=== PATIENT | female | born 1950 | race African-American/Black ===

== ENCOUNTER 2019-06-18 21:11 | Emergency (ER) | payer MEDICARE ==
--- NOTE | 2019-06-18 21:24 | ER Document Report ---
ED Medical Screen (RME) - General Chief Complaint: Rectal Bleeding Stated Complaint: RECTAL BLEEDING Time Seen by Provider: 06/18/19 21:18 Mode of Arrival: Ambulatory Information source: Patient Notes: 68-year-old female presents to ED for rectal bleeding. She states this morning she had a stool that was dark with a lot of blood in the stool. She states later in the day she had another stool that had research biostatistician amount of blood in it and then tonight she had another dark stool with a lot of blood and that scared her so she came to the emergency room. She states she had a colonoscopy she t hinks it was last year and it was fine has never had blood in her stool before. He has a history of high blood pressure diabetes has had a hysterectomy and a surgery on her eyes as a child. She denies any nausea vomiting or abdominal pain. I have greeted and performed a rapid initial assessment of this patient. A comprehensive ED assessment and evaluation of the patient, analysis of test res ults and completion of medical decision making process will be conducted by an additional ED providers. Physical Exam - Vital signs Vitals: Temp Pulse Resp BP Pulse Ox 98.1 F 114 H 12 159/112 H 100 06/18/19 21:15 06/18/19 21:15 06/18/19 21:15 06/18/19 21:15 06/18/19 21:15 Course - Vital Signs Vital signs: Temp Pulse Resp BP Pulse Ox 98.1 F 114 H 12 159/112 H 100 06/18/19 21:15 06/18/19 21:15 06/18/19 21:15 06/18/19 21:15 06/18/19 21:15
[2019-06-18 22:21] LABS: ABSOLUTE BASOPHILS # (AUTO) 0.1 10^3/uL (0.0-0.2); ABSOLUTE EOSINOPHILS # (AUTO) 0.2 10^3/uL (0.0-0.6); ABSOLUTE MONOCYTES (AUTO) 0.5 10^3/uL (0.1-1.4); ABSOLUTE NEUT (AUTO) 4.7 10^3/uL (1.7-8.2); BASOPHILS % (AUTO) 0.7 % (0-2); EOSINOPHILS % (AUTO) 3.2 % (0-6); HEMATOCRIT 40.9 % (36.0-47.0); HEMOGLOBIN 13.9 g/dL (12.0-15.5); LYMPHOCYTES % (AUTO) 26.7 % (13-45); MEAN CORPUSCULAR HEMOGLOBIN 29.7 pg (27.0-33.4); MEAN CORPUSCULAR HGB CONC 34.1 g/dL (32.0-36.0); MEAN CORPUSCULAR VOLUME 87 fl (80-97); MONOCYTES % (AUTO) 6.6 % (3-13); PLATELET COUNT 244 10^3/uL (150-450); RED CELL DISTRIBUTION WIDTH 14.6 % (11.5-14.0); SEGMENTED NEUTROPHILS % (AUTO) 62.8 % (42-78); TOTAL CELLS COUNTED % (AUTO) 100 %; WHITE BLOOD COUNT 7.5 10^3/uL (4.0-10.5)
[2019-06-18 22:27] LABS: APPEARANCE,URINE SLIGHTLY-CLOUDY; BILIRUBIN,URINE NEGATIVE (NEGATIVE); COLOR,URINE YELLOW; GLUCOSE, URINE NEGATIVE (NEGATIVE); KETONES,URINE NEGATIVE (NEGATIVE); PROTEIN,URINE NEGATIVE (NEGATIVE); URINE SPECIFIC GRAVITY 1.023; UROBILINOGEN,URINE NEGATIVE mg/dL (<2.0)
[2019-06-18 22:32] LABS: INTERNATIONAL RATION (INR) 1.04; PROTHROMBIN TIME 13.6 SEC (11.4-15.4)
[2019-06-18 22:33] LABS: PARTIAL THROMBOPLASTIN TIME 30.2 SEC (23.5-35.8)
[2019-06-18] MEDS ORDERED: NORMAL SALINE 1000 ML 1,000 ML IV ONE (22:38)
--- NOTE | 2019-06-18 22:44 | ER Document Report ---
ED General - General Chief Complaint: Rectal Bleeding Stated Complaint: RECTAL BLEEDING Time Seen by Provider: 06/18/19 21:18 Mode of Arrival: Ambulatory - HPI Notes: Patient is a 68-year-old female who presents the emergency department for evaluation of rectal bleeding. Patient states she woke this morning, thought she was going to have some diarrhea. She had a large bowel movement that was dark in color, loose, with bright red blood. She denied any associated pain with it. She states she had a second bowel movement later in the afternoon with less blood, and the stool was formed, not as dark. She had a third bowel movement later in the evening but she states again had a large amount of dark red blood and loose stool. She states she did have some minimal left-sided abdominal pain associated with this. She really cannot describe it for me. No chantel fevers or chills. No nausea or vomiting. She had a colonoscopy 1 to 2 years ago. She states she was told there were no significant abnormalities. - Related Data Allergies/Adverse Reactions: Penicillins Adverse Reaction (Verified 06/18/19 21:24) Home Medications: Losartan, unknown dose daily, aspirin 325 mg as needed Past Medical History - General Information source: Patient - Social History Smoking Status: Never Smoker Chew tobacco use (# tins/day): No Frequency of alcohol use: None Drug Abuse: None Family History: Reviewed & Not Pertinent Patient has suicidal ideation: No Patient has homicidal ideation: No - Past Medical History Cardiac Medical History: Reports: Hx Hypertension Review of Systems - Review of Systems Constitutional: No symptoms reported EENT: No symptoms reported Cardiovascular: No symptoms reported Respiratory: No symptoms reported Gastrointestinal: See HPI Genitourinary: No symptoms reported Musculoskeletal: No symptoms reported Skin: No symptoms reported Neurological/Psychological: No symptoms reported Physical Exam - Vital signs Vitals: Temp Pulse Resp BP Pulse Ox 98.1 F 114 H 12 159/112 H 100 06/18/19 21:15 06/18/19 21:15 06/18/19 21:15 06/18/19 21:15 06/18/19 21:15 - Notes Notes: Vital signs reviewed, please refer to chart. Head is normocephalic, atraumatic. Pupils equal round, reactive to light. Neck is supple without meningismus. Heart is regular rate and rhythm. Lungs are clear to auscultation bilaterally. Abdomen is soft, moderate tenderness in the left mid to lower quadrants without rebound or guarding, normoactive bowel sounds throughout. Extremities without cyanosis, clubbing. Posterior calves are nontender. Peripheral pulses are equal. Skin is warm and dry. Patient is awake, alert, neurological exam is nonfocal. Course - Re-evaluation Re-evalutation: 06/18/19 22:43 Patient presents emergency department for evaluation of rectal bleeding. She is mildly tachycardic on arrival. She had blood work ordered, including coags. CT scan of the abdomen and pelvis ordered secondary to tenderness and bleeding. She is given IV fluids. We will continue to monitor. 06/19/19 02:43 Patient remained stable throughout the course of her stay. Serial abdominal exams are benign. She did provide a stool sample which was in fact found to be heme negative. CT scan revealed only diverticulosis. Her hemoglobin is stable. Patient had a colonoscopy 2 years ago. At this point I feel comfortable with the patient being discharged to home. She denies any melena, has had no further hematochezia here. Patient feels comfortable with the idea of discharge. To the patient if she had any further bloody bowel movements she needs to return, and she voiced understanding. She is to return to the ED with worsening. - Vital Signs Vital signs: Temp Pulse Resp BP Pulse Ox 98.1 F 107 H 17 155/110 H 99 06/18/19 21:15 06/18/19 21:23 06/18/19 22:18 06/18/19 21:23 06/18/19 22:18 - Laboratory Result Diagrams: 06/18/19 21:50 06/18/19 21:50 Laboratory results interpreted by me: 06/18/19 06/18/19 06/18/19 21:50 21:50 21:50 RDW 14.6 H Glucose 156 H Urine Blood SMALL H - Diagnostic Test Radiology reviewed: Reports reviewed Radiology results interpreted by me: 06/19/19 02:44 06/18/19 21:50 06/18/19 21:50 MCV 87 fl (80-97) 06/18/19 21:50 MCH 29.7 pg (27.0-33.4) 06/18/19 21:50 MCHC 34.1 g/dL (32.0-36.0) 06/18/19 21:50 RDW 14.6 % (11.5-14.0) H 06/18/19 21:50 Seg Neutrophils % 62.8 % (42-78) 06/18/19 21:50 Chloride 103 mmol/L (98-107) 06/18/19 21:50 Carbon Dioxide 28 mmol/L (22-30) 06/18/19 21:50 Anion Gap 9 (5-19) 06/18/19 21:50 Est GFR ( Amer) > 60 (>60) 06/18/19 21:50 Glucose 156 mg/dL (75-110) H 06/18/19 21:50 Calcium 9.5 mg/dL (8.4-10.2) 06/18/19 21:50 Total Bilirubin 0.5 mg/dL (0.2-1.3) 06/18/19 21:50 AST 29 U/L (14-36) 06/18/19 21:50 Alkaline Phosphatase 94 U/L (38-126) 06/18/19 21:50 Total Protein 7.7 g/dL (6.3-8.2) 06/18/19 21:50 Albumin 4.5 g/dL (3.5-5.0) 06/18/19 21:50 Lipase 138.0 U/L (23-300) 06/18/19 21:50 Urine Color YELLOW 06/18/19 21:50 Urine Appearance SLIGHTLY-CLOUDY 06/18/19 21:50 Urine pH 5.0 (5.0-9.0) 06/18/19 21:50 Ur Specific [place] 1.023 06/18/19 21:50 Urine Protein NEGATIVE mg/dL (NEGATIVE) 06/18/19 21:50 Urine Glucose (UA) NEGATIVE mg/dL (NEGATIVE) 06/18/19 21:50 Urine Ketones NEGATIVE mg/dL (NEGATIVE) 06/18/19 21:50 Urine Blood SMALL (NEGATIVE) H 06/18/19 21:50 Urine RBC (Auto) 0 /HPF 06/18/19 21:50 Blood Type A POSITIVE 06/18/19 21:50 Antibody Screen NEGATIVE 06/18/19 21:50 Abdomen/Pelvis CT 06/18/19 22:37 IMPRESSION: Extensive distal colonic diverticulosis without definite diverticulitis. Discharge - Discharge Clinical Impression: Rectal bleeding, Diverticulosis of colon Condition: Stable Disposition: HOME, SELF-CARE Instructions: Rectal Bleeding, Unclear Cause ([facility]) Additional Instructions: Follow-up with your primary care provider on Friday. If you have another episode of bleeding, or you develop new or concerning symptoms of any sort, please return immediately to the emergency department for evaluation.
[2019-06-18 22:48] LABS: ALBUMIN 4.5 g/dL (3.5-5.0); ALKALINE PHOSPHATASE 94 U/L (38-126); ANION GAP 9 (5-19); ASPARTATE AMINO TRANSFERASE 29 U/L (14-36); BILIRUBIN,DIRECT 0.2 mg/dL (0.0-0.4); BILIRUBIN,TOTAL 0.5 mg/dL (0.2-1.3); BLOOD UREA NITROGEN 16 mg/dL (7-20); CALCIUM 9.5 mg/dL (8.4-10.2); CARBON DIOXIDE 28 mmol/L (22-30); CHLORIDE 103 mmol/L (98-107); GLUCOSE 156 mg/dL (75-110); TOTAL PROTEIN 7.7 g/dL (6.3-8.2)
--- NOTE | 2019-06-18 23:54 | RADIOLOGY REPORT (SQ) ---
CLINICAL HISTORY: rectal bleeding, abdominal tenderness COMPARISON: None. TECHNIQUE: CT ABDOMEN PELVIS WITH IV CONTRAST on 06/18/2019 10:37 PM CDT This exam was performed according to our departmental dose-optimization program, which includes automated exposure control, adjustment of the mA and/or kV according to patient size and/or use of iterative reconstruction technique. FINDINGS: Lower lungs are clear. Abdomen: There are several small cysts within the right lobe of the liver. There is no biliary dilatation. Gallbladder is normal in appearance. The pancreas and spleen are normal in appearance. The adrenal glands and kidneys are unremarkable. Abdominal aorta is normal in course and caliber without aneurysm. There is no free air. There is no retroperitoneal adenopathy. Pelvis: There is severe diverticulosis of the distal colon. There is moderate amount stool throughout the colon. Urinary bladder is unremarkable. There is no free fluid. Hysterectomy was performed. Appendix is normal. Skeleton: There are no acute osseous findings. No suspicious bony lesions. IMPRESSION: Extensive distal colonic diverticulosis without definite diverticulitis.
[2019-06-19 02:56] VITALS: BP 144/105
== END 2019-06-19 02:55 | disposition home or self-care (01) ==
LOC: ER 21:11
DX: K62.5 Hemorrhage of anus and rectum (principal); K57.30 Diverticulosis of large intestine without perforation or abscess without bleeding; R19.4 Change in bowel habit; R10.9 Unspecified abdominal pain; R10.814 Left lower quadrant abdominal tenderness; R00.0 Tachycardia, unspecified; I10 Essential (primary) hypertension; Z79.899 Other long term (current) drug therapy
CPT/HCPCS: 86900; 86901; 36415; 86850; 83690; 85025; 85610; 85730; 80053; 81001; 74177; J7030; 96360; 96361; 99284

== ENCOUNTER → 2019-10-15 | Outpatient (CLI) | payer MEDICARE | LOC: WI 15:30 | PROVIDERS: ATTEND Family Medicine | DX: Z12.31 Encounter for screening mammogram for malignant neoplasm of breast (principal) | CPT/HCPCS: 77063; 77067 ==

== ENCOUNTER 2019-11-21 13:57 | Inpatient (IN) | payer MEDICARE ==
[2019-11-21 14:41] LABS: ABSOLUTE LYMPHOCYTES (AUTO) 0.7 10^3/uL (0.5-4.7); ABSOLUTE MONOCYTES (AUTO) 0.4 10^3/uL (0.1-1.4); ABSOLUTE NEUT (AUTO) 5.5 10^3/uL (1.7-8.2); BASOPHILS % (AUTO) 0.1 % (0-2); EOSINOPHILS % (AUTO) 0.1 % (0-6); HEMATOCRIT 41.1 % (36.0-47.0); HEMOGLOBIN 14.3 g/dL (12.0-15.5); LYMPHOCYTES % (AUTO) 9.8 % (13-45); MEAN CORPUSCULAR HEMOGLOBIN 28.8 pg (27.0-33.4); MEAN CORPUSCULAR HGB CONC 34.7 g/dL (32.0-36.0); MEAN CORPUSCULAR VOLUME 83 fl (80-97); MONOCYTES % (AUTO) 6.6 % (3-13); PLATELET COUNT 198 10^3/uL (150-450); RED BLOOD COUNT 4.95 10^6/uL (3.72-5.28); RED CELL DISTRIBUTION WIDTH 14.1 % (11.5-14.0); SEGMENTED NEUTROPHILS % (AUTO) 83.4 % (42-78); TOTAL CELLS COUNTED % (AUTO) 100 %; WHITE BLOOD COUNT 6.6 10^3/uL (4.0-10.5)
[2019-11-21 14:56] LABS: ALBUMIN 3.8 g/dL (3.5-5.0); ALKALINE PHOSPHATASE 78 U/L (38-126); ANION GAP 8 (5-19); ASPARTATE AMINO TRANSFERASE 81 U/L (14-36); BILIRUBIN,DIRECT 0.1 mg/dL (0.0-0.4); BILIRUBIN,TOTAL 0.9 mg/dL (0.2-1.3); BLOOD UREA NITROGEN 16 mg/dL (7-20); CALCIUM 8.5 mg/dL (8.4-10.2); CARBON DIOXIDE 28 mmol/L (22-30); CHLORIDE 98 mmol/L (98-107); GLUCOSE 196 mg/dL (75-110); POTASSIUM 4.2 mmol/L (3.6-5.0); TOTAL PROTEIN 7.1 g/dL (6.3-8.2)
[2019-11-21 15:02] LABS: A TYPE INFLUENZA AG NEGATIVE (NEGATIVE); B INFLUENZA AG NEGATIVE (NEGATIVE)
[2019-11-21] MEDS ORDERED: ACETAMINOPHEN 325 MG TABLET PO ONE (15:03)
[2019-11-21] MEDS ORDERED: TERBUTALINE SULFATE INJ/PF 1 MG/1 ML SDV SUBCUT ONE (15:03)
[2019-11-21] MEDS ORDERED: NORMAL SALINE 1000 ML 1,000 ML IV ONE (15:05)
--- NOTE | 2019-11-21 15:07 | ER Document Report ---
ED Dizziness/Weakness - General Chief Complaint: Weakness Stated Complaint: SHORTNESS OF BREATH Time Seen by Provider: 11/21/19 14:50 Primary Care Provider: NY LANDON MD [Primary Care Provider] - Follow up as needed Notes: Patient is a 69-year-old female who presents the emergency department with weakness and shortness of breath. Patient has a history of asthma and hypertension. She is currently on losartan and albuterol as needed. She states that she went to [place] for and flew back 2 days ago. This is during the COVID 19 pandemic. Patient states that she has been using her albuterol inh aler, but has had little relief. Last time she used her albuterol inhaler was yesterday. Patient reports feeling "rundown." TRAVEL OUTSIDE OF THE [place] IN LAST 30 DAYS: No - Related Data Allergies/Adverse Reactions: Penicillins Adverse Reaction (Verified 06/18/19 21:24) Home Medications: pt states that she is on metformin and "others for my cholesterol and high blood pressure but I dont remember the names". Past Medical History - General Information source: Patient - Social History Smoking Status: Unknown if Ever Smoked Family History: Reviewed & Not Pertinent Patient has suicidal ideation: No Patient has homicidal ideation: No - Past Medical History Cardiac Medical History: Reports: Hx Hypertension Review of Systems - Review of Systems Notes: REVIEW OF SYSTEMS: CONSTITUTIONAL : Denies recent illness. Denies recent unintentional weight loss. Denies fever, chills, or sweats. EENT: Denies eye, ear, throat, or mouth pain, discharge, or symptoms. Denies nasal or sinus congestion. CARDIOVASCULAR: Denies chest pain. RESPIRATORY: See HPI. GASTROINTESTINAL: Denies nausea, vomiting, and diarrhea. Denies abdominal pain. Denies constipation. GENITOURINARY: Denies difficulty urinating, burning, blood in urine, urgency or frequency. MUSCULOSKELETAL: Denies neck and back pain. Denies joint pain or swelling. SKIN: Denies rash, itchiness, or lesions HEMATOLOGIC : Denies easy bruising or bleeding. LYMPHATIC: Denies swollen, painful, enlarged glands. NEUROLOGICAL: See HPI. PSYCHIATRIC: Denies stress, anxiety, alteration in sleep patterns, or depression. All other systems reviewed and negative. Physical Exam - Vital signs Vitals: Resp Pulse Ox 22 H 95 11/21/19 13:58 11/21/19 13:58 - Notes Notes: PHYSICAL EXAMINATION: GENERAL: Appears well, healthy, well-nourished, no acute distress. HEAD: Normocephalic, atraumatic. EYES: PERRL, conjunctiva normal, all extraocular movements intact, sclera nonicteric ENT: Moist mucous membranes. NECK: Supple, no noticeable swelling, redness, rash. Normal range of motion. LUNGS: Diminished breath sounds in the bases. CARDIOVASCULAR: S1-S2, regular rate, regular rhythm. Radial pulses 2+, normal. ABDOMEN: Normoactive bowel sounds. Soft, nontender, no guarding, no rebound tenderness, and no masses palpated. EXTREMITIES: Normal strength and range of motion, no pitting or edema. No cyanosis. NEUROLOGICAL: Moves all extremities upon command. Strength 5/5 in all extremities. PSYCH: Normal mood, normal affect. SKIN: Warm, dry. No rash, lesions, ulcerations noted. Normal skin turgor. Course - Re-evaluation Re-evalutation: 11/21/19 16:00 Patient's hematology does not show leukocytosis, but she does have a left shift with 83.4% neutrophils and only 9.8 lymphocytes. Chemistries show a sodium of 134.4. Patient received IV fluids. AST and ALT are elevated, most likely due to fatty liver disease. Strep and influenza test are negative. Chest x-ray shows possible pulmonary edema, infectious, or viral etiology. BNP is normal, indicating this is most likely not congestive heart failure. Patient will be sent for CTA of the chest to also rule out pulmonary emboli, as the patient is tachycardic. 11/21/19 17:31 I was called by Dr. Brooks, the radiologist. She reports to me that the patient has groundglass opacities, consistent with most likely COVID 19. Will call the hospitalist for admission, as the patient is still tachycardic. 11/21/19 17:38 I discussed this case with Dr. Patino, the hospitalist, and the patient will be admitted to the medical COVID unit. - Vital Signs Vital signs: Temp Pulse Resp BP Pulse Ox 98.9 F 23 H 128/80 H 100 11/21/19 16:31 11/21/19 16:01 11/21/19 16:01 11/21/19 16:01 - Laboratory Result Diagrams: 11/21/19 14:00 11/21/19 14:00 Laboratory results interpreted by me: 11/21/19 11/21/19 14:00 14:00 RDW 14.1 H Lymph % (Auto) 9.8 L Seg Neutrophils % 83.4 H Sodium 134.4 L Glucose 196 H AST 81 H ALT 44 H - EKG Interpretation by Me Additional EKG results interpreted by me: 11/21/19 15:35 Sinus tachycardia. Rate 101. OH 136; QRS 86; QT 352; QTc 457. No ST elev ations or depressions noted. Discharge - Discharge Clinical Impression: Shortness of breath, Weakness Condition: Stable Disposition: ADMITTED INPATIENT Admitting Provider: [facility] Unit Admitted: Medical Floor - COVID unit Referrals: NY LANDON MD [Primary Care Provider] - Follow up as needed
--- NOTE | 2019-11-21 16:04 | RADIOLOGY REPORT (SQ) ---
EXAM DESCRIPTION: CHEST SINGLE VIEW IMAGES COMPLETED DATE/TIME: 11/21/2019 2:39 pm REASON FOR STUDY: shortness of breath COMPARISON: None. EXAM PARAMETERS: NUMBER OF VIEWS: One view. TECHNIQUE: Single frontal radiographic view of the chest acquired. RADIATION DOSE: NA LIMITATIONS: None. FINDINGS: LUNGS AND PLEURA: Patchy peripheral opacities in both lungs in the mid to lower region. N o pleural effusion or pneumothorax. MEDIASTINUM AND HILAR STRUCTURES: No masses. Contour normal. HEART AND VASCULAR STRUCTURES: Heart has normal size. There is indistinctness the pulmonary vasculat ure with may represent mild pulmonary edema. BONES: No acute findings. HARDWARE: None in the chest. OTHER: No other significant finding. IMPRESSION: Possible mild pulmonary edema. Patchy peripheral opacities suspicious for infectious/in flammatory process. TECHNICAL DOCUMENTATION: JOB ID: [id number] 2010 [employer]- All Rights Reserved Reading location - IP/workstation name: [email or web address]
[2019-11-21] MEDS ORDERED: AZITHROMYCIN INJ 500 MG VIAL IV ONE (16:43)
--- NOTE | 2019-11-21 17:22 | RADIOLOGY REPORT (SQ) ---
EXAM DESCRIPTION: CTA CHEST IMAGES COMPLETED DATE/TIME: 11/21/2019 3:56 pm REASON FOR STUDY: SOB; please also eval findings on x-ray. Patchy peripheral opacities were seen on radiograph. COMPARISON: None. TECHNIQUE: CT scan of the chest performed using helical scanning technique with dynamic intravenous contrast injection. Images reviewed with lung, soft tissue and bone windows. Reconstructed coronal and sagittal MPR images reviewed. Additional 3 dimensional post-processing performed to develop Maximal Intensity Projection images (TX P). All images stored on PACS. All CT scanners at this facility use dose modulation, iterative reconstruction, and/or weight based d osing when appropriate to reduce radiation dose to as low as reasonably achievable (ALARA). [facility]: Dose Right [facility]: CareDose [facility]: Dose Right [facility]: Teradose 4D [facility]: Unii CONTRAST TYPE AND DOSE: contrast/concentration: Isovue 350.00 mg/ml; Total Contrast Delivered: 63.0 ml; Total Saline Delivered: 80.0 ml Contrast bolus optimized for the pulmonary arteries. Not diagnostic for the aorta. RENAL FUNCTION: GFR > 60. RADIATION DOSE: CT Rad equipment meets quality standard of care and radiation dose reduction techniq ues were employed. CTDIvol: 14.3 - 19.8 mGy. DLP: 414 mGy-cm. . LIMITATIONS: None. FINDINGS: LUNGS AND PLEURA: There are patchy peripheral and perihilar ground-glass opacities in the upper and lower lobes bilaterally. No pleural effusion. No pneumothorax. AORTA AND GREAT VESSELS: Aorta has normal caliber and appearance. No aortic dissection. Great vesse ls are patent. HEART: No pericardial effusion. No significant coronary artery calcifications. PULMONARY ARTERIES: Limited evaluation of the pulmonary arteries due to contrast bolus timing. No la rge central pulmonary embolism. Evaluation of the segmental and subsegmental pulmonary arteries is e xtremely limited. HILAR AND MEDIASTINAL STRUCTURES: No mediastinal or hilar adenopathy. Perihilar opacities correspond to the findings on radiograph. HARDWARE: None in the chest. UPPER ABDOMEN: Hepatic cysts. THYROID AND OTHER SOFT TISSUES: No masses. No adenopathy. BONES: No acute or significant finding. 3D MIPS: Confirm above findings. OTHER: No other significant finding. IMPRESSION: 1. Patchy peripheral and perihilar ground-glass opacities in both lungs. These are commonly reported imaging features of COVID-19 pneumonia are present. Other processes such as influenza pneumonia an d organizing pneumonia, as can be seen with drug toxicity and connective tissue disease, can cause a similar imaging pattern. PneTyp 2. Limited evaluation of the pulmonary arteries due to contrast bolus timing. No large central pulmo nary embolus. Evaluation of the segmental and subsegmental pulmonary arteries is limited. COMMENT: Quality ID # [id number]: Final reports with documentation of one or more dose reduction techniques (e.g., Automated exposure control, adjustment of the mA and/or kV according to patient size, use of iterative reconstruction technique) TECHNICAL DOCUMENTATION: JOB ID: [id number] 2010 [employer]- All Rights Reserved Reading location - IP/workstation name: [email or web address]
[2019-11-21] MEDS ORDERED: ZINC SULFATE 220 MG CAPSULE PO ONE (17:40)
[2019-11-21] MEDS ORDERED: VANCOMYCIN HCL INJ 1000 MG VIAL IV ONE (18:45)
[2019-11-21] MEDS: ASCORBIC ACID 500 MG TABLET PO SCH (18:57)
[2019-11-21] MEDS ORDERED: ONDANSETRON 4 MG TAB.RAPDIS PO PRN (19:12)
[2019-11-21] MEDS ORDERED: ONDANSETRON HCL INJ/PF 4 MG/2 ML SDV IV PRN (19:12)
[2019-11-21] MEDS ORDERED: ALBUTEROL SULFATE HFA (90 MCG/PUFF) 8 GM MDI IH PRN (19:19)
--- NOTE | 2019-11-21 19:33 | PDOC H&P ---
History of Present Illness Admission Date/PCP: 11/21/19 17:47 [place] LANDON MD History of Present Illness: ANAMIKA ACEVES is a 69 year old female with past medical history as noted who presented to ED after 4-day history of progressive fever/chills/shortness of breath/dry cough/fatigue/generalized weakness/loose stools which began while she was in [place] visiting with family for her brother's , stating she flew out on 10/31 and returned on 11/17, notably symptomatic prior to her departure. She denies any knowledge that her family members or other people around her have also been ill. She states the airport did not offer her any difficulties in accomplishing this travel despite restrictions nationwide. In ED, patient notably has low-grade fevers, tachycardia, tachypnea, shortness of breath, lymphopenia with normal WBC, tolerating room air without supplemental oxygen. CTA of chest was done which was significant for multifocal pneumonia and radiologist specifically mentioned patient results highly consistent with covid- 19 pneumonia. Patient admitted to coronavirus floor and I personally updated nursing staff but anticipates her arrival so that they may prepare therapy PPE appropriately. I also notified the nursing printing supervisor and the local steam distribution supervisor that they should reevaluate any low risk patients on the coronavirus floor that could be moved elsewhere or discharged. Past Medical History Cardiac Medical History: Reports: Hypertension Pulmonary Medical History: Reports: Asthma Endocrine Medical History: Reports: Diabetes Mellitus Type 2 Past Surgical History Past Surgical History: Reports: None Social History Information Source: Patient, Emergency Med Personnel Lives with: Alone Smoking Status: Never Smoker Electronic Cigarette use?: No Frequency of Alcohol Use: None Hx Recreational Drug Use: No Hx Prescription Drug Abuse: No - Advance Directive Resuscitation Status: Full Code Surrogate healthcare decision maker:: daughter Family History Family History: Reviewed & Not Pertinent, CVA, Malignancy Parental Family History Reviewed: Yes Children Family History Reviewed: Yes Sibling(s) Family History Reviewed.: Yes Medication/Allergy Home Medications: Aspirin [Aspirin 325 mg Tablet] 325 mg PO DAILY PRN 06/18/19 Losartan Potassium 1 tab PO DAILY 06/18/19 Allergies/Adverse Reactions: Penicillins Adverse Reaction (Verified 06/18/19 21:24) Review of Systems All systems: reviewed and no additional remarkable complaints except as stated - See HPI for full review of systems, otherwise negative Constitutional: PRESENT: as per HPI Physical Exam Vital Signs: Temp Pulse Resp BP Pulse Ox 98.3 F 16 161/102 H 98 11/21/19 19:10 11/21/19 19:01 11/21/19 19:01 11/21/19 19:01 Intake & Output 11/20/19 11/21/19 11/22/19 06:59 06:59 06:59 Intake Total 1000 Balance 1000 Weight 85.729 kg General appearance: PRESENT: no acute distress, well-developed, well-nourished Head exam: PRESENT: atraumatic, normocephalic Eye exam: PRESENT: conjunctiva pink Mouth exam: PRESENT: moist Respiratory exam: PRESENT: crackles, rhonchi, tachypnea, unlabored. ABSENT: accessory muscle use, wheezes Cardiovascular exam: PRESENT: RRR. ABSENT: diastolic murmur, rubs, systolic murmur GI/Abdominal exam: PRESENT: normal bowel sounds, soft. ABSENT: distended, guarding, mass, organolmegaly, rebound, tenderness Rectal exam: PRESENT: deferred Neurological exam: PRESENT: alert, awake, oriented to person, oriented to place, oriented to time, oriented to situation Psychiatric exam: PRESENT: appropriate affect, normal mood Skin exam: PRESENT: dry, intact, warm Results Laboratory Results: 11/21/19 14:00 11/21/19 14:00 11/21/19 11/21/19 11/21/19 14:00 14:00 17:50 WBC 6.6 RBC 4.95 Hgb 14.3 Hct 41.1 MCV 83 MCH 28.8 MCHC 34.7 RDW 14.1 H Plt Count 198 Seg Neutrophils % 83.4 H Sodium 134.4 L Potassium 4.2 Chloride 98 Carbon Dioxide 28 Anion Gap 8 BUN 16 Creatinine 0.75 Est GFR ( Amer) > 60 Glucose 196 H Calcium 8.5 Ferritin 641.00 H Total Bilirubin 0.9 AST 81 H Alkaline Phosphatase 78 Total Protein 7.1 Albumin 3.8 11/21/19 14:00 NT-Pro-B Natriuret Pep 32 Impressions: Chest X-Ray 11/21/19 15:03 IMPRESSION: Possible mild pulmonary edema. Patchy peripheral opacities suspicious for infectious/inflammatory process. Chest/Abdomen CTA 11/21/19 16:08 IMPRESSION: 1. Patchy peripheral and perihilar ground-glass opacities in both lungs. These are commonly reported imaging features of COVID-19 pneumonia are present. Other processes such as influenza pneumonia and organizing pneumonia, as can be seen with drug toxicity and connective tissue disease, can cause a similar imaging pattern. PneTyp 2. Limited evaluation of the pulmonary arteries due to contrast bolus timing. No large central pulmonary embolus. Evaluation of the segmental and subse gmental pulmonary arteries is limited. Assessment and Plan - Diagnosis (1) Suspected COVID-19 virus infection Is this a current diagnosis for this admission?: Yes Plan: High risk based on recent travel symptomatology and CT results Coronavirus test sent and pending Started on azithromycin and multiple supplements, consider adding Plaquenil at the first sign of worsening (2) Multifocal pneumonia Is this a current diagnosis for this admission?: Yes Plan: Ceftriaxone/azithromycin for antibiotic coverage; confirmed with patient that she is not in fact penicillin allergic Bronchial hygiene No nebulizer treatments or positive pressure should be used until coronavirus is ruled out Respiratory viral panel pending Influenza negative Coronavirus test pending (3) Sepsis Is this a current diagnosis for this admission?: Yes Plan: Eating drinking normally and hemodynamically stable on admission We will hold on IV fluids as this may significantly worsen ARDS if patient develops this later in the course of coronavirus assuming she has it Does not require pressors Antibiotics as above (4) T2DM (type 2 diabetes mellitus) Qualifiers: Diabetes mellitus superintendent terminal insulin use: without superintendent terminal use Diabetes mellitus complication status: without complication Qualified Code(s): E11.9 - Type 2 diabetes mellitus without complications Is this a current diagnosis for this admission?: Yes Plan: Low-dose correctional insulin and Accu-Cheks Hold orals (5) HLD (hyperlipidemia) Is this a current diagnosis for this admission?: Yes Plan: Not on statin per patient (6) HTN (hypertension) Is this a current diagnosis for this admission?: Yes Plan: Hold home meds, normal BP (7) Fever Is this a current diagnosis for this admission?: Yes (8) Acute hypoxemic respiratory failure Is this a current diagnosis for this admission?: Yes Plan: Intermittently requiring supplemental oxygen Oxygen goal is 92% or higher - Time Time Spent with patient: 35 or more minutes Medications reviewed and adjusted accordingly: Yes - Inpatient Certification Based on my medical assessment, after consideration of the patient's comorbidities, presenting symptoms, or acuity I expect that the services needed warrant INPATIENT care.: Yes I certify that my determination is in accordance with my understanding of Medicare's requirements for reasonable and necessary INPATIENT services [42 CFR 412.3e].: Yes Medical Necessity: Significant Comorbidiites Make Outpatient Treatment Too Risky, Need Close Monitoring Due to Risk of Patient Decompensation, Need for IV Antibiotics, Risk of Complication if Not Cared For in Hospital
--- NOTE | 2019-11-21 19:33 | ADVANCED CARE ---
- Diagnosis (1) Suspected COVID-19 virus infection Diagnosis Current: Yes (2) Multifocal pneumonia Diagnosis Current: Yes (3) Sepsis Diagnosis Current: Yes (4) T2DM (type 2 diabetes mellitus) Diagnosis Current: Yes (5) HLD (hyperlipidemia) Diagnosis Current: Yes (6) HTN (hypertension) Diagnosis Current: Yes (7) Fever Diagnosis Current: Yes (8) Acute hypoxemic respiratory failure Diagnosis Current: Yes Attendance: Patient Resuscitation Status: Full Code Discussion: All aspects of CODE STATUS including cardioversion, chest compressions, intubation were discussed and patient states she would like to be full code. She designates her daughter Dolly Edwards as her M POA Time Spent: 17 minutes
[2019-11-21] MEDS ORDERED: ZINC SULFATE 220 MG CAPSULE ONE (21:11)
[2019-11-21] MEDS: INSULIN LISPRO 100 UNIT/ML 3 ML VIAL SUBCUT SCH (21:14)
[2019-11-21] MEDS: MELATONIN 3 MG TABLET PO SCH (21:16)
[2019-11-21] MEDS ORDERED: CEFTRIAXONE 2 GM/D5W RTU 2 GM/50 ML RTUPB IV SCH (22:00)
--- NOTE | 2019-11-22 00:13 | EKG REPORT ---
SEVERITY:- ABNORMAL ECG - SINUS TACHYCARDIA PROBABLE LEFT ATRIAL ABNORMALITY LEFT ANTERIOR FASCICULAR BLOCK PROBABLE LEFT VENTRICULAR HYPERTROPHY ABNORMAL T, CONSIDER ISCHEMIA, INFERIOR LEADS : Confirmed by: Jina Dow 22-Nov-2019 00:12:24
[2019-11-22] MEDS: ACETAMINOPHEN 325 MG TABLET PO PRN ×4 (03:41→23:13)
[2019-11-22] MEDS: GUAIFENESIN SYRP 200 MG/10 ML UDC PO PRN (04:02)
[2019-11-22 05:55] LABS: ABSOLUTE LYMPHOCYTES (AUTO) 0.5 10^3/uL (0.5-4.7); ABSOLUTE MONOCYTES (AUTO) 0.3 10^3/uL (0.1-1.4); ABSOLUTE NEUT (AUTO) 4.9 10^3/uL (1.7-8.2); BASOPHILS % (AUTO) 0.2 % (0-2); EOSINOPHILS % (AUTO) 0.1 % (0-6); HEMATOCRIT 35.6 % (36.0-47.0); HEMOGLOBIN 12.6 g/dL (12.0-15.5); LYMPHOCYTES % (AUTO) 9.3 % (13-45); MEAN CORPUSCULAR HEMOGLOBIN 29.2 pg (27.0-33.4); MEAN CORPUSCULAR HGB CONC 35.5 g/dL (32.0-36.0); MEAN CORPUSCULAR VOLUME 82 fl (80-97); MONOCYTES % (AUTO) 5.6 % (3-13); PLATELET COUNT 206 10^3/uL (150-450); RED BLOOD COUNT 4.33 10^6/uL (3.72-5.28); RED CELL DISTRIBUTION WIDTH 14.2 % (11.5-14.0); SEGMENTED NEUTROPHILS % (AUTO) 84.8 % (42-78); TOTAL CELLS COUNTED % (AUTO) 100 %; WHITE BLOOD COUNT 5.8 10^3/uL (4.0-10.5)
[2019-11-22] MEDS ORDERED: VANCOMYCIN HCL INJ 1000 MG VIAL IV SCH ×2 (06:00→16:30)
[2019-11-22 06:14] LABS: ALBUMIN 3.1 g/dL (3.5-5.0); ALKALINE PHOSPHATASE 64 U/L (38-126); ANION GAP 5 (5-19); ASPARTATE AMINO TRANSFERASE 66 U/L (14-36); BILIRUBIN,DIRECT 0.3 mg/dL (0.0-0.4); BILIRUBIN,TOTAL 0.6 mg/dL (0.2-1.3); BLOOD UREA NITROGEN 10 mg/dL (7-20); CALCIUM 8.1 mg/dL (8.4-10.2); CARBON DIOXIDE 27 mmol/L (22-30); CHLORIDE 101 mmol/L (98-107); GLUCOSE 143 mg/dL (75-110); POTASSIUM 3.7 mmol/L (3.6-5.0); TOTAL PROTEIN 6.2 g/dL (6.3-8.2)
[2019-11-22] MEDS: INSULIN LISPRO 100 UNIT/ML 3 ML VIAL SUBCUT SCH ×3 (07:27→16:08)
[2019-11-22] MEDS ORDERED: ONDANSETRON HCL INJ/PF 4 MG/2 ML SDV IV PRN (09:00)
[2019-11-22] MEDS ORDERED: ONDANSETRON 4 MG TAB.RAPDIS PO PRN (09:00)
[2019-11-22] MEDS: ENOXAPARIN SODIUM INJ 40 MG/0.4 ML DISP.SYRIN SUBCUT SCH (09:10)
[2019-11-22] MEDS: ASCORBIC ACID 500 MG TABLET PO SCH ×2 (09:10→17:32)
[2019-11-22] MEDS ORDERED: AZITHROMYCIN INJ 500 MG VIAL IV SCH (10:00)
[2019-11-22] MEDS: RINGERS SOLUTION,LACTATED 1,000 ML IV PRN (15:00)
--- NOTE | 2019-11-22 15:27 | PDOC PROGRESS REPORT ---
Subjective Progress Note for:: 11/22/19 Subjective:: Patient having higher fevers of 103 this morning, persistent myalgias and mild shortness of breath ongoing. Started LR at 50 cc/h. Blood pressure is lower limit normal. Still has a dry cough. Patient states she is spoken to her family and none of her family members are currently ill, I encouraged her to continue following up with them. Coronavirus testing is still pending. Labs/symptoms/imaging are all highly suspicious for coronavirus. Patient has no new complaints today other than as mentioned above. Reason For Visit: SHORTNESS OF BREATH,WEAKNESS Physical Exam Vital Signs: Temp Pulse Resp BP Pulse Ox 100.1 F 102 H 24 H 107/81 94 11/22/19 12:06 11/22/19 11:30 11/22/19 11:30 11/22/19 11:30 11/22/19 11:30 Intake & Output 11/21/19 11/22/19 11/23/19 06:59 06:59 06:59 Intake Total 1300 260 Balance 1300 260 Weight 86.1 kg Additional comments: Physical exam extremely limited by coronavirus contact/droplet/airborne precautions in place. Patient was visually examined using video chat and audio. Head is normocephalic/atraumatic, mucous membranes moist. No accessory muscle use or retractions with breathing. Results Laboratory Results: 11/22/19 05:31 11/22/19 05:31 11/21/19 11/22/19 11/22/19 17:50 05:31 05:31 WBC 5.8 RBC 4.33 Hgb 12.6 Hct 35.6 L MCV 82 MCH 29.2 MCHC 35.5 RDW 14.2 H Plt Count 206 Seg Neutrophils % 84.8 H Sodium 133.2 L Potassium 3.7 Chloride 101 Carbon Dioxide 27 Anion Gap 5 BUN 10 Creatinine 0.63 Est GFR ( Amer) > 60 Glucose 143 H Calcium 8.1 L Magnesium 2.3 Ferritin 641.00 H Total Bilirubin 0.6 AST 66 H Alkaline Phosphatase 64 Total Protein 6.2 L Albumin 3.1 L 11/21/19 14:00 NT-Pro-B Natriuret Pep 32 Impressions: Chest X-Ray 11/21/19 15:03 IMPRESSION: Possible mild pulmonary edema. Patchy peripheral opacities suspicious for infectious/inflammatory process. Chest/Abdomen CTA 11/21/19 16:08 IMPRESSION: 1. Patchy peripheral and perihilar ground-glass opacities in both lungs. These are commonly reported imaging features of COVID-19 pneumonia are present. Other processes such as influenza pneumonia and organizing pneumonia, as can be seen with drug toxicity and connective tissue disease, can cause a similar imaging pattern. PneTyp 2. Limited evaluation of the pulmonary arteries due to contrast bolus timing. No large central pulmonary embolus. Evaluation of the segmental and subsegmental pulmonary arteries is limited. Assessment and Plan - Diagnosis (1) Suspected COVID-19 virus infection Is this a current diagnosis for this admission?: Yes Plan: High risk based on recent travel symptomatology, labs, and CT results Ferritin notably elevated, LDH notably elevated Coronavirus test sent and pending as of 11/20 Started on azithromycin and multiple supplements Consider adding Plaquenil at the first sign of worsening; discussed with christian sow, low threshold for ICU transfer if breathing worsens (2) Multifocal pneumonia Is this a current diagnosis for this admission?: Yes Plan: Ceftriaxone/azithromycin for antibiotic coverage; confirmed with patient that she is not in fact penicillin allergic Bronchial hygiene No nebulizer treatments or positive pressure should be used until coronavirus is ruled out Respiratory viral panel pending Influenza negative Coronavirus test pending (3) Sepsis Is this a current diagnosis for this admission?: Yes Plan: Eating drinking normally and hemodynamically stable on admission Added gentle IV fluids for soft blood pressure and propensity for this to go lower as her infection progresses; watch for volume overload especially in the setting of ARDS which occurs somewhat commonly in coronavirus infections Does not require pressors Antibiotics as above (4) T2DM (type 2 diabetes mellitus) 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 insulin use: without custodial use Diabetes mellitus complication status: without complication Qualified Code(s): E11.9 - Type 2 diabetes mellitus without complications Is this a current diagnosis for this admission?: Yes Plan: Low-dose correctional insulin and Accu-Cheks Hold orals Trend glucose, diabetic diet (5) HLD (hyperlipidemia) Is this a current diagnosis for this admission?: Yes (6) HTN (hypertension) Is this a current diagnosis for this admission?: Yes Plan: Hold home meds, intermittently lower limit normal BP, asymptomatic (7) Fever Is this a current diagnosis for this admission?: Yes (8) Acute hypoxemic respiratory failure Is this a current diagnosis for this admission?: Yes Plan: Intermittently requiring supplemental oxygen Oxygen goal is 92% or higher Unable to use nebulizer treatments are positive pressure due to risk of spreading coronavirus if this is positive - Time Time Spent with patient: 35 or more minutes Medications reviewed and adjusted accordingly: Yes - Inpatient Certification Medical Necessity: Significant Comorbidiites Make Outpatient Treatment Too Risky, Need Close Monitoring Due to Risk of Patient Decompensation, Need for IV Antibiotics, Risk of Complication if Not Cared For in Hospital - Due to patient being COVID-19 Suspected/Positive, encounter was conducted using telephone and/or videochat and does not include a detailed in-person physical exam in order to preserve PPE and limit staff exposure to a dangerous pathogen.
[2019-11-22] MEDS: AZITHROMYCIN 500 MG in DEXTROSE 5%-WATER 250 ML IV SCH (17:33)
[2019-11-22] MEDS: VANCOMYCIN HCL 1,000 MG in DEXTROSE 5%-WATER 250 ML IV SCH (21:26)
[2019-11-22] MEDS: MELATONIN 3 MG TABLET PO SCH (23:12)
[2019-11-23] MEDS: INSULIN LISPRO 100 UNIT/ML 3 ML VIAL SUBCUT SCH ×5 (00:24→21:44)
[2019-11-23] MEDS: ASCORBIC ACID 500 MG TABLET PO SCH ×2 (09:05→17:03)
[2019-11-23] MEDS: VANCOMYCIN HCL 1,000 MG in DEXTROSE 5%-WATER 250 ML IV SCH ×2 (09:06→21:44)
[2019-11-23] MEDS: ENOXAPARIN SODIUM INJ 40 MG/0.4 ML DISP.SYRIN SUBCUT SCH (09:06)
[2019-11-23 10:30] LABS: ABSOLUTE LYMPHOCYTES (AUTO) 0.6 10^3/uL (0.5-4.7); ABSOLUTE MONOCYTES (AUTO) 0.3 10^3/uL (0.1-1.4); ABSOLUTE NEUT (AUTO) 5.7 10^3/uL (1.7-8.2); BASOPHILS % (AUTO) 0.1 % (0-2); HEMATOCRIT 37.6 % (36.0-47.0); HEMOGLOBIN 13.1 g/dL (12.0-15.5); LYMPHOCYTES % (AUTO) 9.5 % (13-45); MEAN CORPUSCULAR HGB CONC 34.9 g/dL (32.0-36.0); MEAN CORPUSCULAR VOLUME 83 fl (80-97); MONOCYTES % (AUTO) 4.4 % (3-13); PLATELET COUNT 266 10^3/uL (150-450); RED BLOOD COUNT 4.54 10^6/uL (3.72-5.28); RED CELL DISTRIBUTION WIDTH 13.9 % (11.5-14.0); TOTAL CELLS COUNTED % (AUTO) 100 %; WHITE BLOOD COUNT 6.6 10^3/uL (4.0-10.5)
[2019-11-23 10:57] LABS: ANION GAP 7 (5-19); BLOOD UREA NITROGEN 4 mg/dL (7-20); CARBON DIOXIDE 30 mmol/L (22-30); CHLORIDE 97 mmol/L (98-107); GLUCOSE 162 mg/dL (75-110); POTASSIUM 3.6 mmol/L (3.6-5.0)
[2019-11-23] MEDS: ACETAMINOPHEN 325 MG TABLET PO PRN (11:31)
[2019-11-23] MEDS: RINGERS SOLUTION,LACTATED 1,000 ML IV PRN (11:44)
--- NOTE | 2019-11-23 16:05 | PDOC PROGRESS REPORT ---
Subjective Progress Note for:: 11/23/19 Subjective:: Fever curve is downtrending with temperature averaging 100.2 today. Cough is perhaps a bit less coarse but still present. Patient states she has slightly more energy today but still rather fatigued. No new complaints otherwise. Unfortunately, someone has spilled her coronavirus test in transit and this must be repeated today. Reason For Visit: SHORTNESS OF BREATH,WEAKNESS Physical Exam Vital Signs: Temp Pulse Resp BP Pulse Ox 98.5 F 111 H 20 150/87 H 95 11/23/19 12:31 11/23/19 12:00 11/23/19 12:00 11/23/19 12:00 11/23/19 12:31 Intake & Output 11/22/19 11/23/19 11/24/19 06:59 06:59 06:59 Intake Total 1300 1400 1510 Balance 1300 1400 1510 Weight 86.1 kg 86.1 kg 86.1 kg General appearance: PRESENT: no acute distress, well-developed, well-nourished Exam: Due to patient being COVID-19 Suspected/Positive, encounter was conducted using telephone and/or videochat and does not include a full detailed in-person physical exam in order to preserve PPE and limit staff exposure to a dangerous pathogen as is the current recommendation. Head exam: PRESENT: atraumatic, normocephalic Eye exam: PRESENT: conjunctiva pink Results Laboratory Results: 11/23/19 10:05 11/23/19 10:05 11/23/19 11/23/19 10:05 10:05 WBC 6.6 RBC 4.54 Hgb 13.1 Hct 37.6 MCV 83 MCH 29.0 MCHC 34.9 RDW 13.9 Plt Count 266 Seg Neutrophils % 86.0 H Sodium 133.5 L Potassium 3.6 Chloride 97 L Carbon Dioxide 30 Anion Gap 7 BUN 4 L Creatinine 0.70 Est GFR ( Amer) > 60 Glucose 162 H Calcium 8.0 L 11/21/19 17:33 Blood Blood Culture (PCR) - Final Staphylococcus Species 11/21/19 14:00 Throat Throat Culture - Final NORMAL JAYME 11/21/19 14:00 NT-Pro-B Natriuret Pep 32 Impressions: Chest X-Ray 11/21/19 15:03 IMPRESSION: Possible mild pulmonary edema. Patchy peripheral opacities suspicious for infectious/inflammatory process. Chest/Abdomen CTA 11/21/19 16:08 IMPRESSION: 1. Patchy peripheral and perihilar ground-glass opacities in both lungs. These are commonly reported imaging features of COVID-19 pneumonia are present. Other processes such as influenza pneumonia and organizing pneumonia, as can be seen with drug toxicity and connective tissue disease, can cause a similar imaging pattern. PneTyp 2. Limited evaluation of the pulmonary arteries due to contrast bolus timing. No large central pulmonary embolus. Evaluation of the segmental and subse gmental pulmonary arteries is limited. Assessment and Plan - Diagnosis (1) Suspected COVID-19 virus infection Is this a current diagnosis for this admission?: Yes Plan: High risk based on recent travel symptomatology, labs, and CT results; very high likelihood she has coronavirus Ferritin notably elevated, LDH notably elevated Coronavirus test sent and pending as of 11/20 unfortunately test was spilled and canceled; repeated 11/22 and is now pending again Started on azithromycin and multiple supplements Consider adding Plaquenil at the first sign of worsening; discussed with hansel corado, low threshold for ICU transfer if breathing worsens (2) Multifocal pneumonia Is this a current diagnosis for this admission?: Yes Plan: Ceftriaxone/azithromycin for antibiotic coverage; confirmed with patient that she is not in fact penicillin allergic Bronchial hygiene No nebulizer treatments or positive pressure should be used until coronavirus is ruled out Respiratory viral panel pending Influenza negative Coronavirus test pending Blood culture growing staph 1/2 bottles, follow-up final results Added vancomycin and stopped ceftriaxone until MRSA ruled out (3) Sepsis Is this a current diagnosis for this admission?: Yes (4) T2DM (type 2 diabetes mellitus) Qualifiers: Diabetes mellitus residential insulin use: without long goods drier use Diabetes mellitus complication status: without complication Qualified Code(s): E11.9 - Type 2 diabetes mellitus without complications Is this a current diagnosis for this admission?: Yes (5) HLD (hyperlipidemia) Is this a current diagnosis for this admission?: Yes (6) HTN (hypertension) Is this a current diagnosis for this admission?: Yes (7) Fever Is this a current diagnosis for this admission?: Yes (8) Acute hypoxemic respiratory failure Is this a current diagnosis for this admission?: Yes - Time Time Spent with patient: 35 or more minutes Medications reviewed and adjusted accordingly: Yes - Inpatient Certification Medical Necessity: Significant Comorbidiites Make Outpatient Treatment Too Risky, Need Close Monitoring Due to Risk of Patient Decompensation, Need for IV Antibiotics, Risk of Diagnosis Which Will Require Inpatient Eval/Care/Monitoring
[2019-11-23] MEDS: AZITHROMYCIN 500 MG in DEXTROSE 5%-WATER 250 ML IV SCH (17:03)
[2019-11-23] MEDS: MELATONIN 3 MG TABLET PO SCH (21:44)
[2019-11-24] MEDS: ACETAMINOPHEN 325 MG TABLET PO PRN ×2 (03:36→17:16)
[2019-11-24] MEDS: INSULIN LISPRO 100 UNIT/ML 3 ML VIAL SUBCUT SCH ×4 (09:32→21:27)
[2019-11-24 10:24] LABS: VANCOMYCIN,TROUGH 10.4 ug/mL (5.0-20.0)
[2019-11-24] MEDS: VANCOMYCIN HCL 1,000 MG in DEXTROSE 5%-WATER 250 ML IV SCH (11:09)
[2019-11-24] MEDS: ENOXAPARIN SODIUM INJ 40 MG/0.4 ML DISP.SYRIN SUBCUT SCH (11:10)
[2019-11-24] MEDS: ASCORBIC ACID 500 MG TABLET PO SCH ×2 (11:10→17:17)
[2019-11-24] MEDS: GUAIFENESIN SYRP 200 MG/10 ML UDC PO PRN ×2 (12:17→16:44)
--- NOTE | 2019-11-24 16:38 | PDOC PROGRESS REPORT ---
Subjective Progress Note for:: 11/24/19 Subjective:: Repeat coronavirus testing came back today and was noted to be positive. I informed the patient of this and spoke in great detail with her family about what this means for them. [place] I recommended that he contact his [place] and have his family tested for coronavirus at the local hospital. I also recommended that they quarantine themselves for 14 days and wear a mask anytime to have contact or could have c ontact with other people. Plaquenil started today and supplements with azithromycin are continued. Blood culture turned out to be a contaminant with staph hominis 1/2 bottles and vancomycin was stopped. Patient states she does not have any fevers/chills today, still has a mildly congested cough but is overall feeling somewhat better. No new symptoms otherwise Reason For Visit: SHORTNESS OF BREATH,WEAKNESS Physical Exam Vital Signs: Temp Pulse Resp BP Pulse Ox 98.7 F 99 20 136/72 H 99 11/24/19 12:00 11/24/19 12:00 11/24/19 12:00 11/24/19 12:00 11/24/19 12:00 Intake & Output 11/23/19 11/24/19 11/25/19 06:59 06:59 06:59 Intake Total 1400 1760 1000 Balance 1400 1760 1000 Weight 86.1 kg 89.4 kg General appearance: PRESENT: no acute distress, well-developed, well-nourished Head exam: PRESENT: atraumatic, normocephalic Respiratory exam: PRESENT: unlabored. ABSENT: accessory muscle use Neurological exam: PRESENT: alert, awake, oriented to person, oriented to place, oriented to time, oriented to situation Additional comments: Due to patient being COVID-19 Suspected/Positive, encounter was conducted using telephone and/or videochat and does not include a detailed in-person physical exam in order to preserve PPE and limit staff exposure to a dangerous pathogen. Results Laboratory Results: 11/23/19 10:11/23/19 10:11/21/19 17:33 Blood Blood Culture (PCR) - Final Staphylococcus Species 11/21/19 17:33 Blood Blood Culture - Final Staphylococcus Hominis 11/21/19 14:00 NT-Pro-B Natriuret Pep 32 Impressions: Chest X-Ray 11/21/19 15:03 IMPRESSION: Possible mild pulmonary edema. Patchy peripheral opacities suspicious for infectious/inflammatory process. Chest/Abdomen CTA 11/21/19 16:08 IMPRESSION: 1. Patchy peripheral and perihilar ground-glass opacities in both lungs. These are commonly reported imaging features of COVID-19 pneumonia are present. Other processes such as influenza pneumonia and organizing pneumonia, as can be seen with drug toxicity and connective tissue disease, can cause a similar imaging pattern. PneTyp 2. Limited evaluation of the pulmonary arteries due to contrast bolus timing. No large central pulmonary embolus. Evaluation of the segmental and subsegmental pulmonary arteries is limited. Assessment and Plan - Diagnosis (1) COVID-19 virus infection Is this a current diagnosis for this admission?: Yes Plan: Coronavirus testing resulted as + on 11/23, discussed with patient and also discussed with her family at her request High risk based on recent travel symptomatology, labs, and CT results; on admission there was already very high likelihood she has coronavirus Ferritin notably elevated, LDH notably elevated Coronavirus test sent and pending as of 11/20 unfortunately test was spilled and canceled; repeated 11/22 and was positive Started on azithromycin and multiple evidence-based supplements Started Plaquenil 11/23, 400 mg twice daily for 1 day then 200 mg twice daily for 4 days (2) Acute hypoxemic respiratory failure Is this a current diagnosis for this admission?: Yes Plan: Intermittently requiring supplemental oxygen, up to 2 L nasal cannula at most Oxygen goal is 92% or higher Unable to use nebulizer treatments are positive pressure due to risk of spreading coronavirus if this is positive (3) Multifocal pneumonia Is this a current diagnosis for this admission?: Yes Plan: Viral pneumonia from coronavirus; watch for secondary bacterial infection which is commonly seen in the setting Ceftriaxone/azithromycin for antibiotic coverage; confirmed with patient that she is not in fact penicillin allergic; ceftriaxone changed to vancomycin to rule out MRSA possibly growing in blood culture, this later resulted as staph hominis contaminant 1/2 bottles and vancomycin was stopped; azithromycin continued with Plaquenil added Bronchial hygiene No nebulizer treatments or positive pressure should be used until coronavirus is ruled out Respiratory viral panel ordered Influenza negative Coronavirus test positive Blood culture growing staph hominis 1/2 bottles, contaminant (4) Sepsis Is this a current diagnosis for this admission?: Yes Plan: Resolved/resolving Eating drinking normally and hemodynamically stable on admission Added gentle IV fluids for soft blood pressure and propensity for this to go lower as her infection progresses; watch for volume overload especially in the setting of ARDS which occurs somewhat commonly in coronavirus infections Does not require pressors Antibiotics as above (5) T2DM (type 2 diabetes mellitus) Qualifiers: Diabetes mellitus penitentiary insulin use: without terminal clerk use Diabetes mellitus complication status: without complication Qualified Code(s): E11.9 - Type 2 diabetes mellitus without complications Is this a current diagnosis for this admission?: Yes (6) HLD (hyperlipidemia) Is this a current diagnosis for this admission?: Yes (7) HTN (hypertension) Is this a current diagnosis for this admission?: Yes (8) Fever Is this a current diagnosis for this admission?: Yes - Time Time Spent with patient: 35 or more minutes Medications reviewed and adjusted accordingly: Yes - Inpatient Certification Medical Necessity: Failure to Improve With Outpatient Therapy, Significant Comorbidiites Make Outpatient Treatment Too Risky, Need For IV Fluids, Need for IV Antibiotics, Risk of Complication if Not Cared For in Hospital, Risk of Diagnosis Which Will Require Inpatient Eval/Care/Monitoring
[2019-11-24] MEDS: CHOLECALCIFEROL (D3) 1,000 UNIT (25 MCG) TABLET PO SCH (16:44)
[2019-11-24] MEDS: HYDROXYCHLOROQUINE SULFATE 200 MG TABLET PO SCH ×2 (16:44→22:57)
[2019-11-24] MEDS: ZINC SULFATE 220 MG CAPSULE PO SCH (16:44)
[2019-11-24] MEDS: AZITHROMYCIN 500 MG in DEXTROSE 5%-WATER 250 ML IV SCH (18:06)
[2019-11-24] MEDS: RINGERS SOLUTION,LACTATED 1,000 ML IV PRN (18:07)
[2019-11-24] MEDS: MELATONIN 3 MG TABLET PO SCH (21:02)
[2019-11-25] MEDS: ACETAMINOPHEN 325 MG TABLET PO PRN ×2 (02:53→16:21)
[2019-11-25] MEDS: GUAIFENESIN SYRP 200 MG/10 ML UDC PO PRN ×2 (02:54→23:53)
[2019-11-25] MEDS: INSULIN LISPRO 100 UNIT/ML 3 ML VIAL SUBCUT SCH ×4 (07:44→21:46)
[2019-11-25] MEDS: ENOXAPARIN SODIUM INJ 40 MG/0.4 ML DISP.SYRIN SUBCUT SCH (10:36)
[2019-11-25] MEDS: ASCORBIC ACID 500 MG TABLET PO SCH ×2 (10:37→17:45)
[2019-11-25] MEDS: HYDROXYCHLOROQUINE SULFATE 200 MG TABLET PO SCH ×2 (10:37→17:45)
[2019-11-25] MEDS: ZINC SULFATE 220 MG CAPSULE PO SCH (10:37)
[2019-11-25] MEDS: CHOLECALCIFEROL (D3) 1,000 UNIT (25 MCG) TABLET PO SCH (10:37)
[2019-11-25 12:13] LABS: ANION GAP 6 (5-19); BLOOD UREA NITROGEN 6 mg/dL (7-20); CALCIUM 8.1 mg/dL (8.4-10.2); CARBON DIOXIDE 30 mmol/L (22-30); CHLORIDE 101 mmol/L (98-107); GLUCOSE 126 mg/dL (75-110); POTASSIUM 4.6 mmol/L (3.6-5.0)
[2019-11-25] MEDS: RINGERS SOLUTION,LACTATED 1,000 ML IV PRN (12:26)
[2019-11-25 12:34] LABS: ABSOLUTE LYMPHOCYTES (AUTO) 0.7 10^3/uL (0.5-4.7); ABSOLUTE MONOCYTES (AUTO) 0.4 10^3/uL (0.1-1.4); BASOPHILS % (AUTO) 0.4 % (0-2); EOSINOPHILS % (AUTO) 0.5 % (0-6); HEMATOCRIT 35.5 % (36.0-47.0); HEMOGLOBIN 12.4 g/dL (12.0-15.5); LYMPHOCYTES % (AUTO) 11.1 % (13-45); MEAN CORPUSCULAR HEMOGLOBIN 28.9 pg (27.0-33.4); MEAN CORPUSCULAR HGB CONC 34.8 g/dL (32.0-36.0); MEAN CORPUSCULAR VOLUME 83 fl (80-97); MONOCYTES % (AUTO) 5.9 % (3-13); PLATELET COUNT 347 10^3/uL (150-450); RED BLOOD COUNT 4.28 10^6/uL (3.72-5.28); RED CELL DISTRIBUTION WIDTH 14.1 % (11.5-14.0); SEGMENTED NEUTROPHILS % (AUTO) 82.1 % (42-78); TOTAL CELLS COUNTED % (AUTO) 100 %; WHITE BLOOD COUNT 6.1 10^3/uL (4.0-10.5)
--- NOTE | 2019-11-25 16:21 | PDOC PROGRESS REPORT ---
Subjective Progress Note for:: 11/25/19 Subjective:: I asked the patient if any of her family in [place] is sick and she states they are all well. It appears she is not told them that they should be quarantined and that they should be wearing masks. She does not appear to be particularly concerned about this information. She states she is still having some cough but it is not really productive. She had any other fever over 102 today and she states she could feel this. She is requiring supplemental oxygen at 2 L and I discussed with the nurse to start titrating this off as able. O2 saturation goal would be greater than 92 to 94%. If she continues to improve and her fever curve goes down, no longer needs supplemental oxygen. We could discharge her home for the remainder of her quarantine. Otherwise, patient has no new complaints. Reason For Visit: SHORTNESS OF BREATH,WEAKNESS Physical Exam Vital Signs: Temp Pulse Resp BP Pulse Ox 99.4 F 96 24 H 145/82 H 92 11/25/19 10:54 11/25/19 10:54 11/25/19 10:54 11/25/19 10:54 11/25/19 10:54 Intake & Output 11/24/19 11/25/19 11/26/19 06:59 06:59 06:59 Intake Total 1760 3360 1016 Output Total 450 Balance 1760 3360 566 Weight 89.4 kg 88.3 kg General appearance: PRESENT: no acute distress, well-developed, well-nourished Head exam: PRESENT: atraumatic, normocephalic Neurological exam: PRESENT: alert, awake Psychiatric exam: PRESENT: appropriate affect, normal mood Additional comments: Due to patient being COVID-19 Suspected/Positive, encounter was conducted using telephone and/or videochat and does not include a detailed in-person physical exam in order to preserve PPE and limit staff exposure to a dangerous pathogen. Results Laboratory Results: 11/25/19 12:15 11/25/19 11:44 11/25/19 11/25/19 11:44 12:15 WBC 6.1 RBC 4.28 Hgb 12.4 Hct 35.5 L MCV 83 MCH 28.9 MCHC 34.8 RDW 14.1 H Plt Count 347 Seg Neutrophils % 82.1 H Sodium 136.7 L Potassium 4.6 Chloride 101 Carbon Dioxide 30 Anion Gap 6 BUN 6 L Creatinine 0.65 Est GFR ( Amer) > 60 Glucose 126 H Calcium 8.1 L 11/21/19 14:00 NT-Pro-B Natriuret Pep 32 Impressions: Chest X-Ray 11/21/19 15:03 IMPRESSION: Possible mild pulmonary edema. Patchy peripheral opacities suspicious for infectious/inflammatory process. Chest/Abdomen CTA 11/21/19 16:08 IMPRESSION: 1. Patchy peripheral and perihilar ground-glass opacities in both lungs. These are commonly reported imaging features of COVID-19 pneumonia are present. Other processes such as influenza pneumonia and organizing pneumonia, as can be seen with drug toxicity and connective tissue disease, can cause a similar imaging pattern. PneTyp 2. Limited evaluation of the pulmonary arteries due to contrast bolus timing. No large central pulmonary embolus. Evaluation of the segmental and subsegmental pulmonary arteries is limited. Assessment and Plan - Diagnosis (1) COVID-19 virus infection Is this a current diagnosis for this admission?: Yes Plan: Coronavirus testing resulted as + on 11/23, discussed with patient and also disc ussed with her family at her request High risk based on recent travel symptomatology, labs, and CT results; on admission there was already very high likelihood she has coronavirus Ferritin notably elevated, LDH notably elevated Coronavirus test sent and pending as of 11/20 unfortunately test was spilled and canceled; repeated 11/22 and was positive Started on azithromycin and multiple evidence-based supplements Started Plaquenil 11/23, 400 mg twice daily for 1 day then 200 mg twice daily for 4 days Fever curve trending down (2) Acute hypoxemic respiratory failure Is this a current diagnosis for this admission?: Yes Plan: Intermittently requiring supplemental oxygen, up to 2 L nasal cannula at most Oxygen goal is 92% or higher, discussed with nursing to titrate supplemental oxygen off as able Unable to use nebulizer treatments are positive pressure due to risk of spreading coronavirus if this is positive (3) Multifocal pneumonia Is this a current diagnosis for this admission?: Yes (4) Sepsis Is this a current diagnosis for this admission?: Yes (5) T2DM (type 2 diabetes mellitus) Qualifiers: Diabetes mellitus nursing home insulin use: without buttermaker continuous churn use Diabetes mellitus complication status: without complication Qualified Code(s): E11.9 - Type 2 diabetes mellitus without complications Is this a current diagnosis for this admission?: Yes (6) HLD (hyperlipidemia) Is this a current diagnosis for this admission?: Yes (7) HTN (hypertension) Is this a current diagnosis for this admission?: Yes (8) Fever Is this a current diagnosis for this admission?: Yes - Time Time Spent with patient: 25-34 minutes Medications reviewed and adjusted accordingly: Yes Anticipated discharge: Home Within: within 72 hours - Inpatient Certification Medical Necessity: Significant Comorbidiites Make Outpatient Treatment Too Risky, Need Close Monitoring Due to Risk of Patient Decompensation, Need for IV Antibiotics, Risk of Complication if Not Cared For in Hospital
[2019-11-25] MEDS: AZITHROMYCIN 500 MG in DEXTROSE 5%-WATER 250 ML IV SCH (17:46)
--- NOTE | 2019-11-25 21:21 | EKG REPORT ---
SEVERITY:- ABNORMAL ECG - SINUS RHYTHM LEFT ANTERIOR FASCICULAR BLOCK BORDERLINE T ABNORMALITIES, DIFFUSE LEADS : Confirmed by: Dee Gerber MD 25-Nov-2019 21:21:26
[2019-11-25] MEDS: MELATONIN 3 MG TABLET PO SCH (21:46)
[2019-11-26] MEDS: ACETAMINOPHEN 325 MG TABLET PO PRN (01:29)
[2019-11-26] MEDS: INSULIN LISPRO 100 UNIT/ML 3 ML VIAL SUBCUT SCH ×4 (07:49→22:36)
[2019-11-26] MEDS: ENOXAPARIN SODIUM INJ 40 MG/0.4 ML DISP.SYRIN SUBCUT SCH (11:08)
[2019-11-26] MEDS: ASCORBIC ACID 500 MG TABLET PO SCH ×3 (11:09→19:16)
[2019-11-26] MEDS: ZINC SULFATE 220 MG CAPSULE PO SCH (11:09)
[2019-11-26] MEDS: HYDROXYCHLOROQUINE SULFATE 200 MG TABLET PO SCH ×2 (11:09→19:43)
[2019-11-26] MEDS: CHOLECALCIFEROL (D3) 1,000 UNIT (25 MCG) TABLET PO SCH (11:09)
[2019-11-26] MEDS: RINGERS SOLUTION,LACTATED 1,000 ML IV PRN (11:11)
[2019-11-26 12:05] LABS: ABSOLUTE BASOPHILS # (AUTO) 0.1 10^3/uL (0.0-0.2); ABSOLUTE LYMPHOCYTES (AUTO) 0.6 10^3/uL (0.5-4.7); ABSOLUTE MONOCYTES (AUTO) 0.4 10^3/uL (0.1-1.4); ABSOLUTE NEUT (AUTO) 6.9 10^3/uL (1.7-8.2); BASOPHILS % (AUTO) 0.8 % (0-2); EOSINOPHILS % (AUTO) 0.6 % (0-6); HEMATOCRIT 39.2 % (36.0-47.0); HEMOGLOBIN 13.5 g/dL (12.0-15.5); LYMPHOCYTES % (AUTO) 7.9 % (13-45); MEAN CORPUSCULAR HEMOGLOBIN 28.6 pg (27.0-33.4); MEAN CORPUSCULAR HGB CONC 34.4 g/dL (32.0-36.0); MEAN CORPUSCULAR VOLUME 83 fl (80-97); PLATELET COUNT 394 10^3/uL (150-450); RED BLOOD COUNT 4.72 10^6/uL (3.72-5.28); RED CELL DISTRIBUTION WIDTH 14.3 % (11.5-14.0); SEGMENTED NEUTROPHILS % (AUTO) 85.7 % (42-78); TOTAL CELLS COUNTED % (AUTO) 100 %; WHITE BLOOD COUNT 8.1 10^3/uL (4.0-10.5)
[2019-11-26 12:09] LABS: ARTERIAL BLOOD BASE EXCESS 5.3 mmol/L; ARTERIAL BLOOD H2CO3 1.06 mmol/L (1.05-1.35); ARTERIAL BLOOD HCO3 28.1 mmol/L (20-24); ARTERIAL BLOOD PCO2 35.2 mmHg (35-45); ARTERIAL BLOOD PH 7.52 (7.35-7.45); ARTERIAL BLOOD TOTAL CO2 29.2 mmol/L (21-25)
[2019-11-26] MEDS ORDERED: FENTANYL CITRATE INJ/PF 100 MCG/2 ML AMPUL ONE (12:09)
[2019-11-26] MEDS ORDERED: ETOMIDATE INJ/PF 20 MG/10 ML SDV IV ONE (12:09)
[2019-11-26] MEDS ORDERED: PROPOFOL 1,000 MG/100 ML INFUS..BTL IV ONE ×2 (12:09→16:50)
[2019-11-26 12:10] LABS: INTERNATIONAL RATION (INR) 1.26; PROTHROMBIN TIME 15.9 SEC (11.4-15.4)
[2019-11-26 12:11] LABS: PARTIAL THROMBOPLASTIN TIME 28.3 SEC (23.5-35.8)
[2019-11-26 12:12] LABS: ARTERIAL BLOOD FIO2 100%
[2019-11-26 12:14] LABS: ARTERIAL BLOOD PO2 39.2 mmHg (80-100)
[2019-11-26 12:27] LABS: D-DIMER 11.46 ug/mL (0.00-0.50)
[2019-11-26 12:31] LABS: ALBUMIN 3.7 g/dL (3.5-5.0); ALKALINE PHOSPHATASE 108 U/L (38-126); AMYLASE 56 U/L (30-110); ANION GAP 5 (5-19); ASPARTATE AMINO TRANSFERASE 95 U/L (14-36); BILIRUBIN,DIRECT 0.4 mg/dL (0.0-0.4); BILIRUBIN,TOTAL 1.1 mg/dL (0.2-1.3); BLOOD UREA NITROGEN 5 mg/dL (7-20); CALCIUM 8.9 mg/dL (8.4-10.2); CARBON DIOXIDE 36 mmol/L (22-30); CHLORIDE 96 mmol/L (98-107); CREATINE KINASE 105 U/L (30-135); GLUCOSE 136 mg/dL (75-110); PHOSPHORUS 2.7 mg/dL (2.5-4.5); TOTAL PROTEIN 8.1 g/dL (6.3-8.2)
[2019-11-26] MEDS: PROPOFOL 1,000 MG/100 ML INFUS..BTL IV PRN ×3 (12:36→22:06)
[2019-11-26] MEDS ORDERED: CHOLECALCIFEROL (D3) 1,000 UNIT (25 MCG) TABLET PO ONE (13:00)
--- NOTE | 2019-11-26 13:11 | Progress Note ---
Provider Note Provider Note: Rapid response note: Rapid response called overhead and I responded to this immediately. Went to coronavirus unit and dressed out completely and PPE as appropriate, discussed the case with nurses and respiratory therapy who informed me that patient began having desaturations this morning into the 50s and was placed on nonrebreather at 15 L and oxygen saturation only came up to 87%. Rapid response was called. Upon arrival to the room, patient appears to be rather tachypneic and in mild distress. General: Mild distress, working hard to breathe Lungs: Mild crackles possibly worse on the left but PPE and poor quality stethoscope severely limits auscultatory exam CV: Tachycardic, regular rhythm, no murmurs heard GI: Normal bowel sounds, soft, nontender Neuro: Awake and alert, cannot assess orientation due to breathing difficulties Plan: Transfer to ICU immediately Anesthesia and critical care contacted as patient will need to be emergently intubated Discussed the case with Dr. Franks who agrees with transfer to ICU and intubation. Appreciate his help with this critically ill patient Continue Plaquenil/azithromycin/zinc/supplements Proning is appropriate ABG and other general labs ordered We will call family to inform them of acute change Chest x-ray ordered Critical care time spent: 35 minutes
--- NOTE | 2019-11-26 13:23 | Progress Note ---
Provider Note Provider Note: Tried to call grandson to inform him of his grandmothers acute decline, no answer. Will try again later.
[2019-11-26 13:32] LABS: CREATINE KINASE MB 0.87 ng/mL (<4.55); TROPONIN I < 0.012 ng/mL
[2019-11-26] MEDS ORDERED: ACETAMINOPHEN SOLN 325 MG/10.15 ML UDCUP ONE (14:33)
[2019-11-26] MEDS ORDERED: ACETAMINOPHEN SOLN 325 MG/10.15 ML UDCUP PO PRN (14:40)
[2019-11-26] MEDS ORDERED: ROCURONIUM BROMIDE INJ 50 MG/5 ML VIAL IV ONE (14:43)
--- NOTE | 2019-11-26 15:42 | RADIOLOGY REPORT (SQ) ---
EXAM DESCRIPTION: CHEST SINGLE VIEW IMAGES COMPLETED DATE/TIME: 11/26/2019 3:20 pm REASON FOR STUDY: Line and ETT placement COMPARISON: 11/21/2019 EXAM PARAMETERS: NUMBER OF VIEWS: One view TECHNIQUE: Single frontal radiograph of the chest. RADIATION DOSE: N/A LIMITATIONS: None. FINDINGS: TEMPORARY SUPPORT DEVICES:ETT in expected location. NG tube courses below the jamil-diaphr agm in to the stomach. Venous access catheter tip via left IJ approach. Tip is in the right subclavi an vein. LUNGS AND PLEURA: Diffuse peripheral parenchymal opacities throughout both lungs. No effusions. No m asses. No pneumothorax. MEDIASTINUM AND HILAR STRUCTURES: No masses. Contour normal. HEART AND VASCULAR STRUCTURES: Heart slightly enlarged vascular congestion. Aorta normal for age. BONES: No acute findings. OTHER: No other significant finding. IMPRESSION: Diffuse peripheral parenchymal opacities in both lungs. Vascular congestion. ET tube and nasogastric tube as expected. Venous access catheter tip crosses midline nodes in the ri ght subclavian. TECHNICAL DOCUMENTATION: JOB ID: [id number] 2010 [employer]- All Rights Reserved Reading location - IP/workstation name: [email or web address]
[2019-11-26] MEDS ORDERED: NORMAL SALINE INJ/PF 0.9% 10 ML SDV IV PRN (16:18)
[2019-11-26] MEDS ORDERED: PHARMACY COMMUNICATION ORDER MC NR (16:30)
[2019-11-26] MEDS ORDERED: LORAZEPAM INJ 2 MG/1 ML VIAL ONE (16:48)
--- NOTE | 2019-11-26 16:59 | CRITICAL CARE ADMISSION REPORT ---
HPI Date:: 11/26/19 Time:: 11:00 Reason for ICU Reason:: Acute hypoxic respiratory failure with SARS, 2-CoViD19 HPI: ANAMIKA ACEVES is a 69 year old female with past medical history as of essential hypertension, asthma and T2DM who originally presented to emergency room after 4-days of progressive fever/chills/shortness of breath/dry cough/fatigue/generalized weakness/loose stools which began while she was in [place] visiting with family for her brother's . Noted that she flew out on 10/31 and returned on 11/17, with mild but present symptoms prior to her dep arture. Had low-grade fevers, tachycardia, tachypnea, shortness of breath, lymphopenia with normal WBC on admission. No family members or other people around her have also been ill. In ED, patient notably , tolerating room air without supplemental oxygen. CTA of chest was done which was significant for multifocal pneumonia and radiologist specifically mentioned patient results highly consistent with covid-19 pneumonia. Patient admitted to coronavirus floor. SARS, 2-CoViD19 testing was positive. She became more hypoxic and in distress today and a rapid response was called. We brought her down to the ICU with a protected head covering for covert. She was in extreme respiratory distress with tachypnea as high as 40-50. She endorsed that she was tiring. She was extremely tachycardic with a heart rate of 120-130s blood pressure 140-170 systolic. She agreed to mechanical ventilation and required intubation using a plastic protective johnson and glide scope. Her heart rate and respiratory rate improved dramatically however she remained hypoxic and she was placed in prone position. A extensive review of systems could not be done secondary to her condition. The patient presents with COVID-19 CDC guideline data points: The patient presents with confirmed COVID-19 with associated symptoms of [fever, dry cough, SOB, anorexia, or diarrhea], complicated by this/these comorbidities: ASSESSMENT: COVID-19 positive test (U07.1, COVID-19) with Acute Respiratory Failure (J96.00, Acute respiratory failure) COVID-19 positive test (U07.1, COVID-19) with Acute Pneumonia (J12.89, Other viral pneumonia) (If respiratory failure or sepsis present, add as separate assessment) COVID-19 positive test (U07.1, COVID-19) with Viral Sepsis (A41.89 other specified sepsis) (If respiratory failure present, add as separate assessment) History obtained from:: EMR, Hospitalist staff - Diagnosis/Plan (1) Acute hypoxemic respiratory failure Is this a current diagnosis for this admission?: Yes (2) COVID-19 virus infection Is this a current diagnosis for this admission?: Yes (3) Sepsis Qualifiers: Sepsis type: sepsis due to unspecified organism Sepsis acute organ dysfunction status: without acute organ dysfunction Qualified Code(s): A41.9 - Sepsis, unspecified organism Is this a current diagnosis for this admission?: Yes Plan: Sepsis related to pneumonia most likely viral but rule out bacterial source (4) T2DM (type 2 diabetes mellitus) Qualifiers: Diabetes mellitus intermediate project manager insulin use: without shelter use Diabetes mellitus complication status: without complication Qualified Code(s): E11.9 - Type 2 diabetes mellitus without complications Is this a current diagnosis for this admission?: Yes - . Plan Summary: Patient has coded 19 and is transitioning to a level 3 a patient with worsening symptoms and evidence of tiring. Given her age and her neutrophil to lymphocyte ratio score he is at increased risk for significant morbidity and mortality. Required intubation and she was prone with an improvement in her oxygen saturation. She will be continued on Plaquenil and supplemental medications (see medication list) Ventilator settings will be adjusted to keep plateau pressure less than 34 and vigilance to evaluate compliance. We will monitor her inflammatory parameters. Elevated or evidence of cytokine storm will place her on steroids. Awaiting interleukin-6 level D Dimer is elevated and she will be placed on Lovenox therapeutic dosing OG tube is been placed start nutrition Limit IV fluids. Start on broad-spectrum antibiotics as well for secondary pneumonia. Procalcitonin's are not being returned in a timely fashion to be able to use this for de-escalation Past Medical History Cardiac Medical History: Reports: Hypertension Pulmonary Medical History: Reports: Asthma Endocrine Medical History: Reports: Diabetes Mellitus Type 2 Psychiatric Medical History: Denies: Depression Past Surgical History Past Surgical History: Reports: None Social/Family History - Social History Lives with: Alone Smoking Status: Never Smoker Frequency of Alcohol Use: None Hx Recreational Drug Use: No Hx Prescription Drug Abuse: No - Medication/Allergies Home Medications: Losartan Potassium 50 mg PO DAILY 06/18/19 Allergies/Adverse Reactions: Penicillins Adverse Reaction (Verified 06/18/19 21:24) Review of Systems ROS unobtainable: Due to endotracheal tube, Due to mental status Physical Exam Vital Signs: Temp Pulse Resp BP Pulse Ox 99.1 F 130 H 48 H 164/108 H 85 L 11/26/19 11:19 11/26/19 12:00 11/26/19 12:00 11/26/19 12:00 11/26/19 12:00 Intake & Output 11/25/19 11/26/19 11/27/19 06:59 06:59 06:59 Intake Total 3360 1836 1000 Output Total 450 350 Balance 3360 1386 650 Weight 88.3 kg 87.6 kg 87.6 kg Weight/Height Weight 87.6 kg Height 5 ft 2 in General appearance: PRESENT: morbidly obese, severe distress Exam: Older appearing 69-year-old black female in active respiratory distress unable to complete 1-2 word secondary to distress. As noted respiratory rate 48 with heart rate of 132 blood pressure of 144/92 Eye exam: PRESENT: conjunctival injection, conjunctiva pink, EOMI, PERRLA. ABSENT: nystagmus, scleral icterus Mouth exam: PRESENT: dry mucosa Throat exam: ABSENT: post pharyngeal erythema, tonsillar erythema, tonsillar exudate Neck exam: ABSENT: JVD, lymphadenopathy, tenderness, thyromegaly, tracheal deviation Respiratory exam: PRESENT: accessory muscle use, tachypnea, other - Lung sounds not auscultated secondary to the confines of PPE and poor auditory capability of disposable stethoscope. ABSENT: unlabored Cardiovascular exam: PRESENT: tachycardia, other - Heart sounds not auscultated secondary to the confines of PPE and poor auditory capability of disposable stethoscope. ABSENT: bradycardia Pulses: PRESENT: +1 pedal pulses bilateral Vascular exam: PRESENT: normal capillary refill. ABSENT: pallor GI/Abdominal exam: PRESENT: soft, other - Gastric sounds not auscultated secondary to the confines of PPE and poor auditory capability of disposable stethoscope. ABSENT: ascites, firm, guarding, mass, organolmegaly, rigid, tenderness Rectal exam: PRESENT: deferred Gentrourinary exam: ABSENT: indwelling catheter Extremities exam: ABSENT: pedal edema Neurological exam: PRESENT: altered, awake, oriented to person, oriented to place, oriented to time, oriented to situation, CN II-XII grossly intact. ABSENT: motor sensory deficit, aphasic Psychiatric exam: PRESENT: anxious Focused psych exam: PRESENT: psychomotor agitation, restlessness. ABSENT: pressured speech Skin exam: PRESENT: dry, intact, warm. ABSENT: cyanosis, mottled, rash Laboratory/Radiographs Laboratory Results: 11/26/19 11:48 11/26/19 11:48 11/26/19 11/26/19 11/26/19 11:45 11:48 11:48 WBC 8.1 RBC 4.72 Hgb 13.5 Hct 39.2 MCV 83 MCH 28.6 MCHC 34.4 RDW 14.3 H Plt Count 394 Seg Neutrophils % 85.7 H Carbonic Acid 1.06 HCO3/H2CO3 Ratio 26:1 ABG pH 7.52 H ABG pCO2 35.2 ABG pO2 39.2 L* ABG HCO3 28.1 H ABG O2 Saturation 80.0 L ABG Base Excess 5.3 FiO2 100% Sodium 137.1 Potassium 3.0 L* Chloride 96 L Carbon Dioxide 36 H Anion Gap 5 BUN 5 L Creatinine 0.76 Est GFR ( Amer) > 60 Glucose 136 H Calcium 8.9 Phosphorus 2.7 Magnesium 2.4 H Ferritin 814.00 H Total Bilirubin 1.1 AST 95 H Alkaline Phosphatase 108 C-Reactive Protein 472.0 H Total Protein 8.1 Albumin 3.7 Amylase 56 Lipase 38.7 11/21/19 11/26/19 11/26/19 14:00 11:48 11:48 Creatine Kinase 105 CK-MB (CK-2) 0.87 Troponin I < 0.012 NT-Pro-B Natriuret Pep 32 Impressions: Chest/Abdomen CTA 11/21/19 16:08 IMPRESSION: 1. Patchy peripheral and perihilar ground-glass opacities in both lungs. These are commonly reported imaging features of COVID-19 pneumonia are present. Other processes such as influenza pneumonia and organizing pneumonia, as can be seen with drug toxicity and connective tissue disease, can cause a similar imaging pattern. PneTyp 2. Limited evaluation of the pulmonary arteries due to contrast bolus timing. No large central pulmonary embolus. Evaluation of the segmental and subsegmental pulmonary arteries is limited. Chest X-Ray 11/26/19 00:00 IMPRESSION: Diffuse peripheral parenchymal opacities in both lungs. Vascular congestion. ET tube and nasogastric tube as expected. Venous access catheter tip crosses midline nodes in the right subclavian. All labs, radiographs, diagnostic studies and EKGs were personally reviewed: Yes In addition, reports of radiographic and diagnostic studies were read: Yes Critical Time Critical Time (minutes): 180 - Involves proning and airway managment -: The care of a critically ill patient is dynamic. This note represents a static moment in the admission process. Orders and treatments may be given simultaneously and urgently, and time is not eligibility services representative of the treatment process. This patient requires Critical Care secondary to life threatening organ or limb dysfunction. Without Critical Care services, the patient is at risk for increased mortality and morbidity.
[2019-11-26] MEDS ORDERED: NOREPINEPHRINE BITARTRATE INJ/PF 4 MG/4 ML SDV IV ONE (17:07)
--- NOTE | 2019-11-26 17:29 | Operative Report ---
Bedside Procedure - History of Present Illness History of Present Illness: ANAMIKA ACEVES is a 69 year old female with past medical history as of essential hypertension, asthma and T2DM who originally presented to emergency room after 4-days of progressive fever/chills/shortness of breath/dry cough/fatigue/generalized weakness/loose stools which began while she was in [place] visiting with family for her brother's . Noted that she flew out on 10/31 and returned on 11/17, with mild but present symptoms prior to her departure. Had low-grade fevers, tachycardia, tachypnea, shortness of breath, lymphopenia with normal WBC on admission. No family members or other people around her have also been ill. In ED, patient notably , tolerating room air without supplemental oxygen. CTA of chest was done which was significant for multifocal pneumonia and radiologist specifically mentioned patient results highly consistent with covid-19 pneumonia. Patient admitted to coronavirus floor. SARS, 2-CoViD19 testing was positive. She became more hypoxic and in distress today and a rapid response was called. We brought her down to the ICU with a protected head covering for covert. She was in extreme respiratory distress with tachypnea as high as 40-50. She endorsed that she was tiring. She was extremely tachycardic with a heart rate of 120-130s blood pressure 140-170 systolic. She agreed to mechanical ventilation and required intubation using a plastic protective johnson and glide scope. Her heart rate and respiratory rate improved dramatically however she remained hypoxic and she was placed in prone position. A extensive review of systems could not be done secondary to her condition. The patient presents with COVID-19 CDC guideline data points: The patient presents with confirmed COVID-19 with associated symptoms of [fever, dry cough, SOB, anorexia, or diarrhea], complicated by this/these comor bidities: ASSESSMENT: COVID-19 positive test (U07.1, COVID-19) with Acute Respiratory Failure (J96.00, Acute respiratory failure) COVID-19 positive test (U07.1, COVID-19) with Acute Pneumonia (J12.89, Other viral pneumonia) (If respiratory failure or sepsis present, add as separate assessment) COVID-19 positive test (U07.1, COVID-19) with Viral Sepsis (A41.89 other specified sepsis) (If respiratory failure present, add as separate assessment) Indication for Procedure: Hypoxic respiratory failure with SARS, 2-CoViD19 quiring prone positioning Date: 11/26/19 Provider: SHANNAN GALVAN - Central Line Left Internal jugular Time completed: 14:00 Consent obtained: Yes Central line pre-insertion: Sterile PPE donned, Chloraprep applied, Sterile drapes applied, Other - SARS, 2-CoViD19 PPE Central line lumen type: Triple Ultrasound guided: Yes CM at insertion site: 17 Line secured with sutures: Yes Central line post-insertion: Blood return from lumens, Biopatch applied, Sutured, Sterile dressing applied, Position confirmed w/ CXR, Other Number of attempts: 2 Complications: Yes - Right IJ attempt caused inadvertent carotid puncture. Notes: 11/26/19 17:23 Patient had been intubated secondary to acute respiratory failure. Attempt at right internal jugular was complicated by an inadvertent puncture of the carotid artery which resulted in a small subcutaneous hematoma which would not allow for internal jugular placement. Repeat ultrasound shows no AV fistula. No hematoma noted slight pressure held with the ultrasound which allowed for pulsatile blood flow but reduce hematoma and bleeding.
--- NOTE | 2019-11-26 17:34 | Operative Report ---
Bedside Procedure - History of Present Illness History of Present Illness: ANAMIKA ACEVES is a 69 year old female with past medical history as of essential hypertension, asthma and T2DM who originally presented to emergency room after 4-days of progressive fever/chills/shortness of breath/dry cough/fatigue/generalized weakness/loose stools which began while she was in [place] visiting with family for her brother's . Noted that she flew out on 10/31 and returned on 11/17, with mild but present symptoms prior to her departure. Had low-grade fevers, tachycardia, tachypnea, shortness of breath, lymphopenia with normal WBC on admission. No family members or other people around her have also been ill. In ED, patient notably , tolerating room air without supplemental oxygen. CTA of chest was done which was significant for multifocal pneumonia and radiologist specifically mentioned patient results highly consistent with covid-19 pneumonia. Patient admitted to coronavirus floor. SARS, 2-CoViD19 testing was positive. She became more hypoxic and in distress today and a rapid response was called. We brought her down to the ICU with a protected head covering for covert. She was in extreme respiratory distress with tachypnea as high as 40-50. She endorsed that she was tiring. She was extremely tachycardic with a heart rate of 120-130s blood pressure 140-170 systolic. She agreed to mechanical ventilation and required intubation using a plastic protective johnson and glide scope. Her heart rate and respiratory rate improved dramatically however she remained hypoxic and she was placed in prone position. Procedure Preprocedure diagnosis: SARS, 2-CoViD19 with acute hypoxic respiratory failure Postprocedure diagnosis: Same Procedure: [place] scope intubation emergent under protective johnson Proceduralist: Tiny [facility] Complications: None Blood loss: None Patient was appropriate identified secondary to ongoing critical care, chart check and name bracelet. She gave verbal consent prior to intubation. Because of the patient's SARS, 2-CoViD19 status all personnel had protective PPE and a protective johnson to prevent airborne particles was placed over the patient's head. Given 100 mcg of fentanyl followed by rapid sequence intubation with etomidate and rocuronium. As an glide scope she was successfully intubated with a 7/2 ET tube and placed at 23 cm. Good bilateral breath sounds were heard. Prior to this elevated PEEP pressures were noted and there was poor chest movement on the left which brought the tube from 25 to 23 cm. This was a grade 1 view on glide scope X-ray shows tip 2 to 3 cm above barbara in appropriate position. Tolerated procedure well No complications Procedure excludes critical care time Indication for Procedure: SARS, 2-CoViD19 acute hypoxic respiratory failure Date: 11/26/19 Provider: SHANNAN GALVAN
--- NOTE | 2019-11-26 17:37 | Operative Report ---
Bedside Procedure - History of Present Illness History of Present Illness: ANAMIKA ACEVES is a 69 year old female with past medical history as of essential hypertension, asthma and T2DM who originally presented to emergency room after 4-days of progressive fever/chills/shortness of breath/dry cough/fatigue/generalized weakness/loose stools which began while she was in [place] visiting with family for her brother's . Noted that she flew out on 10/31 and returned on 11/17, with mild but present symptoms prior to her departure. Had low-grade fevers, tachycardia, tachypnea, shortness of breath, lymphopenia with normal WBC on admission. No family members or other people around her have also been ill. In ED, patient notably , tolerating room air without supplemental oxygen. CTA of chest was done which was significant for multifocal pneumonia and radiologist specifically mentioned patient results highly consistent with covid-19 pneumonia. Patient admitted to coronavirus floor. SARS, 2-CoViD19 testing was positive. She became more hypoxic and in distress today and a rapid response was called. We brought her down to the ICU with a protected head covering for covert. She was in extreme respiratory distress with tachypnea as high as 40-50. She endorsed that she was tiring. She was extremely tachycardic with a heart rate of 120-130s blood pressure 140-170 systolic. She agreed to mechanical ventilation and required intubation using a plastic protective johnson and glide scope. Her heart rate and respiratory rate improved dramatically however she remained hypoxic and she was placed in prone position. Procedure P Indication for Procedure: SARS, 2-CoViD19 acute hypoxic respiratory failure Date: 11/26/19 Provider: SHANNAN GALVAN - Additional Procedures Arterial Line Time performed: 13:00 Notes: Preprocedure diagnosis: SARS, 2-CoViD19 with acute hypoxic respiratory failure Postprocedure diagnosis: Name Procedure: Placement of right axillary artery catheter Proceduralist: Tiny TARANGO [facility] Complications: None Blood loss: 5 to 10 cc Dynamic ultrasound guidance used under sterile cover Patient was appropriate identified secondary to ongoing critical care, chart check anf name bracelet. Consent way secondary to the emergent nature and patient is already been intubated family not available. The right axillary region was prepped and draped with chlorhexidine using regional sterile barriers as well as sterile gloves. A Seldinger needle was placed under dynamic ultrasound guidance and good pul satile blood flow was noted. After this, a wire was placed without difficulty and the needle was removed. An [id number] long catheter was placed over wire using typical Seldinger technique. The wire was removed and 2-3 heartbeats occurred to clear debris from the catheter. A transducer tube was attached after the catheter was sutured in place. Reapplication of chlorhexidine occurred and was allowed to dry. A sterile dressing was then applied. Tolerated procedure well No complications Procedure excludes critical care time
[2019-11-26] MEDS ORDERED: RINGERS SOLUTION,LACTATED 1,000 ML IV PRN (18:02)
[2019-11-26] MEDS ORDERED: LORAZEPAM INJ 2 MG/1 ML VIAL IV ONE (19:15)
[2019-11-26] MEDS ORDERED: LINEZOLID 600 MG/300 ML RTUPB IV ONE ×2 (19:15→19:56)
[2019-11-26] MEDS: MINERAL OIL/PETROLATUM,WHITE OPH OINT 3.5 GM OU SCH ×2 (19:20→22:37)
[2019-11-26] MEDS ORDERED: DEXTROSE 5%-WATER 250 ML with NOREPINEPHRINE BITARTRATE 4 MG IV PRN ×2 (19:25)
[2019-11-26] MEDS: POTASSIUM CHLORIDE 20 MEQ/50 ML RTU IV SCH ×2 (19:38→21:13)
[2019-11-26] MEDS: HYDROMORPHONE HCL 30 MG/60 ML RTUINJ IV PRN (19:47)
[2019-11-26] MEDS ORDERED: CEFEPIME 2 GM/D5W RTU 2 GM/50 ML RTUPB IV ONE ×2 (20:00→22:42)
[2019-11-26] MEDS ORDERED: AZITHROMYCIN INJ 500 MG VIAL IV ONE (20:04)
[2019-11-26] MEDS: ALBUTEROL SULFATE HFA (90 MCG/PUFF) 8 GM MDI IH SCH ×2 (20:16→23:55)
[2019-11-26] MEDS: AZITHROMYCIN 500 MG in DEXTROSE 5%-WATER 250 ML IV SCH (20:24)
[2019-11-26] MEDS ORDERED: OSELTAMIVIR PHOSPHATE 75 MG CAPSULE PO SCH (22:00)
[2019-11-26] MEDS ORDERED: MELATONIN 5 MG TABLET PO SCH (22:00)
[2019-11-26] MEDS: ENOXAPARIN SODIUM INJ 100 MG/1 ML DISP.SYRIN SUBCUT SCH (22:37)
[2019-11-26] MEDS ORDERED: OSELTAMIVIR PHOSPHATE 75 MG CAPSULE ONE (22:42)
[2019-11-26 22:58] LABS: ARTERIAL BLOOD BASE EXCESS 0.3 mmol/L; ARTERIAL BLOOD H2CO3 1.25 mmol/L (1.05-1.35); ARTERIAL BLOOD HCO3 25.1 mmol/L (20-24); ARTERIAL BLOOD O2 SATURATION 99.3 % (94-98); ARTERIAL BLOOD PCO2 41.6 mmHg (35-45); ARTERIAL BLOOD PO2 184.4 mmHg (80-100); ARTERIAL BLOOD TOTAL CO2 26.4 mmol/L (21-25)
[2019-11-26 22:59] LABS: ARTERIAL BLOOD FIO2 100%
[2019-11-26 23:30] LABS: CREATINE KINASE MB 0.41 ng/mL (<4.55); TROPONIN I 0.018 ng/mL
[2019-11-27] MEDS: PROPOFOL 1,000 MG/100 ML INFUS..BTL IV PRN ×3 (02:27→11:20)
[2019-11-27 05:07] LABS: ARTERIAL BLOOD BASE EXCESS 3.5 mmol/L; ARTERIAL BLOOD H2CO3 1.53 mmol/L (1.05-1.35); ARTERIAL BLOOD HCO3 29.5 mmol/L (20-24); ARTERIAL BLOOD O2 SATURATION 90.1 % (94-98); ARTERIAL BLOOD PCO2 50.8 mmHg (35-45); ARTERIAL BLOOD PH 7.38 (7.35-7.45); ARTERIAL BLOOD PO2 59.6 mmHg (80-100); ARTERIAL BLOOD TOTAL CO2 31.1 mmol/L (21-25)
[2019-11-27 05:08] LABS: ARTERIAL BLOOD FIO2 80%
[2019-11-27 05:15] LABS: ABSOLUTE EOSINOPHILS # (AUTO) 0.1 10^3/uL (0.0-0.6); ABSOLUTE NEUT (AUTO) 10.7 10^3/uL (1.7-8.2); MEAN CORPUSCULAR VOLUME 84 fl (80-97); TOTAL CELLS COUNTED % (AUTO) 100 %
[2019-11-27 05:16] LABS: HEMOGLOBIN 10.8 g/dL (12.0-15.5); LYMPHOCYTES % (AUTO) 6.9 % (13-45); MEAN CORPUSCULAR HEMOGLOBIN 28.1 pg (27.0-33.4); MEAN CORPUSCULAR HGB CONC 33.7 g/dL (32.0-36.0); PLATELET COUNT 267 10^3/uL (150-450); RED BLOOD COUNT 3.83 10^6/uL (3.72-5.28); RED CELL DISTRIBUTION WIDTH 14.4 % (11.5-14.0); SEGMENTED NEUTROPHILS % (AUTO) 89.3 % (42-78); WHITE BLOOD COUNT 11.4 10^3/uL (4.0-10.5)
[2019-11-27 05:17] LABS: ABSOLUTE LYMPHOCYTES (AUTO) 0.8 10^3/uL (0.5-4.7); ABSOLUTE MONOCYTES (AUTO) 0.3 10^3/uL (0.1-1.4); INTERNATIONAL RATION (INR) 1.49; MONOCYTES % (AUTO) 2.8 % (3-13); PROTHROMBIN TIME 18.2 SEC (11.4-15.4)
[2019-11-27 05:18] LABS: PARTIAL THROMBOPLASTIN TIME 41.7 SEC (23.5-35.8)
[2019-11-27 05:32] LABS: PHOSPHORUS 3.2 mg/dL (2.5-4.5)
[2019-11-27] MEDS: ALBUTEROL SULFATE HFA (90 MCG/PUFF) 8 GM MDI IH SCH (05:33)
[2019-11-27 05:39] LABS: D-DIMER 14.76 ug/mL (0.00-0.50)
[2019-11-27 05:40] LABS: CREATINE KINASE MB 0.47 ng/mL (<4.55); TROPONIN I < 0.012 ng/mL
[2019-11-27] MEDS: MINERAL OIL/PETROLATUM,WHITE OPH OINT 3.5 GM OU SCH ×3 (06:12→21:25)
[2019-11-27] MEDS: LINEZOLID 600 MG/300 ML RTUPB IV SCH ×2 (06:14→17:55)
--- NOTE | 2019-11-27 06:59 | Operative Report ---
Bedside Procedure - History of Present Illness History of Present Illness: Indication: Pressure monitoring, lab draws. Procedure link machine operator:PORFIRIO Barajas Attending physician: Dr. Franks Consent: Emergency procedure. Patient underwent arterial line placement earlier in the day which needed to be revised. Procedure summary: A timeout was performed. My hands were washed immediately prior to the procedure. I were surgical cap, mask with protective eyewear, sterile gown and sterile gloves throughout the procedure. After an Dwayne test was performed to ensure adequate perfusion and collateral circulation, the right wrist was prepped using chlorhexidine scrub and draped in sterile fashion. A radial pulse was identified and the wrist was positioned in the optimal position for radial cannulation. Anesthesia was achieved using 1% lidocaine. Using the radial arterial line kit, a needle was inserted into the radial artery. Arterial blood was seen to pulsate in the flash chamber. The internal guidewire was advanced easily into the radial artery. The catheter was then advanced over the wire and the needle and wire were withdrawn. The catheter was sutured in place. A sterile OpSite was placed over the catheter at the insertion site. The patient tolerated the procedure without any hemodynamic compromise. At the time of procedure completion, the catheter was connected to the school bus monitor and calibrated. Appropriate waveform and blood pressure tracing was observed. Estimated blood loss is less than 3 cc. Indication for Procedure: Pressure monitoring, lab draws Date: 11/26/19 Provider: ADRIAN MAN
[2019-11-27] MEDS ORDERED: ACETAMINOPHEN SOLN 325 MG/10.15 ML UDCUP NG PRN (07:30)
[2019-11-27] MEDS ORDERED: CEFEPIME 2 GM/D5W RTU 2 GM/50 ML RTUPB IV SCH (10:00)
[2019-11-27] MEDS ORDERED: ROCURONIUM BROMIDE INJ 50 MG/5 ML VIAL IV ONE (11:00)
[2019-11-27] MEDS: HYDROMORPHONE HCL 30 MG/60 ML RTUINJ IV PRN (11:25)
[2019-11-27] MEDS: CEFEPIME HCL 2 GM in DEXTROSE 5%-WATER 50 ML IV SCH ×2 (11:29→21:25)
[2019-11-27] MEDS: ENOXAPARIN SODIUM INJ 100 MG/1 ML DISP.SYRIN SUBCUT SCH ×2 (11:33→21:25)
[2019-11-27] MEDS: ZINC SULFATE 220 MG CAPSULE NG SCH (11:38)
[2019-11-27] MEDS: CHOLECALCIFEROL (D3) 1,000 UNIT (25 MCG) TABLET PO SCH (11:39)
[2019-11-27] MEDS: ASCORBIC ACID 500 MG TABLET NG SCH ×2 (11:41→18:20)
[2019-11-27] MEDS: OSELTAMIVIR PHOSPHATE 6 MG/1 ML SUSP 60 ML NG SCH ×2 (11:45→21:50)
[2019-11-27] MEDS: INSULIN LISPRO 100 UNIT/ML 3 ML VIAL SUBCUT SCH ×4 (11:48→21:50)
[2019-11-27] MEDS: HYDROXYCHLOROQUINE SULFATE 200 MG TABLET NG SCH ×2 (11:48→18:24)
[2019-11-27] MEDS: ALBUTEROL SULFATE HFA (90 MCG/PUFF) 200 PUFF/8.5 GM MDI IH SCH ×3 (11:49→23:38)
[2019-11-27 12:14] LABS: ARTERIAL BLOOD BASE EXCESS 0.9 mmol/L; ARTERIAL BLOOD O2 SATURATION 93.1 % (94-98); ARTERIAL BLOOD PCO2 43.1 mmHg (35-45); ARTERIAL BLOOD PO2 66.4 mmHg (80-100); ARTERIAL BLOOD TOTAL CO2 27.3 mmol/L (21-25)
[2019-11-27 12:15] LABS: ARTERIAL BLOOD FIO2 100%
[2019-11-27] MEDS ORDERED: HYDROCORTISONE SOD SUCCINATE INJ/PF 100 MG/2 ML SDV ONE (12:16)
[2019-11-27] MEDS ORDERED: DEXTROSE 5%-WATER 250 ML with VASOPRESSIN 100 UNIT IV PRN ×2 (12:49)
[2019-11-27] MEDS ORDERED: LORAZEPAM INJ 2 MG/1 ML VIAL ONE (12:51)
[2019-11-27] MEDS ORDERED: VASOPRESSIN INJ 20 UNIT/1 ML VIAL ONE (12:53)
[2019-11-27] MEDS ORDERED: ALBUMIN HUMAN 500 ML IV ONE ×3 (13:00→17:50)
[2019-11-27] MEDS ORDERED: DEXMEDETOMIDINE IN 0.9 % NACL 400 MCG/100 ML RTUPB IV ONE ×2 (13:42→17:41)
[2019-11-27] MEDS: DEXMEDETOMIDINE IN 0.9 % NACL 400 MCG/100 ML RTUPB IV PRN ×3 (13:45→21:52)
[2019-11-27] MEDS ORDERED: LORAZEPAM INJ 2 MG/1 ML VIAL IV ONE (14:00)
--- NOTE | 2019-11-27 14:55 | Operative Report ---
Bedside Procedure - History of Present Illness History of Present Illness: ANAMIKA ACEVES is a 69 year old female with past medical history as of essential hypertension, asthma and T2DM who originally presented to emergency room after 4-days of progressive fever/chills/shortness of breath/dry cough/fatigue/generalized weakness/loose stools which began while she was in [place] visiting with family for her brother's . Noted that she flew out on 10/31 and returned on 11/17, with mild but present symptoms prior to her departure. Had low-grade fevers, tachycardia, tachypnea, shortness of breath, lymphopenia with normal WBC on admission. No family members or other people around her have also been ill. In ED, patient notably , tolerating room air without supplemental oxygen. CTA of chest was done which was significant for multifocal pneumonia and radiologist specifically mentioned patient results highly consistent with covid-19 pneumonia. Patient admitted to coronavirus floor. SARS, 2-CoViD19 testing was positive. She became more hypoxic and in distress today and a rapid response was called. We brought her down to the ICU with a protected head covering for covert. She was in extreme respiratory distress with tachypnea as high as 40-50. She endorsed that she was tiring. She was extremely tachycardic with a heart rate of 120-130s blood pressure 140-170 systolic. She agreed to mechanical ventilation and required intubation using a plastic protective johnson and glide scope. Her heart rate and respiratory rate improved dramatically however she remained hypoxic and she was placed in prone position. Indication for Procedure: Dysfunctional central line Date: 11/26/19 Provider: SHANNAN GALVAN - Central Line Right Femoral Time completed: 13:00 Consent obtained: No - Emergent Central line pre-insertion: Sterile PPE donned, Chloraprep applied, Sterile drapes applied Central line lumen type: Triple Ultrasound guided: Yes CM at insertion site: 20 Line secured with sutures: Yes Central line post-insertion: Blood return from lumens, Biopatch applied, Sutured, Sterile dressing applied, Other - Nerved femoral vein on ultrasound Number of attempts: 1 Complications: No Notes: 11/27/19 14:53 Note that patient had a left internal jugular central venous catheter placed yesterday that transition from the internal jugular over to the right subclavian. It was pulled back into the brachiocephalic but appear to have become more dysfunctional and it was pulled back further. It had been working well however the patient awoke and attempted to raise her head from prone position. At this point we had difficulty with her blood pressure and fluids that were given appear to have extravasated into her neck. We were unable to place an right internal jugular and because of the fear of injury to both veins we elected to place this catheter in the femoral region which was clean. Patient tolerated procedure well estimated blood loss 5 to 8 cc
--- NOTE | 2019-11-27 15:07 | PDOC CRITICAL CARE PROG REPORT ---
General Date:: 11/27/19 ICU Day:: 2 Ventilator Day:: 2 Hospital Day:: 6 Resuscitation Status: Full Code Medical Power of Cosmetics Machine Operator: DaughterXin Events in the past 12 to 24 Hours:: 11.27.2019: Patient brought down from medical floor in respiratory extremis culminating in the need for intubation and mechanical ventilation She was immediately placed in prone position and elevated levels of PEEP which resulted in improvement in her overall oxygen saturation. Today's blood gas shows a PO2 which is lower than expected and I expect that this is a spurious result and have ordered a repeat ABG from the art line. She developed hypotension presumably from the need for sedation and she was placed on vasopressor therapy. Currently vasopressors at 30 on levophed with vasopressin ordered. In review and examination under ultrasound I noted that the left internal jugular central venous catheter which had been stable had been pulled back and there appeared to be extravasation into the soft tissue. She had awoken prior to this and was moving and this may have caused this occurring. We placed the vasopressor therapy into a large antecubital vein while we prepared for central line. With the thought process that the left internal jugular may be a concern subclavian was not considered because we were concerned that there would be thrombosis of the upper venous system. Like to do place the catheter in the femoral vein however we had to reposition her and place her in supine position because of her instability. While in supine position a basic critical care ultrasound of the heart showed an intact EF (in fact hyperdynamic). IVC was filled RV did not appear to be dysfunctional. Given her hypotension we re-supinated her with close attention to her airway. She had had peak airway pressures which are elevated and I was suspicious that the ET tube was the cause. With supination we had improvement in her peak airway pressures but not blood pressures. Passive leg exam was done after the a line was assured to be valid and her blood pressure improved significantly with. She had been ordered albumin earlier but I fearful that it extravasated into t he soft tissue as well. Repeat albumin was ordered. Review of systems relevant to events:: 11.27.2019: D-dimer continues to be elevated and patient is on Lovenox protocol. Other inflammatory parameters are not a significant however the neutrophile -to-emphasized ratio is elevated. Steroids held with the reduction in ferritin. Acquired replacement of axillary arterial line after became dysfunctional. Left internal jugular central venous line enters the right subclavian vein but has been pulled back. Chest x-ray has not been repeated secondary to SARS, 2-CoViD19 restrictive concerns. Reason for ICU Addmission:: Acute hypoxic respiratory failure with SARS, 2- CoViD19 - Medications: Medications reviewed and adjusted accordingly: Yes Vasopressors:: levophed and vasopressin Sedation:: propofol and dilaudid with ativan bolus Physical Exam Vital Signs: Temp Pulse Resp BP Pulse Ox 100.9 F H 92 14 76/61 L 100 11/27/19 06:00 11/27/19 03:28 11/27/19 06:00 11/26/19 22:16 11/27/19 06:00 Intake & Output 11/26/19 11/27/19 11/28/19 06:59 06:59 06:59 Intake Total 1836 1290 100 Output Total 450 820 Balance 1386 470 100 Weight 87.6 kg 92.8 kg Weight/Height Weight 92.8 kg Height 5 ft 2 in General appearance: PRESENT: no acute distress, morbidly obese Exam: Pronated, elderly ill 69-year-old female intubated no acute distress heavily sedated to prevent inadvertent ET tube removal Head exam: PRESENT: atraumatic, normocephalic, other - Evaluation of facial structures that can be seen showed no a acute pressure changes. Eye guard intact with Lacri-Lube Eye exam: PRESENT: other - Unable to evaluate secondary to prone position Ear exam: PRESENT: normal external ear exam Mouth exam: PRESENT: other - Unable to evaluate secondary to prone position Neck exam: PRESENT: other - Central line in left neck appears clean dry and i ntact. ABSENT: lymphadenopathy Respiratory exam: PRESENT: unlabored, other - Lung sounds not auscultated secondary to the confines of PPE and poor auditory capability of disposable stethoscope. ABSENT: accessory muscle use, tachypnea Cardiovascular exam: PRESENT: other - Heart sounds not auscultated secondary to the confines of PPE and poor auditory capability of disposable stethoscope and patient is prone Pulses: PRESENT: +1 pedal pulses bilateral Vascular exam: PRESENT: normal capillary refill GI/Abdominal exam: PRESENT: other - Unable to examine secondary to prone position Rectal exam: PRESENT: deferred Gentrourinary exam: PRESENT: indwelling catheter Extremities exam: ABSENT: pedal edema Musculoskeletal exam: PRESENT: deformity, dislocation Neurological exam: PRESENT: altered - Deeply sedated secondary to prone state and need for integrity of the ET tube Psychiatric exam: PRESENT: appropriate affect Skin exam: PRESENT: dry, intact, mottled, warm, other - Contact points during prone position all protected with adaptive dressing. ABSENT: cyanosis, rash Additional comments: Examination after patient was placed supine showed minimal facial swelling from dependence no skin changes. All contact points were clean dry intact without any pressure ulcers. Arterial line was functional and intact. Left IJ central venous catheter was removed. Tubes/Lines: PRESENT: Endotracheal Tube, Central Line, Arterial Catheter - Adams type urinary catheter, orogastric tube Laboratory/Radiographs Laboratory Results: 11/27/19 04:45 11/26/19 11:48 11/26/19 11/26/19 11/26/19 11:45 11:48 11:48 WBC 8.1 RBC 4.72 Hgb 13.5 Hct 39.2 MCV 83 MCH 28.6 MCHC 34.4 RDW 14.3 H Plt Count 394 Seg Neutrophils % 85.7 H Carbonic Acid 1.06 HCO3/H2CO3 Ratio 26:1 ABG pH 7.52 H ABG pCO2 35.2 ABG pO2 39.2 L* ABG HCO3 28.1 H ABG O2 Saturation 80.0 L ABG Base Excess 5.3 FiO2 100% Sodium 137.1 Potassium 3.0 L* Chloride 96 L Carbon Dioxide 36 H Anion Gap 5 BUN 5 L Creatinine 0.76 Est GFR ( Amer) > 60 Glucose 136 H Calcium 8.9 Phosphorus 2.7 Magnesium 2.4 H Ferritin 814.00 H Total Bilirubin 1.1 AST 95 H Alkaline Phosphatase 108 C-Reactive Protein 472.0 H Total Protein 8.1 Albumin 3.7 Triglycerides Amylase 56 Lipase 38.7 11/26/19 11/26/19 11/27/19 22:45 22:45 04:45 WBC RBC Hgb Hct MCV MCH MCHC RDW Plt Count Seg Neutrophils % Carbonic Acid 1.25 HCO3/H2CO3 Ratio 20:1 ABG pH 7.40 ABG pCO2 41.6 ABG pO2 184.4 H ABG HCO3 25.1 H ABG O2 Saturation 99.3 H ABG Base Excess 0.3 FiO2 100% Sodium Potassium Chloride Carbon Dioxide Anion Gap BUN Creatinine Est GFR ( Amer) Glucose Calcium Phosphorus 3.2 Magnesium 2.0 Ferritin 725.00 H Total Bilirubin AST Alkaline Phosphatase C-Reactive Protein 428.0 H Total Protein Albumin Triglycerides 234 H Amylase Lipase 11/27/19 11/27/19 04:45 04:45 WBC 11.4 H RBC 3.83 Hgb 10.8 L D Hct 32.0 L MCV 84 MCH 28.1 MCHC 33.7 RDW 14.4 H Plt Count 267 Seg Neutrophils % 89.3 H Carbonic Acid 1.53 H HCO3/H2CO3 Ratio 19:1 ABG pH 7.38 ABG pCO2 50.8 H ABG pO2 59.6 L ABG HCO3 29.5 H ABG O2 Saturation 90.1 L ABG Base Excess 3.5 FiO2 80% Sodium Potassium Chloride Carbon Dioxide Anion Gap BUN Creatinine Est GFR ( Amer) Glucose Calcium Phosphorus Magnesium Ferritin Total Bilirubin AST Alkaline Phosphatase C-Reactive Protein Total Protein Albumin Triglycerides Amylase Lipase 11/21/19 18:40 Blood Blood Culture - Final NO GROWTH IN 5 DAYS 11/21/19 11/26/19 11/26/19 14:00 11:48 11:48 Creatine Kinase 105 CK-MB (CK-2) 0.87 Troponin I < 0.012 NT-Pro-B Natriuret Pep 32 11/26/19 11/26/19 11/27/19 22:45 22:45 04:45 Creatine Kinase 60 46 CK-MB (CK-2) 0.41 Troponin I 0.018 NT-Pro-B Natriuret Pep 11/27/19 04:45 Creatine Kinase CK-MB (CK-2) 0.47 Troponin I < 0.012 NT-Pro-B Natriuret Pep Impressions: Chest/Abdomen CTA 11/21/19 16:08 IMPRESSION: 1. Patchy peripheral and perihilar ground-glass opacities in both lungs. These are commonly reported imaging features of COVID-19 pneumonia are present. Other processes such as influenza pneumonia and organizing pneumonia, as can be seen with drug toxicity and connective tissue disease, can cause a similar imaging pattern. PneTyp 2. Limited evaluation of the pulmonary arteries due to contrast bolus timing. No large central pulmonary embolus. Evaluation of the segmental and subsegmental pulmonary arteries is limited. Chest X-Ray 11/26/19 00:00 IMPRESSION: Diffuse peripheral parenchymal opacities in both lungs. Vascular congestion. ET tube and nasogastric tube as expected. Venous access catheter tip crosses midline nodes in the right subclavian. All labs, radiographs, diagnostic studies and EKGs were personally reviewed: Yes In addition, reports of radiographic and diagnostic studies were read: Yes Assessment and Plan - Diagnosis (1) Shock, septic Is this a current diagnosis for this admission?: Yes (2) Acute hypoxemic respiratory failure Is this a current diagnosis for this admission?: Yes (3) COVID-19 virus infection Is this a current diagnosis for this admission?: Yes (4) Sepsis Qualifiers: Sepsis type: sepsis due to unspecified organism Sepsis acute organ dysfunction status: without acute organ dysfunction Qualified Code(s): A41.9 - Sepsis, unspecified organism Is this a current diagnosis for this admission?: Yes (5) T2DM (type 2 diabetes mellitus) Qualifiers: Diabetes mellitus fci insulin use: without fci use Diabetes mellitus complication status: without complication Qualified Code(s): E11.9 - Type 2 diabetes mellitus without complications Is this a current diagnosis for this admission?: Yes (6) Lactic acidosis Is this a current diagnosis for this admission?: Yes Plan Summary: 11.27.2019: Patient has septic shock is still very ill. I am impressed with some improvement in her overall parameters but her d-dimer still elevated necessitating the use for full treatment anticoagulation. SARS, 2-CoViD19 standards of care have not been widely developed but drawing on preliminary data full dose treatment especially with d-dimer greater than 1 is acceptable and recommended. She has not reached a inflammatory level which would require steroids however her shock like state dictates a small level of steroid. Have ordered Solu-Cortef. This is also been recommended by numerous recommendations. We will continue supportive care as well as nutrition. There are significant limitations in physical exam while patient is prone and we will attempt to alleviate these. All contact points including face were evaluat ed during examination to assure no pressure related ulceration. Patient was re-supinated and reexamined. Other than some mild facial swelling there were no untoward effects. Her peak pressures on the ventilator improved raising our impression that the patient had some kinking of her ET tube. Her oxygen saturations were stable. We will start nutritional support and wean vasopressor therapy. Hopefully the steroids will assist in improving her blood pressure. We will add Midodrine if Bp does not respond. More and more data are suggesting that the hypoxia from this disease is more related to uncoupling of poor firing rings and the viruses response to hemoglobin attachment of oxygen. Continue antioxidant support. Critical Time Critical Time (minutes): 130 Level of Care: ICU -: 1. The care of a critical patient is a dynamic process. This note is a inside technical sales representative synopsis but static in nature. The timeframe for treatments given in order is not necessarily the actual time these treatments may have been done. 2. This patient requires critical care secondary to ongoing requirements for therapy not offered or safe outside the critical care environment. Transfer to a lower level of care will result in altered life or limb morbidity and mortality. 3. Multidisciplinary rounds completed. 4. ABCDE bundle addressed.
[2019-11-27] MEDS: AZITHROMYCIN 500 MG in DEXTROSE 5%-WATER 250 ML IV SCH (17:55)
[2019-11-27] MEDS: HYDROCORTISONE SOD SUCCINATE INJ/PF 100 MG/2 ML SDV IV SCH ×2 (18:05→21:26)
[2019-11-27 18:09] LABS: HEMATOCRIT 29.4 % (36.0-47.0); HEMOGLOBIN 10.1 g/dL (12.0-15.5); MEAN CORPUSCULAR HEMOGLOBIN 28.5 pg (27.0-33.4); MEAN CORPUSCULAR HGB CONC 34.2 g/dL (32.0-36.0); MEAN CORPUSCULAR VOLUME 83 fl (80-97); PLATELET COUNT 238 10^3/uL (150-450); RED BLOOD COUNT 3.53 10^6/uL (3.72-5.28); RED CELL DISTRIBUTION WIDTH 14.4 % (11.5-14.0); WHITE BLOOD COUNT 13.1 10^3/uL (4.0-10.5)
[2019-11-27] MEDS: MELATONIN 5 MG TABLET NG SCH (21:50)
[2019-11-28] MEDS: HYDROMORPHONE HCL 30 MG/60 ML RTUINJ IV PRN (00:38)
[2019-11-28] MEDS: DEXMEDETOMIDINE IN 0.9 % NACL 400 MCG/100 ML RTUPB IV PRN ×3 (01:38→18:46)
[2019-11-28 03:37] LABS: ARTERIAL BLOOD BASE EXCESS 1.3 mmol/L; ARTERIAL BLOOD HCO3 25.2 mmol/L (20-24); ARTERIAL BLOOD O2 SATURATION 87.2 % (94-98); ARTERIAL BLOOD PCO2 36.6 mmHg (35-45); ARTERIAL BLOOD PH 7.46 (7.35-7.45); ARTERIAL BLOOD PO2 49.6 mmHg (80-100); ARTERIAL BLOOD TOTAL CO2 26.3 mmol/L (21-25)
[2019-11-28 03:38] LABS: ABSOLUTE LYMPHOCYTES (AUTO) 0.6 10^3/uL (0.5-4.7); ABSOLUTE MONOCYTES (AUTO) 0.3 10^3/uL (0.1-1.4); ABSOLUTE NEUT (AUTO) 10.1 10^3/uL (1.7-8.2); HEMATOCRIT 28.1 % (36.0-47.0); HEMOGLOBIN 9.7 g/dL (12.0-15.5); LYMPHOCYTES % (AUTO) 5.2 % (13-45); MEAN CORPUSCULAR HGB CONC 34.7 g/dL (32.0-36.0); MEAN CORPUSCULAR VOLUME 84 fl (80-97); MONOCYTES % (AUTO) 2.5 % (3-13); PLATELET COUNT 229 10^3/uL (150-450); RED BLOOD COUNT 3.36 10^6/uL (3.72-5.28); RED CELL DISTRIBUTION WIDTH 14.3 % (11.5-14.0); SEGMENTED NEUTROPHILS % (AUTO) 92.3 % (42-78); TOTAL CELLS COUNTED % (AUTO) 100 %
[2019-11-28 03:40] LABS: ARTERIAL BLOOD FIO2 60%
[2019-11-28] MEDS: RINGERS SOLUTION,LACTATED 1,000 ML IV PRN ×2 (04:00→13:44)
[2019-11-28] MEDS ORDERED: LINEZOLID 600 MG/300 ML RTUPB IV ONE (05:20)
[2019-11-28 05:22] LABS: ANION GAP 8 (5-19); BLOOD UREA NITROGEN 16 mg/dL (7-20); CALCIUM 7.7 mg/dL (8.4-10.2); CARBON DIOXIDE 26 mmol/L (22-30); CHLORIDE 99 mmol/L (98-107); GLUCOSE 113 mg/dL (75-110); POTASSIUM 3.6 mmol/L (3.6-5.0)
[2019-11-28] MEDS: LINEZOLID 600 MG/300 ML RTUPB IV SCH ×2 (05:51→18:48)
[2019-11-28] MEDS: HYDROCORTISONE SOD SUCCINATE INJ/PF 100 MG/2 ML SDV IV SCH ×3 (05:51→21:26)
[2019-11-28] MEDS: MINERAL OIL/PETROLATUM,WHITE OPH OINT 3.5 GM OU SCH ×3 (05:52→21:25)
[2019-11-28] MEDS: ALBUTEROL SULFATE HFA (90 MCG/PUFF) 200 PUFF/8.5 GM MDI IH SCH ×4 (05:52→23:05)
[2019-11-28] MEDS ORDERED: DEXTROSE 40% GEL 15 GM TUBE PO PRN ×2 (06:46)
[2019-11-28] MEDS ORDERED: DEXTROSE 50%-WATER 25 GM/50 ML DISP.SYRIN IV PRN ×2 (06:46)
[2019-11-28] MEDS ORDERED: GLUCAGON,HUMAN RECOMB 1 MG INJ IM PRN (06:46)
[2019-11-28] MEDS ORDERED: INSULIN REG, HUMAN 100 UNIT/ML 3 ML VIAL (PYX) SUBCUT ONE (07:00)
--- NOTE | 2019-11-28 09:01 | EKG REPORT ---
SEVERITY:- ABNORMAL ECG - SINUS RHYTHM RBBB AND LAFB : Confirmed by: Dee Gerber MD 28-Nov-2019 09:01:00
[2019-11-28] MEDS: ASCORBIC ACID 500 MG TABLET NG SCH ×2 (12:07→18:49)
[2019-11-28] MEDS: CHOLECALCIFEROL (D3) 1,000 UNIT (25 MCG) TABLET PO SCH (12:07)
[2019-11-28] MEDS: ENOXAPARIN SODIUM INJ 100 MG/1 ML DISP.SYRIN SUBCUT SCH ×2 (12:07→21:25)
[2019-11-28] MEDS: ZINC SULFATE 220 MG CAPSULE NG SCH (12:08)
[2019-11-28] MEDS: CEFEPIME HCL 2 GM in DEXTROSE 5%-WATER 50 ML IV SCH ×2 (12:08→21:25)
[2019-11-28] MEDS: OSELTAMIVIR PHOSPHATE 6 MG/1 ML SUSP 60 ML NG SCH ×2 (12:09→21:27)
[2019-11-28] MEDS: INSULIN REG, HUMAN 100 UNIT/ML 3 ML VIAL (PYX) SUBCUT SCH ×3 (12:19→23:34)
[2019-11-28] MEDS: HYDROXYCHLOROQUINE SULFATE 200 MG TABLET NG SCH ×2 (12:23→18:50)
[2019-11-28] MEDS: AZITHROMYCIN 500 MG in DEXTROSE 5%-WATER 250 ML IV SCH (18:46)
[2019-11-28 21:10] LABS: ARTERIAL BLOOD BASE EXCESS 0.5 mmol/L; ARTERIAL BLOOD H2CO3 1.18 mmol/L (1.05-1.35); ARTERIAL BLOOD HCO3 24.9 mmol/L (20-24); ARTERIAL BLOOD O2 SATURATION 91.3 % (94-98); ARTERIAL BLOOD PCO2 39.2 mmHg (35-45); ARTERIAL BLOOD PH 7.42 (7.35-7.45); ARTERIAL BLOOD PO2 59.3 mmHg (80-100); ARTERIAL BLOOD TOTAL CO2 26.1 mmol/L (21-25)
[2019-11-28 21:13] LABS: ARTERIAL BLOOD FIO2 70%
[2019-11-28] MEDS: MELATONIN 5 MG TABLET NG SCH (21:26)
--- NOTE | 2019-11-28 21:28 | PDOC CRITICAL CARE PROG REPORT ---
General Date:: 11/28/19 ICU Day:: 3 Ventilator Day:: 3 Hospital Day:: 7 Resuscitation Status: Full Code Medical Power of Pharmacy Picking Tech: DaughterXin Events in the past 12 to 24 Hours:: 11.28.2019: Patient supinated yesterday without difficulty. Patient's hypotension has now improved and she is off phase of vasopressor therapy. She is sedated and the suspicion is that the propofol that was going through the central line in her neck may have extravasated. There has been no untoward reaction of the skin. 11.27.2019: Patient brought down from medical floor in respiratory extremis culminating in the need for intubation and mechanical ventilation She was immediately placed in prone position and elevated levels of PEEP which resulted in improvement in her overall oxygen saturation. Today's blood gas shows a PO2 which is lower than expected and I expect that this is a spurious result and have ordered a repeat ABG from the art line. She developed hypotension presumably from the need for sedation and she was placed on vasopressor therapy. Currently vasopressors at 30 on levophed with vasopressin ordered. In review and examination under ultrasound I noted that the left internal jugular central venous catheter which had been stable had been pulled back and there appeared to be extravasation into the soft tissue. She had awoken prior to this and was moving and this may have caused this occurring. We placed the vasopressor therapy into a large antecubital vein while we prepared for central line. With the thought process that the left internal jugular may be a concern subclavian was not considered because we were concerned that there would be thrombosis of the upper venous system. Like to do place the catheter in the femoral vein however we had to reposition her and place her in supine position because of her instability. While in supine position a basic critical care ultrasound of the heart showed an intact EF (in fact hyperdynamic). IVC was filled RV did not appear to be dysfunctional. Given her hypotension we re-supinated her with close attention to her airway. She had had peak airway pressures which are elevated and I was suspicious that the ET tube was the cause. With supination we had improvement in her peak airway pressures but not blood pressures. Passive leg exam was done after the a line was assured to be valid and her blood pressure improved significantly with. She had been ordered albumin earlier but I fearful that it extravasated into the soft tissue as well. Repeat albumin was ordered. Review of systems relevant to events:: 11.28.2019: No excessive fevers have been noted. FiO2 now down to 70%. This morning's ABG may be a venous draw. 11.27.2019: D-dimer continues to be elevated and patient is on Lovenox protocol. Other inflammatory parameters are not a significant however the dmefdbqctuk-ik-ordbjreitx ratio is elevated. Steroids held with the reduction in ferritin. Acquired replacement of axillary arterial line after became dysfunctional. Left internal jugular central venous line enters the right subclavian vein but has been pulled back. Chest x-ray has not been repeated secondary to SARS, 2-CoViD19 restrictive concerns. Reason for ICU Addmission:: Acute hypoxic respiratory failure with SARS, 2- CoViD19 - Medications: Vasopressors:: Off Sedation:: Precedex and dilaudid Physical Exam Vital Signs: Temp Pulse Resp BP Pulse Ox 98.8 F 75 18 76/61 L 95 11/28/19 18:00 11/27/19 22:00 11/28/19 18:00 11/26/19 22:16 11/28/19 18:00 Intake & Output 11/27/19 11/28/19 11/29/19 06:59 06:59 06:59 Intake Total 1640 3589 1123 Output Total 259 700 8970 Balance 820 3089 -122 Weight 92.8 kg 93.4 kg Weight/Height Weight 93.4 kg Height 5 ft 2 in General appearance: PRESENT: no acute distress, cooperative, morbidly obese Exam: Intubated supinated 69-year-old black female no active distress Eye exam: PRESENT: conjunctival injection, conjunctiva pink, PERRLA. ABSENT: nystagmus Mouth exam: PRESENT: dry mucosa Neck exam: PRESENT: tracheal deviation, other - Soft tissues of the neck less swollen. No erythema. ABSENT: JVD, lymphadenopathy, thyromegaly Respiratory exam: PRESENT: other - Lung sounds not auscultated secondary to the confines of PPE and poor auditory capability of disposable stethoscope. ABSENT: accessory muscle use, tachypnea, unlabored Cardiovascular exam: PRESENT: RRR, other - Heart sounds not auscultated secondary to the confines of PPE and poor auditory capability of disposable stethoscope. ABSENT: tachycardia Pulses: PRESENT: +1 pedal pulses bilateral Vascular exam: PRESENT: normal capillary refill GI/Abdominal exam: PRESENT: soft, other - Gastric sounds not auscultated secondary to the confines of PPE and poor auditory capability of disposable stethoscope. ABSENT: ascites, firm, guarding, mass, organolmegaly, tenderness Rectal exam: PRESENT: deferred Gentrourinary exam: PRESENT: indwelling catheter Extremities exam: PRESENT: pedal edema Musculoskeletal exam: ABSENT: deformity, dislocation Neurological exam: PRESENT: altered - Deeply sedated secondary to need for reducing metabolic demand Psychiatric exam: PRESENT: appropriate affect Skin exam: PRESENT: dry, intact, warm. ABSENT: cyanosis, rash Tubes/Lines: PRESENT: Endotracheal Tube, Central Line, Arterial Catheter - Oral gastric Tube, Adams type urinary catheter Laboratory/Radiographs Laboratory Results: 11/28/19 03:17 11/28/19 03:17 11/28/19 11/28/19 11/28/19 03:17 03:17 03:17 WBC 11.0 H RBC 3.36 L Hgb 9.7 L Hct 28.1 L MCV 84 MCH 29.0 MCHC 34.7 RDW 14.3 H Plt Count 229 Seg Neutrophils % 92.3 H Carbonic Acid 1.10 HCO3/H2CO3 Ratio 22:1 ABG pH 7.46 H ABG pCO2 36.6 ABG pO2 49.6 L ABG HCO3 25.2 H ABG O2 Saturation 87.2 L ABG Base Excess 1.3 FiO2 60% Sodium Potassium Chloride Carbon Dioxide Anion Gap BUN Creatinine Est GFR ( Amer) Glucose Calcium Phosphorus 3.0 Magnesium 2.0 Ferritin 687.00 H C-Reactive Protein 446.0 H 11/28/19 03:17 WBC RBC Hgb Hct MCV MCH MCHC RDW Plt Count Seg Neutrophils % Carbonic Acid HCO3/H2CO3 Ratio ABG pH ABG pCO2 ABG pO2 ABG HCO3 ABG O2 Saturation ABG Base Excess FiO2 Sodium 133.2 L Potassium 3.6 Chloride 99 Carbon Dioxide 26 Anion Gap 8 BUN 16 Creatinine 1.09 Est GFR ( Amer) > 60 Glucose 113 H Calcium 7.7 L Phosphorus Magnesium Ferritin C-Reactive Protein 11/21/19 11/26/19 11/26/19 14:00 11:48 11:48 Creatine Kinase 105 CK-MB (CK-2) 0.87 Troponin I < 0.012 NT-Pro-B Natriuret Pep 32 11/26/19 11/26/19 11/27/19 22:45 22:45 04:45 Creatine Kinase 60 46 CK-MB (CK-2) 0.41 Troponin I 0.018 NT-Pro-B Natriuret Pep 11/27/19 04:45 Creatine Kinase CK-MB (CK-2) 0.47 Troponin I < 0.012 NT-Pro-B Natriuret Pep Impressions: Chest/Abdomen CTA 11/21/19 16:08 IMPRESSION: 1. Patchy peripheral and perihilar ground-glass opacities in both lungs. These are commonly reported imaging features of COVID-19 pneumonia are present. Other processes such as influenza pneumonia and organizing pneumonia, as can be seen with drug toxicity and connective tissue disease, can cause a similar imaging pattern. PneTyp 2. Limited evaluation of the pulmonary arteries due to contrast bolus timing. No large central pulmonary embolus. Evaluation of the segmental and subse gmental pulmonary arteries is limited. Chest X-Ray 11/26/19 00:00 IMPRESSION: Diffuse peripheral parenchymal opacities in both lungs. Vascular congestion. ET tube and nasogastric tube as expected. Venous access catheter tip crosses midline nodes in the right subclavian. All labs, radiographs, diagnostic studies and EKGs were personally reviewed: Yes In addition, reports of radiographic and diagnostic studies were read: Yes Assessment and Plan - Diagnosis (1) Shock, septic Is this a current diagnosis for this admission?: Yes (2) Acute hypoxemic respiratory failure Is this a current diagnosis for this admission?: Yes (3) COVID-19 virus infection Is this a current diagnosis for this admission?: Yes (4) Sepsis Qualifiers: Sepsis type: sepsis due to unspecified organism Sepsis acute organ dysfunction status: without acute organ dysfunction Qualified Code(s): A41.9 - Sepsis, unspecified organism Is this a current diagnosis for this admission?: Yes (5) T2DM (type 2 diabetes mellitus) Qualifiers: Diabetes mellitus group home insulin use: without intermodal truck driver use Diabetes mellitus complication status: without complication Qualified Code(s): E11.9 - Type 2 diabetes mellitus without complications Is this a current diagnosis for this admission?: Yes (6) Lactic acidosis Is this a current diagnosis for this admission?: Yes Plan Summary: 11.28.2019: Patient has made some subtle improvement but is still on high FiO2. We will continue to provide support. We will begin enteral tube feedings as well. Inflammatory markers are improving significantly and will continue therapy. D Dimer is remarkably reduced as well but will continue anti-thrombotic therapy to less than 1 Continue supportive care Stop IV fluids Watch QT interval Vigilance for medication reactions 11.27.2019: Patient has septic shock is still very ill. I am impressed with some improvement in her overall parameters but her d-dimer still elevated necessitating the use for full treatment anticoagulation. SARS, 2-CoViD19 standards of care have not been widely developed but drawing on preliminary data full dose treatment especially with d-dimer greater than 1 is acceptable and recommended. She has not reached a inflammatory level which would require steroids however her shock like state dictates a small level of steroid. Have ordered Solu-Cortef. This is also been recommended by numerous recommendations. We will continue supportive care as well as nutrition. There are significant limitations in physical exam while patient is prone and we will attempt to alleviate these. All contact points including face were e valuated during examination to assure no pressure related ulceration. Patient was re-supinated and reexamined. Other than some mild facial swelling there were no untoward effects. Her peak pressures on the ventilator improved raising our impression that the patient had some kinking of her ET tube. Her oxygen saturations were stable. We will start nutritional support and wean vasopressor therapy. Hopefully the steroids will assist in improving her blood pressure. We will add Midodrine if Bp does not respond. More and more data are suggesting that the hypoxia from this disease is more rel ated to uncoupling of poor firing rings and the viruses response to hemoglobin attachment of oxygen. Continue antioxidant support. Critical Time Critical Time (minutes): 50 Level of Care: ICU -: 1. The care of a critical patient is a dynamic process. This note is a entry level account representative synopsis but static in nature. The timeframe for treatments given in order is not necessarily the actual time these treatments may have been done. 2. This patient requires critical care secondary to ongoing requirements for therapy not offered or safe outside the critical care environment. Transfer to a lower level of care will result in altered life or limb morbidity and mortality. 3. Multidisciplinary rounds completed. 4. ABCDE bundle addressed.
[2019-11-29] MEDS: DEXMEDETOMIDINE IN 0.9 % NACL 400 MCG/100 ML RTUPB IV PRN ×5 (01:58→23:30)
[2019-11-29 04:19] LABS: ARTERIAL BLOOD BASE EXCESS 0.5 mmol/L; ARTERIAL BLOOD H2CO3 1.14 mmol/L (1.05-1.35); ARTERIAL BLOOD HCO3 24.7 mmol/L (20-24); ARTERIAL BLOOD O2 SATURATION 88.8 % (94-98); ARTERIAL BLOOD PH 7.43 (7.35-7.45); ARTERIAL BLOOD PO2 53.5 mmHg (80-100); ARTERIAL BLOOD TOTAL CO2 25.9 mmol/L (21-25)
[2019-11-29 04:20] LABS: ARTERIAL BLOOD FIO2 70%
[2019-11-29 04:28] LABS: HEMATOCRIT 28.1 % (36.0-47.0); HEMOGLOBIN 9.8 g/dL (12.0-15.5); MEAN CORPUSCULAR HEMOGLOBIN 28.7 pg (27.0-33.4); MEAN CORPUSCULAR HGB CONC 34.7 g/dL (32.0-36.0); MEAN CORPUSCULAR VOLUME 83 fl (80-97); PLATELET COUNT 300 10^3/uL (150-450); RED CELL DISTRIBUTION WIDTH 14.7 % (11.5-14.0); WHITE BLOOD COUNT 11.4 10^3/uL (4.0-10.5)
[2019-11-29 04:41] LABS: PHOSPHORUS 3.1 mg/dL (2.5-4.5)
[2019-11-29 04:51] LABS: ABSOLUTE LYMPHOCYTES# (MANUAL) 0.2 10^3/uL (0.5-4.7); ABSOLUTE MONOCYTES # (MANUAL) 0.2 10^3/uL (0.1-1.4); ANISOCYTOSIS 1+; BAND NEUTROPHILS % (MANUAL) 2 % (3-5); BASOPHILS % (MANUAL) 0 % (0-2); EOSINOPHILS % (MANUAL) 0 % (0-6); LYMPHOCYTES % (MANUAL) 2 % (13-45); MONOCYTES % (MANUAL) 2 % (3-13); PLATELET COMMENT ADEQUATE; POLYCHROMASIA 1+; SEGMENTED NEUTROPHILS % (MAN) 94 % (42-78); TOTAL CELLS COUNTED 100
[2019-11-29] MEDS: ALBUTEROL SULFATE HFA (90 MCG/PUFF) 200 PUFF/8.5 GM MDI IH SCH ×4 (05:13→23:31)
[2019-11-29 05:29] LABS: C-REACTIVE PROTEIN 310.3 mg/L (<10.0)
[2019-11-29] MEDS: INSULIN REG, HUMAN 100 UNIT/ML 3 ML VIAL (PYX) SUBCUT SCH ×3 (05:45→18:37)
[2019-11-29] MEDS: HYDROCORTISONE SOD SUCCINATE INJ/PF 100 MG/2 ML SDV IV SCH ×3 (05:46→20:59)
[2019-11-29] MEDS: MINERAL OIL/PETROLATUM,WHITE OPH OINT 3.5 GM OU SCH ×3 (05:46→20:59)
[2019-11-29] MEDS: LINEZOLID 600 MG/300 ML RTUPB IV SCH ×2 (05:46→18:35)
[2019-11-29] MEDS: HYDROMORPHONE HCL 30 MG/60 ML RTUINJ IV PRN (08:08)
[2019-11-29] MEDS: ENOXAPARIN SODIUM INJ 100 MG/1 ML DISP.SYRIN SUBCUT SCH ×2 (10:17→21:02)
[2019-11-29] MEDS: ASCORBIC ACID 500 MG TABLET NG SCH ×2 (10:18→18:34)
[2019-11-29] MEDS: CEFEPIME HCL 2 GM in DEXTROSE 5%-WATER 50 ML IV SCH (10:18)
[2019-11-29] MEDS: CHOLECALCIFEROL (D3) 1,000 UNIT (25 MCG) TABLET PO SCH (10:18)
[2019-11-29] MEDS: ZINC SULFATE 220 MG CAPSULE NG SCH (10:19)
[2019-11-29] MEDS: OSELTAMIVIR PHOSPHATE 6 MG/1 ML SUSP 60 ML NG SCH ×2 (10:52→21:02)
[2019-11-29] MEDS ORDERED: NORMAL SALINE 250 ML with NOREPINEPHRINE BITARTRATE 4 MG IV PRN ×2 (12:01)
[2019-11-29 19:31] LABS: ANION GAP 9 (5-19); BLOOD UREA NITROGEN 23 mg/dL (7-20); CALCIUM 7.8 mg/dL (8.4-10.2); CARBON DIOXIDE 25 mmol/L (22-30); CHLORIDE 100 mmol/L (98-107); GLUCOSE 256 mg/dL (75-110); POTASSIUM 3.7 mmol/L (3.6-5.0)
[2019-11-29] MEDS ORDERED: DEXTROSE 50%-WATER 25 GM/50 ML DISP.SYRIN IV PRN (20:02)
[2019-11-29] MEDS ORDERED: GLUCAGON,HUMAN RECOMB 1 MG INJ IM PRN (20:02)
[2019-11-29] MEDS ORDERED: DEXTROSE 40% GEL 15 GM TUBE PO PRN ×2 (20:02)
[2019-11-29] MEDS ORDERED: NORMAL SALINE 100 ML with INSULIN REGULAR, HUMAN 100 UNIT IV PRN ×2 (20:02)
[2019-11-29] MEDS ORDERED: INSULIN REG, HUMAN 100 UNIT/ML 3 ML VIAL (PYX) ONE (20:04)
--- NOTE | 2019-11-29 20:32 | PDOC CRITICAL CARE PROG REPORT ---
General Date:: 11/29/19 ICU Day:: 4 Ventilator Day:: 4 Hospital Day:: 8 Resuscitation Status: Full Code Medical Power of Appointment Clerk: DaughterXin Events in the past 12 to 24 Hours:: 11.29.2019: Patient still has significant degree of hypoxia but is improved from admission. She response to PEEP and higher tidal volumes without excess peak pressures. No fever. No hypotension. Tolerating tube feeds 11.28.2019: Patient supinated yesterday without difficulty. Patient's hypotension has now improved and she is off phase of vasopressor therapy. She is sedated and the suspicion is that the propofol that was going through the central line in her neck may have extravasated. There has been no untoward reaction of the skin. 11.27.2019: Patient brought down from medical floor in respiratory extremis culminating in the need for intubation and mechanical ventilation She was immediately placed in prone position and elevated levels of PEEP which resulted in improvement in her overall oxygen saturation. Today's blood gas shows a PO2 which is lower than expected and I expect that this is a spurious result and have ordered a repeat ABG from the art line. She developed hypotension presumably from the need for sedation and she was placed on vasopressor therapy. Currently vasopressors at 30 on levophed with vasopressin ordered. In review and examination under ultrasound I noted that the left internal jugular central venous catheter which had been stable had been pulled back and there appeared to be extravasation into the soft tissue. She had awoken prior to this and was moving and this may have caused this occurring. We placed the vasopressor therapy into a large antecubital vein while we prepared for central line. With the thought process that the left internal jugular may be a concern subclavian was not considered because we were concerned that there would be thrombosis of the upper venous system. Like to do place the catheter in the femoral vein however we had to reposition her and place her in supine position because of her instability. While in supine position a basic critical care ultrasound of the heart showed an intact EF (in fact hyperdynamic). IVC was filled RV did not appear to be dysfunctional. Given her hypotension we re-supinated her with close attention to her airway. She had had peak airway pressures which are elevated and I was suspicious that the ET tube was the cause. With supination we had improvement in her peak airway pressures but not blood pressures. Passive leg exam was done after the a line was assured to be valid and her blood pressure improved significantly with. She had been ordered albumin earlier but I fearful that it extravasated into the soft tissue as well. Repeat albumin was ordered. Review of systems relevant to events:: 11.29.2019: Evaluated ventilator pressure and waveforms. No auto PEEP is noted. Note that with the protective viral system attached to ET tube with the vent closed higher pressures were noted. This was opened. Patient has a HEPA filter on the expiratory limb 11.28.2019: No excessive fevers have been noted. FiO2 now down to 70%. This morning's ABG may be a venous draw. 11.27.2019: D-dimer continues to be elevated and patient is on Lovenox protocol. Other inflammatory parameters are not a significant however the [id number]-livlpeaeqm ratio is elevated. Steroids held with the reduction in ferritin. Acquired replacement of axillary arterial line after became dysfunctional. Left internal jugular central venous line enters the right subclavian vein but has been pulled back. Chest x-ray has not been repeated secondary to SARS, 2-CoViD19 restrictive concerns. Reason for ICU Addmission:: Acute hypoxic respiratory failure with SARS, 2- CoViD19 - Medications: Vasopressors:: Off Sedation:: Precedex and dilaudid Physical Exam Vital Signs: Temp Pulse Resp BP Pulse Ox 97.7 F 63 18 76/61 L 93 11/29/19 18:00 11/29/19 08:48 11/29/19 18:00 11/26/19 22:16 11/29/19 18:00 Intake & Output 11/28/19 11/29/19 11/30/19 06:59 06:59 06:59 Intake Total 3589 2924 250 Output Total 500 1910 665 Balance 3089 1014 -415 Weight 93.4 kg 95 kg 95 kg Weight/Height Weight 95 kg Height 5 ft 2 in General appearance: PRESENT: no acute distress, morbidly obese Exam: Intubated nontoxic 69-year-old black female no acute distress Eye exam: PRESENT: conjunctiva pink, PERRLA. ABSENT: conjunctival injection, nystagmus, scleral icterus Mouth exam: PRESENT: moist Neck exam: PRESENT: other - Swelling on side of neck is improved. ABSENT: JVD, lymphadenopathy, thyromegaly, tracheal deviation Respiratory exam: PRESENT: unlabored, other - Lung sounds not auscultated secondary to the confines of PPE and poor auditory capability of disposable stethoscope. ABSENT: accessory muscle use, tachypnea Cardiovascular exam: PRESENT: RRR, other - Heart sounds not auscultated secondary to the confines of PPE and poor auditory capability of disposable stethoscope. ABSENT: bradycardia, irregular rhythm, tachycardia Pulses: PRESENT: +1 pedal pulses bilateral GI/Abdominal exam: PRESENT: soft, other - Gastric sounds not auscultated secondary to the confines of PPE and poor auditory capability of disposable stethoscope. ABSENT: distended, guarding, mass, organolmegaly, rebound, tenderness Rectal exam: PRESENT: deferred Gentrourinary exam: PRESENT: indwelling catheter Extremities exam: PRESENT: pedal edema Musculoskeletal exam: ABSENT: deformity, dislocation Neurological exam: PRESENT: altered - Patient maintained in deep sedated state to prevent inadvertent extubation. She grimaces to noxious stimulus and moves extremities to noxious stimulus. No focal deficits Psychiatric exam: PRESENT: appropriate affect Skin exam: PRESENT: dry, intact, warm. ABSENT: cyanosis, rash Tubes/Lines: PRESENT: Endotracheal Tube, Central Line, Arterial Catheter, Other - Right femoral central venous catheter, orogastric tube, Adams type urinary catheter Laboratory/Radiographs Laboratory Results: 11/29/19 03:55 11/29/19 18:45 11/28/19 11/29/19 11/29/19 20:41 03:55 03:55 WBC RBC Hgb Hct MCV MCH MCHC RDW Plt Count Seg Neutrophils % Carbonic Acid 1.18 1.14 HCO3/H2CO3 Ratio 21:1 21:1 ABG pH 7.42 7.43 ABG pCO2 39.2 38.0 ABG pO2 59.3 L 53.5 L ABG HCO3 24.9 H 24.7 H ABG O2 Saturation 91.3 L 88.8 L ABG Base Excess 0.5 0.5 FiO2 70% 70% Sodium Potassium Chloride Carbon Dioxide Anion Gap BUN Creatinine Est GFR ( Amer) Glucose Lactic Acid Calcium Phosphorus 3.1 Magnesium 2.2 Ferritin 751.00 H C-Reactive Protein 310.3 H Triglycerides 11/29/19 11/29/19 11/29/19 03:55 03:55 18:45 WBC 11.4 H RBC 3.40 L Hgb 9.8 L Hct 28.1 L MCV 83 MCH 28.7 MCHC 34.7 RDW 14.7 H Plt Count 300 Seg Neutrophils % Not Reportable Carbonic Acid HCO3/H2CO3 Ratio ABG pH ABG pCO2 ABG pO2 ABG HCO3 ABG O2 Saturation ABG Base Excess FiO2 Sodium 133.2 L Potassium 3.7 Chloride 100 Carbon Dioxide 25 Anion Gap 9 BUN 23 H Creatinine 1.06 Est GFR ( Amer) > 60 Glucose 256 H Lactic Acid 2.6 H Calcium 7.8 L Phosphorus Magnesium Ferritin C-Reactive Protein Triglycerides 11/29/19 18:45 WBC RBC Hgb Hct MCV MCH MCHC RDW Plt Count Seg Neutrophils % Carbonic Acid HCO3/H2CO3 Ratio ABG pH ABG pCO2 ABG pO2 ABG HCO3 ABG O2 Saturation ABG Base Excess FiO2 Sodium Potassium Chloride Carbon Dioxide Anion Gap BUN Creatinine Est GFR ( Amer) Glucose Lactic Acid Calcium Phosphorus Magnesium Ferritin C-Reactive Protein Triglycerides 361 H 11/21/19 11/26/19 11/26/19 14:00 11:48 11:48 Creatine Kinase 105 CK-MB (CK-2) 0.87 Troponin I < 0.012 NT-Pro-B Natriuret Pep 32 11/26/19 11/26/19 11/27/19 22:45 22:45 04:45 Creatine Kinase 60 46 CK-MB (CK-2) 0.41 Troponin I 0.018 NT-Pro-B Natriuret Pep 11/27/19 04:45 Creatine Kinase CK-MB (CK-2) 0.47 Troponin I < 0.012 NT-Pro-B Natriuret Pep Impressions: Chest/Abdomen CTA 11/21/19 16:08 IMPRESSION: 1. Patchy peripheral and perihilar ground-glass opacities in both lungs. These are commonly reported imaging features of COVID-19 pneumonia are present. Other processes such as influenza pneumonia and organizing pneumonia, as can be seen with drug toxicity and connective tissue disease, can cause a similar imaging pattern. PneTyp 2. Limited evaluation of the pulmonary arteries due to contrast bolus timing. No large central pulmonary embolus. Evaluation of the segmental and subsegmental pulmonary arteries is limited. Chest X-Ray 11/26/19 00:00 IMPRESSION: Diffuse peripheral parenchymal opacities in both lungs. Vascular congestion. ET tube and nasogastric tube as expected. Venous access catheter tip crosses midline nodes in the right subclavian. All labs, radiographs, diagnostic studies and EKGs were personally reviewed: Yes In addition, reports of radiographic and diagnostic studies were read: Yes Assessment and Plan - Diagnosis (1) Shock, septic Is this a current diagnosis for this admission?: Yes (2) Acute hypoxemic respiratory failure Is this a current diagnosis for this admission?: Yes (3) COVID-19 virus infection Is this a current diagnosis for this admission?: Yes (4) Sepsis Qualifiers: Sepsis type: sepsis due to unspecified organism Sepsis acute organ dysfunction status: without acute organ dysfunction Qualified Code(s): A41.9 - Sepsis, unspecified organism Is this a current diagnosis for this admission?: Yes (5) T2DM (type 2 diabetes mellitus) Qualifiers: Diabetes mellitus long-term insulin use: without long-term use Diabetes mellitus complication status: without complication Qualified Code(s): E11.9 - Type 2 diabetes mellitus without complications Is this a current diagnosis for this admission?: Yes (6) Lactic acidosis Is this a current diagnosis for this admission?: Yes Plan Summary: 11.29.2019: Patient's hypoxia, although improved, is still significant. Data from anecdotal information and from personal experience allows for this to be part of the norm for this pandemic. She is not appear to be hemodynamically unstable at this time. QTC is acceptable Continue to monitor central line and arterial catheters for any source of infection on steroids and Plaquenil Continue supportive care Add insulin drip Continue steroids No evidence to support myocardial dysfunction 11.28.2019: Patient has made some subtle improvement but is still on high FiO2. We will continue to provide support. We will begin enteral tube feedings as well. Inflammatory markers are improving significantly and will continue therapy. D Dimer is remarkably reduced as well but will continue anti-thrombotic therapy to less than 1 Continue supportive care Stop IV fluids Watch QT interval Vigilance for medication reactions 11.27.2019: Patient has septic shock is still very ill. I am impressed with some improvement in her overall parameters but her d-dimer still elevated necessitating the use for full treatment anticoagulation. SARS, 2-CoViD19 standards of care have not been widely developed but drawing on preliminary data full dose treatment especially with d-dimer greater than 1 is acceptable and recommended. She has not reached a inflammatory level which would require steroids however her shock like state dictates a small level of steroid. Have ordered Solu-Cortef. This is also been recommended by numerous recommendations. We will continue supportive care as well as nutrition. There are significant limitations in physical exam while patient is prone and we will attempt to alleviate these. All contact points including face were evaluated during examination to assure no pressure related ulceration. Patient was re-supinated and reexamined. Other than some mild facial swelling there were no untoward effects. Her peak pressures on the ventilator improved raising our impression that the patient had some kinking of her ET tube. Her oxygen saturations were stable. We will start nutritional support and wean vasopressor therapy. Hopefully the steroids will assist in improving her blood pressure. We will add Midodrine if Bp does not respond. More and more data are suggesting that the hypoxia from this disease is more related to uncoupling of poor firing rings and the viruses response to hemoglobin attachment of oxygen. Continue antioxidant support. Critical Time Critical Time (minutes): 44 Level of Care: ICU -: 1. The care of a critical patient is a dynamic process. This note is a patient accounting representative synopsis but static in nature. The timeframe for treatments given in order is not necessarily the actual time these treatments may have been done. 2. This patient requires critical care secondary to ongoing requirements for therapy not offered or safe outside the critical care environment. Transfer to a lower level of care will result in altered life or limb morbidity and mortality. 3. Multidisciplinary rounds completed. 4. ABCDE bundle addressed.
[2019-11-29] MEDS: MELATONIN 5 MG TABLET NG SCH (21:00)
[2019-11-29] MEDS: CEFEPIME HCL 2 GM in NORMAL SALINE 50 ML IV SCH (21:00)
[2019-11-30] MEDS: DEXMEDETOMIDINE IN 0.9 % NACL 400 MCG/100 ML RTUPB IV PRN ×8 (02:04→23:25)
[2019-11-30 03:38] LABS: ARTERIAL BLOOD BASE EXCESS 1.2 mmol/L; ARTERIAL BLOOD H2CO3 1.36 mmol/L (1.05-1.35); ARTERIAL BLOOD HCO3 26.5 mmol/L (20-24); ARTERIAL BLOOD O2 SATURATION 88.2 % (94-98); ARTERIAL BLOOD PCO2 45.1 mmHg (35-45); ARTERIAL BLOOD PH 7.39 (7.35-7.45); ARTERIAL BLOOD PO2 55.1 mmHg (80-100); ARTERIAL BLOOD TOTAL CO2 27.9 mmol/L (21-25)
[2019-11-30 03:39] LABS: ARTERIAL BLOOD FIO2 75%
[2019-11-30 03:44] LABS: HEMATOCRIT 27.8 % (36.0-47.0); HEMOGLOBIN 9.5 g/dL (12.0-15.5); MEAN CORPUSCULAR HEMOGLOBIN 28.5 pg (27.0-33.4); MEAN CORPUSCULAR HGB CONC 34.4 g/dL (32.0-36.0); MEAN CORPUSCULAR VOLUME 83 fl (80-97); PLATELET COUNT 329 10^3/uL (150-450); RED BLOOD COUNT 3.35 10^6/uL (3.72-5.28); RED CELL DISTRIBUTION WIDTH 14.7 % (11.5-14.0); WHITE BLOOD COUNT 11.1 10^3/uL (4.0-10.5)
[2019-11-30 04:07] LABS: ANION GAP 6 (5-19); BLOOD UREA NITROGEN 25 mg/dL (7-20); CARBON DIOXIDE 27 mmol/L (22-30); CHLORIDE 103 mmol/L (98-107); GLUCOSE 131 mg/dL (75-110); PHOSPHORUS 2.6 mg/dL (2.5-4.5); POTASSIUM 3.5 mmol/L (3.6-5.0)
[2019-11-30 04:22] LABS: ABSOLUTE LYMPHOCYTES# (MANUAL) 0.3 10^3/uL (0.5-4.7); ABSOLUTE MONOCYTES # (MANUAL) 0.4 10^3/uL (0.1-1.4); BASOPHILS % (MANUAL) 0 % (0-2); EOSINOPHILS % (MANUAL) 0 % (0-6); LYMPHOCYTES % (MANUAL) 3 % (13-45); MONOCYTES % (MANUAL) 4 % (3-13); SEGMENTED NEUTROPHILS % (MAN) 93 % (42-78); TOTAL CELLS COUNTED 100
[2019-11-30 04:23] LABS: ANISOCYTOSIS SLIGHT; OVALOCYTES SLIGHT; PLATELET COMMENT ADEQUATE
[2019-11-30 04:57] LABS: C-REACTIVE PROTEIN 185.4 mg/L (<10.0)
[2019-11-30] MEDS: LINEZOLID 600 MG/300 ML RTUPB IV SCH ×2 (05:23→18:08)
[2019-11-30] MEDS: ALBUTEROL SULFATE HFA (90 MCG/PUFF) 200 PUFF/8.5 GM MDI IH SCH ×3 (05:23→18:08)
[2019-11-30] MEDS: MINERAL OIL/PETROLATUM,WHITE OPH OINT 3.5 GM OU SCH ×3 (05:23→21:08)
[2019-11-30] MEDS: HYDROCORTISONE SOD SUCCINATE INJ/PF 100 MG/2 ML SDV IV SCH ×3 (05:23→21:07)
[2019-11-30] MEDS: HYDROMORPHONE HCL 30 MG/60 ML RTUINJ IV PRN (05:24)
[2019-11-30] MEDS: ZINC SULFATE 220 MG CAPSULE NG SCH (09:22)
[2019-11-30] MEDS: ASCORBIC ACID 500 MG TABLET NG SCH ×2 (09:22→18:07)
[2019-11-30] MEDS: CEFEPIME HCL 2 GM in NORMAL SALINE 50 ML IV SCH ×2 (09:22→22:55)
[2019-11-30] MEDS: CHOLECALCIFEROL (D3) 1,000 UNIT (25 MCG) TABLET PO SCH (09:22)
[2019-11-30] MEDS: ENOXAPARIN SODIUM INJ 100 MG/1 ML DISP.SYRIN SUBCUT SCH ×2 (09:23→21:07)
[2019-11-30] MEDS: OSELTAMIVIR PHOSPHATE 6 MG/1 ML SUSP 60 ML NG SCH ×2 (09:23→21:09)
[2019-11-30] MEDS: FAMOTIDINE 20 MG TABLET PO SCH ×2 (10:32→22:54)
[2019-11-30] MEDS: INSULIN GLARGINE,HUM.REC.ANLOG 1,000 UNIT/10 ML VIAL SUBCUT SCH (15:41)
[2019-11-30] MEDS ORDERED: INSULIN REG, HUMAN 100 UNIT/ML 3 ML VIAL (PYX) ONE (15:58)
[2019-11-30] MEDS ORDERED: INSULIN REG, HUMAN 100 UNIT/ML 3 ML VIAL (PYX) SUBCUT ONE (16:11)
[2019-11-30] MEDS ORDERED: INSULIN REG, HUMAN 100 UNIT/ML 3 ML VIAL (PYX) SUBCUT SCH (18:00)
--- NOTE | 2019-11-30 18:30 | PDOC CRITICAL CARE PROG REPORT ---
General Date:: 11/30/19 ICU Day:: 5 Ventilator Day:: 5 Hospital Day:: 9 Resuscitation Status: Full Code Medical Power of Surgical Garment Fitter: DaughterXin Events in the past 12 to 24 Hours:: 11.30.2019: Patient has become more awake and requiring sedation. Her hypoxia has not worsened however she is still on 75% FiO2. She is tolerating tube feeds. She has not had hemodynamic instability. There is not been any hypoxia with movement such as there was yesterday. 11.29.2019: Patient still has significant degree of hypoxia but is improved from admission. She response to PEEP and higher tidal volumes without excess peak pressures. No fever. No hypotension. Tolerating tube feeds 11.28.2019: Patient supinated yesterday without difficulty. Patient's hypotension has now improved and she is off phase of vasopressor therapy. She is sedated and the suspicion is that the propofol that was going through the central line in her neck may have extravasated. There has been no untoward reaction of the skin. 11.27.2019: Patient brought down from medical floor in respiratory extremis culminating in the need for intubation and mechanical ventilation She was immediately placed in prone position and elevated levels of PEEP which resulted in improvement in her overall oxygen saturation. Today's blood gas shows a PO2 which is lower than expected and I expect that this is a spurious result and have ordered a repeat ABG from the art line. She developed hypotension presumably from the need for sedation and she was placed on vasopressor therapy. Currently vasopressors at 30 on levophed with vasopressin ordered. In review and examination under ultrasound I noted that the left internal jugular central venous catheter which had been stable had been pulled back and there appeared to be extravasation into the soft tissue. She had awoken prior to this and was moving and this may have caused this occurring. We placed the vasopressor therapy into a large antecubital vein while we prepared for central line. With the thought process that the left internal jugular may be a concern subclavian was not considered because we were concerned that there would be thrombosis of the upper venous system. Like to do place the catheter in the femoral vein however we had to reposition her and place her in supine position because of her instability. While in supine position a basic critical care ultrasound of the heart showed an intact EF (in fact hyperdynamic). IVC was filled RV did not appear to be dysfunctional. Given her hypotension we re-supinated her with close attention to her airway. She had had peak airway pressures which are elevated and I was suspicious that the ET tube was the cause. With supination we had improvement in her peak airway pressures but not blood pressures. Passive leg exam was done after the a line was assured to be valid and her blood pressure improved significantly with. She had been ordered albumin earlier but I fearful that it extravasated into the soft tissue as well. Repeat albumin was ordered. Review of systems relevant to events:: 11.30.2019: No significant elevation in peak or plateau pressures. Mild to moderate secretions. Inflammatory markers are improving 11.29.2019: Evaluated ventilator pressure and waveforms. No auto PEEP is noted. Note that with the protective viral system attached to ET tube with the vent closed higher pressures were noted. This was opened. Patient has a Hme filter on the expiratory limb 11.28.2019: No excessive fevers have been noted. FiO2 now down to 70%. This morning's ABG may be a venous draw. 11.27.2019: D-dimer continues to be elevated and patient is on Lovenox protocol. Other inflammatory parameters are not a significant however the neutrop zety-gv-oyromphund ratio is elevated. Steroids held with the reduction in ferritin. Acquired replacement of axillary arterial line after became dysfunctional. Left internal jugular central venous line enters the right subclavian vein but has been pulled back. Chest x-ray has not been repeated secondary to SARS, 2-CoViD19 restrictive concerns. Reason for ICU Addmission:: Acute hypoxic respiratory failure with SARS, 2- CoViD19 - Medications: Medications reviewed and adjusted accordingly: Yes Vasopressors:: Off Sedation:: Precedex and dilaudid Physical Exam Vital Signs: Temp Pulse Resp BP Pulse Ox 99.0 F 60 18 76/61 L 92 11/30/19 15:00 11/30/19 07:55 11/30/19 15:00 11/26/19 22:16 11/30/19 15:00 Intake & Output 11/29/19 11/30/19 12/01/19 06:59 06:59 06:59 Intake Total 2924 1203 409 Output Total 1910 1330 400 Balance 1014 -127 9 Weight 95 kg 94.6 kg Weight/Height Weight 94.6 kg Height 5 ft 2 in General appearance: PRESENT: no acute distress, morbidly obese Exam: Intubated nontoxic responsive 69-year-old black female morbidly obese no active disease Head exam: PRESENT: atraumatic, normocephalic Eye exam: PRESENT: conjunctiva pink, PERRLA. ABSENT: conjunctival injection, nystagmus, scleral icterus Mouth exam: PRESENT: moist Neck exam: ABSENT: JVD, lymphadenopathy, thyromegaly, tracheal deviation Respiratory exam: PRESENT: unlabored, other - Lung sounds not auscultated secondary to the confines of PPE and poor auditory capability of disposable stethoscope. ABSENT: accessory muscle use, tachypnea Cardiovascular exam: PRESENT: RRR, other - Heart sounds not auscultated secondary to the confines of PPE and poor auditory capability of disposable stethoscope. ABSENT: irregular rhythm, tachycardia Vascular exam: PRESENT: normal capillary refill GI/Abdominal exam: PRESENT: soft, other - Gastric sounds not auscultated secondary to the confines of PPE and poor auditory capability of disposable stethoscope. ABSENT: ascites, firm, guarding, organolmegaly, rigid, tenderness Rectal exam: PRESENT: deferred Gentrourinary exam: PRESENT: indwelling catheter Extremities exam: PRESENT: pedal edema Musculoskeletal exam: ABSENT: deformity, dislocation Neurological exam: PRESENT: altered - Patient sedated appropriately. No focal deficits moving all extremities to noxious stimulus. Skin exam: PRESENT: dry, intact, warm. ABSENT: cyanosis, mottled, pallor - His right femoral central lumen catheter which was required secondary to inability to place in the neck, rash Laboratory/Radiographs Laboratory Results: 11/30/19 03:07 11/30/19 03:07 11/29/19 11/29/19 11/30/19 18:45 18:45 03:07 WBC RBC Hgb Hct MCV MCH MCHC RDW Plt Count Seg Neutrophils % Carbonic Acid 1.36 H HCO3/H2CO3 Ratio 19:1 ABG pH 7.39 ABG pCO2 45.1 H ABG pO2 55.1 L ABG HCO3 26.5 H ABG O2 Saturation 88.2 L ABG Base Excess 1.2 FiO2 75% Sodium 133.2 L Potassium 3.7 Chloride 100 Carbon Dioxide 25 Anion Gap 9 BUN 23 H Creatinine 1.06 Est GFR ( Amer) > 60 Glucose 256 H Calcium 7.8 L Phosphorus Magnesium Ferritin C-Reactive Protein Triglycerides 361 H 11/30/19 11/30/19 03:07 03:07 WBC 11.1 H RBC 3.35 L Hgb 9.5 L Hct 27.8 L MCV 83 MCH 28.5 MCHC 34.4 RDW 14.7 H Plt Count 329 Seg Neutrophils % Not Reportable Carbonic Acid HCO3/H2CO3 Ratio ABG pH ABG pCO2 ABG pO2 ABG HCO3 ABG O2 Saturation ABG Base Excess FiO2 Sodium 136.4 L Potassium 3.5 L Chloride 103 Carbon Dioxide 27 Anion Gap 6 BUN 25 H Creatinine 0.92 Est GFR ( Amer) > 60 Glucose 131 H Calcium 8.0 L Phosphorus 2.6 Magnesium 2.7 H Ferritin 691.00 H C-Reactive Protein 185.4 H Triglycerides 11/21/19 11/26/19 11/26/19 14:00 11:48 11:48 Creatine Kinase 105 CK-MB (CK-2) 0.87 Troponin I < 0.012 NT-Pro-B Natriuret Pep 32 11/26/19 11/26/19 11/27/19 22:45 22:45 04:45 Creatine Kinase 60 46 CK-MB (CK-2) 0.41 Troponin I 0.018 NT-Pro-B Natriuret Pep 11/27/19 04:45 Creatine Kinase CK-MB (CK-2) 0.47 Troponin I < 0.012 NT-Pro-B Natriuret Pep Impressions: Chest/Abdomen CTA 11/21/19 16:08 IMPRESSION: 1. Patchy peripheral and perihilar ground-glass opacities in both lungs. These are commonly reported imaging features of COVID-19 pneumonia are present. Other processes such as influenza pneumonia and organizing pneumonia, as can be seen with drug toxicity and connective tissue disease, can cause a similar imaging pattern. PneTyp 2. Limited evaluation of the pulmonary arteries due to contrast bolus timing. No large central pulmonary embolus. Evaluation of the segmental and subsegmental pulmonary arteries is limited. Chest X-Ray 11/26/19 00:00 IMPRESSION: Diffuse peripheral parenchymal opacities in both lungs. Vascular congestion. ET tube and nasogastric tube as expected. Venous access catheter tip crosses midline nodes in the right subclavian. All labs, radiographs, diagnostic studies and EKGs were personally reviewed: Yes In addition, reports of radiographic and diagnostic studies were read: Yes Assessment and Plan - Diagnosis (1) Shock, septic Is this a current diagnosis for this admission?: Yes Plan: Resolved. Supportive care (2) Acute hypoxemic respiratory failure Is this a current diagnosis for this admission?: Yes Plan: Slightly improved still requiring high FiO2 and ventilator (3) COVID-19 virus infection Is this a current diagnosis for this admission?: Yes Plan: SARS, 2-CoViD19 positive (4) Sepsis Qualifiers: Sepsis type: sepsis due to unspecified organism Sepsis acute organ dysf unction status: without acute organ dysfunction Qualified Code(s): A41.9 - Sepsis, unspecified organism Is this a current diagnosis for this admission?: Yes Plan: Improved (5) T2DM (type 2 diabetes mellitus) Qualifiers: Diabetes mellitus jail insulin use: without jail use Diabetes mellitus complication status: without complication Qualified Code(s): E11.9 - Type 2 diabetes mellitus without complications Is this a current diagnosis for this admission?: Yes Plan: Has high glucose elevations. Insulin drip is now stopped and started on long- acting insulin therapy. Hyperglycemia worsened by steroids. (6) Lactic acidosis Is this a current diagnosis for this admission?: Yes Plan: Resolved. Plan Summary: 11.30.2019: Patient's hypoxia is still present. I have elected to start her on diuretic therapy to see if we can get some improvement in her oxygen status. Based on numerous reports this is not an uncommon situation with need for mechanical ventilation for up to 2 weeks. In order to prevent harm we are limiting driving pressures and tidal volumes to keep plateau pressures less than 30. Her inflammatory markers continue to improve. D-dimer has improved but she still is in the category for the need for anti- inflammatories. Interleukin-6 was elevated not surprisingly. We will continue to provide supportive care. Plaquenil has discontinued after a total of 5 days. Continue antibiotics for total of 7 days unless an infectious situation occurs. Blood culture was a skin contaminant. Continue nutritional support and supplemental medicated support. Hopefully will be able to start weaning mechanical ventilation and oxygen support in the next 24 hours. I suspect she may need steroids but will watch her FiO2 requirements with diuresis first. If this does not improve the need for higher FiO2 will reinstitute steroids. We will also start if her inflammatory markers climb. 11.29.2019: Patient's hypoxia, although improved, is still significant. Data from anecdotal information and from personal experience allows for this to be part of the norm for this pandemic. She does not appear to be hemodynamically unstable at this time. QTC is acceptable Continue to monitor central line and arterial catheters for any source of infec tion on steroids and Plaquenil Continue supportive care Add insulin drip Continue steroids No evidence to support myocardial dysfunction 11.28.2019: Patient has made some subtle improvement but is still on high FiO2. We will continue to provide support. We will begin enteral tube feedings as well. Inflammatory markers are improving significantly and will continue therapy. D Dimer is remarkably reduced as well but will continue anti-thrombotic therapy to less than 1 Continue supportive care Stop IV fluids Watch QT interval Vigilance for medication reactions 11.27.2019: Patient has septic shock is still very ill. I am impressed with some improvement in her overall parameters but her d-dimer still elevated necessitating the use for full treatment anticoagulation. SARS, 2-CoViD19 standards of care have not been widely developed but drawing on preliminary data full dose treatment especially with d-dimer greater than 1 is acceptable and recommended. She has not reached a inflammatory level which would require steroids however her shock like state dictates a small level of steroid. Have ordered Solu-Cortef. This is also been recommended by numerous recommendations. We will continue supportive care as well as nutrition. There are significant limitations in physical exam while patient is prone and we will attempt to alleviate these. All contact points including face were evaluated during examination to assure no pressure related ulceration. Patient was re-supinated and reexamined. Other than some mild facial swelling there were no untoward effects. Her peak pressures on the ventilator improved raising our impression that the patient had some kinking of her ET tube. Her oxygen saturations were stable. We will start nutritional support and wean vasopressor therapy. Hopefully the steroids will assist in improving her blood pressure. We will add Midodrine if Bp does not respond. More and more data are suggesting that the hypoxia from this disease is more related to uncoupling of poor firing rings and the viruses response to hemoglobin attachment of oxygen. Continue antioxidant support. Critical Time Critical Time (minutes): 40 Level of Care: ICU -: 1. The care of a critical patient is a dynamic process. This note is a lead generation representative synopsis but static in nature. The timeframe for treatments given in order is not necessarily the actual time these treatments may have been done. 2. This patient requires critical care secondary to ongoing requirements for therapy not offered or safe outside the critical care environment. Transfer to a lower level of care will result in altered life or limb morbidity and m ortality. 3. Multidisciplinary rounds completed. 4. ABCDE bundle addressed.
[2019-11-30] MEDS ORDERED: ALTEPLASE INJ 2 MG VIAL (CATH CLEARANCE) IV ONE (18:53)
[2019-11-30] MEDS: FUROSEMIDE INJ/PF 20 MG/2 ML SDV IV SCH ×2 (19:49→22:55)
[2019-11-30] MEDS ORDERED: IPRATROPIUM/ALBUTEROL 0.5-2.5 MG/3 ML AMPUL NEB ONE (20:13)
[2019-11-30] MEDS ORDERED: HYDROMORPHONE HCL INJ/PF 2 MG/ML AMPULE IV ONE (20:15)
[2019-11-30 20:45] LABS: C-REACTIVE PROTEIN 179.7 mg/L (<10.0)
[2019-11-30] MEDS: MELATONIN 5 MG TABLET NG SCH (21:08)
[2019-11-30] MEDS: INSULIN REG, HUMAN 100 UNIT/ML 3 ML VIAL (PYX) SUBCUT SCH (21:10)
[2019-11-30 23:02] LABS: ARTERIAL BLOOD BASE EXCESS -0.8 mmol/L; ARTERIAL BLOOD H2CO3 1.28 mmol/L (1.05-1.35); ARTERIAL BLOOD HCO3 24.4 mmol/L (20-24); ARTERIAL BLOOD O2 SATURATION 89.7 % (94-98); ARTERIAL BLOOD PCO2 42.4 mmHg (35-45); ARTERIAL BLOOD PH 7.38 (7.35-7.45); ARTERIAL BLOOD PO2 58.3 mmHg (80-100); ARTERIAL BLOOD TOTAL CO2 25.7 mmol/L (21-25)
[2019-11-30 23:03] LABS: ARTERIAL BLOOD FIO2 85%
[2019-12-01] MEDS: HYDROMORPHONE HCL 30 MG/60 ML RTUINJ IV PRN ×2 (00:10→14:44)
[2019-12-01] MEDS ORDERED: QUETIAPINE FUMARATE 25 MG TABLET NG ONE (00:56)
[2019-12-01] MEDS: PHOSPHORUS #1 250 MG TABLET NG SCH ×4 (01:31→20:10)
[2019-12-01] MEDS: INSULIN REG, HUMAN 100 UNIT/ML 3 ML VIAL (PYX) SUBCUT SCH ×6 (01:32→22:51)
[2019-12-01] MEDS ORDERED: QUETIAPINE FUMARATE 25 MG TABLET ONE (01:39)
[2019-12-01] MEDS: DEXMEDETOMIDINE IN 0.9 % NACL 400 MCG/100 ML RTUPB IV PRN ×3 (02:30→07:45)
[2019-12-01 04:11] LABS: HEMATOCRIT 27.6 % (36.0-47.0); HEMOGLOBIN 9.5 g/dL (12.0-15.5); MEAN CORPUSCULAR HGB CONC 34.6 g/dL (32.0-36.0); MEAN CORPUSCULAR VOLUME 84 fl (80-97); PLATELET COUNT 313 10^3/uL (150-450); RED BLOOD COUNT 3.29 10^6/uL (3.72-5.28); RED CELL DISTRIBUTION WIDTH 14.8 % (11.5-14.0); WHITE BLOOD COUNT 10.3 10^3/uL (4.0-10.5)
[2019-12-01 04:13] LABS: ARTERIAL BLOOD BASE EXCESS 2.3 mmol/L; ARTERIAL BLOOD HCO3 27.7 mmol/L (20-24); ARTERIAL BLOOD O2 SATURATION 84.2 % (94-98); ARTERIAL BLOOD PCO2 46.6 mmHg (35-45); ARTERIAL BLOOD PH 7.39 (7.35-7.45); ARTERIAL BLOOD PO2 49.2 mmHg (80-100); ARTERIAL BLOOD TOTAL CO2 29.1 mmol/L (21-25)
[2019-12-01 04:14] LABS: ARTERIAL BLOOD FIO2 70%
[2019-12-01 04:26] LABS: ANION GAP 8 (5-19); BLOOD UREA NITROGEN 29 mg/dL (7-20); CALCIUM 7.6 mg/dL (8.4-10.2); CARBON DIOXIDE 29 mmol/L (22-30); CHLORIDE 102 mmol/L (98-107); GLUCOSE 167 mg/dL (75-110); PHOSPHORUS 3.4 mg/dL (2.5-4.5); POTASSIUM 3.2 mmol/L (3.6-5.0)
[2019-12-01 04:37] LABS: ABSOLUTE LYMPHOCYTES# (MANUAL) 0.2 10^3/uL (0.5-4.7); ABSOLUTE MONOCYTES # (MANUAL) 0.6 10^3/uL (0.1-1.4); ANISOCYTOSIS SLIGHT; BAND NEUTROPHILS % (MANUAL) 1 % (3-5); BASOPHILS % (MANUAL) 0 % (0-2); EOSINOPHILS % (MANUAL) 0 % (0-6); LYMPHOCYTES % (MANUAL) 2 % (13-45); MONOCYTES % (MANUAL) 6 % (3-13); OVALOCYTES SLIGHT; PLATELET COMMENT ADEQUATE; SEGMENTED NEUTROPHILS % (MAN) 91 % (42-78); TEAR DROP CELLS SLIGHT; TOTAL CELLS COUNTED 100
[2019-12-01] MEDS: FUROSEMIDE INJ/PF 20 MG/2 ML SDV IV SCH ×2 (05:44→13:19)
[2019-12-01] MEDS: MINERAL OIL/PETROLATUM,WHITE OPH OINT 3.5 GM OU SCH ×3 (05:44→22:52)
[2019-12-01] MEDS: HYDROCORTISONE SOD SUCCINATE INJ/PF 100 MG/2 ML SDV IV SCH ×3 (05:45→22:54)
[2019-12-01] MEDS: LINEZOLID 600 MG/300 ML RTUPB IV SCH ×2 (05:46→17:49)
[2019-12-01] MEDS: POTASSIUM CHLORIDE 20 MEQ PACKET NG SCH ×2 (06:39→13:19)
[2019-12-01] MEDS: CHOLECALCIFEROL (D3) 1,000 UNIT (25 MCG) TABLET PO SCH (09:13)
[2019-12-01] MEDS: ASCORBIC ACID 500 MG TABLET NG SCH ×2 (09:13→17:47)
[2019-12-01] MEDS: CEFEPIME HCL 2 GM in NORMAL SALINE 50 ML IV SCH ×2 (09:13→22:54)
[2019-12-01] MEDS: ENOXAPARIN SODIUM INJ 100 MG/1 ML DISP.SYRIN SUBCUT SCH ×2 (09:13→22:51)
[2019-12-01] MEDS: FAMOTIDINE 20 MG TABLET PO SCH ×2 (09:14→22:54)
[2019-12-01] MEDS: ZINC SULFATE 220 MG CAPSULE NG SCH (09:16)
[2019-12-01] MEDS: INSULIN GLARGINE,HUM.REC.ANLOG 1,000 UNIT/10 ML VIAL SUBCUT SCH (09:17)
[2019-12-01] MEDS: OSELTAMIVIR PHOSPHATE 6 MG/1 ML SUSP 60 ML NG SCH ×2 (09:18→09:27)
[2019-12-01] MEDS: PROPOFOL 1,000 MG/100 ML INFUS..BTL IV PRN ×3 (10:50→23:50)
[2019-12-01] MEDS ORDERED: ALBUMIN HUMAN 5% INJ 25 GM/500 ML BOTTLE IV ONE (20:00)
--- NOTE | 2019-12-01 20:31 | PDOC CRITICAL CARE PROG REPORT ---
General Date:: 12/01/19 ICU Day:: 6 Ventilator Day:: 6 Hospital Day:: 10 Resuscitation Status: Full Code Medical Power of Logging Specialist: DaughterXin Events in the past 12 to 24 Hours:: 12.01.2019: Hypoxia overnight. Slightly higher fluid accumulation with HEPA filter on patient ETT. Improved on pressure control. No auto-peep. Responded to lower PEEP. 11.30.2019: Patient has become more awake and requiring sedation. Her hypoxia has not worsened however she is still on 75% FiO2. She is tolerating tube feeds. She has not had hemodynamic instability. There is not been any hypoxia with movement such as there was yesterday. 11.29.2019: Patient still has significant degree of hypoxia but is improved from admission. She response to PEEP and higher tidal volumes without excess peak pressures. No fever. No hypotension. Tolerating tube feeds 11.28.2019: Patient supinated yesterday without difficulty. Patient's hypotension has now improved and she is off phase of vasopressor therapy. She is sedated and the suspicion is that the propofol that was going through the central line in her neck may have extravasated. There has been no untoward reaction of the skin. 11.27.2019: Patient brought down from medical floor in respiratory extremis culminating in the need for intubation and mechanical ventilation She was immediately placed in prone position and elevated levels of PEEP which resulted in improvement in her overall oxygen saturation. Today's blood gas shows a PO2 which is lower than expected and I expect that this is a spurious result and have ordered a repeat ABG from the art line. She developed hypotension presumably from the need for sedation and she was placed on vasopressor therapy. Currently vasopressors at 30 on levophed with vasopressin ordered. In review and examination under ultrasound I noted that the left internal jugular central venous catheter which had been stable had been pulled back and there appeared to be extravasation into the soft tissue. She had awoken prior to this and was moving and this may have caused this occurring. We placed the vasopressor therapy into a large antecubital vein while we prepared for central line. With the thought process that the left internal jugular may be a concern subclavian was not considered because we were concerned that there would be thrombosis of the upper venous system. Like to do place the catheter in the femoral vein however we had to reposition her and place her in supine position because of her instability. While in supine position a basic critical care ultrasound of the heart showed an intact EF (in fact hyperdynamic). IVC was filled RV did not appear to be dysfunctional. Given her hypotension we re-supinated her with close attention to her airway. She had had peak airway pressures which are elevated and I was suspicious that the ET tube was the cause. With supination we had improvement in her peak airway pressures but not blood pressures. Passive leg exam was done after the a line was assured to be valid and her blood pressure improved significantly with. She had been ordered albumin earlier but I fearful that it extravasated into the soft tissue as well. Repeat albumin was ordered. Review of systems relevant to events:: 12.01.2019: Ventilator pressures are high with high peak pressures. In evaluati on it appears that the HEPA filter was contributing to this. Remove this and place patient on conventional assist control with remarkable improvement in pressures and in her oxygenation. On high dose Precedex. Changed to propofol. Patient now on PSV/CPAP with significant improvement. Diuresed well. Has significant diarrhea and C. difficile studies sent Personally removed HEPA filter from patient side secondary to obstruction. This improved her ventilator mechanics. 11.30.2019: No significant elevation in peak or plateau pressures. Mild to moderate secretions. Inflammatory markers are improving 11.29.2019: Evaluated ventilator pressure and waveforms. No auto PEEP is noted. Note that with the protective viral system attached to ET tube with the vent closed higher pressures were noted. This was opened. Patient has a Hme filter on the expiratory limb 11.28.2019: No excessive fevers have been noted. FiO2 now down to 70%. This morning's ABG may be a venous draw. 11.27.2019: D-dimer continues to be elevated and patient is on Lovenox protocol. Other inflammatory parameters are not a significant however the qksmzmrxeey-[id number] ratio is elevated. Steroids held with the reduction in ferritin. Acquired replacement of axillary arterial line after became dysfunctional. Left internal jugular central venous line enters the right subclavian vein but has been pulled back. Chest x-ray has not been repeated secondary to SARS, 2-CoViD19 restrictive concerns. Reason for ICU Addmission:: Acute hypoxic respiratory failure with SARS, 2- CoViD19 - Medications: Vasopressors:: Off Sedation:: Precedex and dilaudid Physical Exam Vital Signs: Temp Pulse Resp BP Pulse Ox 100.0 F 87 11 L 76/61 L 91 L 12/01/19 06:00 11/30/19 22:00 12/01/19 06:00 11/26/19 22:16 12/01/19 06:00 Intake & Output 11/30/19 12/01/19 12/02/19 06:59 06:59 06:59 Intake Total 1203 1205 Output Total 1330 2715 Balance -127 -1510 Weight 94.6 kg 96.9 kg Weight/Height Weight 96.9 kg Height 5 ft 2 in General appearance: PRESENT: no acute distress, morbidly obese Exam: Debated older appearing 69-year-old black female no acute distress. Eye exam: PRESENT: PERRLA. ABSENT: conjunctival injection, nystagmus, scleral icterus Mouth exam: PRESENT: moist Neck exam: ABSENT: JVD, lymphadenopathy, tenderness, thyromegaly Respiratory exam: PRESENT: unlabored. ABSENT: accessory muscle use, tachypnea, other - Lung sounds not auscultated secondary to the confines of PPE and poor auditory capability of disposable stethoscope Cardiovascular exam: PRESENT: other - Heart sounds not auscultated secondary to the confines of PPE and poor auditory capability of disposable stethoscope Pulses: ABSENT: normal dorsalis pedis pul GI/Abdominal exam: PRESENT: soft, other - Gastric sounds not auscultated secondary to the confines of PPE and poor auditory capability of disposable stethoscope. ABSENT: ascites, firm, guarding, mass, Jiang's sign, organolmegaly, rebound, rigid, tenderness Rectal exam: PRESENT: deferred, other - Significant diarrhea.. Bowel hygiene tube placed by nursing. Evaluated patient's sacrum no decubiti. Gentrourinary exam: PRESENT: indwelling catheter, other - She had significant on a stool which was on externalized portion of Adams. Musculoskeletal exam: PRESENT: other - Right femoral catheter is clean dry intact no erythema. There is no swelling or hematoma. ABSENT: deformity, dislocation Neurological exam: PRESENT: altered - With sedation wean patient is moving all extremities without focal deficits. Psychiatric exam: PRESENT: appropriate affect Skin exam: PRESENT: dry, intact, warm. ABSENT: cyanosis, rash Tubes/Lines: PRESENT: Endotracheal Tube, Central Line, Arterial Catheter - Orogastric tube, Adams Laboratory/Radiographs Laboratory Results: 12/01/19 03:55 12/01/19 03:55 11/30/19 11/30/19 11/30/19 19:54 22:48 22:48 WBC RBC Hgb Hct MCV MCH MCHC RDW Plt Count Seg Neutrophils % Carbonic Acid 1.28 HCO3/H2CO3 Ratio 19:1 ABG pH 7.38 ABG pCO2 42.4 ABG pO2 58.3 L ABG HCO3 24.4 H ABG O2 Saturation 89.7 L ABG Base Excess -0.8 FiO2 85% Sodium Potassium Chloride Carbon Dioxide Anion Gap BUN Creatinine Est GFR ( Amer) Glucose Lactic Acid 3.7 H Calcium Phosphorus Magnesium Ferritin 596.00 H C-Reactive Protein 179.7 H 12/01/19 12/01/19 12/01/19 03:55 03:55 03:55 WBC 10.3 RBC 3.29 L Hgb 9.5 L Hct 27.6 L MCV 84 MCH 29.0 MCHC 34.6 RDW 14.8 H Plt Count 313 Seg Neutrophils % Not Reportable Carbonic Acid 1.40 H HCO3/H2CO3 Ratio 19:1 ABG pH 7.39 ABG pCO2 46.6 H ABG pO2 49.2 L ABG HCO3 27.7 H ABG O2 Saturation 84.2 L ABG Base Excess 2.3 FiO2 70% Sodium 138.7 Potassium 3.2 L Chloride 102 Carbon Dioxide 29 Anion Gap 8 BUN 29 H Creatinine 1.05 Est GFR ( Amer) > 60 Glucose 167 H Lactic Acid Calcium 7.6 L Phosphorus 3.4 Magnesium 2.5 H Ferritin C-Reactive Protein 11/21/19 11/26/19 11/26/19 14:00 11:48 11:48 Creatine Kinase 105 CK-MB (CK-2) 0.87 Troponin I < 0.012 NT-Pro-B Natriuret Pep 32 11/26/19 11/26/19 11/27/19 22:45 22:45 04:45 Creatine Kinase 60 46 CK-MB (CK-2) 0.41 Troponin I 0.018 NT-Pro-B Natriuret Pep 11/27/19 04:45 Creatine Kinase CK-MB (CK-2) 0.47 Troponin I < 0.012 NT-Pro-B Natriuret Pep Impressions: Chest/Abdomen CTA 11/21/19 16:08 IMPRESSION: 1. Patchy peripheral and perihilar ground-glass opacities in both lungs. These are commonly reported imaging features of COVID-19 pneumonia are present. Other processes such as influenza pneumonia and organizing pneumonia, as can be seen with drug toxicity and connective tissue disease, can cause a similar imaging pattern. PneTyp 2. Limited evaluation of the pulmonary arteries due to contrast bolus timing. No large central pulmonary embolus. Evaluation of the segmental and subsegmental pulmonary arteries is limited. Chest X-Ray 11/26/19 00:00 IMPRESSION: Diffuse peripheral parenchymal opacities in both lungs. Vascular congestion. ET tube and nasogastric tube as expected. Venous access catheter tip crosses midline nodes in the right subclavian. All labs, radiographs, diagnostic studies and EKGs were personally reviewed: Yes In addition, reports of radiographic and diagnostic studies were read: Yes Assessment and Plan - Diagnosis (1) Shock, septic Is this a current diagnosis for this admission?: Yes (2) Acute hypoxemic respiratory failure Is this a current diagnosis for this admission?: Yes (3) COVID-19 virus infection Is this a current diagnosis for this admission?: Yes (4) Sepsis Qualifiers: Sepsis type: sepsis due to unspecified organism Sepsis acute organ dysfunction status: without acute organ dysfunction Qualified Code(s): A41.9 - Sepsis, unspecified organism Is this a current diagnosis for this admission?: Yes (5) T2DM (type 2 diabetes mellitus) Qualifiers: Diabetes mellitus correction insulin use: without correction use Diabetes mellitus complication status: without complication Qualified Code(s): E11.9 - Type 2 diabetes mellitus without complications Is this a current diagnosis for this admission?: Yes (6) Lactic acidosis Is this a current diagnosis for this admission?: Yes Plan: Resolved. Plan Summary: 12.01.2019: Patient's respiratory status is still tenuous as far as hypoxia. She is following a typical pattern for SARS, 2-CoViD19 pneumonitis. What we did find is that the HEPA filter was causing significant obstruction to airway and with removal of this we had improvement. We have been adding an extra HEPA filter at the end of the ET tube to help with any inadvertent tube disconnections. This is due to the lack of negative airflow room at this time. We exchanged to have a filter by clamping the ET tube momentarily and disconnecting the inspiratory limb of the ventilator. She has significant diarrhea and a bowel management tube is been placed. C. difficile testing has been sent. He has had significant challenges with agitation and we have changed and augmented her sedation profile. Her glucose has been elevated and we started her on Lantus. Respiratory PCR is negative for flu Tamiflu has been discontinued Her inflammatory markers have improved. Her FiO2 has been weaned to 70% today. Enteral tube feeds have been started. Continue supportive care 11.30.2019: Patient's hypoxia is still present. I have elected to start her on diuretic therapy to see if we can get some improvement in her oxygen status. Based on numerous reports this is not an uncommon situation with need for mechanical ventilation for up to 2 weeks. In order to prevent harm we are limiting driving pressures and tidal volumes to keep plateau pressures less than 30. Her inflammatory markers continue to improve. D-dimer has improved but she still is in the category for the need for anti-inflammatories. Interleukin-6 was elevated not surprisingly. We will continue to provide supportive care. Plaquenil has discontinued after a total of 5 days. Continue antibiotics for total of 7 days unless an infectious situation occurs. Blood culture was a skin contaminant. Continue nutritional support and supplemental medicated support. Hopefully will be able to start weaning mechanical ventilation and oxygen support in the next 24 hours. I suspect she may need steroids but will watch her FiO2 requirements with diuresis first. 11.29.2019: Patient's hypoxia, although improved, is still significant. Data from anecdotal information and from personal experience allows for this to be part of the norm for this pandemic. She does not appear to be hemodynamically unstable at this time. QTC is acceptable Continue to monitor central line and arterial catheters for any source of infection on steroids and Plaquenil Continue supportive care Add insulin drip Continue steroids No evidence to support myocardial dysfunction 11.28.2019: Patient has made some subtle improvement but is still on high FiO2. We will continue to provide support. We will begin enteral tube feedings as well. Inflammatory markers are improving significantly and will continue therapy. D Dimer is remarkably reduced as well but will continue anti-thrombotic therapy to less than 1 Continue supportive care Stop IV fluids Watch QT interval Vigilance for medication reactions 11.27.2019: Patient has septic shock is still very ill. I am impressed with some improvement in her overall parameters but her d-dimer still elevated necessitating the use for full treatment anticoagulation. SARS, 2-CoViD19 standards of care have not been widely developed but drawing on preliminary data full dose treatment especially with d-dimer greater than 1 is acceptable and recommended. She has not reached a inflammatory level which would require steroids however her shock like state dictates a small level of steroid. Have ordered Solu-Cortef. This is also been recommended by numerous recommendations. We will continue supportive care as well as nutrition. There are significant limitations in physical exam while patient is prone and we will attempt to alleviate these. All contact points including face were evaluated during examination to assure no pressure related ulceration. Patient was re-supinated and reexamined. Other than some mild facial swelling there were no untoward effects. Her peak pressures on the ventilator improved raising our impression that the patient had some kinking of her ET tube. Her oxygen saturations were stable. We will start nutritional support and wean vasopressor therapy. Hopefully the steroids will assist in improving her blood pressure. We will add Midodrine if Bp does not respond. More and more data are suggesting that the hypoxia from this disease is more related to uncoupling of poor firing rings and the viruses response to hemoglobin attachment of oxygen. Continue antioxidant support. Critical Time Critical Time (minutes): 60 Level of Care: ICU -: 1. The care of a critical patient is a dynamic process. This note is a traveling representative synopsis but static in nature. The timeframe for treatments given in order is not necessarily the actual time these treatments may have been done. 2. This patient requires critical care secondary to ongoing requirements for therapy not offered or safe outside the critical care environment. Transfer to a lower level of care will result in altered life or limb morbidity and mortality. 3. Multidisciplinary rounds completed. 4. ABCDE bundle addressed.
[2019-12-01] MEDS: MELATONIN 5 MG TABLET NG SCH (22:54)
[2019-12-01] MEDS ORDERED: RINGERS SOLUTION,LACTATED 500 ML IV ONE (23:30)
[2019-12-02] MEDS ORDERED: MIDAZOLAM 2 MG/2 ML INJ ONE ×3 (00:16→03:27)
[2019-12-02] MEDS ORDERED: MIDAZOLAM 2 MG/2 ML INJ IV ONE (00:26)
[2019-12-02] MEDS ORDERED: RINGERS SOLUTION,LACTATED 500 ML IV ONE (01:30)
[2019-12-02] MEDS: MIDAZOLAM 2 MG/2 ML INJ IV PRN ×3 (01:30→03:26)
[2019-12-02] MEDS ORDERED: KETAMINE HCL INJ 500 MG/10 ML VIAL ONE (02:19)
[2019-12-02] MEDS: INSULIN REG, HUMAN 100 UNIT/ML 3 ML VIAL (PYX) SUBCUT SCH ×6 (03:16→21:17)
[2019-12-02] MEDS ORDERED: KETAMINE HCL INJ 500 MG/10 ML VIAL IV PRN (03:41)
[2019-12-02] MEDS ORDERED: KETAMINE HCL 500 MG in NORMAL SALINE 500 ML IV PRN (03:43)
[2019-12-02] MEDS ORDERED: RINGERS SOLUTION,LACTATED 1,000 ML IV ONE (03:45)
[2019-12-02] MEDS ORDERED: LORAZEPAM INJ 2 MG/1 ML VIAL IV ONE (04:07)
[2019-12-02] MEDS ORDERED: QUETIAPINE FUMARATE 100 MG TABLET NG ONE (04:08)
[2019-12-02] MEDS ORDERED: LORAZEPAM INJ 2 MG/1 ML VIAL ONE (04:08)
[2019-12-02] MEDS ORDERED: MIDAZOLAM HCL 50 MG/100 ML RTUINJ ONE (04:51)
[2019-12-02] MEDS: MIDAZOLAM HCL 50 MG/100 ML RTUINJ IV PRN ×4 (04:55→23:35)
[2019-12-02] MEDS ORDERED: INSULIN GLARGINE,HUM.REC.ANLOG 1,000 UNIT/10 ML VIAL SUBCUT ONE (05:15)
[2019-12-02] MEDS ORDERED: INSULIN GLARGINE,HUM.REC.ANLOG 1,000 UNIT/10 ML VIAL (PYX) SUBCUT ONE (05:16)
--- NOTE | 2019-12-02 06:11 | RADIOLOGY REPORT (SQ) ---
AP Portable chest: 12/02/2019 5:08 AM CDT History: 69-year old patient with respiratory failure. Comparison: Chest radiograph performed 11/26/2019. Findings: The cardiomediastinal silhouette is enlarged. No pneumothorax is seen. There are diffuse bilateral airspace opacities, most pronounced within the periphery. These are concerning for possible viral infection. An endotracheal tube tip projects approximately 5.0 cm above the barbara. The nasogastric tube tip is seen overlying the right upper quadrant of the abdomen, projecting within the duodenum. There is elevation of the right hemidiaphragm. The lung volumes are low. Mild interstitial prominence is seen. Impression: There are diffuse bilateral airspace opacities most pronounced within the periphery. These may reflect developing atypical infection.
[2019-12-02 06:15] LABS: ARTERIAL BLOOD BASE EXCESS 1.2 mmol/L; ARTERIAL BLOOD H2CO3 1.38 mmol/L (1.05-1.35); ARTERIAL BLOOD HCO3 26.6 mmol/L (20-24); ARTERIAL BLOOD PCO2 45.7 mmHg (35-45); ARTERIAL BLOOD PH 7.38 (7.35-7.45); HEMATOCRIT 27.3 % (36.0-47.0); HEMOGLOBIN 9.1 g/dL (12.0-15.5); MEAN CORPUSCULAR HEMOGLOBIN 28.3 pg (27.0-33.4); MEAN CORPUSCULAR HGB CONC 33.4 g/dL (32.0-36.0); MEAN CORPUSCULAR VOLUME 85 fl (80-97); PLATELET COUNT 303 10^3/uL (150-450); RED BLOOD COUNT 3.23 10^6/uL (3.72-5.28); RED CELL DISTRIBUTION WIDTH 15.1 % (11.5-14.0); WHITE BLOOD COUNT 15.8 10^3/uL (4.0-10.5)
[2019-12-02 06:16] LABS: ARTERIAL BLOOD FIO2 90%
[2019-12-02] MEDS: HYDROCORTISONE SOD SUCCINATE INJ/PF 100 MG/2 ML SDV IV SCH ×3 (06:29→21:22)
[2019-12-02] MEDS: MINERAL OIL/PETROLATUM,WHITE OPH OINT 3.5 GM OU SCH ×3 (06:29→21:16)
[2019-12-02] MEDS: LINEZOLID 600 MG/300 ML RTUPB IV SCH ×2 (06:30→18:29)
[2019-12-02 06:37] LABS: ABSOLUTE LYMPHOCYTES# (MANUAL) 0.3 10^3/uL (0.5-4.7); ABSOLUTE MONOCYTES # (MANUAL) 0.3 10^3/uL (0.1-1.4); BASOPHILS % (MANUAL) 0 % (0-2); EOSINOPHILS % (MANUAL) 0 % (0-6); LYMPHOCYTES % (MANUAL) 2 % (13-45); MONOCYTES % (MANUAL) 2 % (3-13); SEGMENTED NEUTROPHILS % (MAN) 96 % (42-78); TOTAL CELLS COUNTED 100
[2019-12-02 06:38] LABS: ANISOCYTOSIS SLIGHT; PLATELET CLUMPS PRESENT; PLATELET COMMENT ADEQUATE
[2019-12-02 06:39] LABS: ANION GAP 11 (5-19); BLOOD UREA NITROGEN 34 mg/dL (7-20); CALCIUM 7.5 mg/dL (8.4-10.2); CARBON DIOXIDE 27 mmol/L (22-30); CHLORIDE 103 mmol/L (98-107); GLUCOSE 313 mg/dL (75-110); PHOSPHORUS 3.9 mg/dL (2.5-4.5); TRIGLYCERIDES 327 mg/dL (<150)
[2019-12-02 06:43] LABS: POTASSIUM 2.7 mmol/L (3.6-5.0)
[2019-12-02 07:37] LABS: RES PRO RESPIR SYNCYTIAL VIRUS Not Detected (Not Detect); RES PRO RHINOVIRUS/ENTEROVIRUS Not Detected (Not Detect); RESP PRO CHLAMYDOPHILA PNEUMON Not Detected (Not Detect); RESP PRO INFLUENZA A/H1-2009 Not Detected (Not Detect); RESP PROF BORDETELLA PERTUSSIS Not Detected (Not Detect); RESP PROF CORONAVIRUS 229E Not Detected (Not Detect); RESP PROF CORONAVIRUS HKU1 Not Detected (Not Detect); RESP PROF CORONAVIRUS NL63 Not Detected (Not Detect); RESP PROF CORONAVIRUS OC43 Not Detected (Not Detect); RESP PROF INFLUENZA A/H1 Not Detected (Not Detect); RESP PROF INFLUENZA A/H3 Not Detected (Not Detect); RESP PROF METAPNEUMOVIRUS Not Detected (Not Detect); RESP PROF PARAINFLUENZA 1 Not Detected (Not Detect); RESP PROF PARAINFLUENZA 2 Not Detected (Not Detect); RESP PROF PARAINFLUENZA 3 Not Detected (Not Detect); RESP PROF PARAINFLUENZA 4 Not Detected (Not Detect); RESPIRATORY PROF INFLUENZA A Not Detected (Not Detect); RESPIRATORY PROF INFLUENZA B Not Detected (Not Detect)
[2019-12-02] MEDS: POTASSI CL 20 MEQ/50 ML RIDER 20 MEQ/50 ML RTUPB IV SCH ×3 (08:35→15:52)
[2019-12-02 09:07] LABS: RESP PRO MYCOPLASMA PNEUMONIAE Not Detected (Not Detect)
[2019-12-02] MEDS: ENOXAPARIN SODIUM INJ 100 MG/1 ML DISP.SYRIN SUBCUT SCH ×2 (10:20→21:18)
[2019-12-02] MEDS: FAMOTIDINE 20 MG TABLET PO SCH ×2 (10:21→21:18)
[2019-12-02] MEDS: ZINC SULFATE 220 MG CAPSULE NG SCH (10:21)
[2019-12-02] MEDS: ASCORBIC ACID 500 MG TABLET NG SCH ×2 (10:21→18:29)
[2019-12-02] MEDS: CHOLECALCIFEROL (D3) 1,000 UNIT (25 MCG) TABLET PO SCH (10:21)
--- NOTE | 2019-12-02 11:39 | PDOC CRITICAL CARE PROG REPORT ---
General Date:: 12/02/19 ICU Day:: 6 Ventilator Day:: 6 Hospital Day:: 11 Resuscitation Status: Full Code Medical Power of Machine Applicator Cementer: DaughterXin Events in the past 12 to 24 Hours:: Stabilized on vent support. Review of systems relevant to events:: Respiratory and neurological. Reason for ICU Addmission:: Acute hypoxic respiratory failure with SARS, 2- CoViD19 - Medications: Medications reviewed and adjusted accordingly: Yes Vasopressors:: None Sedation:: Propofol and versed. Physical Exam Vital Signs: Temp Pulse Resp BP Pulse Ox 99.0 F 94 29 H 116/61 97 12/02/19 09:00 12/01/19 20:00 12/02/19 09:00 12/01/19 16:50 12/02/19 09:00 Intake & Output 12/01/19 12/02/19 12/03/19 06:59 06:59 06:59 Intake Total 1205 1786 348 Output Total 2715 2259 350 Balance -1510 -473 -2 Weight 96.9 kg 98.8 kg Weight/Height Weight 98.8 kg Height 5 ft 2 in General appearance: PRESENT: no acute distress Head exam: PRESENT: atraumatic, normocephalic Eye exam: PRESENT: conjunctiva pink, EOMI, PERRLA. ABSENT: scleral icterus Ear exam: PRESENT: normal external ear exam Mouth exam: PRESENT: moist, tongue midline Respiratory exam: PRESENT: symmetrical, unlabored Cardiovascular exam: PRESENT: RRR, tachycardia. ABSENT: diastolic murmur, rubs, systolic murmur Pulses: PRESENT: normal dorsalis pedis pul GI/Abdominal exam: PRESENT: normal bowel sounds, soft. ABSENT: distended, guarding, mass, organolmegaly, rebound, tenderness Rectal exam: PRESENT: deferred Gentrourinary exam: PRESENT: indwelling catheter Extremities exam: PRESENT: full ROM. ABSENT: calf tenderness, clubbing, pedal edema Neurological exam: PRESENT: other - Sedated Psychiatric exam: PRESENT: agitated, other - She is agitated at times requiring high sedation. Skin exam: PRESENT: dry, intact, warm. ABSENT: cyanosis, rash Laboratory/Radiographs Laboratory Results: 12/02/19 06:00 12/02/19 06:00 12/01/19 12/02/19 12/02/19 11:12 06:00 06:00 WBC RBC Hgb Hct MCV MCH MCHC RDW Plt Count Seg Neutrophils % Carbonic Acid 1.38 H HCO3/H2CO3 Ratio 19:1 ABG pH 7.38 ABG pCO2 45.7 H ABG pO2 45.0 L ABG HCO3 26.6 H ABG O2 Saturation 80.0 L ABG Base Excess 1.2 FiO2 90% Sodium 141.2 Potassium 2.7 L* Chloride 103 Carbon Dioxide 27 Anion Gap 11 BUN 34 H Creatinine 1.04 Est GFR ( Amer) > 60 Glucose 313 H Lactic Acid 3.5 H Calcium 7.5 L Phosphorus 3.9 Magnesium 2.4 H Triglycerides 327 H 12/02/19 12/02/19 06:00 06:00 WBC 15.8 H RBC 3.23 L Hgb 9.1 L Hct 27.3 L MCV 85 MCH 28.3 MCHC 33.4 RDW 15.1 H Plt Count 303 Seg Neutrophils % Not Reportable Carbonic Acid HCO3/H2CO3 Ratio ABG pH ABG pCO2 ABG pO2 ABG HCO3 ABG O2 Saturation ABG Base Excess FiO2 Sodium Potassium Chloride Carbon Dioxide Anion Gap BUN Creatinine Est GFR ( Amer) Glucose Lactic Acid 3.8 H Calcium Phosphorus Magnesium Triglycerides 11/27/19 18:45 Bronchial Washings Gram Stain - Final 11/27/19 18:45 Bronchial Washings Bronchial Washings Culture - Final Yeast, Not Niurka Albicans Normal Ana Absent 11/21/19 11/26/19 11/26/19 14:00 11:48 11:48 Creatine Kinase 105 CK-MB (CK-2) 0.87 Troponin I < 0.012 NT-Pro-B Natriuret Pep 32 11/26/19 11/26/19 11/27/19 22:45 22:45 04:45 Creatine Kinase 60 46 CK-MB (CK-2) 0.41 Troponin I 0.018 NT-Pro-B Natriuret Pep 11/27/19 04:45 Creatine Kinase CK-MB (CK-2) 0.47 Troponin I < 0.012 NT-Pro-B Natriuret Pep Impressions: Chest/Abdomen CTA 11/21/19 16:08 IMPRESSION: 1. Patchy peripheral and perihilar ground-glass opacities in both lungs. These are commonly reported imaging features of COVID-19 pneumonia are present. Other processes such as influenza pneumonia and organizing pneumonia, as can be seen with drug toxicity and connective tissue disease, can cause a similar imaging pattern. PneTyp 2. Limited evaluation of the pulmonary arteries due to contrast bolus timing. No large central pulmonary embolus. Evaluation of the segmental and subsegmental pulmonary arteries is limited. All labs, radiographs, diagnostic studies and EKGs were personally reviewed: Yes In addition, reports of radiographic and diagnostic studies were read: Yes Assessment and Plan - Diagnosis (1) COVID-19 virus infection Is this a current diagnosis for this admission?: Yes Plan: So far she requiring the ventilator and somewhat high ventilator support making meaningful weaning unlikely today. (2) Acute hypoxemic respiratory failure Is this a current diagnosis for this admission?: Yes Plan: She is fluctuating between 90-75%. (3) T2DM (type 2 diabetes mellitus) Qualifiers: Diabetes mellitus custodial insulin use: without custodial use Diabetes mellitus complication status: without complication Qualified Code(s): E11.9 - Type 2 diabetes mellitus without complications Is this a current diagnosis for this admission?: Yes Plan: Needs better control. Plan Summary: Not much in the way of weaning today. Increase insulin dose. Critical Time Critical Time (minutes): 35 Level of Care: ICU Anticipated discharge: SNF Within: Other -: 1. The care of a critical patient is a dynamic process. This note is a provider relations representative synopsis but static in nature. The timeframe for treatments given in order is not necessarily the actual time these treatments may have been done. 2. This patient requires critical care secondary to ongoing requirements for therapy not offered or safe outside the critical care environment. Transfer to a lower level of care will result in altered life or limb morbidity and mortality. 3. Multidisciplinary rounds completed. 4. ABCDE bundle addressed.
[2019-12-02] MEDS ORDERED: HYDROMORPHONE HCL INJ/PF 2 MG/ML AMPULE ONE (12:32)
[2019-12-02] MEDS: HYDROMORPHONE HCL INJ/PF 2 MG/ML AMPULE IV PRN ×4 (12:34→23:33)
[2019-12-02 14:04] LABS: C-REACTIVE PROTEIN 183.8 mg/L (<10.0)
[2019-12-02 14:23] LABS: C DIFFICILE GDH NEGATIVE (NEGATIVE)
[2019-12-02] MEDS ORDERED: POTASSIUM CHLORIDE 20 MEQ PACKET NG SCH (16:00)
[2019-12-02] MEDS ORDERED: INSULIN GLARGINE,HUM.REC.ANLOG 1,000 UNIT/10 ML VIAL SUBCUT SCH (18:00)
[2019-12-02] MEDS: INSULIN GLARGINE,HUM.REC.ANLOG 1,000 UNIT/10 ML VIAL SUBCUT SCH (18:34)
[2019-12-02] MEDS: MELATONIN 5 MG TABLET NG SCH (21:18)
[2019-12-03 00:03] LABS: ANION GAP 10 (5-19); BLOOD UREA NITROGEN 28 mg/dL (7-20); CALCIUM 8.1 mg/dL (8.4-10.2); CARBON DIOXIDE 28 mmol/L (22-30); CHLORIDE 105 mmol/L (98-107); GLUCOSE 219 mg/dL (75-110); POTASSIUM 3.3 mmol/L (3.6-5.0)
[2019-12-03 00:04] LABS: HEMATOCRIT 27.5 % (36.0-47.0); HEMOGLOBIN 9.4 g/dL (12.0-15.5); MEAN CORPUSCULAR HEMOGLOBIN 28.4 pg (27.0-33.4); MEAN CORPUSCULAR HGB CONC 34.2 g/dL (32.0-36.0); MEAN CORPUSCULAR VOLUME 83 fl (80-97); PLATELET COUNT 300 10^3/uL (150-450); RED BLOOD COUNT 3.32 10^6/uL (3.72-5.28); RED CELL DISTRIBUTION WIDTH 14.8 % (11.5-14.0); WHITE BLOOD COUNT 17.1 10^3/uL (4.0-10.5)
[2019-12-03 00:16] LABS: ABSOLUTE MONOCYTES # (MANUAL) 0.2 10^3/uL (0.1-1.4); BASOPHILS % (MANUAL) 0 % (0-2); EOSINOPHILS % (MANUAL) 0 % (0-6); LYMPHOCYTES % (MANUAL) 0 % (13-45); MONOCYTES % (MANUAL) 1 % (3-13); NUCLEATED RED BLOOD CELLS 1 /100 WBC (0); SEGMENTED NEUTROPHILS % (MAN) 99 % (42-78); TOTAL CELLS COUNTED 100
[2019-12-03 00:18] LABS: ANISOCYTOSIS SLIGHT; PLATELET COMMENT ADEQUATE
[2019-12-03] MEDS: MIDAZOLAM HCL 50 MG/100 ML RTUINJ IV PRN ×6 (03:26→23:15)
[2019-12-03] MEDS ORDERED: POTASSIUM CHLORIDE 20 MEQ PACKET NG ONE (03:30)
[2019-12-03] MEDS ORDERED: PHOSPHORUS #1 250 MG TABLET NG ONE ×2 (03:30→21:26)
[2019-12-03] MEDS: INSULIN REG, HUMAN 100 UNIT/ML 3 ML VIAL (PYX) SUBCUT SCH ×6 (04:13→22:08)
[2019-12-03] MEDS: HYDROMORPHONE HCL INJ/PF 2 MG/ML AMPULE IV PRN ×4 (04:53→19:07)
[2019-12-03] MEDS: MINERAL OIL/PETROLATUM,WHITE OPH OINT 3.5 GM OU SCH ×3 (05:59→22:10)
[2019-12-03] MEDS: LINEZOLID 600 MG/300 ML RTUPB IV SCH ×2 (06:00→19:06)
[2019-12-03] MEDS: HYDROCORTISONE SOD SUCCINATE INJ/PF 100 MG/2 ML SDV IV SCH ×3 (06:00→22:08)
[2019-12-03] MEDS ORDERED: NOREPINEPHRINE BITARTRATE INJ/PF 4 MG/4 ML SDV IV ONE (06:34)
[2019-12-03 07:05] LABS: APPEARANCE,URINE CLOUDY; BILIRUBIN,URINE NEGATIVE (NEGATIVE); COLOR,URINE YELLOW; GLUCOSE, URINE NEGATIVE (NEGATIVE); KETONES,URINE NEGATIVE (NEGATIVE); LEUKOCYTE ESTERASE,URINE NEGATIVE (NEGATIVE); NITRITE,URINE NEGATIVE (NEGATIVE); PROTEIN,URINE 100 mg/dL (NEGATIVE); URINE SPECIFIC GRAVITY 1.021; UROBILINOGEN,URINE NEGATIVE mg/dL (<2.0)
[2019-12-03] MEDS ORDERED: MIDAZOLAM 2 MG/2 ML INJ IV ONE ×2 (07:55→21:42)
[2019-12-03] MEDS ORDERED: VECURONIUM BROMIDE INJ 10 MG VIAL IV ONE ×2 (07:55→07:59)
[2019-12-03] MEDS ORDERED: MIDAZOLAM 2 MG/2 ML INJ ONE ×2 (07:59→21:43)
[2019-12-03] MEDS ORDERED: ENOXAPARIN SODIUM INJ 40 MG/0.4 ML DISP.SYRIN SUBCUT ONE (10:11)
[2019-12-03] MEDS: PHOSPHORUS #1 250 MG TABLET NG SCH ×3 (10:13→22:10)
[2019-12-03] MEDS: ENOXAPARIN SODIUM INJ 40 MG/0.4 ML DISP.SYRIN SUBCUT SCH (10:13)
[2019-12-03] MEDS: ZINC SULFATE 220 MG CAPSULE NG SCH (10:14)
[2019-12-03] MEDS: CHOLECALCIFEROL (D3) 1,000 UNIT (25 MCG) TABLET PO SCH (10:14)
[2019-12-03] MEDS: ASCORBIC ACID 500 MG TABLET NG SCH ×2 (10:14→19:06)
[2019-12-03] MEDS: INSULIN GLARGINE,HUM.REC.ANLOG 1,000 UNIT/10 ML VIAL SUBCUT SCH ×2 (10:15→19:06)
[2019-12-03] MEDS: FAMOTIDINE 20 MG TABLET PO SCH ×2 (10:15→22:10)
[2019-12-03] MEDS: ENOXAPARIN SODIUM INJ 100 MG/1 ML DISP.SYRIN SUBCUT SCH (10:16)
--- NOTE | 2019-12-03 10:17 | RADIOLOGY REPORT (SQ) ---
EXAM DESCRIPTION: CHEST SINGLE VIEW IMAGES COMPLETED DATE/TIME: 12/03/2019 9:48 am REASON FOR STUDY: Had R subclavian TLC placed. COMPARISON: AP view of the chest from 12/02/2019. EXAM PARAMETERS: NUMBER OF VIEWS: One view. TECHNIQUE: An AP view of the chest was obtained. RADIATION DOSE: NA LIMITATIONS: None. FINDINGS: LUNGS AND PLEURA: Unchanged diffuse bilateral and peripheral interstitial and alveolar opa cities. The left lateral costophrenic sulcus is blunted. There is no pneumothorax. MEDIASTINUM AND HILAR STRUCTURES: Stable mediastinal and hilar contours. HEART AND VASCULAR STRUCTURES: Stable cardiac silhouette. The pulmonary vasculature remains indistin ct. BONES: No acute findings. HARDWARE: The tip of the right subclavian central venous catheter projects within the right atrium. The tip of the endotracheal tube projects 4.2 cm above the barbara. The tip of the enteric tube proje cts within the gastric lumen OTHER: Since the prior radiograph the patient has developed extensive bilateral supraclavicular subcu taneous emphysema. IMPRESSION: 1. Interval placement of a right subclavian central venous catheter and development of b ilateral supraclavicular subcutaneous emphysema. There is no pneumothorax. 2. Unchanged diffuse bilateral peripheral interstitial and alveolar opacities. TECHNICAL DOCUMENTATION: JOB ID: [id number] 2010 [employer]- All Rights Reserved Reading location - IP/workstation name: [email or web address]
[2019-12-03] MEDS ORDERED: POTASSIUM CHLORIDE 20 MEQ PACKET NG SCH (14:00)
[2019-12-03] MEDS ORDERED: RINGERS SOLUTION,LACTATED 1,000 ML IV PRN (14:05)
[2019-12-03] MEDS ORDERED: HYDROMORPHONE HCL INJ/PF 2 MG/ML AMPULE IV ONE ×2 (20:20→23:00)
[2019-12-03] MEDS: MELATONIN 5 MG TABLET NG SCH (22:10)
[2019-12-03] MEDS ORDERED: HYDROMORPHONE HCL INJ/PF 2 MG/ML AMPULE ONE (22:26)
[2019-12-03] MEDS ORDERED: LORAZEPAM 1 MG TABLET NG SCH (23:00)
[2019-12-03] MEDS: RINGERS SOLUTION,LACTATED 1,000 ML IV PRN (23:05)
[2019-12-03] MEDS: HYDROCOD/ACETAMIN 7.5-325 MG/15 ML ORAL SOLN UDCUP NG SCH (23:05)
[2019-12-03] MEDS: DEXTROSE 5%-WATER 250 ML with NOREPINEPHRINE BITARTRATE 4 MG IV PRN ×2 (23:10)
[2019-12-03] MEDS ORDERED: NORMAL SALINE INJ/PF 0.9% 10 ML SDV IV PRN (23:11)
[2019-12-03] MEDS ORDERED: LORAZEPAM 1 MG TABLET NG ONE (23:30)
[2019-12-03] MEDS ORDERED: QUETIAPINE FUMARATE 100 MG TABLET NG ONE (23:30)
[2019-12-03] MEDS: METHOCARBAMOL 500 MG TABLET NG SCH (23:39)
[2019-12-04 00:02] LABS: ARTERIAL BLOOD BASE EXCESS 2.7 mmol/L; ARTERIAL BLOOD FIO2 70%; ARTERIAL BLOOD H2CO3 1.32 mmol/L (1.05-1.35); ARTERIAL BLOOD HCO3 27.6 mmol/L (20-24); ARTERIAL BLOOD O2 SATURATION 74.6 % (94-98); ARTERIAL BLOOD PCO2 43.8 mmHg (35-45); ARTERIAL BLOOD PH 7.42 (7.35-7.45)
[2019-12-04 00:03] LABS: ARTERIAL BLOOD PO2 39.2 mmHg (80-100)
[2019-12-04] MEDS: HYDROMORPHONE HCL INJ/PF 2 MG/ML AMPULE IV PRN ×6 (00:59→19:01)
[2019-12-04] MEDS: INSULIN REG, HUMAN 100 UNIT/ML 3 ML VIAL (PYX) SUBCUT SCH ×6 (01:55→22:42)
[2019-12-04] MEDS ORDERED: RINGERS SOLUTION,LACTATED 500 ML IV ONE ×3 (02:03→20:00)
[2019-12-04] MEDS: MIDAZOLAM HCL 50 MG/100 ML RTUINJ IV PRN ×7 (02:10→22:50)
--- NOTE | 2019-12-04 02:44 | RADIOLOGY REPORT (SQ) ---
EXAM DESCRIPTION: XR CHEST 1 VIEW COMPLETED DATE/TME: 12/04/2019 00:00 CLINICAL HISTORY: 69 years, Female, resp failure; f/u SQ emphysema R/O pneumothorax COMPARISON: 12/03/2019 chest x-ray at 9:18 AM NUMBER OF VIEWS: 1 TECHNIQUE: Portable chest LIMITATIONS: None. FINDINGS: The heart size is stable. Grossly stable indwelling tubes/lines/catheters. Subcutaneous emphysema is redemonstrated as is pneumomediastinum along the left heart border. No discrete pneumothorax. Mixed interstitial and airspace opacities bilaterally, as before IMPRESSION: Little interval change copyright 2010 [employer]- All Rights Reserved
[2019-12-04] MEDS: MINERAL OIL/PETROLATUM,WHITE OPH OINT 3.5 GM OU SCH ×3 (06:05→22:07)
[2019-12-04] MEDS: HYDROCOD/ACETAMIN 7.5-325 MG/15 ML ORAL SOLN UDCUP NG SCH ×4 (06:06→22:08)
[2019-12-04] MEDS: HYDROCORTISONE SOD SUCCINATE INJ/PF 100 MG/2 ML SDV IV SCH ×3 (06:06→22:09)
[2019-12-04] MEDS: METHOCARBAMOL 500 MG TABLET NG SCH ×3 (06:06→22:09)
[2019-12-04] MEDS: RINGERS SOLUTION,LACTATED 1,000 ML IV PRN ×2 (06:08→15:02)
[2019-12-04 06:10] LABS: ARTERIAL BLOOD BASE EXCESS 2.6 mmol/L; ARTERIAL BLOOD FIO2 100%; ARTERIAL BLOOD H2CO3 1.36 mmol/L (1.05-1.35); ARTERIAL BLOOD HCO3 27.7 mmol/L (20-24); ARTERIAL BLOOD PCO2 45.3 mmHg (35-45); ARTERIAL BLOOD PO2 52.4 mmHg (80-100); ARTERIAL BLOOD TOTAL CO2 29.1 mmol/L (21-25)
[2019-12-04] MEDS ORDERED: NOREPINEPHRINE BITARTRATE INJ/PF 4 MG/4 ML SDV IV ONE (06:12)
[2019-12-04 06:15] LABS: HEMATOCRIT 25.8 % (36.0-47.0); HEMOGLOBIN 8.7 g/dL (12.0-15.5); MEAN CORPUSCULAR HEMOGLOBIN 28.3 pg (27.0-33.4); MEAN CORPUSCULAR HGB CONC 33.8 g/dL (32.0-36.0); MEAN CORPUSCULAR VOLUME 84 fl (80-97); PLATELET COUNT 216 10^3/uL (150-450); RED BLOOD COUNT 3.08 10^6/uL (3.72-5.28); RED CELL DISTRIBUTION WIDTH 15.2 % (11.5-14.0); WHITE BLOOD COUNT 13.6 10^3/uL (4.0-10.5)
[2019-12-04] MEDS: DEXTROSE 5%-WATER 250 ML with NOREPINEPHRINE BITARTRATE 4 MG IV PRN ×4 (06:15→18:48)
[2019-12-04 06:38] LABS: ABSOLUTE LYMPHOCYTES# (MANUAL) 0.8 10^3/uL (0.5-4.7); ABSOLUTE MONOCYTES # (MANUAL) 0.4 10^3/uL (0.1-1.4); ANISOCYTOSIS 1+; BASOPHILS % (MANUAL) 0 % (0-2); EOSINOPHILS % (MANUAL) 0 % (0-6); LYMPHOCYTES % (MANUAL) 6 % (13-45); MONOCYTES % (MANUAL) 3 % (3-13); NUCLEATED RED BLOOD CELLS 2 /100 WBC (0); PLATELET COMMENT ADEQUATE; SEGMENTED NEUTROPHILS % (MAN) 91 % (42-78); TOTAL CELLS COUNTED 100
[2019-12-04 06:42] LABS: ANION GAP 7 (5-19); BLOOD UREA NITROGEN 32 mg/dL (7-20); CALCIUM 7.8 mg/dL (8.4-10.2); CARBON DIOXIDE 29 mmol/L (22-30); CHLORIDE 108 mmol/L (98-107); GLUCOSE 127 mg/dL (75-110); PHOSPHORUS 3.7 mg/dL (2.5-4.5); POTASSIUM 3.6 mmol/L (3.6-5.0)
--- NOTE | 2019-12-04 08:24 | Progress Note ---
Provider Note Provider Note: RN informed me of subcutaneous emphysema to bilateral neck region. I reviewed the chest x-ray from this morning post-CVC insertion which demonstrates bilateral SQ emphysema. However, I recall scouting bilateral neck internal jugular veins this morning prior to Dr Vela inserting a subclavian CVC for which I palpated a tiny amount of SQ emphysema in the right medial neck region for which I assumed was from previous CVC attempts/complications. It was reported that there was previously a right neck hematoma from arterial puncture which was recognized immediately with pressure and hemostasis. I was unable to successfully identify the right internal jugular vein on ultrasound this morning, but did see the right common carotid artery which appeared to be free of thrombus and was pulsating appropriately. No neck hematoma was visualized/palpated with the naked eye/hand. The left neck has miscoloration with hyperpigmentated area and a few ruptured blisters with no evidence of injury to the left IJ or common carotid. It was decided to avoid line placement in this region given the skin issues and wanting to avoid a potential source of line infection. This hyperpigmented area is though to be from a vesicant extravasation and does not appear necrotic or infected at this time. I suspect the SQ emphysema is secondary to atelectrauma vs volutrauma and am therefore decreasing the Peep from 10->8, Vt from 500->400, and increasing the RR from 15- >20. The patient has spontaneous respirations above the set rate at this time. Given her morbid obesity, I will not decrease the Vt to 6 mL/kg at this time as that is a Vt of 300 and I worry about hypoventilation/atelectasis, hence selecting 400 mL Vt at this time. Will continue to monitor closely and obtain ABG in 1.5 hrs to evaluate pH as well as ventilation. Will increase FiO2 as necessary to avoid further ventilator-induced lung injury. Update: Throughout the overnight hours, the patient expectantly required an increase in FiO2 given the above changes though the peak airway pressures remained okay. Eventually she required 100% FiO2 and was still hypoxic despite lavage/suction. Unfortunately, I had to increase her Peep back to 10 to resolve the hypoxia, which worked but did take some time. A CXR was repeated overnight with no increase in SQ emphysema or obvious pneumothorax, though anterior or posterior pneumo cannot be excluded; there was no deep sulcus or lateral signs of pneumo. She will need to be observed closely in light of this information. Discussed with Dr Vela.
--- NOTE | 2019-12-04 10:07 | PDOC CRITICAL CARE PROG REPORT ---
General Date:: 12/04/19 ICU Day:: 8 Ventilator Day:: 8 Hospital Day:: 13 Resuscitation Status: Full Code Medical Power of [facility] Manager: Xin Shi Events in the past 12 to 24 Hours:: Ventalator support increased somewhat Review of systems relevant to events:: Respiratory. Reason for ICU Addmission:: Acute hypoxic respiratory failure with SARS, 2- CoViD19. Intubated. - Medications: Medications reviewed and adjusted accordingly: Yes Vasopressors:: Levophed. Sedation:: Versed. Physical Exam Vital Signs: Temp Pulse Resp BP Pulse Ox 96.6 F L 114 H 26 H 97/60 L 89 L 12/04/19 09:30 12/04/19 01:00 12/04/19 09:15 12/04/19 01:00 12/04/19 09:30 Intake & Output 12/03/19 12/04/19 12/05/19 06:59 06:59 06:59 Intake Total 4419 4493 123 Output Total 1887 759 100 Balance 2532 3734 23 Weight 98.6 kg 100.3 kg Weight/Height Weight 100.3 kg Height 5 ft 2 in General appearance: PRESENT: no acute distress Head exam: PRESENT: atraumatic, normocephalic Eye exam: PRESENT: conjunctiva pink, EOMI, PERRLA. ABSENT: scleral icterus Ear exam: PRESENT: normal external ear exam Mouth exam: PRESENT: moist, tongue midline Respiratory exam: PRESENT: symmetrical, tachypnea, unlabored Cardiovascular exam: PRESENT: RRR, tachycardia. ABSENT: diastolic murmur, rubs, systolic murmur GI/Abdominal exam: PRESENT: normal bowel sounds, soft. ABSENT: distended, guarding, mass, organolmegaly, rebound, tenderness Rectal exam: PRESENT: deferred Gentrourinary exam: PRESENT: indwelling catheter Extremities exam: PRESENT: full ROM. ABSENT: calf tenderness, clubbing, pedal edema Neurological exam: PRESENT: motor sensory deficit, other - Sedated. Skin exam: PRESENT: dry, intact, warm. ABSENT: cyanosis, rash Tubes/Lines: PRESENT: Endotracheal Tube, Central Line, Arterial Catheter, Nasogastic Tube Laboratory/Radiographs Laboratory Results: 12/04/19 05:50 12/04/19 05:50 12/03/19 12/04/19 12/04/19 22:35 05:50 05:50 WBC RBC Hgb Hct MCV MCH MCHC RDW Plt Count Seg Neutrophils % Carbonic Acid 1.32 1.36 H HCO3/H2CO3 Ratio 20:1 20:1 ABG pH 7.42 7.40 ABG pCO2 43.8 45.3 H ABG pO2 39.2 L* 52.4 L ABG HCO3 27.6 H 27.7 H ABG O2 Saturation 74.6 L 87.0 L ABG Base Excess 2.7 2.6 FiO2 70% 100% Sodium 143.6 Potassium 3.6 Chloride 108 H Carbon Dioxide 29 Anion Gap 7 BUN 32 H Creatinine 0.91 Est GFR ( Amer) > 60 Glucose 127 H Calcium 7.8 L Phosphorus 3.7 12/04/19 05:50 WBC 13.6 H RBC 3.08 L Hgb 8.7 L Hct 25.8 L MCV 84 MCH 28.3 MCHC 33.8 RDW 15.2 H Plt Count 216 Seg Neutrophils % Not Reportable Carbonic Acid HCO3/H2CO3 Ratio ABG pH ABG pCO2 ABG pO2 ABG HCO3 ABG O2 Saturation ABG Base Excess FiO2 Sodium Potassium Chloride Carbon Dioxide Anion Gap BUN Creatinine Est GFR ( Amer) Glucose Calcium Phosphorus 11/21/19 11/26/19 11/26/19 14:00 11:48 11:48 Creatine Kinase 105 CK-MB (CK-2) 0.87 Troponin I < 0.012 NT-Pro-B Natriuret Pep 32 11/26/19 11/26/19 11/27/19 22:45 22:45 04:45 Creatine Kinase 60 46 CK-MB (CK-2) 0.41 Troponin I 0.018 NT-Pro-B Natriuret Pep 11/27/19 04:45 Creatine Kinase CK-MB (CK-2) 0.47 Troponin I < 0.012 NT-Pro-B Natriuret Pep Impressions: Chest/Abdomen CTA 11/21/19 16:08 IMPRESSION: 1. Patchy peripheral and perihilar ground-glass opacities in both lungs. These are commonly reported imaging features of COVID-19 pneumonia are present. Other processes such as influenza pneumonia and organizing pneumonia, as can be seen with drug toxicity and connective tissue disease, can cause a similar imaging pattern. PneTyp 2. Limited evaluation of the pulmonary arteries due to contrast bolus timing. No large central pulmonary embolus. Evaluation of the segmental and subsegmental pulmonary arteries is limited. Chest X-Ray 12/03/19 00:00 IMPRESSION: Little interval change copyright 2011 [employer]- All Rights Reserved All labs, radiographs, diagnostic studies and EKGs were personally reviewed: Yes In addition, reports of radiographic and diagnostic studies were read: Yes Assessment and Plan - Diagnosis (1) COVID-19 virus infection Is this a current diagnosis for this admission?: Yes Plan: She has not made progress on ventilator in several days. Will continue treatment but prognosis is looking less favorable as time goes on. (2) Acute hypoxemic respiratory failure Is this a current diagnosis for this admission?: Yes Plan: She is now on 100% FiO2 and PEEP of 10. Maximal support. Not proned yet. (3) T2DM (type 2 diabetes mellitus) Qualifiers: Diabetes mellitus skilled nursing insulin use: without skilled nursing use Diabetes mellitus complication status: without complication Qualified Code(s): E11.9 - Type 2 diabetes mellitus without complications Is this a current diagnosis for this admission?: Yes Plan: Controlled. Plan Summary: We seem to have gotten her agitation under better control. Continue same treatment. Critical Time Critical Time (minutes): 40 Level of Care: ICU Anticipated discharge: SNF Within: Other -: 1. The care of a critical patient is a dynamic process. This note is a loss prevention representative synopsis but static in nature. The timeframe for treatments given in order is not necessarily the actual time these treatments may have been done. 2. This patient requires critical care secondary to ongoing requirements for therapy not offered or safe outside the critical care environment. Transfer to a lower level of care will result in altered life or limb morbidity and mortality. 3. Multidisciplinary rounds completed. 4. ABCDE bundle addressed.
[2019-12-04] MEDS: FAMOTIDINE 20 MG TABLET PO SCH ×2 (10:39→22:09)
[2019-12-04] MEDS: CHOLECALCIFEROL (D3) 1,000 UNIT (25 MCG) TABLET PO SCH (10:39)
[2019-12-04] MEDS: ASCORBIC ACID 500 MG TABLET NG SCH ×2 (10:39→18:46)
[2019-12-04] MEDS: ZINC SULFATE 220 MG CAPSULE NG SCH (10:39)
[2019-12-04] MEDS: INSULIN GLARGINE,HUM.REC.ANLOG 1,000 UNIT/10 ML VIAL SUBCUT SCH ×2 (10:39→18:45)
[2019-12-04] MEDS: ENOXAPARIN SODIUM INJ 40 MG/0.4 ML DISP.SYRIN SUBCUT SCH (10:40)
--- NOTE | 2019-12-04 13:49 | Progress Note ---
Provider Note Provider Note: Patient continued to decompensate from a respiratory standpoint. O2 saturations dropped into the low 70s. No change in HR or BP. However maneuvers to rectify this were not effective including changing the mode of ventilation. Pt then proned with some success. Proned < 1 hour and ZO2 saturations at 86%. CC time 35 minutes.
[2019-12-04] MEDS ORDERED: RINGERS SOLUTION,LACTATED 1,000 ML IV PRN (19:29)
[2019-12-04] MEDS: POTASSI CL 20 MEQ/50 ML RIDER 20 MEQ/50 ML RTUPB IV SCH ×2 (20:13→22:02)
[2019-12-04] MEDS ORDERED: ROCURONIUM BROMIDE INJ 50 MG/5 ML VIAL IV ONE ×2 (22:00→22:58)
[2019-12-04] MEDS: ALBUMIN HUMAN 12.5 GM/50 ML RTUINJ IV SCH (22:03)
[2019-12-04] MEDS: MELATONIN 5 MG TABLET NG SCH (22:09)
[2019-12-04 22:14] LABS: ARTERIAL BLOOD BASE EXCESS 1.6 mmol/L; ARTERIAL BLOOD HCO3 26.5 mmol/L (20-24); ARTERIAL BLOOD O2 SATURATION 87.4 % (94-98); ARTERIAL BLOOD PCO2 43.1 mmHg (35-45); ARTERIAL BLOOD PH 7.41 (7.35-7.45); ARTERIAL BLOOD PO2 52.6 mmHg (80-100); ARTERIAL BLOOD TOTAL CO2 27.8 mmol/L (21-25)
[2019-12-04 22:16] LABS: ARTERIAL BLOOD FIO2 100%
[2019-12-04] MEDS: NORMAL SALINE 500 ML with ROCURONIUM BROMIDE 500 MG IV PRN ×2 (23:40)
[2019-12-05] MEDS: MIDAZOLAM HCL 50 MG/100 ML RTUINJ IV PRN ×8 (01:00→23:42)
[2019-12-05] MEDS: HYDROMORPHONE HCL INJ/PF 2 MG/ML AMPULE IV PRN (01:30)
[2019-12-05] MEDS ORDERED: HYDROMORPHONE HCL 30 MG/60 ML RTUINJ IV PRN (01:53)
[2019-12-05] MEDS: INSULIN REG, HUMAN 100 UNIT/ML 3 ML VIAL (PYX) SUBCUT SCH ×6 (02:37→21:34)
[2019-12-05] MEDS: HYDROCOD/ACETAMIN 7.5-325 MG/15 ML ORAL SOLN UDCUP NG SCH ×6 (02:38→21:36)
[2019-12-05] MEDS: NORMAL SALINE 500 ML with ROCURONIUM BROMIDE 500 MG IV PRN ×4 (06:12→11:19)
[2019-12-05] MEDS: ALBUMIN HUMAN 12.5 GM/50 ML RTUINJ IV SCH ×2 (06:29→16:11)
[2019-12-05] MEDS: MINERAL OIL/PETROLATUM,WHITE OPH OINT 3.5 GM OU SCH ×3 (06:29→21:37)
[2019-12-05] MEDS: METHOCARBAMOL 500 MG TABLET NG SCH ×3 (06:30→21:38)
[2019-12-05] MEDS: HYDROCORTISONE SOD SUCCINATE INJ/PF 100 MG/2 ML SDV IV SCH ×3 (06:30→21:39)
[2019-12-05] MEDS ORDERED: RINGERS SOLUTION,LACTATED 500 ML IV ONE (06:42)
[2019-12-05 07:36] LABS: ARTERIAL BLOOD BASE EXCESS 0.9 mmol/L; ARTERIAL BLOOD H2CO3 2.17 mmol/L (1.05-1.35); ARTERIAL BLOOD HCO3 29.3 mmol/L (20-24); ARTERIAL BLOOD O2 SATURATION 89.9 % (94-98); ARTERIAL BLOOD PH 7.23 (7.35-7.45); ARTERIAL BLOOD PO2 69.7 mmHg (80-100); ARTERIAL BLOOD TOTAL CO2 31.6 mmol/L (21-25)
[2019-12-05 07:37] LABS: ARTERIAL BLOOD FIO2 100%
[2019-12-05] MEDS: RINGERS SOLUTION,LACTATED 1,000 ML IV PRN (08:23)
[2019-12-05 08:24] LABS: HEMATOCRIT 25.8 % (36.0-47.0); HEMOGLOBIN 8.5 g/dL (12.0-15.5); MEAN CORPUSCULAR HEMOGLOBIN 28.3 pg (27.0-33.4); MEAN CORPUSCULAR HGB CONC 33.1 g/dL (32.0-36.0); MEAN CORPUSCULAR VOLUME 86 fl (80-97); PLATELET COUNT 144 10^3/uL (150-450); RED BLOOD COUNT 3.02 10^6/uL (3.72-5.28); RED CELL DISTRIBUTION WIDTH 15.7 % (11.5-14.0); WHITE BLOOD COUNT 15.1 10^3/uL (4.0-10.5)
[2019-12-05 08:37] LABS: BLOOD UREA NITROGEN 37 mg/dL (7-20); CALCIUM 7.6 mg/dL (8.4-10.2); GLUCOSE 153 mg/dL (75-110); POTASSIUM 4.7 mmol/L (3.6-5.0); TRIGLYCERIDES 79 mg/dL (<150)
[2019-12-05 08:43] LABS: CARBON DIOXIDE 32 mmol/L (22-30); CHLORIDE 108 mmol/L (98-107)
[2019-12-05 08:45] LABS: ANION GAP 4 (5-19)
[2019-12-05 09:04] LABS: ABSOLUTE LYMPHOCYTES# (MANUAL) 0.5 10^3/uL (0.5-4.7); ABSOLUTE MONOCYTES # (MANUAL) 0.8 10^3/uL (0.1-1.4); BAND NEUTROPHILS % (MANUAL) 2 % (3-5); BASOPHILS % (MANUAL) 0 % (0-2); EOSINOPHILS % (MANUAL) 0 % (0-6); LYMPHOCYTES % (MANUAL) 3 % (13-45); MONOCYTES % (MANUAL) 5 % (3-13); NUCLEATED RED BLOOD CELLS 1 /100 WBC (0); SEGMENTED NEUTROPHILS % (MAN) 90 % (42-78); TOTAL CELLS COUNTED 100
[2019-12-05 09:05] LABS: ANISOCYTOSIS SLIGHT; PLATELET COMMENT DECREASED
[2019-12-05] MEDS: ASCORBIC ACID 500 MG TABLET NG SCH ×2 (09:05→18:12)
[2019-12-05] MEDS: CHOLECALCIFEROL (D3) 1,000 UNIT (25 MCG) TABLET PO SCH (09:05)
[2019-12-05] MEDS: ZINC SULFATE 220 MG CAPSULE NG SCH (09:06)
[2019-12-05] MEDS: FAMOTIDINE 20 MG TABLET PO SCH ×2 (09:06→21:38)
[2019-12-05] MEDS: ENOXAPARIN SODIUM INJ 40 MG/0.4 ML DISP.SYRIN SUBCUT SCH (11:15)
[2019-12-05] MEDS: DEXTROSE 5%-WATER 250 ML with NOREPINEPHRINE BITARTRATE 4 MG IV PRN ×4 (11:18→21:39)
--- NOTE | 2019-12-05 13:45 | PDOC CRITICAL CARE PROG REPORT ---
General Date:: 12/05/19 ICU Day:: 9 Ventilator Day:: 9 Hospital Day:: 14 Resuscitation Status: Full Code Medical Power of Rnfa: Xin Shi Events in the past 12 to 24 Hours:: Proned for vent support. Review of systems relevant to events:: Respiratory. Reason for ICU Addmission:: Acute hypoxic respiratory failure with SARS, 2-CoViD19. Intubated. Proned. - Medications: Medications reviewed and adjusted accordingly: Yes Vasopressors:: Levophed. Sedation:: Dilaudid, Versed. Physical Exam Vital Signs: Temp Pulse Resp BP Pulse Ox 96.1 F L 103 H 30 H 123/85 91 L 12/05/19 10:03 12/04/19 20:00 12/05/19 10:03 12/05/19 10:03 12/05/19 11:15 Intake & Output 12/04/19 12/05/19 12/06/19 06:59 06:59 06:59 Intake Total 4493 3126 652 Output Total 759 827 160 Balance 3734 2299 492 Weight 100.3 kg 105.6 kg Weight/Height Weight 105.6 kg Height 5 ft 2 in General appearance: PRESENT: no acute distress, morbidly obese Head exam: PRESENT: atraumatic, normocephalic Eye exam: PRESENT: conjunctiva pink, EOMI, PERRLA. ABSENT: scleral icterus Ear exam: PRESENT: normal external ear exam Mouth exam: PRESENT: moist, tongue midline Respiratory exam: PRESENT: symmetrical, tachypnea, unlabored Cardiovascular exam: PRESENT: RRR. ABSENT: diastolic murmur, rubs, systolic murmur GI/Abdominal exam: PRESENT: normal bowel sounds, soft. ABSENT: distended, guarding, mass, organolmegaly, rebound, tenderness Rectal exam: PRESENT: deferred Gentrourinary exam: PRESENT: indwelling catheter Extremities exam: PRESENT: full ROM. ABSENT: calf tenderness, clubbing, pedal edema Musculoskeletal exam: PRESENT: normal inspection Neurological exam: PRESENT: other - Sedated with neuromuscular blockers. Skin exam: PRESENT: other - Small st 1 decubitus on sacrum Tubes/Lines: PRESENT: Endotracheal Tube, Central Line, Arterial Catheter, Nasogastic Tube Laboratory/Radiographs Laboratory Results: 12/05/19 07:30 12/05/19 07:30 12/04/19 12/05/19 12/05/19 21:50 07:14 07:30 WBC RBC Hgb Hct MCV MCH MCHC RDW Plt Count Seg Neutrophils % Carbonic Acid 1.30 2.17 H HCO3/H2CO3 Ratio 20:1 13:1 ABG pH 7.41 7.23 L ABG pCO2 43.1 72.0 H* ABG pO2 52.6 L 69.7 L ABG HCO3 26.5 H 29.3 H ABG O2 Saturation 87.4 L 89.9 L ABG Base Excess 1.6 0.9 FiO2 100% 100% Sodium 143.5 Potassium 4.7 Chloride 108 H Carbon Dioxide 32 H Anion Gap 4 L BUN 37 H Creatinine 0.98 Est GFR ( Amer) > 60 Glucose 153 H Calcium 7.6 L Triglycerides 79 12/05/19 07:30 WBC 15.1 H RBC 3.02 L Hgb 8.5 L Hct 25.8 L MCV 86 MCH 28.3 MCHC 33.1 RDW 15.7 H Plt Count 144 L Seg Neutrophils % Not Reportable Carbonic Acid HCO3/H2CO3 Ratio ABG pH ABG pCO2 ABG pO2 ABG HCO3 ABG O2 Saturation ABG Base Excess FiO2 Sodium Potassium Chloride Carbon Dioxide Anion Gap BUN Creatinine Est GFR ( Amer) Glucose Calcium Triglycerides 12/01/19 11:12 Stool - Stool - Final 12/01/19 11:12 Stool - Stool Stool Culture - Final C.albicans/C.dubliniensis 11/21/19 11/26/19 11/26/19 14:00 11:48 11:48 Creatine Kinase 105 CK-MB (CK-2) 0.87 Troponin I < 0.012 NT-Pro-B Natriuret Pep 32 11/26/19 11/26/19 11/27/19 22:45 22:45 04:45 Creatine Kinase 60 46 CK-MB (CK-2) 0.41 Troponin I 0.018 NT-Pro-B Natriuret Pep 11/27/19 04:45 Creatine Kinase CK-MB (CK-2) 0.47 Troponin I < 0.012 NT-Pro-B Natriuret Pep Impressions: Chest/Abdomen CTA 11/21/19 16:08 IMPRESSION: 1. Patchy peripheral and perihilar ground-glass opacities in both lungs. These are commonly reported imaging features of COVID-19 pneumonia are present. Other processes such as influenza pneumonia and organizing pneumonia, as can be seen with drug toxicity and connective tissue disease, can cause a similar imaging pattern. PneTyp 2. Limited evaluation of the pulmonary arteries due to contrast bolus timing. No large central pulmonary embolus. Evaluation of the segmental and subsegmental pulmonary arteries is limited. Chest X-Ray 12/03/19 00:00 IMPRESSION: Little interval change copyright 2011 [employer]- All Rights Reserved All labs, radiographs, diagnostic studies and EKGs were personally reviewed: Yes In addition, reports of radiographic and diagnostic studies were read: Yes Assessment and Plan - Diagnosis (1) COVID-19 virus infection Is this a current diagnosis for this admission?: Yes Plan: She is acting as a covid patient who is refractory and likely will not survive despite maximal therapy. I have asked her daghter to gather her family. They are from [place] and should be here in a day. (2) Acute hypoxemic respiratory failure Is this a current diagnosis for this admission?: Yes Plan: This is refractory. She has been proned nearly 20 hours. Her oxygen saturation is 90-91 % on 100% FiO2 and 12 PEEP. She has had hydroxychloroquine. At this point we can only watch and wait but I feel she will likely . (3) T2DM (type 2 diabetes mellitus) Qualifiers: Diabetes mellitus long-term insulin use: without watermaster use Diabetes me llitus complication status: without complication Qualified Code(s): E11.9 - Type 2 diabetes mellitus without complications Is this a current diagnosis for this admission?: Yes Plan: Controlled. Plan Summary: Keep proned a bit longer given her oxygen status even though she is beyond the recommended time in the prone position. Critical Time Critical Time (minutes): 40 Level of Care: ICU Anticipated discharge: Other Within: Other -: 1. The care of a critical patient is a dynamic process. This note is a retail customer service representative synopsis but static in nature. The timeframe for treatments given in order is not necessarily the actual time these treatments may have been done. 2. This patient requires critical care secondary to ongoing requirements for therapy not offered or safe outside the critical care environment. Transfer to a lower level of care will result in altered life or limb morbidity and mortality. 3. Multidisciplinary rounds completed. 4. ABCDE bundle addressed.
[2019-12-05] MEDS: ALBUMIN HUMAN 25 GM/100 ML RTUINJ IV SCH ×2 (16:49→21:29)
[2019-12-05 21:30] LABS: ARTERIAL BLOOD BASE EXCESS 0 mmol/L; ARTERIAL BLOOD FIO2 100%; ARTERIAL BLOOD H2CO3 1.67 mmol/L (1.05-1.35); ARTERIAL BLOOD HCO3 26.8 mmol/L (20-24); ARTERIAL BLOOD O2 SATURATION 93.5 % (94-98); ARTERIAL BLOOD PCO2 55.5 mmHg (35-45); ARTERIAL BLOOD PO2 75.3 mmHg (80-100); ARTERIAL BLOOD TOTAL CO2 28.5 mmol/L (21-25)
[2019-12-05] MEDS: MELATONIN 5 MG TABLET NG SCH (21:38)
[2019-12-06] MEDS: INSULIN REG, HUMAN 100 UNIT/ML 3 ML VIAL (PYX) SUBCUT SCH ×6 (01:37→21:36)
[2019-12-06] MEDS: HYDROCOD/ACETAMIN 7.5-325 MG/15 ML ORAL SOLN UDCUP NG SCH ×5 (01:37→18:13)
[2019-12-06] MEDS ORDERED: HYDROMORPHONE HCL INJ/PF 2 MG/ML AMPULE IV ONE (02:02)
[2019-12-06] MEDS: RINGERS SOLUTION,LACTATED 1,000 ML IV PRN ×2 (02:38→20:31)
[2019-12-06] MEDS: MIDAZOLAM HCL 50 MG/100 ML RTUINJ IV PRN ×9 (02:42→22:50)
--- NOTE | 2019-12-06 02:57 | Progress Note ---
Provider Note Provider Note: I spoke to Placido Edwards before midnight, patient's daughter and designated contact, about an update on patient's condition and overall prognosis with recrudescence of her illness due to COVID-19 pneumonia. Mrs Edwards remains hopeful that her mother will survive this hospitalization, though understands that may not be the case and that we feel Mrs Akins will not survive. Mrs Edwards would like Mrs Akins to remain full code status at this time. I explained to her that if cardiac arrest occurs without being due to refractory hypoxia, then we will proceed with her wishes in resuscitation. However, if the patient deteriorates further with refractory hypoxia and that leads to her arrest, we will not perform CPR due to medical futility with the inability to survive despite the possibility of brief return of spontaneous circulation. This would undoubtedly expose several staff members to COVID-19 in a futile effort under those circumstances without the ability to save Mrs Akins's life. Dr Vela and myself had this discussion earlier for which Placido Edwards understands without objection. I appreciate her understanding during these very harsh times fighting the COVID-19 pandemic. Mrs Edwards was grateful that she and her sister were able to briefly visit their mother and that we were able to FaceTime with her family members in the parking lot from the [employer] the hospital/ICU has purchased to help families in this time of need.
--- NOTE | 2019-12-06 03:12 | Progress Note ---
Provider Note Provider Note: Date/Time: 12/04/2019 23:30 pm I attempted to make contact with Mrs Akins's daughter, Placido Edwards at 23:30 pm to update her on her mother's condition given recrudescence which unfortunately, is being observed with COVID-19 disease. I left a voicemail for her to return my call. My reason for wanting to speak with Placido is that Mrs Madsen is beginning to experience worsening hypoxia despite 100% FiO2 and Peep of 12 which is currently thought to do more harm than good in the COVID-19 pandemic. Additionally, the patient has experienced atelectrauma in the past 36 hrs and I would like to avoid exacerbating that issue if able. Therefore, the decision was made to start a Rocuronium infusion to eliminate the patient's spontaneous effort for which she has a tendency to create some expiratory resistance as a contributing factor, despite being on 16-18 mg/hr of Versed and receiving Dilaudid IV pushes. Duo-neb administration has been prophylactically previously attempted without improvement in her hypoxia when she utilizes expiratory accessory muscles. Interestingly, Mrs Akins has been extremely difficult to sedate since arrival at [facility], requiring so many different sedative/opioid combinations. This pandemic has also led to depleting medications such as Fentanyl infusion and I was informed yesterday morning we were out of Dilaudid infusion capability. We have been unable to utilize Morphine infusions due to her hemodynamic compromise, requiring vasopressor therapy. I ordered a Rocuronium bolus dose prior to the infusion, but was informed our Rocuronium supply is extremely limited at the moment, for which I would have to utilize vials from the remaining RSI kits to give the bolus dose. Therefore, I elected to forgo the bolus in an effort to reserve this medication for emergency intubations and initiate the Rocuronium infusion at a higher dose for more rapid effect. To note, we ensured Mrs Akins was adequately sedated before initiation. Changes I was simultaneously making to the ventilator to decrease plateau pressure and increase SPO2 are as follows: -changed mode from AC/VC to SIMV/PC -PC 26 yielding a Vt of 395-400 mL -PS 26 as patient did not immediately lose spontaneous respiratory effort -increased set respiratory rate to 30 to achieve a minute ventilation of 12 -the Peep was decreased from 12 to 8 incrementally observing the Pplat -I shortened the inspiratory time to 0.75 seconds as the patient was having no added benefit of the 1 sec that was set on the ventilator, contributing to patient discomfort as she exhaled against prolonged pressure flow time. -I also increased the rise time to 0.3 seconds to decrease the pressure and shear force on the alveolar level, which seemed to help. It is important to note that flow/inspiratory time, rise time, pressure control/tidal volume, respiratory rate, and Peep all influence plateau pressure and peak inspiratory pressure. Additional interventions at this time while in was in the room: Norepinephrine was turned from 2 mcg/min to off at this time, IV fluids were turned off as pt is receiving 118 ml/hr in collective fluids with infusions at the moment, Versed was increased to 20 mg/hr based on BP increasing 15 mm Hg. Vitals leaving the room were HR 126 (from 140) BP 146/90 from SBP 170, SPO2 96%, and patient without expiratory muscle use. Unable to assess for spontaneous effort at this time, as I overrode her intrinsic rate anyway during the above changes. PiP currently 35 (from 45), Pplat currently 31 (from 40) Ideally, I would like both PiP and more importantly Pplat to be below 30, this is considered a small victory at this time given where the pressures were beforehand. Patient remains at high risk of barotrauma to include atelectrauma/volutrauma and even higher risk of mortality given her recrudescence. Critical care time: 50 minutes Billing code [id number] Follow-up Addendum: At 5am, the patient was positioned with the head in a neutral position on a face pillow with cutouts for orbits and the endotracheal tube/mouth from right-sided lateral neck rotation. During this time, Mrs Akins's SPO2 decreased again to 87% and her Vt decreased to 349 mL on the same ventilator settings as above. Unfortunately, I had to increase her pressure control and pressure support to 30, which in turn increased her PiP from 35 to 39. The alternative is increasing the Peep further, but I am still hesitant given her recent atelectrauma <36 hrs ago. Placing a thoracostomy tube in the setting of COVID-19 is not desirable, especially without being in a negative pressure room. Anyhow, her Vt returned to 390-395 mL which is important from a ventilation standpoint. Patient has a slightly normal to mildly elevated PaCO2 with a minute ventilation of approximately 12 L/min. Will give her a little time to see if her SPO2 increases and then check an ABG to see where we stand on these settings adjusting the ventilator as necessary. Given her major respiratory issue is presently hypoxia, permissive hypercapnia will be allowed at this time with a goal of normalization as able.
[2019-12-06 04:13] LABS: HEMATOCRIT 22.5 % (36.0-47.0); MEAN CORPUSCULAR HEMOGLOBIN 28.8 pg (27.0-33.4); MEAN CORPUSCULAR HGB CONC 33.5 g/dL (32.0-36.0); MEAN CORPUSCULAR VOLUME 86 fl (80-97); RED BLOOD COUNT 2.62 10^6/uL (3.72-5.28); RED CELL DISTRIBUTION WIDTH 15.6 % (11.5-14.0); WHITE BLOOD COUNT 7.7 10^3/uL (4.0-10.5)
[2019-12-06 04:28] LABS: ANION GAP 7 (5-19); BLOOD UREA NITROGEN 40 mg/dL (7-20); CALCIUM 7.9 mg/dL (8.4-10.2); CARBON DIOXIDE 28 mmol/L (22-30); CHLORIDE 108 mmol/L (98-107); GLUCOSE 202 mg/dL (75-110); POTASSIUM 4.7 mmol/L (3.6-5.0)
[2019-12-06] MEDS: NORMAL SALINE 500 ML with ROCURONIUM BROMIDE 500 MG IV PRN ×4 (04:43→22:22)
[2019-12-06 04:48] LABS: ABSOLUTE LYMPHOCYTES# (MANUAL) 0.6 10^3/uL (0.5-4.7); ABSOLUTE MONOCYTES # (MANUAL) 0.4 10^3/uL (0.1-1.4); BAND NEUTROPHILS % (MANUAL) 1 % (3-5); BASOPHILS % (MANUAL) 0 % (0-2); EOSINOPHILS % (MANUAL) 0 % (0-6); LYMPHOCYTES % (MANUAL) 8 % (13-45); MONOCYTES % (MANUAL) 5 % (3-13); SEGMENTED NEUTROPHILS % (MAN) 86 % (42-78); TOTAL CELLS COUNTED 100
[2019-12-06 04:49] LABS: POLYCHROMASIA 1+
[2019-12-06 04:50] LABS: ANISOCYTOSIS 1+; HEMOGLOBIN 7.6 g/dL (12.0-15.5); PLATELET COMMENT DECREASED
[2019-12-06 04:51] LABS: PLATELET COUNT 80 10^3/uL (150-450)
[2019-12-06] MEDS: HYDROCORTISONE SOD SUCCINATE INJ/PF 100 MG/2 ML SDV IV SCH ×3 (05:11→21:37)
[2019-12-06] MEDS: ALBUMIN HUMAN 25 GM/100 ML RTUINJ IV SCH ×3 (05:11→21:38)
[2019-12-06] MEDS: METHOCARBAMOL 500 MG TABLET NG SCH ×5 (05:11→21:36)
[2019-12-06] MEDS: MINERAL OIL/PETROLATUM,WHITE OPH OINT 3.5 GM OU SCH ×3 (05:12→22:07)
[2019-12-06] MEDS ORDERED: HYDROCOD/ACETAMIN 7.5-325 MG/15 ML ORAL SOLN UDCUP ONE (05:28)
[2019-12-06] MEDS: HYDROMORPHONE HCL INJ/PF 2 MG/ML AMPULE IV PRN (09:31)
[2019-12-06] MEDS: CHOLECALCIFEROL (D3) 1,000 UNIT (25 MCG) TABLET PO SCH (10:48)
[2019-12-06] MEDS: ZINC SULFATE 220 MG CAPSULE NG SCH (10:48)
[2019-12-06] MEDS: ASCORBIC ACID 500 MG TABLET NG SCH ×2 (10:48→18:13)
[2019-12-06] MEDS: FAMOTIDINE 20 MG TABLET PO SCH ×2 (10:48→21:37)
[2019-12-06] MEDS: ENOXAPARIN SODIUM INJ 40 MG/0.4 ML DISP.SYRIN SUBCUT SCH (11:20)
[2019-12-06] MEDS: MORPHINE SULFATE 60 MG/60 ML RTUINJ IV PRN ×2 (12:56→19:47)
[2019-12-06] MEDS: MELATONIN 5 MG TABLET NG SCH (21:36)
[2019-12-06 21:48] LABS: ARTERIAL BLOOD BASE EXCESS -2.5 mmol/L; ARTERIAL BLOOD FIO2 15; ARTERIAL BLOOD HCO3 25.8 mmol/L (20-24); ARTERIAL BLOOD O2 SATURATION 91.6 % (94-98); ARTERIAL BLOOD PCO2 66.4 mmHg (35-45); ARTERIAL BLOOD PH 7.21 (7.35-7.45); ARTERIAL BLOOD PO2 75.5 mmHg (80-100); ARTERIAL BLOOD TOTAL CO2 27.9 mmol/L (21-25)
[2019-12-07] MEDS: MIDAZOLAM HCL 50 MG/100 ML RTUINJ IV PRN ×8 (01:57→23:38)
[2019-12-07] MEDS: INSULIN REG, HUMAN 100 UNIT/ML 3 ML VIAL (PYX) SUBCUT SCH ×6 (02:03→21:14)
[2019-12-07] MEDS: MORPHINE SULFATE 60 MG/60 ML RTUINJ IV PRN ×3 (03:57→19:40)
[2019-12-07 04:35] LABS: HEMATOCRIT 21.3 % (36.0-47.0); MEAN CORPUSCULAR HEMOGLOBIN 28.7 pg (27.0-33.4); MEAN CORPUSCULAR HGB CONC 33.3 g/dL (32.0-36.0); MEAN CORPUSCULAR VOLUME 86 fl (80-97); RED BLOOD COUNT 2.47 10^6/uL (3.72-5.28); RED CELL DISTRIBUTION WIDTH 15.9 % (11.5-14.0); WHITE BLOOD COUNT 8.4 10^3/uL (4.0-10.5)
[2019-12-07 05:01] LABS: PLATELET COUNT 67 10^3/uL (150-450)
[2019-12-07 05:17] LABS: ABSOLUTE LYMPHOCYTES# (MANUAL) 0.3 10^3/uL (0.5-4.7); ABSOLUTE MONOCYTES # (MANUAL) 0.3 10^3/uL (0.1-1.4); BASOPHILS % (MANUAL) 0 % (0-2); EOSINOPHILS % (MANUAL) 0 % (0-6); LYMPHOCYTES % (MANUAL) 3 % (13-45); MONOCYTES % (MANUAL) 3 % (3-13); NUCLEATED RED BLOOD CELLS 3 /100 WBC (0); SEGMENTED NEUTROPHILS % (MAN) 94 % (42-78); TOTAL CELLS COUNTED 100
[2019-12-07] MEDS: MINERAL OIL/PETROLATUM,WHITE OPH OINT 3.5 GM OU SCH ×3 (05:18→21:05)
[2019-12-07] MEDS: METHOCARBAMOL 500 MG TABLET NG SCH ×3 (05:18→21:04)
[2019-12-07] MEDS: HYDROCORTISONE SOD SUCCINATE INJ/PF 100 MG/2 ML SDV IV SCH ×3 (05:18→21:05)
[2019-12-07] MEDS: ALBUMIN HUMAN 25 GM/100 ML RTUINJ IV SCH ×3 (05:18→21:03)
[2019-12-07 05:25] LABS: TOXIC GRANULATION SLIGHT
[2019-12-07 05:28] LABS: HEMOGLOBIN 7.1 g/dL (12.0-15.5); PLATELET COMMENT DECREASED
[2019-12-07 06:17] LABS: ARTERIAL BLOOD BASE EXCESS 1.2 mmol/L; ARTERIAL BLOOD HCO3 28.8 mmol/L (20-24); ARTERIAL BLOOD O2 SATURATION 92.8 % (94-98); ARTERIAL BLOOD PCO2 66.4 mmHg (35-45); ARTERIAL BLOOD PH 7.26 (7.35-7.45); ARTERIAL BLOOD PO2 76.5 mmHg (80-100); ARTERIAL BLOOD TOTAL CO2 30.8 mmol/L (21-25)
[2019-12-07 06:18] LABS: ARTERIAL BLOOD FIO2 100%
[2019-12-07 08:49] LABS: ARTERIAL BLOOD BASE EXCESS 0.8 mmol/L; ARTERIAL BLOOD FIO2 100%; ARTERIAL BLOOD H2CO3 1.59 mmol/L (1.05-1.35); ARTERIAL BLOOD HCO3 27.1 mmol/L (20-24); ARTERIAL BLOOD O2 SATURATION 94.2 % (94-98); ARTERIAL BLOOD PCO2 52.9 mmHg (35-45); ARTERIAL BLOOD PH 7.33 (7.35-7.45); ARTERIAL BLOOD PO2 76.5 mmHg (80-100); ARTERIAL BLOOD TOTAL CO2 28.7 mmol/L (21-25)
[2019-12-07] MEDS: RINGERS SOLUTION,LACTATED 1,000 ML IV PRN (10:02)
[2019-12-07] MEDS: FAMOTIDINE 20 MG TABLET PO SCH ×2 (10:05→21:05)
[2019-12-07] MEDS: CHOLECALCIFEROL (D3) 1,000 UNIT (25 MCG) TABLET PO SCH (10:05)
[2019-12-07] MEDS: ZINC SULFATE 220 MG CAPSULE NG SCH (10:05)
[2019-12-07] MEDS: ASCORBIC ACID 500 MG TABLET NG SCH ×2 (10:06→18:04)
[2019-12-07] MEDS: ENOXAPARIN SODIUM INJ 40 MG/0.4 ML DISP.SYRIN SUBCUT SCH (10:06)
[2019-12-07] MEDS: NORMAL SALINE 500 ML with ROCURONIUM BROMIDE 500 MG IV PRN ×4 (11:00→23:38)
--- NOTE | 2019-12-07 12:29 | PDOC CRITICAL CARE PROG REPORT ---
General Date:: 12/07/19 ICU Day:: 11 Ventilator Day:: 11 Hospital Day:: 16 Resuscitation Status: Full Code Medical Power of Communications Consultant: Xin Shi Events in the past 12 to 24 Hours:: Oxygenation has been maintained in supine position. Review of systems relevant to events:: Respiratory. Reason for ICU Addmission:: Acute hypoxic respiratory failure with SARS, 2- CoViD19. Intubated. Proned. - Medications: Medications reviewed and adjusted accordingly: Yes Vasopressors:: Levophed Sedation:: Midazolam, morphine. Physical Exam Vital Signs: Temp Pulse Resp BP Pulse Ox 97.0 F 81 15 96/54 L 93 12/07/19 10:15 12/07/19 08:00 12/07/19 10:15 12/07/19 08:00 12/07/19 10:15 Intake & Output 12/06/19 12/07/19 12/08/19 06:59 06:59 06:59 Intake Total 3076 2658 676 Output Total 940 1775 220 Balance 2136 883 456 Weight 114.7 kg 114.7 kg Weight/Height Weight 114.7 kg Height 5 ft 2 in General appearance: PRESENT: morbidly obese Head exam: PRESENT: atraumatic, normocephalic Eye exam: PRESENT: conjunctiva pink, EOMI, PERRLA. ABSENT: scleral icterus Ear exam: PRESENT: normal external ear exam Mouth exam: PRESENT: moist, tongue midline Respiratory exam: PRESENT: symmetrical Cardiovascular exam: PRESENT: RRR. ABSENT: diastolic murmur, rubs, systolic mu rmur GI/Abdominal exam: PRESENT: normal bowel sounds, soft. ABSENT: distended, guarding, mass, organolmegaly, rebound, tenderness Rectal exam: PRESENT: deferred Gentrourinary exam: PRESENT: indwelling catheter Extremities exam: PRESENT: full ROM. ABSENT: calf tenderness, clubbing, pedal edema Neurological exam: PRESENT: other - Sedated and under neuromuscular blockers. Skin exam: PRESENT: dry, intact, warm, other - Small decubitus on back.. AB SENT: cyanosis, rash Tubes/Lines: PRESENT: Endotracheal Tube, Central Line, Arterial Catheter, Nasogastic Tube Laboratory/Radiographs Laboratory Results: 12/07/19 03:50 12/06/19 04:00 04/20/20 04/21/20 04/21/20 21:25 03:50 05:45 WBC 8.4 RBC 2.47 L Hgb 7.1 L Hct 21.3 L MCV 86 MCH 28.7 MCHC 33.3 RDW 15.9 H Plt Count 67 L Seg Neutrophils % Not Reportable Carbonic Acid 2.00 H 2.00 H HCO3/H2CO3 Ratio 12:1 14:1 ABG pH 7.21 L 7.26 L ABG pCO2 66.4 H 66.4 H ABG pO2 75.5 L 76.5 L ABG HCO3 25.8 H 28.8 H ABG O2 Saturation 91.6 L 92.8 L ABG Base Excess -2.5 1.2 FiO2 15 100% 12/07/19 08:25 WBC RBC Hgb Hct MCV MCH MCHC RDW Plt Count Seg Neutrophils % Carbonic Acid 1.59 H HCO3/H2CO3 Ratio 17:1 ABG pH 7.33 L ABG pCO2 52.9 H ABG pO2 76.5 L ABG HCO3 27.1 H ABG O2 Saturation 94.2 ABG Base Excess 0.8 FiO2 100% 11/21/19 11/26/19 11/26/19 14:00 11:48 11:48 Creatine Kinase 105 CK-MB (CK-2) 0.87 Troponin I < 0.012 NT-Pro-B Natriuret Pep 32 11/26/19 11/26/19 11/27/19 22:45 22:45 04:45 Creatine Kinase 60 46 CK-MB (CK-2) 0.41 Troponin I 0.018 NT-Pro-B Natriuret Pep 11/27/19 04:45 Creatine Kinase CK-MB (CK-2) 0.47 Troponin I < 0.012 NT-Pro-B Natriuret Pep Impressions: Chest/Abdomen CTA 11/21/19 16:08 IMPRESSION: 1. Patchy peripheral and perihilar ground-glass opacities in both lungs. These are commonly reported imaging features of COVID-19 pneumonia are present. Other processes such as influenza pneumonia and organizing pneumonia, as can be seen with drug toxicity and connective tissue disease, can cause a similar imaging pattern. PneTyp 2. Limited evaluation of the pulmonary arteries due to contrast bolus timing. No large central pulmonary embolus. Evaluation of the segmental and subsegmental pulmonary arteries is limited. Chest X-Ray 12/03/19 00:00 IMPRESSION: Little interval change copyright 2011 [employer]- All Rights Reserved All labs, radiographs, diagnostic studies and EKGs were personally reviewed: Yes In addition, reports of radiographic and diagnostic studies were read: Yes Assessment and Plan - Diagnosis (1) COVID-19 virus infection Is this a current diagnosis for this admission?: Yes Plan: The pulmonary process is not improved despite being on the ventilator for 16 days. Her oxygenation is in the low 902 but on 100% and 12 PEEP. Prognosis still remains poor. (2) Acute hypoxemic respiratory failure Is this a current diagnosis for this admission?: Yes Plan: As above. (3) T2DM (type 2 diabetes mellitus) Qualifiers: Diabetes mellitus intermediate accountant insulin use: without intermediate accountant use Diabetes mellitus complication status: without complication Qualified Code(s): E11.9 - Type 2 diabetes mellitus without complications Is this a current diagnosis for this admission?: Yes Plan: Controlled. Plan Summary: Maintain current course. Prone as needed. Critical Time Critical Time (minutes): 35 Level of Care: ICU Anticipated discharge: SNF Within: Other -: 1. The care of a critical patient is a dynamic process. This note is a instruments sales representative synopsis but static in nature. The timeframe for treatments g iven in order is not necessarily the actual time these treatments may have been done. 2. This patient requires critical care secondary to ongoing requirements for therapy not offered or safe outside the critical care environment. Transfer to a lower level of care will result in altered life or limb morbidity and mortality. 3. Multidisciplinary rounds completed. 4. ABCDE bundle addressed.
[2019-12-07] MEDS ORDERED: NORMAL SALINE 250 ML IV PRN ×2 (15:19)
[2019-12-07] MEDS: MELATONIN 5 MG TABLET NG SCH (21:05)
[2019-12-07 23:08] LABS: MEAN CORPUSCULAR HEMOGLOBIN 29.5 pg (27.0-33.4); MEAN CORPUSCULAR HGB CONC 34.2 g/dL (32.0-36.0); MEAN CORPUSCULAR VOLUME 86 fl (80-97); RED BLOOD COUNT 2.67 10^6/uL (3.72-5.28); RED CELL DISTRIBUTION WIDTH 16.2 % (11.5-14.0); WHITE BLOOD COUNT 8.5 10^3/uL (4.0-10.5)
[2019-12-07 23:26] LABS: PLATELET COUNT 62 10^3/uL (150-450)
[2019-12-07 23:27] LABS: HEMOGLOBIN 7.9 g/dL (12.0-15.5)
[2019-12-08] MEDS: INSULIN REG, HUMAN 100 UNIT/ML 3 ML VIAL (PYX) SUBCUT SCH ×6 (02:19→22:50)
[2019-12-08] MEDS: MIDAZOLAM HCL 50 MG/100 ML RTUINJ IV PRN ×8 (02:54→23:11)
[2019-12-08] MEDS: MORPHINE SULFATE 60 MG/60 ML RTUINJ IV PRN ×3 (04:10→19:49)
[2019-12-08 04:37] LABS: HEMATOCRIT 23.9 % (36.0-47.0); HEMOGLOBIN 8.1 g/dL (12.0-15.5); MEAN CORPUSCULAR HEMOGLOBIN 29.5 pg (27.0-33.4); MEAN CORPUSCULAR VOLUME 87 fl (80-97); RED BLOOD COUNT 2.76 10^6/uL (3.72-5.28); RED CELL DISTRIBUTION WIDTH 16.1 % (11.5-14.0); WHITE BLOOD COUNT 9.5 10^3/uL (4.0-10.5)
[2019-12-08 04:58] LABS: ABSOLUTE LYMPHOCYTES# (MANUAL) 0.6 10^3/uL (0.5-4.7); ABSOLUTE MONOCYTES # (MANUAL) 0.6 10^3/uL (0.1-1.4); BASOPHILS % (MANUAL) 0 % (0-2); EOSINOPHILS % (MANUAL) 0 % (0-6); LYMPHOCYTES % (MANUAL) 6 % (13-45); MONOCYTES % (MANUAL) 6 % (3-13); NUCLEATED RED BLOOD CELLS 2 /100 WBC (0); SEGMENTED NEUTROPHILS % (MAN) 88 % (42-78); TOTAL CELLS COUNTED 100
[2019-12-08 05:01] LABS: TOXIC GRANULATION 1+
[2019-12-08 05:02] LABS: ANISOCYTOSIS 1+; OVALOCYTES SLIGHT; PLATELET COMMENT DECREASED; PLATELET COUNT 70 10^3/uL (150-450); POIKILOCYTOSIS SLIGHT; POLYCHROMASIA SLIGHT; SCHISTOCYTES SLIGHT
[2019-12-08] MEDS ORDERED: ALBUMIN HUMAN 12.5 GM/50 ML RTUINJ IV ONE (05:51)
[2019-12-08] MEDS: HYDROCORTISONE SOD SUCCINATE INJ/PF 100 MG/2 ML SDV IV SCH ×3 (05:59→21:06)
[2019-12-08] MEDS: ALBUMIN HUMAN 25 GM/100 ML RTUINJ IV SCH ×2 (05:59→15:13)
[2019-12-08] MEDS: MINERAL OIL/PETROLATUM,WHITE OPH OINT 3.5 GM OU SCH ×3 (06:06→21:05)
[2019-12-08] MEDS: METHOCARBAMOL 500 MG TABLET NG SCH ×3 (06:06→21:06)
[2019-12-08] MEDS: ENOXAPARIN SODIUM INJ 40 MG/0.4 ML DISP.SYRIN SUBCUT SCH (10:39)
[2019-12-08] MEDS: FAMOTIDINE 20 MG TABLET PO SCH ×2 (10:41→21:06)
[2019-12-08] MEDS: CHOLECALCIFEROL (D3) 1,000 UNIT (25 MCG) TABLET PO SCH (10:41)
[2019-12-08] MEDS: ZINC SULFATE 220 MG CAPSULE NG SCH (10:41)
[2019-12-08] MEDS: ASCORBIC ACID 500 MG TABLET NG SCH ×2 (10:41→18:06)
--- NOTE | 2019-12-08 11:29 | PDOC CRITICAL CARE PROG REPORT ---
General Date:: 12/08/19 ICU Day:: 12 Ventilator Day:: 12 Hospital Day:: 17 Resuscitation Status: Full Code Medical Power of Group Counselor: Xin Shi Events in the past 12 to 24 Hours:: Essentially unchanged but no worse. Review of systems relevant to events:: Respiratory. Reason for ICU Addmission:: Acute hypoxic respiratory failure with SARS, 2- CoViD19. Intubated. Supine. - Medications: Medications reviewed and adjusted accordingly: Yes Vasopressors:: Levophed. Sedation:: Versed, Morphine. Physical Exam Vital Signs: Temp Pulse Resp BP Pulse Ox 97.0 F 82 19 136/70 H 92 12/08/19 06:15 12/07/19 20:00 12/08/19 06:15 12/08/19 08:00 12/08/19 11:07 Intake & Output 12/07/19 12/08/19 12/09/19 06:59 06:59 06:59 Intake Total 2658 2518 580 Output Total 1775 1285 75 Balance 883 1233 505 Weight 114.7 kg 115.3 kg Weight/Height Weight 115.3 kg Height 5 ft 2 in General appearance: PRESENT: no acute distress, morbidly obese Head exam: PRESENT: atraumatic, normocephalic Eye exam: PRESENT: conjunctiva pink, EOMI, PERRLA. ABSENT: scleral icterus Ear exam: PRESENT: normal external ear exam Mouth exam: PRESENT: moist, tongue midline Respiratory exam: PRESENT: symmetrical, unlabored Cardiovascular exam: PRESENT: RRR. ABSENT: diastolic murmur, rubs, systolic murmur GI/Abdominal exam: PRESENT: normal bowel sounds, soft. ABSENT: distended, guarding, mass, organolmegaly, rebound, tenderness Rectal exam: PRESENT: deferred Extremities exam: PRESENT: full ROM. ABSENT: calf tenderness, clubbing, pedal edema Neurological exam: PRESENT: other - She is both sedated and under neuromuscular blockade. Skin exam: PRESENT: dry, intact, warm, other - Small saral decubitus.. ABSENT: cyanosis, rash Tubes/Lines: PRESENT: Endotracheal Tube, Central Line, Arterial Catheter, Nasogastic Tube Laboratory/Radiographs Laboratory Results: 12/08/19 04:27 12/06/19 04:00 12/07/19 12/07/19 12/08/19 15:44 22:52 04:27 WBC 8.5 9.5 RBC 2.67 L 2.76 L Hgb 7.9 L 8.1 L Hct 23.0 L 23.9 L MCV 86 87 MCH 29.5 29.5 MCHC 34.2 34.0 RDW 16.2 H 16.1 H Plt Count 62 L 70 L Seg Neutrophils % Not Reportable Triglycerides Blood Type A POSITIVE Antibody Screen NEGATIVE 12/08/19 04:27 WBC RBC Hgb Hct MCV MCH MCHC RDW Plt Count Seg Neutrophils % Triglycerides 102 Blood Type Antibody Screen 11/21/19 11/26/19 11/26/19 14:00 11:48 11:48 Creatine Kinase 105 CK-MB (CK-2) 0.87 Troponin I < 0.012 NT-Pro-B Natriuret Pep 32 11/26/19 11/26/19 11/27/19 22:45 22:45 04:45 Creatine Kinase 60 46 CK-MB (CK-2) 0.41 Troponin I 0.018 NT-Pro-B Natriuret Pep 11/27/19 04:45 Creatine Kinase CK-MB (CK-2) 0.47 Troponin I < 0.012 NT-Pro-B Natriuret Pep Impressions: Chest/Abdomen CTA 11/21/19 16:08 IMPRESSION: 1. Patchy peripheral and perihilar ground-glass opacities in both lungs. These are commonly reported imaging features of COVID-19 pneumonia are present. Other processes such as influenza pneumonia and organizing pneumonia, as can be seen with drug toxicity and connective tissue disease, can cause a similar imaging pattern. PneTyp 2. Limited evaluation of the pulmonary arteries due to contrast bolus timing. No large central pulmonary embolus. Evaluation of the segmental and subsegmental pulmonary arteries is limited. Chest X-Ray 12/03/19 00:00 IMPRESSION: Little interval change copyright 2011 [employer]- All Rights Reserved All labs, radiographs, diagnostic studies and EKGs were personally reviewed: Yes In addition, reports of radiographic and diagnostic studies were read: Yes Assessment and Plan - Diagnosis (1) COVID-19 virus infection Is this a current diagnosis for this admission?: Yes Plan: At this point she has received hydroxychloroquine antibiotics and we are awaiting this disease porcess to run its course (2) Acute hypoxemic respiratory failure Is this a current diagnosis for this admission?: Yes Plan: Maitained on the ventalator at 100% for several days and unable to wean as yet. 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 Plan Summary: Despite the risks for oxygen toxicity we are unable to wean FiO2 down below 90%. We will need to maintain her in the present state until her lungs improve-if they can. Critical Time Critical Time (minutes): 35 Level of Care: ICU Anticipated discharge: SNF Within: Other -: 1. The care of a critical patient is a dynamic process. This note is a union contract representative synopsis but static in nature. The timeframe for treatments given in order is not necessarily the actual time these treatments may have been done. 2. This patient requires critical care secondary to ongoing requirements for therapy not offered or safe outside the critical care environment. Transfer to a lower level of care will result in altered life or limb morbidity and mortality. 3. Multidisciplinary rounds completed. 4. ABCDE bundle addressed.
[2019-12-08] MEDS: NORMAL SALINE 500 ML with ROCURONIUM BROMIDE 500 MG IV PRN ×4 (11:34→19:40)
[2019-12-08] MEDS: HYDROMORPHONE HCL INJ/PF 2 MG/ML AMPULE IV PRN ×2 (15:41→23:11)
[2019-12-08] MEDS: MELATONIN 5 MG TABLET NG SCH (21:06)
[2019-12-08] MEDS ORDERED: HYDRALAZINE HCL INJ/PF 20 MG/1 ML SDV ONE (23:18)
[2019-12-08] MEDS ORDERED: HYDRALAZINE HCL INJ/PF 20 MG/1 ML SDV IV ONE (23:30)
[2019-12-09] MEDS ORDERED: NICARDIPINE HCL RTU, ISO-OS 20 MG/200 ML RTUINJ IV PRN (00:27)
[2019-12-09] MEDS ORDERED: NICARDIPINE HCL RTU, ISO-OS 20 MG/200 ML RTUINJ IV ONE (00:28)
[2019-12-09] MEDS: INSULIN REG, HUMAN 100 UNIT/ML 3 ML VIAL (PYX) SUBCUT SCH ×6 (01:13→21:03)
[2019-12-09] MEDS ORDERED: HYDRALAZINE HCL INJ/PF 20 MG/1 ML SDV IV ONE (02:30)
[2019-12-09] MEDS: MIDAZOLAM HCL 50 MG/100 ML RTUINJ IV PRN ×7 (02:35→21:05)
[2019-12-09 03:22] LABS: ANION GAP 9 (5-19); BLOOD UREA NITROGEN 53 mg/dL (7-20); CALCIUM 8.5 mg/dL (8.4-10.2); CARBON DIOXIDE 25 mmol/L (22-30); CHLORIDE 112 mmol/L (98-107); GLUCOSE 294 mg/dL (75-110); POTASSIUM 4.9 mmol/L (3.6-5.0)
[2019-12-09] MEDS: MORPHINE SULFATE 60 MG/60 ML RTUINJ IV PRN ×3 (04:12→20:53)
[2019-12-09] MEDS: MINERAL OIL/PETROLATUM,WHITE OPH OINT 3.5 GM OU SCH ×3 (05:36→21:04)
[2019-12-09] MEDS: METHOCARBAMOL 500 MG TABLET NG SCH ×3 (05:37→21:01)
[2019-12-09] MEDS: HYDROCORTISONE SOD SUCCINATE INJ/PF 100 MG/2 ML SDV IV SCH ×3 (05:37→21:00)
[2019-12-09] MEDS ORDERED: MIDAZOLAM HCL 50 MG/100 ML RTUINJ ONE (07:16)
--- NOTE | 2019-12-09 08:14 | PDOC CRITICAL CARE PROG REPORT ---
General Date:: 12/09/19 ICU Day:: 13 Ventilator Day:: 13 Hospital Day:: 18 Resuscitation Status: Full Code Medical Power of Advanced Clinical Specialist: DaughterXin Events in the past 12 to 24 Hours:: Starting to drop her oxygen saturations again t low 80s. Family aware. Review of systems relevant to events:: Respiratory Reason for ICU Addmission:: Acute hypoxic respiratory failure with SARS, 2- CoViD19. Intubated. Supine. - Medications: Medications reviewed and adjusted accordingly: Yes Vasopressors:: None Sedation:: Morphine, versed. Physical Exam Vital Signs: Temp Pulse Resp BP Pulse Ox 96.6 F L 77 15 105/68 77 L 12/09/19 06:09 12/08/19 20:00 12/09/19 06:09 12/09/19 06:09 12/09/19 06:09 Intake & Output 12/08/19 12/09/19 12/10/19 06:59 06:59 06:59 Intake Total 2818 2602 Output Total 1285 1320 Balance 1533 1282 Weight 115.3 kg 117.6 kg Weight/Height Weight 117.6 kg Height 5 ft 2 in General appearance: PRESENT: morbidly obese Head exam: PRESENT: atraumatic, normocephalic Eye exam: PRESENT: conjunctiva pink, EOMI, PERRLA. ABSENT: scleral icterus Ear exam: PRESENT: normal external ear exam Mouth exam: PRESENT: moist, tongue midline Respiratory exam: PRESENT: prolonged expiratory phas Cardiovascular exam: PRESENT: RRR, tachycardia. ABSENT: diastolic murmur, rubs, systolic murmur GI/Abdominal exam: PRESENT: normal bowel sounds, soft. ABSENT: distended, guarding, mass, organolmegaly, rebound, tenderness Rectal exam: PRESENT: deferred Gentrourinary exam: PRESENT: indwelling catheter Extremities exam: PRESENT: full ROM. ABSENT: calf tenderness, clubbing, pedal edema Musculoskeletal exam: PRESENT: normal inspection Neurological exam: PRESENT: other - Sedated and with neuromucular blockade. Psychiatric exam: PRESENT: agitated Skin exam: PRESENT: dry, intact, warm, other - Small sacral decubitus.. ABSENT: cyanosis, rash Tubes/Lines: PRESENT: Endotracheal Tube, Central Line, Arterial Catheter, Nasogastic Tube Laboratory/Radiographs Laboratory Results: 12/08/19 04:27 12/09/19 02:48 12/09/19 02:48 Sodium 145.8 H Potassium 4.9 Chloride 112 H Carbon Dioxide 25 Anion Gap 9 BUN 53 H Creatinine 0.98 Est GFR ( Amer) > 60 Glucose 294 H Calcium 8.5 11/21/19 11/26/19 11/26/19 14:00 11:48 11:48 Creatine Kinase 105 CK-MB (CK-2) 0.87 Troponin I < 0.012 NT-Pro-B Natriuret Pep 32 11/26/19 11/26/19 11/27/19 22:45 22:45 04:45 Creatine Kinase 60 46 CK-MB (CK-2) 0.41 Troponin I 0.018 NT-Pro-B Natriuret Pep 11/27/19 04:45 Creatine Kinase CK-MB (CK-2) 0.47 Troponin I < 0.012 NT-Pro-B Natriuret Pep Impressions: Chest/Abdomen CTA 11/21/19 16:08 IMPRESSION: 1. Patchy peripheral and perihilar ground-glass opacities in both lungs. These are commonly reported imaging features of COVID-19 pneumonia are present. Other processes such as influenza pneumonia and organizing pneumonia, as can be seen with drug toxicity and connective tissue disease, can cause a similar imaging pattern. PneTyp 2. Limited evaluation of the pulmonary arteries due to contrast bolus timing. No large central pulmonary embolus. Evaluation of the segmental and subsegmental pulmonary arteries is limited. Chest X-Ray 12/03/19 00:00 IMPRESSION: Little interval change copyright 2011 [employer]*- All Rights Reserved All labs, radiographs, diagnostic studies and EKGs were personally reviewed: Yes In addition, reports of radiographic and diagnostic studies were read: Yes Assessment and Plan - Diagnosis (1) COVID-19 virus infection Is this a current diagnosis for this admission?: Yes Plan: Positive and obviously not recovered. (2) Acute hypoxemic respiratory failure Is this a current diagnosis for this admission?: Yes Plan: This is again getting worse. If she proceeds to arrest due to refractory hypoxia there will be no CPR due to its being futile and risk of covid transmission. (3) T2DM (type 2 diabetes mellitus) Qualifiers: Diabetes mellitus halfway insulin use: without regional intermodal truck driver use Diabetes mellitus complication status: without complication Qualified Code(s): E11.9 - Type 2 diabetes mellitus without complications Is this a current diagnosis for this admission?: Yes Plan: Getting a bit higher and may need more insuli. Plan Summary: Maintain as is with maximal support. Prognosis poor. Critical Time Critical Time (minutes): 35 Level of Care: ICU Anticipated discharge: Other Within: Other -: 1. The care of a critical patient is a dynamic process. This note is a product sales representative synopsis but static in nature. The timeframe for treatments given in order is not necessarily the actual time these treatments may have been done. 2. This patient requires critical care secondary to ongoing requirements for therapy not offered or safe outside the critical care environment. Transfer to a lower level of care will result in altered life or limb morbidity and mortality. 3. Multidisciplinary rounds completed. 4. ABCDE bundle addressed.
[2019-12-09] MEDS: RINGERS SOLUTION,LACTATED 1,000 ML IV PRN (10:18)
[2019-12-09] MEDS: ZINC SULFATE 220 MG CAPSULE NG SCH (10:24)
[2019-12-09] MEDS: FAMOTIDINE 20 MG TABLET PO SCH ×2 (10:24→21:01)
[2019-12-09] MEDS: CHOLECALCIFEROL (D3) 1,000 UNIT (25 MCG) TABLET PO SCH (10:24)
[2019-12-09] MEDS: ASCORBIC ACID 500 MG TABLET NG SCH ×2 (10:25→18:07)
[2019-12-09] MEDS: ENOXAPARIN SODIUM INJ 40 MG/0.4 ML DISP.SYRIN SUBCUT SCH (10:31)
[2019-12-09] MEDS ORDERED: ENOXAPARIN SODIUM INJ 100 MG/1 ML DISP.SYRIN SUBCUT ONE (10:45)
[2019-12-09] MEDS: NORMAL SALINE 500 ML with ROCURONIUM BROMIDE 500 MG IV PRN ×4 (14:00→23:14)
[2019-12-09] MEDS: MELATONIN 5 MG TABLET NG SCH (21:01)
[2019-12-09] MEDS: ENOXAPARIN SODIUM INJ 100 MG/1 ML DISP.SYRIN SUBCUT SCH (21:04)
[2019-12-10] MEDS: MIDAZOLAM HCL 50 MG/100 ML RTUINJ IV PRN ×5 (00:05→21:16)
[2019-12-10] MEDS: INSULIN REG, HUMAN 100 UNIT/ML 3 ML VIAL (PYX) SUBCUT SCH ×6 (01:12→21:14)
[2019-12-10] MEDS: MORPHINE SULFATE 60 MG/60 ML RTUINJ IV PRN ×2 (05:13→19:34)
[2019-12-10] MEDS: MINERAL OIL/PETROLATUM,WHITE OPH OINT 3.5 GM OU SCH ×3 (05:15→21:16)
[2019-12-10] MEDS: METHOCARBAMOL 500 MG TABLET NG SCH ×3 (05:15→21:15)
[2019-12-10] MEDS: HYDROCORTISONE SOD SUCCINATE INJ/PF 100 MG/2 ML SDV IV SCH ×3 (05:15→21:15)
[2019-12-10] MEDS: RINGERS SOLUTION,LACTATED 1,000 ML IV PRN (05:39)
--- NOTE | 2019-12-10 08:56 | PDOC CRITICAL CARE PROG REPORT ---
General Date:: 12/10/19 ICU Day:: 14 Ventilator Day:: 14 Hospital Day:: 19 Resuscitation Status: Full Code Medical Power of Line Maintenance: Xin Shi Events in the past 12 to 24 Hours:: Essentially no change. Review of systems relevant to events:: Respiratory. Reason for ICU Addmission:: Acute hypoxic respiratory failure with SARS, 2-CoViD19. Intubated. Supine. - Medications: Medications reviewed and adjusted accordingly: Yes Vasopressors:: None Sedation:: Morphine and versed. Physical Exam Vital Signs: Temp Pulse Resp BP Pulse Ox 96.6 F L 88 15 126/75 H 92 12/10/19 06:00 12/09/19 19:53 12/10/19 06:00 12/10/19 05:55 12/10/19 08:00 Intake & Output 12/09/19 12/10/19 12/11/19 06:59 06:59 06:59 Intake Total 2602 2857 Output Total 1320 2369 Balance 1282 488 Weight 117.6 kg 120.8 kg Weight/Height Weight 120.8 kg Height 5 ft 2 in General appearance: PRESENT: morbidly obese Head exam: PRESENT: atraumatic, normocephalic Eye exam: PRESENT: conjunctiva pink, EOMI, PERRLA. ABSENT: scleral icterus Ear exam: PRESENT: normal external ear exam Mouth exam: PRESENT: moist, tongue midline Respiratory exam: PRESENT: symmetrical, unlabored Cardiovascular exam: PRESENT: RRR. ABSENT: diastolic murmur, rubs, systolic murmur Vascular exam: PRESENT: normal capillary refill GI/Abdominal exam: PRESENT: normal bowel sounds, soft. ABSENT: distended, guarding, mass, organolmegaly, rebound, tenderness Rectal exam: PRESENT: deferred Gentrourinary exam: PRESENT: indwelling catheter Extremities exam: PRESENT: full ROM. ABSENT: calf tenderness, clubbing, pedal edema Musculoskeletal exam: PRESENT: normal inspection Neurological exam: PRESENT: other - Sedated Skin exam: PRESENT: dry, intact, warm. ABSENT: cyanosis, rash Tubes/Lines: PRESENT: Endotracheal Tube, Central Line, Arterial Catheter, Nasogastic Tube Laboratory/Radiographs Laboratory Results: 12/08/19 04:27 12/09/19 02:48 11/21/19 11/26/19 11/26/19 14:00 11:48 11:48 Creatine Kinase 105 CK-MB (CK-2) 0.87 Troponin I < 0.012 NT-Pro-B Natriuret Pep 32 11/26/19 11/26/19 11/27/19 22:45 22:45 04:45 Creatine Kinase 60 46 CK-MB (CK-2) 0.41 Troponin I 0.018 NT-Pro-B Natriuret Pep 11/27/19 04:45 Creatine Kinase CK-MB (CK-2) 0.47 Troponin I < 0.012 NT-Pro-B Natriuret Pep Impressions: Chest/Abdomen CTA 11/21/19 16:08 IMPRESSION: 1. Patchy peripheral and perihilar ground-glass opacities in both lungs. These are commonly reported imaging features of COVID-19 pneumonia are present. Other processes such as influenza pneumonia and organizing pneumonia, as can be seen with drug toxicity and connective tissue disease, can cause a similar imaging pattern. PneTyp 2. Limited evaluation of the pulmonary arteries due to contrast bolus timing. No large central pulmonary embolus. Evaluation of the segmental and subsegmental pulmonary arteries is limited. Chest X-Ray 12/03/19 00:00 IMPRESSION: Little interval change copyright 2011 [employer]- All Rights Reserved All labs, radiographs, diagnostic studies and EKGs were personally reviewed: Yes In addition, reports of radiographic and diagnostic studies were read: Yes Assessment and Plan - Diagnosis (1) COVID-19 virus infection Is this a current diagnosis for this admission?: Yes Plan: Positive (2) Acute hypoxemic respiratory failure Is this a current diagnosis for this admission?: Yes Plan: She has not really rallied, improved or decompensated. She has been unchanged for several days. (3) T2DM (type 2 diabetes mellitus) Qualifiers: Diabetes mellitus snf insulin use: without snf use Diabetes mellitus complication status: without complication Qualified Code(s): E11.9 - Type 2 diabetes mellitus without complications Is this a current diagnosis for this admission?: Yes Plan: Controlled. Plan Summary: Maintain as is for now. Critical Time Critical Time (minutes): 35 Level of Care: ICU Anticipated discharge: SNF Within: Other -: 1. The care of a critical patient is a dynamic process. This note is a junior sales representative synopsis but static in nature. The timeframe for treatments given in order is not necessarily the actual time these treatments may have been done. 2. This patient requires critical care secondary to ongoing requirements for therapy not offered or safe outside the critical care environment. Transfer to a lower level of care will result in altered life or limb morbidity and mortality. 3. Multidisciplinary rounds completed. 4. ABCDE bundle addressed.
[2019-12-10] MEDS: ASCORBIC ACID 500 MG TABLET NG SCH ×2 (10:21→18:13)
[2019-12-10] MEDS: CHOLECALCIFEROL (D3) 1,000 UNIT (25 MCG) TABLET PO SCH (10:23)
[2019-12-10] MEDS: ZINC SULFATE 220 MG CAPSULE NG SCH (10:24)
[2019-12-10] MEDS: FAMOTIDINE 20 MG TABLET PO SCH ×2 (10:24→21:15)
[2019-12-10] MEDS: ENOXAPARIN SODIUM INJ 100 MG/1 ML DISP.SYRIN SUBCUT SCH ×2 (10:24→21:15)
[2019-12-10] MEDS: MELATONIN 5 MG TABLET NG SCH (21:15)
[2019-12-11] MEDS: MIDAZOLAM HCL 50 MG/100 ML RTUINJ IV PRN ×5 (00:21→19:20)
[2019-12-11] MEDS: INSULIN REG, HUMAN 100 UNIT/ML 3 ML VIAL (PYX) SUBCUT SCH ×6 (01:00→21:18)
[2019-12-11] MEDS: RINGERS SOLUTION,LACTATED 1,000 ML IV PRN (01:05)
[2019-12-11 03:28] LABS: HEMATOCRIT 24.9 % (36.0-47.0); HEMOGLOBIN 8.3 g/dL (12.0-15.5); MEAN CORPUSCULAR HEMOGLOBIN 29.6 pg (27.0-33.4); MEAN CORPUSCULAR HGB CONC 33.5 g/dL (32.0-36.0); MEAN CORPUSCULAR VOLUME 88 fl (80-97); PLATELET COUNT 106 10^3/uL (150-450); RED BLOOD COUNT 2.81 10^6/uL (3.72-5.28); RED CELL DISTRIBUTION WIDTH 16.4 % (11.5-14.0)
[2019-12-11 03:45] LABS: ABSOLUTE LYMPHOCYTES# (MANUAL) 0.1 10^3/uL (0.5-4.7); ABSOLUTE MONOCYTES # (MANUAL) 0.6 10^3/uL (0.1-1.4); BAND NEUTROPHILS % (MANUAL) 1 % (3-5); BASOPHILS % (MANUAL) 0 % (0-2); EOSINOPHILS % (MANUAL) 0 % (0-6); LYMPHOCYTES % (MANUAL) 1 % (13-45); MONOCYTES % (MANUAL) 5 % (3-13); NUCLEATED RED BLOOD CELLS 4 /100 WBC (0); SEGMENTED NEUTROPHILS % (MAN) 93 % (42-78); TOTAL CELLS COUNTED 100
[2019-12-11 03:46] LABS: BLOOD UREA NITROGEN 50 mg/dL (7-20); CALCIUM 8.1 mg/dL (8.4-10.2); GLUCOSE 229 mg/dL (75-110); POTASSIUM 4.7 mmol/L (3.6-5.0)
[2019-12-11 03:47] LABS: ANISOCYTOSIS 1+; OVALOCYTES 1+; PLATELET COMMENT ADEQUATE; POIKILOCYTOSIS 1+; POLYCHROMASIA SLIGHT; SCHISTOCYTES SLIGHT; TEAR DROP CELLS SLIGHT; TOXIC GRANULATION 1+
[2019-12-11 03:52] LABS: CARBON DIOXIDE 30 mmol/L (22-30); CHLORIDE 115 mmol/L (98-107)
[2019-12-11 03:55] LABS: ANION GAP 3 (5-19)
[2019-12-11] MEDS: MORPHINE SULFATE 60 MG/60 ML RTUINJ IV PRN ×2 (05:18→13:45)
[2019-12-11] MEDS: HYDROCORTISONE SOD SUCCINATE INJ/PF 100 MG/2 ML SDV IV SCH ×3 (05:18→21:24)
[2019-12-11] MEDS: METHOCARBAMOL 500 MG TABLET NG SCH ×3 (05:18→21:19)
[2019-12-11] MEDS: MINERAL OIL/PETROLATUM,WHITE OPH OINT 3.5 GM OU SCH ×3 (05:18→21:18)
[2019-12-11 08:57] LABS: ARTERIAL BLOOD BASE EXCESS -0.1 mmol/L; ARTERIAL BLOOD H2CO3 2.21 mmol/L (1.05-1.35); ARTERIAL BLOOD O2 SATURATION 84.1 % (94-98); ARTERIAL BLOOD PH 7.22 (7.35-7.45); ARTERIAL BLOOD PO2 59.3 mmHg (80-100); ARTERIAL BLOOD TOTAL CO2 31.2 mmol/L (21-25)
[2019-12-11 08:58] LABS: ARTERIAL BLOOD FIO2 75%
[2019-12-11 08:59] LABS: ARTERIAL BLOOD PCO2 73.3 mmHg (35-45)
--- NOTE | 2019-12-11 10:15 | PDOC CRITICAL CARE PROG REPORT ---
General Date:: 12/11/19 ICU Day:: 15 Ventilator Day:: 15 Hospital Day:: 20 Resuscitation Status: Full Code Medical Power of Claims Account Specialist: DaughterXin Events in the past 12 to 24 Hours:: Able to decrease FiO2 to 75% Review of systems relevant to events:: Pulmonary Reason for ICU Addmission:: Acute hypoxic respiratory failure with SARS, 2-CoV iD19. Intubated. Supine. - Medications: Medications reviewed and adjusted accordingly: Yes Vasopressors:: None Sedation:: Morphine, Versed. Physical Exam Vital Signs: Temp Pulse Resp BP Pulse Ox 97.7 F 104 H 16 140/81 H 88 L 12/11/19 06:00 12/10/19 19:41 12/11/19 06:00 12/11/19 05:40 12/11/19 08:35 Intake & Output 12/10/19 12/11/19 12/12/19 06:59 06:59 06:59 Intake Total 2857 2557 Output Total 2369 1670 225 Balance 488 887 -225 Weight 120.8 kg 121.2 kg Weight/Height Weight 121.2 kg Height 5 ft 3 in General appearance: PRESENT: no acute distress Head exam: PRESENT: atraumatic, normocephalic Eye exam: PRESENT: conjunctiva pink, EOMI, PERRLA. ABSENT: scleral icterus Ear exam: PRESENT: normal external ear exam Mouth exam: PRESENT: moist, tongue midline Respiratory exam: PRESENT: symmetrical, unlabored Cardiovascular exam: PRESENT: RRR. ABSENT: diastolic murmur, rubs, systolic murmur GI/Abdominal exam: PRESENT: normal bowel sounds, soft. ABSENT: distended, guarding, mass, organolmegaly, rebound, tenderness Rectal exam: PRESENT: deferred Extremities exam: PRESENT: full ROM. ABSENT: calf tenderness, clubbing, pedal e hilary Neurological exam: PRESENT: motor sensory deficit, other - Sedated. Skin exam: PRESENT: dry, intact, warm. ABSENT: cyanosis, rash Tubes/Lines: PRESENT: Endotracheal Tube, Central Line, Arterial Catheter, Nasogastic Tube Laboratory/Radiographs Laboratory Results: 12/11/19 03:09 12/11/19 03:09 12/11/19 12/11/19 12/11/19 03:09 03:09 08:45 WBC 11.0 H RBC 2.81 L Hgb 8.3 L Hct 24.9 L MCV 88 MCH 29.6 MCHC 33.5 RDW 16.4 H Plt Count 106 L Seg Neutrophils % Not Reportable Carbonic Acid 2.21 H HCO3/H2CO3 Ratio 13:1 ABG pH 7.22 L ABG pCO2 73.3 H* ABG pO2 59.3 L ABG HCO3 29.0 H ABG O2 Saturation 84.1 L ABG Base Excess -0.1 FiO2 75% Sodium 147.9 H Potassium 4.7 Chloride 115 H Carbon Dioxide 30 Anion Gap 3 L BUN 50 H Creatinine 0.83 Est GFR ( Amer) > 60 Glucose 229 H Calcium 8.1 L 11/21/19 11/26/19 11/26/19 14:00 11:48 11:48 Creatine Kinase 105 CK-MB (CK-2) 0.87 Troponin I < 0.012 NT-Pro-B Natriuret Pep 32 11/26/19 11/26/19 11/27/19 22:45 22:45 04:45 Creatine Kinase 60 46 CK-MB (CK-2) 0.41 Troponin I 0.018 NT-Pro-B Natriuret Pep 11/27/19 04:45 Creatine Kinase CK-MB (CK-2) 0.47 Troponin I < 0.012 NT-Pro-B Natriuret Pep Impressions: Chest/Abdomen CTA 11/21/19 16:08 IMPRESSION: 1. Patchy peripheral and perihilar ground-glass opacities in both lungs. These are commonly reported imaging features of COVID-19 pneumonia are present. Other processes such as influenza pneumonia and organizing pneumonia, as can be seen with drug toxicity and connective tissue disease, can cause a similar imaging pattern. PneTyp 2. Limited evaluation of the pulmonary arteries due to contrast bolus timing. No large central pulmonary embolus. Evaluation of the segmental and subsegmental pulmonary arteries is limited. Chest X-Ray 12/03/19 00:00 IMPRESSION: Little interval change copyright 2011 [employer]- All Rights Reserved All labs, radiographs, diagnostic studies and EKGs were personally reviewed: Yes In addition, reports of radiographic and diagnostic studies were read: Yes Assessment and Plan - Diagnosis (1) COVID-19 virus infection Is this a current diagnosis for this admission?: Yes Plan: Positive. It seems as though her status is improving slightly. We will continue to decrease FiO2 as tolerated. (2) Acute hypoxemic respiratory failure Is this a current diagnosis for this admission?: Yes Plan: Improving but way are far from extubation. (3) T2DM (type 2 diabetes mellitus) Qualifiers: Diabetes mellitus technician terminal and repeater insulin use: without technician terminal and repeater use Diabetes mellitus complication status: without complication Qualified Code(s): E11.9 - Type 2 diabetes mellitus without complications Is this a current diagnosis for this admission?: Yes Plan: We are decreasing steroids and may need to back off insulin. (4) Hypernatremia Is this a current diagnosis for this admission?: Yes Plan: Level of Na only 147 but will increased flushes in TF. Plan Summary: Continue to decrease FiO2 as tolerated. Off Nicardipine and Rocuronium. Critical Time Critical Time (minutes): 35 Level of Care: ICU Anticipated discharge: SNF Within: Other -: 1. The care of a critical patient is a dynamic process. This note is a re presentative synopsis but static in nature. The timeframe for treatments given in order is not necessarily the actual time these treatments may have been done. 2. This patient requires critical care secondary to ongoing requirements for therapy not offered or safe outside the critical care environment. Transfer to a lower level of care will result in altered life or limb morbidity and mortalit y. 3. Multidisciplinary rounds completed. 4. ABCDE bundle addressed.
[2019-12-11] MEDS: INSULIN GLARGINE,HUM.REC.ANLOG 1,000 UNIT/10 ML VIAL SUBCUT SCH ×2 (11:22→17:41)
[2019-12-11] MEDS: ENOXAPARIN SODIUM INJ 100 MG/1 ML DISP.SYRIN SUBCUT SCH ×2 (11:23→21:24)
[2019-12-11] MEDS: ASCORBIC ACID 500 MG TABLET NG SCH ×2 (11:25→17:41)
[2019-12-11] MEDS: FAMOTIDINE 20 MG TABLET PO SCH ×2 (11:25→21:19)
[2019-12-11] MEDS: ZINC SULFATE 220 MG CAPSULE NG SCH (11:25)
[2019-12-11] MEDS: CHOLECALCIFEROL (D3) 1,000 UNIT (25 MCG) TABLET PO SCH (11:25)
[2019-12-11] MEDS ORDERED: FUROSEMIDE INJ/PF 40 MG/4 ML SDV ONE (18:07)
[2019-12-11] MEDS ORDERED: FUROSEMIDE INJ/PF 40 MG/4 ML SDV IV ONE (18:30)
[2019-12-11 20:59] LABS: APPEARANCE,URINE CLOUDY; BILIRUBIN,URINE NEGATIVE (NEGATIVE); COLOR,URINE YELLOW; GLUCOSE, URINE NEGATIVE (NEGATIVE); KETONES,URINE NEGATIVE (NEGATIVE); PROTEIN,URINE NEGATIVE (NEGATIVE); URINE SPECIFIC GRAVITY 1.006; UROBILINOGEN,URINE NEGATIVE mg/dL (<2.0)
[2019-12-11] MEDS: MELATONIN 5 MG TABLET NG SCH (21:19)
[2019-12-12] MEDS: MORPHINE SULFATE 60 MG/60 ML RTUINJ IV PRN ×2 (02:22→14:13)
[2019-12-12] MEDS: MIDAZOLAM HCL 50 MG/100 ML RTUINJ IV PRN ×3 (02:22→17:35)
[2019-12-12] MEDS ORDERED: DEXTROSE 50%-WATER 25 GM/50 ML DISP.SYRIN IV ONE (02:30)
[2019-12-12] MEDS: INSULIN REG, HUMAN 100 UNIT/ML 3 ML VIAL (PYX) SUBCUT SCH ×6 (04:25→21:15)
[2019-12-12] MEDS: METHOCARBAMOL 500 MG TABLET NG SCH ×3 (05:17→21:14)
[2019-12-12] MEDS: MINERAL OIL/PETROLATUM,WHITE OPH OINT 3.5 GM OU SCH ×3 (05:17→22:30)
[2019-12-12] MEDS: HYDROCORTISONE SOD SUCCINATE INJ/PF 100 MG/2 ML SDV IV SCH ×3 (05:17→21:15)
[2019-12-12 05:43] LABS: HEMATOCRIT 25.8 % (36.0-47.0); HEMOGLOBIN 8.7 g/dL (12.0-15.5); MEAN CORPUSCULAR HEMOGLOBIN 29.5 pg (27.0-33.4); MEAN CORPUSCULAR HGB CONC 33.7 g/dL (32.0-36.0); MEAN CORPUSCULAR VOLUME 88 fl (80-97); PLATELET COUNT 107 10^3/uL (150-450); RED BLOOD COUNT 2.95 10^6/uL (3.72-5.28); RED CELL DISTRIBUTION WIDTH 17.2 % (11.5-14.0); WHITE BLOOD COUNT 11.3 10^3/uL (4.0-10.5)
[2019-12-12 05:56] LABS: ALBUMIN 2.7 g/dL (3.5-5.0); ALKALINE PHOSPHATASE 116 U/L (38-126); ASPARTATE AMINO TRANSFERASE 41 U/L (14-36); BILIRUBIN,TOTAL 0.7 mg/dL (0.2-1.3); BLOOD UREA NITROGEN 44 mg/dL (7-20); CALCIUM 8.1 mg/dL (8.4-10.2); GLUCOSE 133 mg/dL (75-110); TOTAL PROTEIN 5.1 g/dL (6.3-8.2)
[2019-12-12 06:02] LABS: CARBON DIOXIDE 35 mmol/L (22-30); CHLORIDE 113 mmol/L (98-107)
[2019-12-12 06:04] LABS: ANION GAP 0 (5-19)
[2019-12-12 06:23] LABS: ABSOLUTE LYMPHOCYTES# (MANUAL) 0.5 10^3/uL (0.5-4.7); ABSOLUTE MONOCYTES # (MANUAL) 0.3 10^3/uL (0.1-1.4); BAND NEUTROPHILS % (MANUAL) 4 % (3-5); BASOPHILS % (MANUAL) 0 % (0-2); EOSINOPHILS % (MANUAL) 0 % (0-6); LYMPHOCYTES % (MANUAL) 4 % (13-45); MONOCYTES % (MANUAL) 3 % (3-13); SEGMENTED NEUTROPHILS % (MAN) 89 % (42-78); TOTAL CELLS COUNTED 100
[2019-12-12 06:24] LABS: ANISOCYTOSIS 1+; PLATELET COMMENT ADEQUATE; POLYCHROMASIA 1+
[2019-12-12] MEDS ORDERED: HYDRALAZINE HCL INJ/PF 20 MG/1 ML SDV ONE ×2 (08:32→20:42)
[2019-12-12] MEDS ORDERED: HYDRALAZINE HCL INJ/PF 20 MG/1 ML SDV IV ONE ×2 (09:00→20:24)
[2019-12-12] MEDS: ASCORBIC ACID 500 MG TABLET NG SCH ×2 (09:43→17:42)
[2019-12-12] MEDS: ENOXAPARIN SODIUM INJ 100 MG/1 ML DISP.SYRIN SUBCUT SCH ×2 (09:43→21:14)
[2019-12-12] MEDS: ZINC SULFATE 220 MG CAPSULE NG SCH (09:43)
[2019-12-12] MEDS: CHOLECALCIFEROL (D3) 1,000 UNIT (25 MCG) TABLET PO SCH (09:43)
[2019-12-12] MEDS: FAMOTIDINE 20 MG TABLET PO SCH ×2 (09:43→21:14)
[2019-12-12] MEDS: INSULIN GLARGINE,HUM.REC.ANLOG 1,000 UNIT/10 ML VIAL SUBCUT SCH ×2 (09:48→17:42)
--- NOTE | 2019-12-12 14:24 | PDOC CONSULTATION ---
Consultation Consult Date: 12/12/19 Provider Consulted: GERDA MONTALVO Consult reason:: Asystole History of Present Illness Admission Date/PCP: 11/21/19 17:47 [place] LANDON MD History of Present Illness: ANAMIKA ACEVES is a 69 year old female with history of obesity, hypertension, hyperlipidemia, diabetes mellitus who is consulted to our service for further evaluation and recommendations after the patient has developed episodes of asystole. The patient was admitted to the intensive care unit 15 days ago with COVID-19 infection requiring intubation and high flow oxygen. Unfortunately she has continued to be hypoxemic despite mechanical ventilation with an FiO2 of 100%. She had been relatively stable until earlier today when she was noted to have episodes of asystole lasting several seconds at a time associated with hypotension. The patient is currently intubated and on isolation therefore a physical exam is not possible at this time. Past Medical History Cardiac Medical History: Reports: Hypertension Pulmonary Medical History: Reports: Asthma Endocrine Medical History: Reports: Diabetes Mellitus Type 2 Psychiatric Medical History: Denies: Depression Past Surgical History Past Surgical History: Reports: None Social History Lives with: Alone Smoking Status: Never Smoker Electronic Cigarette use?: No Frequency of Alcohol Use: None Hx Recreational Drug Use: No Hx Prescription Drug Abuse: No - Advance Directive Resuscitation Status: Full Code Family History Family History: Reviewed & Not Pertinent, CVA, Malignancy Parental Family History Reviewed: Yes Children Family History Reviewed: Yes Sibling(s) Family History Reviewed.: Yes Medication/Allergy Home Medications: Losartan Potassium 50 mg PO DAILY 06/18/19 Allergies/Adverse Reactions: Penicillins Adverse Reaction (Verified 06/18/19 21:24) Physical Exam Vital Signs: Temp Pulse Resp BP Pulse Ox 97.0 F 84 15 157/89 H 93 12/12/19 14:00 12/12/19 14:00 12/12/19 14:00 12/12/19 14:00 12/12/19 14:00 Intake & Output 12/11/19 12/12/19 12/13/19 06:59 06:59 06:59 Intake Total 2557 1240 520 Output Total 1670 3500 208 Balance 887 -2260 312 Weight 121.2 kg 122.2 kg Results Laboratory Results: 12/12/19 05:30 12/12/19 05:30 12/11/19 12/12/19 12/12/19 20:10 05:30 05:30 WBC 11.3 H RBC 2.95 L Hgb 8.7 L Hct 25.8 L MCV 88 MCH 29.5 MCHC 33.7 RDW 17.2 H Plt Count 107 L Seg Neutrophils % Not Reportable Sodium 147.9 H Potassium 4.0 Chloride 113 H Carbon Dioxide 35 H Anion Gap 0 L BUN 44 H Creatinine 0.78 Est GFR ( Amer) > 60 Glucose 133 H Calcium 8.1 L Total Bilirubin 0.7 AST 41 H Alkaline Phosphatase 116 Total Protein 5.1 L Albumin 2.7 L Urine Color YELLOW Urine Appearance CLOUDY Urine pH 5.0 Ur Specific [place] 1.006 Urine Protein NEGATIVE Urine Glucose (UA) NEGATIVE Urine Ketones NEGATIVE Urine Blood MODERATE H Urine RBC (Auto) 102 11/21/19 11/26/19 11/26/19 14:00 11:48 11:48 Creatine Kinase 105 CK-MB (CK-2) 0.87 Troponin I < 0.012 NT-Pro-B Natriuret Pep 32 11/26/19 11/26/19 11/27/19 22:45 22:45 04:45 Creatine Kinase 60 46 CK-MB (CK-2) 0.41 Troponin I 0.018 NT-Pro-B Natriuret Pep 11/27/19 04:45 Creatine Kinase CK-MB (CK-2) 0.47 Troponin I < 0.012 NT-Pro-B Natriuret Pep Impressions: Chest/Abdomen CTA 11/21/19 16:08 IMPRESSION: 1. Patchy peripheral and perihilar ground-glass opacities in both lungs. These are commonly reported imaging features of COVID-19 pneumonia are present. O ther processes such as influenza pneumonia and organizing pneumonia, as can be seen with drug toxicity and connective tissue disease, can cause a similar imaging pattern. PneTyp 2. Limited evaluation of the pulmonary arteries due to contrast bolus timing. No large central pulmonary embolus. Evaluation of the segmental and subsegmental pulmonary arteries is limited. Chest X-Ray 12/03/19 00:00 IMPRESSION: Little interval change copyright 2011 [employer]- All Rights Reserved Assessment & Plan - Diagnosis (1) Asystole Is this a current diagnosis for this admission?: Yes Plan: Very unfortunate 69-year-old with multiple medical problems who had been in intensive care unit, intubated, in respiratory failure secondary to multifocal pneumonia secondary to COVID-19 who is now developing episodes of asystole. I personally review the EKGs and are available rhythm strips. She definitely has evidence of asystole lasting several seconds with spontaneous resolution and there were at least 2 episodes where she had a very slow ventricular escape rhythm. Unfortunately her cardiac dysrhythmia is secondary to her overall clinical condition and specifically COVID-19 infection. From the cardiovascular standpoint, the patient is very sick and it is recommended that her dysrhythmia be treated with treatment of the underlying condition as well and supportive cardiac measures. Recommendations: -Atropine as needed. -If the patient does not respond to atropine may use Isuprel. -As a last resort, transvenous pacemaker can also be used if the patient not responsive to above measures. -At this time cardiology does not have further recommendations therefore we will sign off the case. Please call [phone] with questions or concerns.
--- NOTE | 2019-12-12 18:22 | PDOC CRITICAL CARE PROG REPORT ---
General Date:: 12/12/19 ICU Day:: 16 Ventilator Day:: 16 Resuscitation Status: Full Code Medical Power of Senior Instructional Designer: DaughterXin Events in the past 12 to 24 Hours:: Patient had significant bradycardia today with prolonged period of asystole and frequent periods of ventricular rhythm in the 40s. Cardiology consult was placed. Transcutaneous pacing pads placed on patient, we will plan to keep atropine, dopamine and isoproterenol educational specialist if an emergent situation arises. A right IJ Cordis was placed to facilitate the placement of transvenous pacing wires showed an emergent need be presented. Review of systems relevant to events:: Cardiology: Patient with significant and symptomatic intermittent bradycardia. EKG obtained which captured only sinus tachycardia however, rhythm strip demonstrates severe bradycardia and ventricular rhythm with corresponding hypotension. Reason for ICU Addmission:: Acute hypoxic respiratory failure with SARS, 2- CoViD19. Intubated. Supine. - Medications: Medications reviewed and adjusted accordingly: Yes - All medications reviewed. Cardene drip DC'd and has not been given. Sedation:: Patient remains on Versed at 10 and morphine at 5 mg/h. Physical Exam Vital Signs: Temp Pulse Resp BP Pulse Ox 97.0 F 84 15 157/89 H 93 12/12/19 14:00 12/12/19 14:00 12/12/19 14:00 12/12/19 14:00 12/12/19 14:00 Intake & Output 12/11/19 12/12/19 12/13/19 06:59 06:59 06:59 Intake Total 2557 1240 520 Output Total 1670 3500 208 Balance 887 -2260 312 Weight 121.2 kg 122.2 kg Weight/Height Weight 122.2 kg Height 5 ft 3 in General appearance: PRESENT: morbidly obese Head exam: PRESENT: atraumatic Eye exam: PRESENT: periorbital swelling Mouth exam: PRESENT: moist, neck supple Neck exam: PRESENT: full ROM, JVD Respiratory exam: PRESENT: symmetrical. ABSENT: rhonchi, wheezes Cardiovascular exam: PRESENT: bradycardia Pulses: PRESENT: normal carotid pulses Vascular exam: PRESENT: normal capillary refill GI/Abdominal exam: PRESENT: normal bowel sounds, soft Musculoskeletal exam: PRESENT: normal inspection Neurological exam: PRESENT: CN II-XII grossly intact, other - Sedated, responds to discomfort Skin exam: PRESENT: intact, warm. ABSENT: cyanosis Tubes/Lines: PRESENT: Endotracheal Tube, Central Line Laboratory/Radiographs Laboratory Results: 12/12/19 05:30 12/12/19 05:30 12/11/19 12/12/19 12/12/19 20:10 05:30 05:30 WBC 11.3 H RBC 2.95 L Hgb 8.7 L Hct 25.8 L MCV 88 MCH 29.5 MCHC 33.7 RDW 17.2 H Plt Count 107 L Seg Neutrophils % Not Reportable Sodium 147.9 H Potassium 4.0 Chloride 113 H Carbon Dioxide 35 H Anion Gap 0 L BUN 44 H Creatinine 0.78 Est GFR ( Amer) > 60 Glucose 133 H Calcium 8.1 L Total Bilirubin 0.7 AST 41 H Alkaline Phosphatase 116 Total Protein 5.1 L Albumin 2.7 L Urine Color YELLOW Urine Appearance CLOUDY Urine pH 5.0 Ur Specific [place] 1.006 Urine Protein NEGATIVE Urine Glucose (UA) NEGATIVE Urine Ketones NEGATIVE Urine Blood MODERATE H Urine RBC (Auto) 102 11/21/19 11/26/19 11/26/19 14:00 11:48 11:48 Creatine Kinase 105 CK-MB (CK-2) 0.87 Troponin I < 0.012 NT-Pro-B Natriuret Pep 32 11/26/19 11/26/19 11/27/19 22:45 22:45 04:45 Creatine Kinase 60 46 CK-MB (CK-2) 0.41 Troponin I 0.018 NT-Pro-B Natriuret Pep 11/27/19 04:45 Creatine Kinase CK-MB (CK-2) 0.47 Troponin I < 0.012 NT-Pro-B Natriuret Pep Impressions: Chest/Abdomen CTA 11/21/19 16:08 IMPRESSION: 1. Patchy peripheral and perihilar ground-glass opacities in both lungs. These are commonly reported imaging features of COVID-19 pneumonia are present. Other processes such as influenza pneumonia and organizing pneumonia, as can be seen with drug toxicity and connective tissue disease, can cause a similar imaging pattern. PneTyp 2. Limited evaluation of the pulmonary arteries due to contrast bolus timing. No large central pulmonary embolus. Evaluation of the segmental and subsegmental pulmonary arteries is limited. Chest X-Ray 12/03/19 00:00 IMPRESSION: Little interval change copyright 2011 [employer]- All Rights Reserved All labs, radiographs, diagnostic studies and EKGs were personally reviewed: Yes In addition, reports of radiographic and diagnostic studies were read: Yes Assessment and Plan - Diagnosis (1) Acute hypoxemic respiratory failure Is this a current diagnosis for this admission?: Yes Plan: No changes made on ventilatory support today. Patient remains on pressure control with an inspiratory pressure of 30, PEEP 8, respiratory rate 15, 100% FiO2 to maintain SPO2 of 95%. (2) Asystole Is this a current diagnosis for this admission?: Yes Plan: With multiple episodes of asystole today as well as symptomatic bradycardia. She has so far not required any medical intervention as she has spontaneous return of normal sinus rhythm. For precaution however, it would be appropriate to place a Cordis central venous catheter to facilitate the placement of a transvenous pacer should be needed. (3) Suspected COVID-19 virus infection Is this a current diagnosis for this admission?: Yes Plan: Patient with persistent respiratory failure in secondary to COVID-19 virus infection. Plan Summary: Neuro: Patient remains minimally responsive on Versed at 10 and morphine at 5 mg/h. She does respond to deep discomfort. Pulmonary: Patient remains with refractory hypoxemia. Vent settings: Pressure control, inspiratory pressure: 30, PEEP 8, respiratory rate 15, FiO2: 100%. SPO2 on the settings 94%. She continues on albuterol and Solu-Cortef. Cardiovascular: As mentioned above, patient has had multiple episodes of severe bradycardia with occasional episodes of prolonged asystole. Cardiology consult placed. A Cordis was placed to facilitate placement of transvenous pacing wires if needed. Nursing team instructed to have atropine, dopamine and possibly isoproterenol prepared if needed. Family was contacted regarding patient's poor cardiac status and they seem to understand the gravity of this acute situation. We will keep the family updated as the situation evolves. Renal: Electrolytes have been relatively normal and not suspected to be the etiology of her cardiac arrhythmias. BUN/creatinine are within her relative normal limits. I/O is negative today but she has been euvolemic over the past several days. GI: Rectal tube in place. Stool is loose, but not fluidic. Remains on tube feeds with vital 1.5 at 30 mL/h. Tube feeds currently held due to current risk of acute arrhythmia. ID: WBC with only slight elevation today. No significant suspicion of acute infection. Will obtain cultures and begin antibiotics if she becomes febrile. Critical Time Critical Time (minutes): 85 Level of Care: ICU -: 1. The care of a critical patient is a dynamic process. This note is a automotive leasing sales representative synopsis but static in nature. The timeframe for treatments given in order is not necessarily the actual time these treatments may have been done. 2. This patient requires critical care secondary to ongoing requirements for therapy not offered or safe outside the critical care environment. Transfer to a lower level of care will result in altered life or limb morbidity and mortality. 3. Multidisciplinary rounds completed. 4. ABCDE bundle addressed.
--- NOTE | 2019-12-12 19:07 | RADIOLOGY REPORT (SQ) ---
EXAM DESCRIPTION: CHEST SINGLE VIEW IMAGES COMPLETED DATE/TIME: 12/12/2019 6:49 pm REASON FOR STUDY: Cordis Central Line Placement COMPARISON: 12/03/2019. EXAM PARAMETERS: NUMBER OF VIEWS: One view. TECHNIQUE: Single frontal radiographic view of the chest acquired. RADIATION DOSE: NA LIMITATIONS: None. FINDINGS: LUNGS AND PLEURA: Patchy scattered airspace disease, unchanged. No pneumothorax. MEDIASTINUM AND HILAR STRUCTURES: No masses. Contour normal. HEART AND VASCULAR STRUCTURES: Heart normal in size. Normal vasculature. BONES: No acute findings. HARDWARE: New right-sided central venous catheter. Stable endotracheal tube, nasogastric tube, and p revious central line. OTHER: No other significant finding. IMPRESSION: NO PNEUMOTHORAX FOLLOWING CENTRAL LINE PLACEMENT. OVERALL NO SIGNIFICANT INTERVAL BRADEN E IN APPEARANCE OF THE CHEST. TECHNICAL DOCUMENTATION: JOB ID: [id number] 2010 [employer]- All Rights Reserved Reading location - IP/workstation name: [email or web address]
[2019-12-12] MEDS ORDERED: ATROPINE SULFATE INJ 1 MG/10 ML DISP.SYRIN IV ONE (19:28)
--- NOTE | 2019-12-12 20:29 | Operative Report ---
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 Indications, risks, and benefits were explained and all questions were ad dressed. Procedure summary: The [facility] central line insertion practice form was completed by RN. A timeout was performed. My hands were washed immediately prior to the procedure. I wore surgical cap, mask with protective eyewear, full gown and sterile gloves throughout the procedure. The patient was placed in Trendelenburg position. RIGHT chest region was prepped using chlorhexidine scrub and draped in sterile fashion using a full drape. Sterile probe cover was placed on ultrasound probe. The medial and lateral heads of the sternocleidomastoid muscle were identified as was the carotid pulse. The internal jugular vein was identified using ultrasound. Anesthesia was achieved over the vein using 4 cc of 1% lidocaine. Using real-time out of plane guidance, the introducer needle was inserted into the internal jugular vein under direct ultrasound visualization. Venous blood was withdrawn. The syringe was removed and a guidewire was advanced into the introducer needle. The guidewire was visualized in the internal jugular vein by ultrasound. A small incision was made at the skin surface with a scalpel and the introducer needle was exchanged for a dilator over the guidewire. After appropriate dilation was obtained, the introducer was advanced and dilator withdrawn with the guidwire. A IO patch was placed and a sterile Sorbaview shield was placed over the catheter at the insertion site. The patient tolerated the procedure well without any hemodynamic compromise. At time of procedure completion, all ports aspirated and flushed properly. Postprocedure x-ray shows central line in proper place. Estimated blood loss is approximately 5 cc. Indication for Procedure: Transvenous Pacing wire insertion. Date: 11/26/19 Provider: ADRIAN MAN - Central Line Right Internal jugular Time completed: 18:00 Consent obtained: Yes Central line pre-insertion: Sterile PPE donned, Chloraprep applied, Sterile drapes applied Central line lumen type: Cordis/Introducer Anesthetic type: 1% Lidocaine mL's of anesthesia: 3 Ultrasound guided: Yes Line secured with sutures: Yes Central line post-insertion: Blood return from lumens, Biopatch applied, Sutured, Sterile dressing applied, Other - CXR Pending Complications: No
[2019-12-12] MEDS: MELATONIN 5 MG TABLET NG SCH (21:15)
[2019-12-12] MEDS: NICARDIPINE HCL RTU, ISO-OS 20 MG/200 ML RTUINJ IV PRN (22:45)
[2019-12-12] MEDS ORDERED: NICARDIPINE HCL RTU, ISO-OS 20 MG/200 ML RTUINJ IV ONE (22:45)
--- NOTE | 2019-12-12 23:19 | EKG REPORT ---
SEVERITY:- ABNORMAL ECG - SINUS TACHYCARDIA VENTRICULAR PREMATURE COMPLEX LEFT ANTERIOR FASCICULAR BLOCK BORDERLINE T ABNORMALITIES, DIFFUSE LEADS : Confirmed by: Jina Dow 12-Dec-2019 23:18:51
[2019-12-13] MEDS: MIDAZOLAM HCL 50 MG/100 ML RTUINJ IV PRN ×5 (00:10→21:58)
[2019-12-13] MEDS: MORPHINE SULFATE 60 MG/60 ML RTUINJ IV PRN ×3 (01:55→22:00)
[2019-12-13] MEDS: INSULIN REG, HUMAN 100 UNIT/ML 3 ML VIAL (PYX) SUBCUT SCH ×6 (02:18→22:10)
[2019-12-13] MEDS ORDERED: ATROPINE SULFATE INJ 1 MG/10 ML DISP.SYRIN IV ONE ×2 (03:27→07:34)
[2019-12-13] MEDS: HYDROCORTISONE SOD SUCCINATE INJ/PF 100 MG/2 ML SDV IV SCH ×3 (05:36→21:22)
[2019-12-13] MEDS: METHOCARBAMOL 500 MG TABLET NG SCH ×3 (05:37→21:21)
[2019-12-13] MEDS: MINERAL OIL/PETROLATUM,WHITE OPH OINT 3.5 GM OU SCH ×3 (05:38→22:12)
[2019-12-13 05:46] LABS: HEMATOCRIT 23.7 % (36.0-47.0); MEAN CORPUSCULAR HEMOGLOBIN 29.5 pg (27.0-33.4); MEAN CORPUSCULAR HGB CONC 33.6 g/dL (32.0-36.0); MEAN CORPUSCULAR VOLUME 88 fl (80-97); PLATELET COUNT 100 10^3/uL (150-450); RED BLOOD COUNT 2.69 10^6/uL (3.72-5.28); RED CELL DISTRIBUTION WIDTH 17.8 % (11.5-14.0); WHITE BLOOD COUNT 9.1 10^3/uL (4.0-10.5)
[2019-12-13 06:00] LABS: BLOOD UREA NITROGEN 41 mg/dL (7-20); CALCIUM 7.9 mg/dL (8.4-10.2); GLUCOSE 73 mg/dL (75-110); POTASSIUM 3.7 mmol/L (3.6-5.0)
[2019-12-13 06:17] LABS: ABSOLUTE LYMPHOCYTES# (MANUAL) 0.3 10^3/uL (0.5-4.7); BASOPHILS % (MANUAL) 0 % (0-2); EOSINOPHILS % (MANUAL) 0 % (0-6); LYMPHOCYTES % (MANUAL) 3 % (13-45); MONOCYTES % (MANUAL) 0 % (3-13); SEGMENTED NEUTROPHILS % (MAN) 97 % (42-78); TOTAL CELLS COUNTED 100
[2019-12-13 06:20] LABS: ANISOCYTOSIS 1+; POIKILOCYTOSIS 1+; TOXIC GRANULATION 1+
[2019-12-13 06:21] LABS: CARBON DIOXIDE 34 mmol/L (22-30); CHLORIDE 116 mmol/L (98-107); OVALOCYTES SLIGHT; PLATELET COMMENT ADEQUATE
[2019-12-13 06:25] LABS: ANION GAP -2 (5-19)
[2019-12-13] MEDS: DEXTROSE 50%-WATER 25 GM/50 ML DISP.SYRIN IV PRN ×2 (09:28→14:45)
[2019-12-13] MEDS: INSULIN GLARGINE,HUM.REC.ANLOG 1,000 UNIT/10 ML VIAL SUBCUT SCH ×2 (09:35→17:19)
[2019-12-13] MEDS: ENOXAPARIN SODIUM INJ 100 MG/1 ML DISP.SYRIN SUBCUT SCH ×2 (09:41→22:11)
[2019-12-13] MEDS: CHOLECALCIFEROL (D3) 1,000 UNIT (25 MCG) TABLET PO SCH (09:41)
[2019-12-13] MEDS: ASCORBIC ACID 500 MG TABLET NG SCH ×2 (09:41→17:19)
[2019-12-13] MEDS: FAMOTIDINE 20 MG TABLET PO SCH ×2 (09:42→21:21)
[2019-12-13] MEDS: ZINC SULFATE 220 MG CAPSULE NG SCH (09:42)
[2019-12-13 11:58] LABS: ARTERIAL BLOOD BASE EXCESS 7.1 mmol/L; ARTERIAL BLOOD H2CO3 1.39 mmol/L (1.05-1.35); ARTERIAL BLOOD HCO3 31.7 mmol/L (20-24); ARTERIAL BLOOD O2 SATURATION 98.6 % (94-98); ARTERIAL BLOOD PCO2 46.3 mmHg (35-45); ARTERIAL BLOOD PH 7.45 (7.35-7.45); ARTERIAL BLOOD PO2 124.5 mmHg (80-100); ARTERIAL BLOOD TOTAL CO2 33.2 mmol/L (21-25)
[2019-12-13 12:02] LABS: ARTERIAL BLOOD FIO2 100%
[2019-12-13 15:18] LABS: HEMATOCRIT 18.8 % (36.0-47.0); MEAN CORPUSCULAR HEMOGLOBIN 29.5 pg (27.0-33.4); MEAN CORPUSCULAR HGB CONC 33.4 g/dL (32.0-36.0); MEAN CORPUSCULAR VOLUME 89 fl (80-97); RED BLOOD COUNT 2.12 10^6/uL (3.72-5.28); RED CELL DISTRIBUTION WIDTH 17.5 % (11.5-14.0); WHITE BLOOD COUNT 7.2 10^3/uL (4.0-10.5)
[2019-12-13 15:45] LABS: PLATELET COUNT 76 10^3/uL (150-450)
[2019-12-13 15:46] LABS: HEMOGLOBIN 6.3 g/dL (12.0-15.5)
--- NOTE | 2019-12-13 16:51 | PDOC CRITICAL CARE PROG REPORT ---
General Date:: 12/13/19 ICU Day:: 17 Ventilator Day:: 17 Hospital Day:: 22 Resuscitation Status: Full Code Medical Power of Applications Support Engineer: DaughterXin Events in the past 12 to 24 Hours:: 12/11 Patient had significant bradycardia today with prolonged period of asystole and frequent periods of ventricular rhythm in the 40s. Cardiology consult was placed. Transcutaneous pacing pads placed on patient, we will plan to keep atropine, dopamine and isoproterenol radiation oncologist if an emergent situation arises. A right IJ Cordis was placed to facilitate the placement of transvenous pacing wires showed an emergent need be presented. 12/12 Overnight, patient had multiple episodes of bradycardia and asystole requiring 1 dose of atropine. Patient also had some bleeding from the new Cordis site. Follow-up CBC showed an acute anemia. 2 units PRBC have been ordered. Review of systems relevant to events:: Please see complete review of systems below. Reason for ICU Addmission:: Acute hypoxic respiratory failure with SARS, 2- CoViD19. Intubated. Supine. - Medications: Medications reviewed and adjusted accordingly: Yes Sedation:: Patient remains on Versed at 10 and morphine at 5 mg/h. Physical Exam Vital Signs: Temp Pulse Resp BP Pulse Ox 96.1 F L 58 L 23 H 106/66 100 12/13/19 14:45 12/13/19 08:00 12/13/19 14:45 12/13/19 14:33 12/13/19 14:45 Intake & Output 12/12/19 12/13/19 12/14/19 06:59 06:59 06:59 Intake Total 1240 886 240 Output Total 3500 1541 575 Balance -9677 -655 -335 Weight 122.2 kg 119.5 kg Weight/Height Weight 119.5 kg Height 5 ft 3 in General appearance: PRESENT: no acute distress, morbidly obese Head exam: PRESENT: atraumatic Eye exam: PRESENT: conjunctival injection, periorbital swelling, PERRLA Neck exam: PRESENT: full ROM Respiratory exam: PRESENT: symmetrical, other - No auscultation due to positive COVID status. Flow waves on ventilator appear smooth and without restriction. Lung compliance seems adequate. Cardiovascular exam: PRESENT: other - Patient with tacky/bradycardialike syndrome. Pulses: PRESENT: normal radial pulses, normal dorsalis pedis pul Vascular exam: PRESENT: normal capillary refill GI/Abdominal exam: PRESENT: soft Extremities exam: PRESENT: full ROM. ABSENT: pedal edema Musculoskeletal exam: PRESENT: full ROM Neurological exam: PRESENT: other - Sedated. Responds to discomfort. Skin exam: PRESENT: intact. ABSENT: abrasion Tubes/Lines: PRESENT: Endotracheal Tube, Central Line Laboratory/Radiographs Laboratory Results: 12/13/19 14:45 12/13/19 05:35 12/13/19 12/13/19 12/13/19 05:35 05:35 11:46 WBC 9.1 RBC 2.69 L Hgb 8.0 L Hct 23.7 L MCV 88 MCH 29.5 MCHC 33.6 RDW 17.8 H Plt Count 100 L Seg Neutrophils % Not Reportable Carbonic Acid 1.39 H HCO3/H2CO3 Ratio 22:1 ABG pH 7.45 ABG pCO2 46.3 H ABG pO2 124.5 H ABG HCO3 31.7 H ABG O2 Saturation 98.6 H ABG Base Excess 7.1 FiO2 100% Sodium 148.1 H Potassium 3.7 Chloride 116 H Carbon Dioxide 34 H Anion Gap -2 L BUN 41 H Creatinine 0.56 Est GFR ( Amer) > 60 Glucose 73 L Calcium 7.9 L 12/13/19 12/13/19 13:12 14:45 WBC Cancelled 7.2 RBC Cancelled 2.12 L Hgb Cancelled 6.3 L Hct Cancelled 18.8 L MCV Cancelled 89 MCH Cancelled 29.5 MCHC Cancelled 33.4 RDW Cancelled 17.5 H Plt Count Cancelled 76 L Seg Neutrophils % Carbonic Acid HCO3/H2CO3 Ratio ABG pH ABG pCO2 ABG pO2 ABG HCO3 ABG O2 Saturation ABG Base Excess FiO2 Sodium Potassium Chloride Carbon Dioxide Anion Gap BUN Creatinine Est GFR ( Amer) Glucose Calcium 11/21/19 11/26/19 11/26/19 14:00 11:48 11:48 Creatine Kinase 105 CK-MB (CK-2) 0.87 Troponin I < 0.012 NT-Pro-B Natriuret Pep 32 11/26/19 11/26/19 11/27/19 22:45 22:45 04:45 Creatine Kinase 60 46 CK-MB (CK-2) 0.41 Troponin I 0.018 NT-Pro-B Natriuret Pep 11/27/19 04:45 Creatine Kinase CK-MB (CK-2) 0.47 Troponin I < 0.012 NT-Pro-B Natriuret Pep Impressions: Chest/Abdomen CTA 11/21/19 16:08 IMPRESSION: 1. Patchy peripheral and perihilar ground-glass opacities in both lungs. These are commonly reported imaging features of COVID-19 pneumonia are present. Other processes such as influenza pneumonia and organizing pneumonia, as can be seen with drug toxicity and connective tissue disease, can cause a similar imag ing pattern. PneTyp 2. Limited evaluation of the pulmonary arteries due to contrast bolus timing. N o large central pulmonary embolus. Evaluation of the segmental and subsegmental pulmonary arteries is limited. Chest X-Ray 12/12/19 00:00 IMPRESSION: NO PNEUMOTHORAX FOLLOWING CENTRAL LINE PLACEMENT. OVERALL NO SIGNIFICANT INTERVAL CHANGE IN APPEARANCE OF THE CHEST. All labs, radiographs, diagnostic studies and EKGs were personally reviewed: Yes In addition, reports of radiographic and diagnostic studies were read: Yes Assessment and Plan - Diagnosis (1) Acute hypoxemic respiratory failure Is this a current diagnosis for this admission?: Yes Plan: No changes made on ventilatory support today. Patient remains on pressure control with an inspiratory pressure of 30, PEEP 8, respiratory rate 15, 100% FiO2 to maintain SPO2 of 95%. (2) Asystole Is this a current diagnosis for this admission?: Yes Plan: Less frequent episodes of asystole/bradycardia today. Cordis in place if transvenous pacer needed. (3) Suspected COVID-19 virus infection Is this a current diagnosis for this admission?: Yes Plan: Patient with persistent respiratory failure in secondary to COVID-19 virus infection. Plan Summary: ICU day: 17 Neuro: Patient remains responsive only to discomfort. She is on Versed at 10 and morphine at 5 mg/h. We will set a regimen of lightening her sedation daily, however, she will need to be sedated until her AA gradient improves and she requires less aggressive support on the ventilator. Pulmonary: Patient remains on pressure control ventilation with inspiratory pressure 30, inspiratory time: 3 seconds, PEEP 8, respiratory rate 15, FiO2 100%. We have had difficulty over the past several days weaning her FiO2 and in spiratory time due to hypoxemia. This problem is compounded by her cardiac rhythm instability. We are weaning the Solu-Cortef and it was changed to 25 mg IV every 8 hours today. Patient's lung compliance remains adequate. Her respiratory failure secondary to COVID-19 infection seems typical for this virus and is primarily hypoxemic. Cardiovascular: Less frequent episodes of tachycardia/bradycardia today. Vascular pacing wires have been on standby and not placed due to their potential for causing further arrhythmias. Pacing mode available is set pacing only and does not sense. We will therefore only use intervascular pacing if patient has persistent asystole. Indwelling catheters: Cordis placed yesterday for intravascular pacing wires if needed. Of note, site of Cordis placement at the level of skin was bleeding overnight and patient seems to have lost a significant volume of blood. 2 units PRBC have been ordered. We will follow-up CBC following blood transfusion. Bleeding has subsided with pressure dressing. Heme: H&H decreased this afternoon due to persistent bleed as above. 2 units PRBC pending. DVT prophylaxis: Patient continues on Lovenox every 12 hours subcu. Will hold dose this evening due to bleeding. Renal: Renal panel has been stable. Mildly elevated sodium level. Gastrointestinal: Tube feeds were held yesterday due to possible pending cardiac arrest. They were restarted today. GI prophylaxis: Continue GI prophylaxis with Pepcid 20 mg p.o. every 12 hours. Current: Patient with a history of DM 2, on regular insulin sliding scale as well as Lantus. Patient was hypoglycemic today and received 1 amp of D50. Blood sugar level has resolved. Dose of Lantus being held tonight. Tube feeds restarted. : Adams catheter in place. No signs of infection. ID: WBC remains within normal limits. No signs of obvious infection. No antibi otics at this time. Barriers to discharge from ICU: Patient still with COVID-19 related respiratory failure and severe hypoxemia despite adequate ventilation. Now with cardiac rhythm instability. Critical Time Critical Time (minutes): 70 Level of Care: ICU -: 1. The care of a critical patient is a dynamic process. This note is a sales representative health insurance synopsis but static in nature. The timeframe for treatments given in order is not necessarily the actual time these treatments may have been done. 2. This patient requires critical care secondary to ongoing requirements for therapy not offered or safe outside the critical care environment. Transfer to a lower level of care will result in altered life or limb morbidity and mortality. 3. Multidisciplinary rounds completed. 4. ABCDE bundle addressed.
[2019-12-13] MEDS: NICARDIPINE HCL RTU, ISO-OS 20 MG/200 ML RTUINJ IV PRN ×3 (20:00→23:53)
[2019-12-13] MEDS: MELATONIN 5 MG TABLET NG SCH (21:21)
[2019-12-13] MEDS ORDERED: MORPHINE SULFATE 60 MG/60 ML RTUINJ IV ONE (21:49)
[2019-12-14] MEDS: MIDAZOLAM HCL 50 MG/100 ML RTUINJ IV PRN (00:28)
[2019-12-14] MEDS: INSULIN REG, HUMAN 100 UNIT/ML 3 ML VIAL (PYX) SUBCUT SCH ×6 (01:06→21:03)
[2019-12-14] MEDS: NICARDIPINE HCL RTU, ISO-OS 20 MG/200 ML RTUINJ IV PRN ×5 (01:29→16:32)
[2019-12-14 03:42] LABS: HEMATOCRIT 35.5 % (36.0-47.0); MEAN CORPUSCULAR HEMOGLOBIN 29.1 pg (27.0-33.4); MEAN CORPUSCULAR HGB CONC 33.2 g/dL (32.0-36.0); MEAN CORPUSCULAR VOLUME 87 fl (80-97); PLATELET COUNT 110 10^3/uL (150-450); RED BLOOD COUNT 4.06 10^6/uL (3.72-5.28); RED CELL DISTRIBUTION WIDTH 16.4 % (11.5-14.0)
[2019-12-14 03:44] LABS: WHITE BLOOD COUNT 16.6 10^3/uL (4.0-10.5)
[2019-12-14 03:45] LABS: HEMOGLOBIN 11.8 g/dL (12.0-15.5)
[2019-12-14 04:04] LABS: BLOOD UREA NITROGEN 37 mg/dL (7-20); CALCIUM 8.3 mg/dL (8.4-10.2); CARBON DIOXIDE 34 mmol/L (22-30); GLUCOSE 98 mg/dL (75-110); POTASSIUM 4.2 mmol/L (3.6-5.0)
[2019-12-14 04:10] LABS: ANION GAP 2 (5-19); CHLORIDE 113 mmol/L (98-107)
[2019-12-14 04:12] LABS: ABSOLUTE LYMPHOCYTES# (MANUAL) 0.5 10^3/uL (0.5-4.7); ABSOLUTE MONOCYTES # (MANUAL) 0.7 10^3/uL (0.1-1.4); BAND NEUTROPHILS % (MANUAL) 1 % (3-5); BASOPHILS % (MANUAL) 0 % (0-2); EOSINOPHILS % (MANUAL) 0 % (0-6); LYMPHOCYTES % (MANUAL) 3 % (13-45); MONOCYTES % (MANUAL) 4 % (3-13); SEGMENTED NEUTROPHILS % (MAN) 92 % (42-78); TOTAL CELLS COUNTED 100
[2019-12-14 04:14] LABS: ANISOCYTOSIS 1+; OVALOCYTES SLIGHT; PLATELET COMMENT DECREASED; POIKILOCYTOSIS SLIGHT; POLYCHROMASIA SLIGHT; SCHISTOCYTES SLIGHT; TOXIC GRANULATION SLIGHT; TOXIC VACUOLATION PRESENT
[2019-12-14] MEDS: HYDROCORTISONE SOD SUCCINATE INJ/PF 100 MG/2 ML SDV IV SCH ×3 (05:13→21:15)
[2019-12-14] MEDS: MINERAL OIL/PETROLATUM,WHITE OPH OINT 3.5 GM OU SCH ×3 (05:13→21:15)
[2019-12-14] MEDS: METHOCARBAMOL 500 MG TABLET NG SCH ×3 (05:13→21:14)
[2019-12-14] MEDS: MORPHINE SULFATE 60 MG/60 ML RTUINJ IV PRN ×2 (09:45→20:37)
[2019-12-14] MEDS: INSULIN GLARGINE,HUM.REC.ANLOG 1,000 UNIT/10 ML VIAL SUBCUT SCH ×2 (09:46→20:58)
[2019-12-14] MEDS: ZINC SULFATE 220 MG CAPSULE NG SCH (09:47)
[2019-12-14] MEDS: FAMOTIDINE 20 MG TABLET PO SCH ×2 (09:47→21:14)
[2019-12-14] MEDS: CHOLECALCIFEROL (D3) 1,000 UNIT (25 MCG) TABLET PO SCH (09:47)
[2019-12-14] MEDS: ENOXAPARIN SODIUM INJ 100 MG/1 ML DISP.SYRIN SUBCUT SCH ×2 (09:47→21:14)
[2019-12-14] MEDS: ASCORBIC ACID 500 MG TABLET NG SCH ×2 (09:47→21:14)
--- NOTE | 2019-12-14 14:08 | PDOC CRITICAL CARE PROG REPORT ---
General Date:: 12/14/19 ICU Day:: 18 Ventilator Day:: 18 Resuscitation Status: Full Code Medical Power of Char Conveyor Tender: DaughterXin Events in the past 12 to 24 Hours:: 12/11 Patient had significant bradycardia today with prolonged period of asystole and frequent periods of ventricular rhythm in the 40s. Cardiology consult was placed. Transcutaneous pacing pads placed on patient, we will plan to keep atropine, dopamine and isoproterenol sales and distribution clerk if an emergent situation arises. A right IJ Cordis was placed to facilitate the placement of transvenous pacing wires showed an emergent need be presented. 12/12 Overnight, patient had multiple episodes of bradycardia and asystole requiring 1 dose of atropine. Patient also had some bleeding from the new Cordis site. Follow-up CBC showed an acute anemia. 2 units PRBC have been ordered. 12/13 Patient again has had multiple episodes of bradycardia and asystole over the past 24 hours. Bleeding from Cordis site was controlled with localized pressure. CBC improved significantly. Patient has a endotracheal cuff leak which is requiring 5 to 10 cc of air to be added twice a day. Plan will be to replace ET tube if cuff leak worsens. Review of systems relevant to events:: Please see complete review of systems below. Reason for ICU Addmission:: Acute hypoxic respiratory failure with SARS, 2- CoViD19. Intubated. Supine. - Medications: Medications reviewed and adjusted accordingly: Yes Sedation:: Patient remains on Versed at 10 and morphine at 5 mg/h. Physical Exam Vital Signs: Temp Pulse Resp BP Pulse Ox 97.7 F 124 H 15 184/95 H 95 12/14/19 12:00 12/14/19 12:00 12/14/19 12:00 12/14/19 12:00 12/14/19 12:39 Intake & Output 12/13/19 12/14/19 12/15/19 06:59 06:59 06:59 Intake Total 886 2306 393 Output Total 1541 1135 650 Balance -655 1171 -257 Weight 119.5 kg 124.3 kg Weight/Height Weight 124.3 kg Height 5 ft 3 in General appearance: PRESENT: morbidly obese Head exam: PRESENT: atraumatic Eye exam: PRESENT: conjunctival injection, EOMI, periorbital swelling, PERRLA Mouth exam: PRESENT: moist Neck exam: PRESENT: full ROM Respiratory exam: PRESENT: other - Unable to auscultate due to COVID-19 restrictions. Flow and pressure waveforms on ventilator monitor appear normal with no significant respiratory restriction. Lung compliance remains normal. Cardiovascular exam: PRESENT: bradycardia, irregular rhythm Pulses: PRESENT: normal radial pulses Vascular exam: PRESENT: normal capillary refill GI/Abdominal exam: PRESENT: diminished bowel sounds, soft Extremities exam: PRESENT: +2 edema Musculoskeletal exam: PRESENT: normal inspection Neurological exam: PRESENT: other - Patient remained sedated on Versed and morphine. Skin exam: PRESENT: normal color, warm Tubes/Lines: PRESENT: Endotracheal Tube, Central Line, Arterial Catheter Laboratory/Radiographs Laboratory Results: 12/14/19 03:26 12/14/19 03:26 12/13/19 12/13/19 12/13/19 13:12 14:45 17:25 WBC Cancelled 7.2 RBC Cancelled 2.12 L Hgb Cancelled 6.3 L Hct Cancelled 18.8 L MCV Cancelled 89 MCH Cancelled 29.5 MCHC Cancelled 33.4 RDW Cancelled 17.5 H Plt Count Cancelled 76 L Seg Neutrophils % Sodium Potassium Chloride Carbon Dioxide Anion Gap BUN Creatinine Est GFR ( Amer) Glucose Calcium Blood Type A POSITIVE Antibody Screen NEGATIVE 12/14/19 12/14/19 03:26 03:26 WBC 16.6 H D RBC 4.06 Hgb 11.8 L D Hct 35.5 L MCV 87 MCH 29.1 MCHC 33.2 RDW 16.4 H Plt Count 110 L Seg Neutrophils % Not Reportable Sodium 149.0 H Potassium 4.2 Chloride 113 H Carbon Dioxide 34 H Anion Gap 2 L BUN 37 H Creatinine 0.67 Est GFR ( Amer) > 60 Glucose 98 Calcium 8.3 L Blood Type Antibody Screen 11/21/19 11/26/19 11/26/19 14:00 11:48 11:48 Creatine Kinase 105 CK-MB (CK-2) 0.87 Troponin I < 0.012 NT-Pro-B Natriuret Pep 32 11/26/19 11/26/19 11/27/19 22:45 22:45 04:45 Creatine Kinase 60 46 CK-MB (CK-2) 0.41 Troponin I 0.018 NT-Pro-B Natriuret Pep 11/27/19 04:45 Creatine Kinase CK-MB (CK-2) 0.47 Troponin I < 0.012 NT-Pro-B Natriuret Pep Impressions: Chest/Abdomen CTA 11/21/19 16:08 IMPRESSION: 1. Patchy peripheral and perihilar ground-glass opacities in both lungs. These are commonly reported imaging features of COVID-19 pneumonia are present. Other processes such as influenza pneumonia and organizing pneumonia, as can be seen with drug toxicity and connective tissue disease, can cause a similar imaging pattern. PneTyp 2. Limited evaluation of the pulmonary arteries due to contrast bolus timing. No large central pulmonary embolus. Evaluation of the segmental and subsegmenta l pulmonary arteries is limited. Chest X-Ray 12/12/19 00:00 IMPRESSION: NO PNEUMOTHORAX FOLLOWING CENTRAL LINE PLACEMENT. OVERALL NO SIGNIFICANT INTERVAL CHANGE IN APPEARANCE OF THE CHEST. All labs, radiographs, diagnostic studies and EKGs were personally reviewed: Yes In addition, reports of radiographic and diagnostic studies were read: Yes Assessment and Plan - Diagnosis (1) Acute hypoxemic respiratory failure Is this a current diagnosis for this admission?: Yes Plan: No changes made on ventilatory support today. Patient remains on pressure control with an inspiratory pressure of 30, PEEP 8, respiratory rate 15, 100% FiO2 to maintain SPO2 of 95%. (2) Asystole Is this a current diagnosis for this admission?: Yes Plan: Less frequent episodes of asystole/bradycardia today. She did require transdermal pacing overnight. Cordis in place if transvenous pacer needed. (3) Suspected COVID-19 virus infection Is this a current diagnosis for this admission?: Yes Plan: Patient with persistent respiratory failure in secondary to COVID-19 virus infection. We will resend COVID cultures to evaluate and status. Plan Summary: ICU day: 18 Neuro: Patient remains responsive only to discomfort. She is on Versed at 10 and morphine at 5 mg/h. We will set a regimen of lightening her sedation daily, however, she will need to be sedated until her AA gradient improves and she requires less aggressive support on the ventilator. Pulmonary: Patient remains on pressure control ventilation with inspiratory pressure 30, inspiratory time: 3 seconds, PEEP 8, respiratory rate 15, FiO2 100%. We have had difficulty over the past several days weaning her FiO2 and inspiratory time due to hypoxemia. This problem is compounded by her cardiac r hythm instability. We are weaning the Solu-Cortef and it was changed to 25 mg IV every 8 hours and can be weaned further tomorrow. Patient's lung compliance remains adequate. Her respiratory failure secondary to COVID-19 infection seems typical for this virus and is primarily hypoxemic. Of note, patient has developed a small endotracheal cuff air leak which is requiring 5 cc of air to be replaced occasionally. If airleak gets any worse, ET tube will need to be replaced. Cardiovascular: Less frequent episodes of tachycardia/bradycardia today. Vascular pacing wires have been on standby and not placed due to their potential for causing further arrhythmias. Pacing mode available is set pacing only and does not sense. We will therefore only use intervascular pacing if patient has persistent asystole. Indwelling catheters: Pain from Cordis site has subsided with local cutaneous pressure dressing. CBC with significant improvement following blood administration. No other signs of bleeding. Heme: As above, H&H has improved significantly. Now 11.8/35.5. DVT prophylaxis: Okay to resume Lovenox with no further bleeding of cordis site. Renal: Renal panel has been stable. Mildly elevated sodium level. BUN and creatinine are within normal limits. Gastrointestinal: Tube feeds restarted. No significant residuals. GI prophylaxis: Continue GI prophylaxis with Pepcid 20 mg p.o. every 12 hours. Current: Patient with a history of DM 2, on regular insulin sliding scale as well as Lantus. Patient was hypoglycemic today and received 1 amp of D50. Blood sugar level has resolved. Dose of Lantus being held tonight. Tube feeds restarted. : Adams catheter in place. No signs of infection. ID: WBC elevated today, no signs of obvious infection. No antibiotics at this time. We will investigate further and start antibiotics empirically if patient shows signs of infection including fever. Barriers to discharge from ICU: Patient still with COVID-19 related respiratory failure and severe hypoxemia despite adequate ventilation. Now with cardiac rhythm instability. Critical Time Critical Time (minutes): 65 Level of Care: ICU -: 1. The care of a critical patient is a dynamic process. This note is a service liaison representative synopsis but static in nature. The timeframe for treatments given in order is not necessarily the actual time these treatments may have been done. 2. This patient requires critical care secondary to ongoing requirements for therapy not offered or safe outside the critical care environment. Transfer to a lower level of care will result in altered life or limb morbidity and mortality. 3. Multidisciplinary rounds completed. 4. ABCDE bundle addressed.
[2019-12-14] MEDS: MELATONIN 5 MG TABLET NG SCH (21:14)
[2019-12-15 02:02] LABS: ARTERIAL BLOOD BASE EXCESS 4.3 mmol/L; ARTERIAL BLOOD FIO2 95%; ARTERIAL BLOOD H2CO3 1.31 mmol/L (1.05-1.35); ARTERIAL BLOOD HCO3 28.9 mmol/L (20-24); ARTERIAL BLOOD O2 SATURATION 93.1 % (94-98); ARTERIAL BLOOD PCO2 43.6 mmHg (35-45); ARTERIAL BLOOD PH 7.44 (7.35-7.45); ARTERIAL BLOOD PO2 64.2 mmHg (80-100); ARTERIAL BLOOD TOTAL CO2 30.2 mmol/L (21-25); HEMOGLOBIN 11.1 g/dL (12.0-15.5); MEAN CORPUSCULAR HEMOGLOBIN 29.3 pg (27.0-33.4); MEAN CORPUSCULAR HGB CONC 33.7 g/dL (32.0-36.0); MEAN CORPUSCULAR VOLUME 87 fl (80-97); PLATELET COUNT 87 10^3/uL (150-450); RED BLOOD COUNT 3.79 10^6/uL (3.72-5.28); RED CELL DISTRIBUTION WIDTH 17.2 % (11.5-14.0); WHITE BLOOD COUNT 12.7 10^3/uL (4.0-10.5)
[2019-12-15 02:10] LABS: BLOOD UREA NITROGEN 36 mg/dL (7-20); CALCIUM 8.5 mg/dL (8.4-10.2); CARBON DIOXIDE 35 mmol/L (22-30); CHLORIDE 112 mmol/L (98-107); GLUCOSE 94 mg/dL (75-110); POTASSIUM 3.6 mmol/L (3.6-5.0)
[2019-12-15 02:17] LABS: ANION GAP 2 (5-19)
[2019-12-15 02:29] LABS: ABSOLUTE LYMPHOCYTES# (MANUAL) 0.1 10^3/uL (0.5-4.7); ABSOLUTE MONOCYTES # (MANUAL) 0.4 10^3/uL (0.1-1.4); BAND NEUTROPHILS % (MANUAL) 1 % (3-5); BASOPHILS % (MANUAL) 0 % (0-2); EOSINOPHILS % (MANUAL) 0 % (0-6); LYMPHOCYTES % (MANUAL) 1 % (13-45); MONOCYTES % (MANUAL) 3 % (3-13); SEGMENTED NEUTROPHILS % (MAN) 95 % (42-78); TOTAL CELLS COUNTED 100
[2019-12-15 02:35] LABS: ANISOCYTOSIS 1+; PLATELET COMMENT DECREASED
[2019-12-15 02:36] LABS: OVALOCYTES SLIGHT
[2019-12-15 02:37] LABS: TOXIC GRANULATION SLIGHT
[2019-12-15] MEDS ORDERED: POTASSIUM CHLORIDE 20 MEQ PACKET NG ONE (03:49)
[2019-12-15] MEDS ORDERED: PHOSPHORUS #1 250 MG TABLET NG SCH (04:00)
[2019-12-15] MEDS: INSULIN REG, HUMAN 100 UNIT/ML 3 ML VIAL (PYX) SUBCUT SCH ×6 (04:38→22:45)
[2019-12-15] MEDS: HYDROCORTISONE SOD SUCCINATE INJ/PF 100 MG/2 ML SDV IV SCH ×3 (05:51→22:48)
[2019-12-15] MEDS: MINERAL OIL/PETROLATUM,WHITE OPH OINT 3.5 GM OU SCH ×3 (05:52→22:49)
[2019-12-15] MEDS: METHOCARBAMOL 500 MG TABLET NG SCH ×3 (05:52→22:49)
[2019-12-15 06:57] LABS: ARTERIAL BLOOD BASE EXCESS 9.5 mmol/L; ARTERIAL BLOOD H2CO3 2.03 mmol/L (1.05-1.35); ARTERIAL BLOOD HCO3 37.3 mmol/L (20-24); ARTERIAL BLOOD O2 SATURATION 90.1 % (94-98); ARTERIAL BLOOD PCO2 67.4 mmHg (35-45); ARTERIAL BLOOD PH 7.36 (7.35-7.45); ARTERIAL BLOOD PO2 62.2 mmHg (80-100); ARTERIAL BLOOD TOTAL CO2 39.4 mmol/L (21-25)
[2019-12-15 06:59] LABS: ARTERIAL BLOOD FIO2 95%
[2019-12-15] MEDS ORDERED: HYDRALAZINE HCL INJ/PF 20 MG/1 ML SDV ONE (07:02)
[2019-12-15] MEDS ORDERED: HYDRALAZINE HCL INJ/PF 20 MG/1 ML SDV IV ONE (07:02)
[2019-12-15] MEDS: MORPHINE SULFATE 60 MG/60 ML RTUINJ IV PRN ×2 (08:28→20:09)
[2019-12-15] MEDS: ENOXAPARIN SODIUM INJ 100 MG/1 ML DISP.SYRIN SUBCUT SCH ×2 (09:17→22:47)
[2019-12-15] MEDS: INSULIN GLARGINE,HUM.REC.ANLOG 1,000 UNIT/10 ML VIAL SUBCUT SCH ×2 (09:24→17:57)
[2019-12-15] MEDS: ASCORBIC ACID 500 MG TABLET NG SCH ×2 (09:25→17:56)
[2019-12-15] MEDS: FAMOTIDINE 20 MG TABLET PO SCH ×2 (09:25→22:50)
[2019-12-15] MEDS: CHOLECALCIFEROL (D3) 1,000 UNIT (25 MCG) TABLET PO SCH (09:25)
[2019-12-15] MEDS: ZINC SULFATE 220 MG CAPSULE NG SCH (09:25)
[2019-12-15] MEDS ORDERED: NICARDIPINE HCL RTU, ISO-OS 20 MG/200 ML RTUINJ IV ONE (12:10)
[2019-12-15] MEDS: NICARDIPINE HCL RTU, ISO-OS 20 MG/200 ML RTUINJ IV ONE ×2 (12:25→15:31)
[2019-12-15] MEDS: NICARDIPINE HCL RTU, ISO-OS 20 MG/200 ML RTUINJ IV PRN ×4 (12:25→22:56)
[2019-12-15] MEDS: MIDAZOLAM HCL 50 MG/100 ML RTUINJ IV PRN (12:25)
[2019-12-15] MEDS: PHOSPHORUS #1 250 MG TABLET NG SCH ×3 (12:26→23:03)
--- NOTE | 2019-12-15 13:53 | PDOC CRITICAL CARE PROG REPORT ---
General Date:: 12/15/19 ICU Day:: Ventilator Day:: 19 Resuscitation Status: Full Code Medical Power of Distribution Center Manager: DaughterXin Events in the past 12 to 24 Hours:: 12/11 Patient had significant bradycardia today with prolonged period of asystole and frequent periods of ventricular rhythm in the 40s. Cardiology consult was placed. Transcutaneous pacing pads placed on patient, we will plan to keep atropine, dopamine and isoproterenol coater carbon paper if an emergent situation arises. A right IJ Cordis was placed to facilitate the placement of transvenous pacing wires showed an emergent need be presented. 12/12 Overnight, patient had multiple episodes of bradycardia and asystole requiring 1 dose of atropine. Patient also had some bleeding from the new Cordis site. Follow-up CBC showed an acute anemia. 2 units PRBC have been ordered. 12/13 Patient again has had multiple episodes of bradycardia and asystole over the past 24 hours. Bleeding from Cordis site was controlled with localized pressure. CBC improved significantly. Patient has a endotracheal cuff leak which is requiring 5 to 10 cc of air to be added twice a day. Plan will be to replace ET tube if cuff leak worsens. 12/14 Still with occasional episodes of bradycardia and asystole. Unable to make any significant ventilator changes without desaturation. She unfortunately still requires an FiO2 greater than 90%. Repeat COVID tests are pending. We will change Solu-Cortef to every 12 and continue to wean. Review of systems relevant to events:: Please see complete review of systems below. Reason for ICU Addmission:: Acute hypoxic respiratory failure with SARS, 2- CoViD19. Intubated. Supine. - Medications: Medications reviewed and adjusted accordingly: Yes Sedation:: Patient remains on Versed at 10 and morphine at 5 mg/h. Physical Exam Vital Signs: Temp Pulse Resp BP Pulse Ox 97.7 F 95 18 164/85 H 89 L 12/15/19 12:00 12/15/19 08:00 12/15/19 12:00 12/15/19 11:58 12/15/19 12:00 Intake & Output 12/14/19 12/15/19 12/16/19 06:59 06:59 06:59 Intake Total 2306 917 553 Output Total 3074 5290 475 Balance 1171 -923 78 Weight 124.3 kg 127.1 kg Weight/Height Weight 127.1 kg Height 5 ft 3 in General appearance: PRESENT: no acute distress, morbidly obese Head exam: PRESENT: atraumatic Eye exam: PRESENT: periorbital swelling Mouth exam: PRESENT: moist, neck supple Neck exam: PRESENT: full ROM Respiratory exam: PRESENT: decreased breath sounds, symmetrical. ABSENT: rhonchi, stridor, wheezes Cardiovascular exam: PRESENT: bradycardia, irregular rhythm, tachycardia Pulses: PRESENT: normal carotid pulses, normal radial pulses, +1 pedal pulses bilateral Vascular exam: PRESENT: normal capillary refill GI/Abdominal exam: PRESENT: ascites, diminished bowel sounds, soft Musculoskeletal exam: PRESENT: normal inspection Neurological exam: PRESENT: CN II-XII grossly intact Skin exam: PRESENT: warm. ABSENT: abrasion, rash Tubes/Lines: PRESENT: Endotracheal Tube, Central Line Laboratory/Radiographs Laboratory Results: 12/15/19 00:48 12/15/19 00:48 12/15/19 12/15/19 12/15/19 00:48 00:48 00:48 WBC 12.7 H RBC 3.79 Hgb 11.1 L Hct 33.0 L MCV 87 MCH 29.3 MCHC 33.7 RDW 17.2 H Plt Count 87 L Seg Neutrophils % Not Reportable Carbonic Acid 1.31 HCO3/H2CO3 Ratio 22:1 ABG pH 7.44 ABG pCO2 43.6 ABG pO2 64.2 L ABG HCO3 28.9 H ABG O2 Saturation 93.1 L ABG Base Excess 4.3 FiO2 95% Sodium 149.3 H Potassium 3.6 Chloride 112 H Carbon Dioxide 35 H Anion Gap 2 L BUN 36 H Creatinine 0.66 Est GFR ( Amer) > 60 Glucose 94 Calcium 8.5 Phosphorus 3.0 Magnesium 2.2 12/15/19 06:38 WBC RBC Hgb Hct MCV MCH MCHC RDW Plt Count Seg Neutrophils % Carbonic Acid 2.03 H HCO3/H2CO3 Ratio 18:1 ABG pH 7.36 ABG pCO2 67.4 H ABG pO2 62.2 L ABG HCO3 37.3 H ABG O2 Saturation 90.1 L ABG Base Excess 9.5 FiO2 95% Sodium Potassium Chloride Carbon Dioxide Anion Gap BUN Creatinine Est GFR ( Amer) Glucose Calcium Phosphorus Magnesium 11/21/19 11/26/19 11/26/19 14:00 11:48 11:48 Creatine Kinase 105 CK-MB (CK-2) 0.87 Troponin I < 0.012 NT-Pro-B Natriuret Pep 32 11/26/19 11/26/19 11/27/19 22:45 22:45 04:45 Creatine Kinase 60 46 CK-MB (CK-2) 0.41 Troponin I 0.018 NT-Pro-B Natriuret Pep 11/27/19 04:45 Creatine Kinase CK-MB (CK-2) 0.47 Troponin I < 0.012 NT-Pro-B Natriuret Pep Impressions: Chest/Abdomen CTA 11/21/19 16:08 IMPRESSION: 1. Patchy peripheral and perihilar ground-glass opacities in both lungs. These are commonly reported imaging features of COVID-19 pneumonia are present. Other processes such as influenza pneumonia and organizing pneumonia, as can be seen with drug toxicity and connective tissue disease, can cause a similar imaging pattern. PneTyp 2. Limited evaluation of the pulmonary arteries due to contrast bolus timing. No large central pulmonary embolus. Evaluation of the segmental and subsegmenta l pulmonary arteries is limited. Chest X-Ray 12/12/19 00:00 IMPRESSION: NO PNEUMOTHORAX FOLLOWING CENTRAL LINE PLACEMENT. OVERALL NO SIGNIFICANT INTERVAL CHANGE IN APPEARANCE OF THE CHEST. All labs, radiographs, diagnostic studies and EKGs were personally reviewed: Yes In addition, reports of radiographic and diagnostic studies were read: Yes Assessment and Plan - Diagnosis (1) Acute hypoxemic respiratory failure Is this a current diagnosis for this admission?: Yes Plan: Attempts were made to optimize the patient's ventilation today, however we were unable to make any significant changes without a decrease in SPO2. Patient remains on pressure control with an inspiratory pressure of 30, PEEP 8, r espiratory rate 16, 100% FiO2 to maintain SPO2 of 95%. (2) Asystole Is this a current diagnosis for this admission?: Yes Plan: Less frequent episodes of asystole/bradycardia today. She did require transdermal pacing overnight. Cordis in place if transvenous pacer needed. (3) Suspected COVID-19 virus infection Is this a current diagnosis for this admission?: Yes Plan: Patient with persistent respiratory failure in secondary to COVID-19 virus infection. Repeat COVID test sent out yesterday. Results are pending. Plan Summary: ICU day: 19 Neuro: Patient remains responsive only to discomfort. She is on Versed at 10 and morphine at 5 mg/h. We will set a regimen of lightening her sedation daily, however, she will need to be sedated until her AA gradient improves and she requires less aggressive support on the ventilator. Pulmonary: Patient remains on pressure control ventilation with inspiratory pressure 30, inspiratory time: 2.6 seconds, PEEP 8, respiratory rate 15, FiO2 100%. We have had difficulty over the past several days weaning her FiO2 and inspiratory time due to hypoxemia. This problem is compounded by her cardiac rhythm instability. We are weaning the Solu-Cortef and it was changed to 25 mg IV every 12 hours. Patient's lung compliance remains adequate. Her respiratory failure secondary to COVID-19 infection seems typical for this virus and is primarily hypoxemic. Of note, patient has developed a small endotracheal cuff air leak which is requiring 5 cc of air to be replaced occasionally. If airleak gets any worse, ET tube will need to be replaced. If not urgent to change the ETT, we will wait to see if repeat COVID tests come back negative. Cardiovascular: Less frequent episodes of tachycardia/bradycardia today. Vascular pacing wires have been on standby and not placed due to their potential for causing further arrhythmias. Pacing mode available is set pacing only and does not sense. We will therefore only use intervascular pacing if patient has persistent asystole or complete heart block. Indwelling catheters: Cortis in the RIJ and TLC in RSC. No other signs of bleeding. Heme: As above, H&H has improved significantly. Now 11.1/33.7. DVT prophylaxis: Okay to resume Lovenox with no further bleeding of cordis site. Renal: Renal panel has been stable. Mildly elevated sodium level. BUN and creatinine are within normal limits. Gastrointestinal: Tube feeds restarted. No significant residuals. GI prophylaxis: Continue GI prophylaxis with Pepcid 20 mg p.o. every 12 hours. Current: Patient with a history of DM 2, on regular insulin sliding scale as well as Lantus. Tube feeds restarted. : Adams catheter in place. No signs of infection. ID: WBC trended down today, no signs of obvious infection. No antibiotics at this time. We will investigate further and start antibiotics empirically if patient shows signs of infection including fever. Barriers to discharge from ICU: Patient still with COVID-19 related respiratory failure and severe refractory hypoxemia despite adequate ventilation. Now with cardiac rhythm instability. Critical Time Critical Time (minutes): 70 Level of Care: ICU -: 1. The care of a critical patient is a dynamic process. This note is a sales representatives synopsis but static in nature. The timeframe for treatments given in order is not necessarily the actual time these treatments may have been done. 2. This patient requires critical care secondary to ongoing requirements for therapy not offered or safe outside the critical care environment. Transfer to a lower level of care will result in altered life or limb morbidity and mortality. 3. Multidisciplinary rounds completed. 4. ABCDE bundle addressed.
[2019-12-15] MEDS ORDERED: HYDRALAZINE HCL 50 MG TABLET NG ONE (22:00)
[2019-12-15] MEDS ORDERED: LORAZEPAM INJ 2 MG/1 ML VIAL IV ONE (22:17)
[2019-12-15] MEDS: MELATONIN 5 MG TABLET NG SCH (22:49)
[2019-12-16] MEDS: NICARDIPINE HCL RTU, ISO-OS 20 MG/200 ML RTUINJ IV PRN ×6 (00:56→21:25)
[2019-12-16] MEDS: INSULIN REG, HUMAN 100 UNIT/ML 3 ML VIAL (PYX) SUBCUT SCH ×6 (01:37→21:28)
[2019-12-16 04:16] LABS: ARTERIAL BLOOD BASE EXCESS 3.1 mmol/L; ARTERIAL BLOOD H2CO3 1.76 mmol/L (1.05-1.35); ARTERIAL BLOOD HCO3 30.5 mmol/L (20-24); ARTERIAL BLOOD O2 SATURATION 91.4 % (94-98); ARTERIAL BLOOD PCO2 58.5 mmHg (35-45); ARTERIAL BLOOD PH 7.34 (7.35-7.45); ARTERIAL BLOOD PO2 66.1 mmHg (80-100); ARTERIAL BLOOD TOTAL CO2 32.3 mmol/L (21-25); HEMATOCRIT 32.3 % (36.0-47.0); HEMOGLOBIN 10.8 g/dL (12.0-15.5); MEAN CORPUSCULAR HEMOGLOBIN 29.3 pg (27.0-33.4); MEAN CORPUSCULAR HGB CONC 33.3 g/dL (32.0-36.0); MEAN CORPUSCULAR VOLUME 88 fl (80-97); RED BLOOD COUNT 3.67 10^6/uL (3.72-5.28); RED CELL DISTRIBUTION WIDTH 17.6 % (11.5-14.0); WHITE BLOOD COUNT 12.6 10^3/uL (4.0-10.5)
[2019-12-16 04:19] LABS: PLATELET COUNT 92 10^3/uL (150-450)
[2019-12-16 04:20] LABS: ARTERIAL BLOOD FIO2 95%
[2019-12-16 04:34] LABS: BLOOD UREA NITROGEN 38 mg/dL (7-20); CALCIUM 8.2 mg/dL (8.4-10.2); GLUCOSE 181 mg/dL (75-110); PHOSPHORUS 4.1 mg/dL (2.5-4.5); POTASSIUM 3.8 mmol/L (3.6-5.0)
[2019-12-16 04:36] LABS: ABSOLUTE LYMPHOCYTES# (MANUAL) 0.1 10^3/uL (0.5-4.7); ABSOLUTE MONOCYTES # (MANUAL) 0.4 10^3/uL (0.1-1.4); BASOPHILS % (MANUAL) 0 % (0-2); EOSINOPHILS % (MANUAL) 0 % (0-6); LYMPHOCYTES % (MANUAL) 1 % (13-45); MONOCYTES % (MANUAL) 3 % (3-13); SEGMENTED NEUTROPHILS % (MAN) 96 % (42-78); TOTAL CELLS COUNTED 100
[2019-12-16 04:38] LABS: ANISOCYTOSIS 2+; PLATELET COMMENT DECREASED
[2019-12-16 04:39] LABS: CARBON DIOXIDE 34 mmol/L (22-30); CHLORIDE 112 mmol/L (98-107)
[2019-12-16 04:51] LABS: ANION GAP 2 (5-19)
[2019-12-16] MEDS ORDERED: HYDRALAZINE HCL 50 MG TABLET NG ONE (05:02)
[2019-12-16] MEDS: MINERAL OIL/PETROLATUM,WHITE OPH OINT 3.5 GM OU SCH ×3 (05:17→21:23)
[2019-12-16] MEDS: HYDROCORTISONE SOD SUCCINATE INJ/PF 100 MG/2 ML SDV IV SCH ×3 (05:17→21:34)
[2019-12-16] MEDS: METHOCARBAMOL 500 MG TABLET NG SCH ×3 (05:18→21:23)
[2019-12-16 06:00] LABS: APPEARANCE,URINE CLOUDY; BILIRUBIN,URINE NEGATIVE (NEGATIVE); COLOR,URINE YELLOW; GLUCOSE, URINE NEGATIVE (NEGATIVE); KETONES,URINE NEGATIVE (NEGATIVE); LEUKOCYTE ESTERASE,URINE LARGE (NEGATIVE); NITRITE,URINE NEGATIVE (NEGATIVE); PROTEIN,URINE 30 mg/dL (NEGATIVE)
[2019-12-16] MEDS ORDERED: IMIPENEM/CILASTATIN SODIUM 500 MG in NORMAL SALINE 100 ML IV SCH (06:00)
[2019-12-16] MEDS ORDERED: IMIPENEM/CILASTATIN SODIUM INJ 500 MG VIAL IV PRN (06:30)
[2019-12-16] MEDS: MORPHINE SULFATE 60 MG/60 ML RTUINJ IV PRN ×2 (08:00→19:30)
[2019-12-16] MEDS: IMIPENEM/CILASTATIN SODIUM 500 MG in NORMAL SALINE 100 ML IV SCH ×3 (08:00→21:22)
[2019-12-16] MEDS ORDERED: MIDAZOLAM HCL 50 MG/100 ML RTUINJ IV PRN (09:55)
[2019-12-16] MEDS: ZINC SULFATE 220 MG CAPSULE NG SCH (10:50)
[2019-12-16] MEDS: ASCORBIC ACID 500 MG TABLET NG SCH ×2 (10:51→18:03)
[2019-12-16] MEDS: FAMOTIDINE 20 MG TABLET PO SCH ×2 (10:51→21:23)
[2019-12-16] MEDS: CHOLECALCIFEROL (D3) 1,000 UNIT (25 MCG) TABLET PO SCH (10:51)
[2019-12-16] MEDS: ENOXAPARIN SODIUM INJ 100 MG/1 ML DISP.SYRIN SUBCUT SCH ×2 (10:52→21:22)
[2019-12-16] MEDS: INSULIN GLARGINE,HUM.REC.ANLOG 1,000 UNIT/10 ML VIAL SUBCUT SCH ×2 (10:52→18:03)
--- NOTE | 2019-12-16 16:38 | PDOC CRITICAL CARE PROG REPORT ---
General Date:: 12/16/19 ICU Day:: Ventilator Day:: 20 Resuscitation Status: Full Code Medical Power of Button Cutting Machine Operator: DaughterXin Events in the past 12 to 24 Hours:: 12/11 Patient had significant bradycardia today with prolonged period of asystole and frequent periods of ventricular rhythm in the 40s. Cardiology consult was placed. Transcutaneous pacing pads placed on patient, we will plan to keep atropine, dopamine and isoproterenol restoration officer if an emergent situation arises. A right IJ Cordis was placed to facilitate the placement of transvenous pacing wires showed an emergent need be presented. 12/12 Overnight, patient had multiple episodes of bradycardia and asystole requiring 1 dose of atropine. Patient also had some bleeding from the new Cordis site. Follow-up CBC showed an acute anemia. 2 units PRBC have been ordered. 12/13 Patient again has had multiple episodes of bradycardia and asystole over the past 24 hours. Bleeding from Cordis site was controlled with localized pressure. CBC improved significantly. Patient has a endotracheal cuff leak which is requiring 5 to 10 cc of air to be added twice a day. Plan will be to replace ET tube if cuff leak worsens. 12/14 Still with occasional episodes of bradycardia and asystole. Unable to make any significant ventilator changes without desaturation. She unfortunately still requires an FiO2 greater than 90%. Repeat COVID tests are pending. We will change Solu-Cortef to every 12 and continue to wean. 12/15: Less frequent episodes of bradycardia and asystole. Large amount of sediment seen in urine. UA showed 3+ bacteria. Patient empirically started on imipenem/cilastatin. Urine culture sent. Attempts being made today again to t ry to reduce her FiO2. First repeat COVID test is negative. Solu-Cortef changed to every 12. Review of systems relevant to events:: Please see complete review of systems below. Reason for ICU Addmission:: Acute hypoxic respiratory failure with SARS, 2- CoViD19. Intubated. Supine. - Medications: Medications reviewed and adjusted accordingly: Yes Physical Exam Vital Signs: Temp Pulse Resp BP Pulse Ox 96.1 F L 100 4 L 161/90 H 94 12/16/19 14:45 12/16/19 14:00 12/16/19 14:45 12/16/19 14:43 12/16/19 14:45 Intake & Output 04/12/16/19 12/17/19 06:59 06:59 06:59 Intake Total 917 2443 350 Output Total 1840 1450 500 Balance -923 993 -150 Weight 127.1 kg 124.5 kg Weight/Height Weight 124.5 kg Height 5 ft 3 in General appearance: PRESENT: obese Head exam: PRESENT: atraumatic, normocephalic Eye exam: PRESENT: periorbital swelling, PERRLA Ear exam: PRESENT: normal external ear exam Mouth exam: PRESENT: moist Neck exam: PRESENT: full ROM Respiratory exam: PRESENT: decreased breath sounds, symmetrical. ABSENT: rhonchi, wheezes Cardiovascular exam: PRESENT: bradycardia, irregular rhythm, tachycardia Pulses: PRESENT: +1 pedal pulses bilateral GI/Abdominal exam: PRESENT: normal bowel sounds, soft Extremities exam: PRESENT: +1 edema Musculoskeletal exam: PRESENT: normal inspection Neurological exam: PRESENT: CN II-XII grossly intact Skin exam: PRESENT: normal color, warm Tubes/Lines: PRESENT: Endotracheal Tube, Central Line Laboratory/Radiographs Laboratory Results: 12/16/19 03:51 12/16/19 03:51 12/16/19 12/16/19 12/16/19 03:51 03:51 03:51 WBC 12.6 H RBC 3.67 L Hgb 10.8 L Hct 32.3 L MCV 88 MCH 29.3 MCHC 33.3 RDW 17.6 H Plt Count 92 L Seg Neutrophils % Not Reportable Carbonic Acid 1.76 H HCO3/H2CO3 Ratio 17:1 ABG pH 7.34 L ABG pCO2 58.5 H ABG pO2 66.1 L ABG HCO3 30.5 H ABG O2 Saturation 91.4 L ABG Base Excess 3.1 FiO2 95% Sodium 148.0 H Potassium 3.8 Chloride 112 H Carbon Dioxide 34 H Anion Gap 2 L BUN 38 H Creatinine 0.67 Est GFR ( Amer) > 60 Glucose 181 H Calcium 8.2 L Phosphorus 4.1 Urine Color Urine Appearance Urine pH Ur Specific Plummer Urine Protein Urine Glucose (UA) Urine Ketones Urine Blood Urine Nitrite Ur Leukocyte Esterase Urine WBC (Auto) Urine RBC (Auto) 12/16/19 05:44 WBC RBC Hgb Hct MCV MCH MCHC RDW Plt Count Seg Neutrophils % Carbonic Acid HCO3/H2CO3 Ratio ABG pH ABG pCO2 ABG pO2 ABG HCO3 ABG O2 Saturation ABG Base Excess FiO2 Sodium Potassium Chloride Carbon Dioxide Anion Gap BUN Creatinine Est GFR ( Amer) Glucose Calcium Phosphorus Urine Color YELLOW Urine Appearance CLOUDY Urine pH 5.0 Ur Specific [place]ummer 1.020 Urine Protein 30 H Urine Glucose (UA) NEGATIVE Urine Ketones NEGATIVE Urine Blood MODERATE H Urine Nitrite NEGATIVE Ur Leukocyte Esterase LARGE H Urine WBC (Auto) 121 Urine RBC (Auto) 137 11/21/19 11/26/19 11/26/19 14:00 11:48 11:48 Creatine Kinase 105 CK-MB (CK-2) 0.87 Troponin I < 0.012 NT-Pro-B Natriuret Pep 32 11/26/19 11/26/19 11/27/19 22:45 22:45 04:45 Creatine Kinase 60 46 CK-MB (CK-2) 0.41 Troponin I 0.018 NT-Pro-B Natriuret Pep 11/27/19 04:45 Creatine Kinase CK-MB (CK-2) 0.47 Troponin I < 0.012 NT-Pro-B Natriuret Pep Impressions: Chest/Abdomen CTA 11/21/19 16:08 IMPRESSION: 1. Patchy peripheral and perihilar ground-glass opacities in both lungs. These are commonly reported imaging features of COVID-19 pneumonia are present. Other processes such as influenza pneumonia and organizing pneumonia, as can be seen with drug toxicity and connective tissue disease, can cause a similar vandana ging pattern. PneTyp 2. Limited evaluation of the pulmonary arteries due to contrast bolus timing. No large central pulmonary embolus. Evaluation of the segmental and subsegmental pulmonary arteries is limited. Chest X-Ray 12/12/19 00:00 IMPRESSION: NO PNEUMOTHORAX FOLLOWING CENTRAL LINE PLACEMENT. OVERALL NO SIGNIFICANT INTERVAL CHANGE IN APPEARANCE OF THE CHEST. All labs, radiographs, diagnostic studies and EKGs were personally reviewed: Yes In addition, reports of radiographic and diagnostic studies were read: Yes Assessment and Plan - Diagnosis (1) Acute hypoxemic respiratory failure Is this a current diagnosis for this admission?: Yes Plan: Attempts were made to optimize the patient's ventilation again today, however we were unable to make any significant changes without a decrease in SPO2. Patient remains on pressure control with an inspiratory pressure of 30, PEEP 8, respiratory rate 16, 100% FiO2 to maintain SPO2 of 95%. (2) Asystole Is this a current diagnosis for this admission?: Yes Plan: Less frequent episodes of asystole/bradycardia today. Cordis in place if transvenous pacer needed. (3) Suspected COVID-19 virus infection Is this a current diagnosis for this admission?: Yes Plan: Patient with persistent respiratory failure in secondary to COVID-19 virus infection. Repeat COVID test came back today is negative. Plan Summary: ICU day: 20 Neuro: Patient remains responsive only to discomfort. She is on Versed at 10 and morphine at 5 mg/h. We will set a regimen of lightening her sedation daily, however, she will need to be sedated until her AA gradient improves and she requires less aggressive support on the ventilator. Pulmonary: Patient remains on pressure control ventilation with inspiratory p ressure 30, inspiratory time: 2.6 seconds, PEEP 8, respiratory rate 15, FiO2 100%. We have had difficulty over the past several days weaning her FiO2 and inspiratory time due to hypoxemia. This problem is compounded by her cardiac rhythm instability. We are weaning the Solu-Cortef and it was changed to 25 mg IV every 12 hours. Patient's lung compliance remains adequate. Her respiratory failure secondary to COVID-19 infection seems typical for this virus and is primarily hypoxemic. Of note, patient has developed a small endotracheal cuff air leak which is requiring 5 cc of air to be replaced occasionally. If airleak gets any worse, ET tube will need to be replaced. If not urgent to change the ETT, we will wait to see if repeat COVID tests come back negative. First test negative so far. Cardiovascular: Less frequent episodes of tachycardia/bradycardia today. Vascular pacing wires have been on standby and not placed due to their potential for causing further arrhythmias. Pacing mode available is set pacing only and does not sense. We will therefore only use intervascular pacing if patient has persistent asystole or complete heart block. Indwelling catheters: Cortis in the RIJ and TLC in RSC. No other signs of bleeding. Heme: As above, H&H has improved significantly. Now 11.33.7. DVT prophylaxis: Okay to resume Lovenox with no further bleeding of cordis site. Renal: Renal panel has been stable. Mildly elevated sodium level. BUN and creatinine are within normal limits. Gastrointestinal: Tube feeds restarted. No significant residuals. GI prophylaxis: Continue GI prophylaxis with Pepcid 20 mg p.o. every 12 hours. Current: Patient with a history of DM 2, on regular insulin sliding scale as well as Lantus. Tube feeds restarted. : Adams catheter in place. Purulent discharge from Adams catheter yesterday. Adams catheter was changed and imipenem/cilastatin was started. ID: WBC is stable at 12.6. No fever today. Antibiotics started as above for empiric treatment of UTI. Barriers to discharge from ICU: Patient still with COVID-19 related respiratory failure and severe refractory hypoxemia despite adequate ventilation. Now with cardiac rhythm instability. Critical Time Critical Time (minutes): 65 Level of Care: ICU -: 1. The care of a critical patient is a dynamic process. This note is a phone representative synopsis but static in nature. The timeframe for treatments given in order is not necessarily the actual time these treatments may have been done. 2. This patient requires critical care secondary to ongoing requirements for therapy not offered or safe outside the critical care environment. Transfer to a lower level of care will result in altered life or limb morbidity and mortality. 3. Multidisciplinary rounds completed. 4. ABCDE bundle addressed.
[2019-12-16] MEDS: MELATONIN 5 MG TABLET NG SCH (21:23)
[2019-12-17] MEDS: NICARDIPINE HCL RTU, ISO-OS 20 MG/200 ML RTUINJ IV PRN (01:25)
[2019-12-17] MEDS: INSULIN REG, HUMAN 100 UNIT/ML 3 ML VIAL (PYX) SUBCUT SCH ×4 (02:42→15:41)
[2019-12-17] MEDS ORDERED: MIDAZOLAM 2 MG/2 ML INJ IV ONE (03:00)
[2019-12-17] MEDS: IMIPENEM/CILASTATIN SODIUM 500 MG in NORMAL SALINE 100 ML IV SCH ×3 (03:07→15:42)
[2019-12-17] MEDS ORDERED: LORAZEPAM INJ 2 MG/1 ML VIAL IV ONE (03:10)
[2019-12-17] MEDS ORDERED: HYDRALAZINE HCL 50 MG TABLET NG ONE (03:10)
[2019-12-17 03:40] LABS: ARTERIAL BLOOD BASE EXCESS 1.7 mmol/L; ARTERIAL BLOOD H2CO3 1.78 mmol/L (1.05-1.35); ARTERIAL BLOOD O2 SATURATION 87.6 % (94-98); ARTERIAL BLOOD PH 7.31 (7.35-7.45); ARTERIAL BLOOD TOTAL CO2 30.8 mmol/L (21-25)
[2019-12-17 03:42] LABS: ARTERIAL BLOOD FIO2 100%
[2019-12-17 03:43] LABS: HEMATOCRIT 31.5 % (36.0-47.0); HEMOGLOBIN 10.5 g/dL (12.0-15.5); MEAN CORPUSCULAR HEMOGLOBIN 29.4 pg (27.0-33.4); MEAN CORPUSCULAR HGB CONC 33.2 g/dL (32.0-36.0); MEAN CORPUSCULAR VOLUME 89 fl (80-97); RED BLOOD COUNT 3.56 10^6/uL (3.72-5.28); WHITE BLOOD COUNT 10.5 10^3/uL (4.0-10.5)
[2019-12-17 03:54] LABS: PLATELET COUNT 88 10^3/uL (150-450)
[2019-12-17 04:03] LABS: BLOOD UREA NITROGEN 35 mg/dL (7-20); CALCIUM 8.1 mg/dL (8.4-10.2); CARBON DIOXIDE 35 mmol/L (22-30); CHLORIDE 112 mmol/L (98-107); GLUCOSE 140 mg/dL (75-110); POTASSIUM 3.8 mmol/L (3.6-5.0)
[2019-12-17 04:08] LABS: ABSOLUTE LYMPHOCYTES# (MANUAL) 0.2 10^3/uL (0.5-4.7); ABSOLUTE MONOCYTES # (MANUAL) 0.3 10^3/uL (0.1-1.4); BAND NEUTROPHILS % (MANUAL) 2 % (3-5); BASOPHILS % (MANUAL) 0 % (0-2); EOSINOPHILS % (MANUAL) 0 % (0-6); LYMPHOCYTES % (MANUAL) 2 % (13-45); MONOCYTES % (MANUAL) 3 % (3-13); SEGMENTED NEUTROPHILS % (MAN) 93 % (42-78); TOTAL CELLS COUNTED 100
[2019-12-17 04:11] LABS: ANION GAP 0 (5-19)
[2019-12-17 04:14] LABS: ANISOCYTOSIS 1+; PLATELET COMMENT DECREASED
[2019-12-17 04:15] LABS: SCHISTOCYTES SLIGHT
[2019-12-17] MEDS ORDERED: MIDAZOLAM 2 MG/2 ML INJ ONE (05:30)
[2019-12-17] MEDS ORDERED: VECURONIUM BROMIDE INJ 10 MG VIAL IV ONE ×2 (05:31→06:00)
[2019-12-17] MEDS: MINERAL OIL/PETROLATUM,WHITE OPH OINT 3.5 GM OU SCH ×2 (06:17→15:41)
[2019-12-17] MEDS: METHOCARBAMOL 500 MG TABLET NG SCH ×2 (06:18→15:41)
[2019-12-17] MEDS: HYDROCORTISONE SOD SUCCINATE INJ/PF 100 MG/2 ML SDV IV SCH (10:40)
[2019-12-17] MEDS: ENOXAPARIN SODIUM INJ 100 MG/1 ML DISP.SYRIN SUBCUT SCH (10:40)
[2019-12-17] MEDS: CHOLECALCIFEROL (D3) 1,000 UNIT (25 MCG) TABLET PO SCH (10:42)
[2019-12-17] MEDS: FAMOTIDINE 20 MG TABLET PO SCH (10:42)
[2019-12-17] MEDS: ASCORBIC ACID 500 MG TABLET NG SCH (10:43)
[2019-12-17] MEDS: ZINC SULFATE 220 MG CAPSULE NG SCH (10:43)
[2019-12-17] MEDS: INSULIN GLARGINE,HUM.REC.ANLOG 1,000 UNIT/10 ML VIAL SUBCUT SCH (10:56)
--- NOTE | 2019-12-17 11:59 | PDOC CRITICAL CARE PROG REPORT ---
General Date:: 12/17/19 ICU Day:: 21 Ventilator Day:: 21 Resuscitation Status: Full Code Medical Power of Technology Solutions Architect: DaughterXin Events in the past 12 to 24 Hours:: 12/11 Patient had significant bradycardia today with prolonged period of asystole and frequent periods of ventricular rhythm in the 40s. Cardiology consult was placed. 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 A right IJ Cordis was placed to facilitate the placement of transvenous pacing wires showed an emergent need be presented. 12/12 Overnight, patient had multiple episodes of bradycardia and asystole requiring 1 dose of atropine. Patient also had some bleeding from the new Cordis site. Follow-up CBC showed an acute anemia. 2 units PRBC have been ordered. 12/13 Patient again has had multiple episodes of bradycardia and asystole over the past 24 hours. Bleeding from Cordis site was controlled with localized pressure. CBC improved significantly. Patient has a endotracheal cuff leak which is requiring 5 to 10 cc of air to be added twice a day. Plan will be to replace ET tube if cuff leak worsens. 12/14 Still with occasional episodes of bradycardia and asystole. Unable to make any significant ventilator changes without desaturation. She unfortunately still requires an FiO2 greater than 90%. Repeat COVID tests are pending. We will change Solu-Cortef to every 12 and continue to wean. 12/15: Less frequent episodes of bradycardia and asystole. Large amount of sediment seen in urine. UA showed 3+ bacteria. Patient empirically started on imipenem/cilastatin. Urine culture sent. Attempts being made today again to t ry to reduce her FiO2. First repeat COVID test is negative. Solu-Cortef changed to every 12. 12/16: Over the past 24 hours, patient has had worsening hypoxemia despite increased ventilator support. Her FiO2 is now at 100%. Her ventilator is giving her maximum inspiratory time and pressures to aid in oxygenation. Despite this, her SPO2 remains at 68%. I have reached out to her family and expect to have a meeting with her children later today. I have explained that given this situation, it is inappropriate and will be ineffective to do cardiac compressions in the event that her heart were to stop from refractory hypoxemia. Review of systems relevant to events:: Please see complete review of systems below. Reason for ICU Addmission:: Acute hypoxic respiratory failure with SARS, 2- CoViD19. Intubated. Supine. - Medications: Medications reviewed and adjusted accordingly: Yes Physical Exam Vital Signs: Temp Pulse Resp BP Pulse Ox 95.4 F L 97 16 126/65 H 71 L 12/17/19 06:15 12/16/19 20:00 12/17/19 06:15 12/17/19 06:00 12/17/19 11:10 Intake & Output 12/16/19 12/17/19 12/18/19 06:59 06:59 06:59 Intake Total 2443 969 Output Total 1450 1165 250 Balance 993 -196 -250 Weight 124.5 kg 127.6 kg Weight/Height Weight 127.6 kg Height 5 ft 3 in General appearance: PRESENT: morbidly obese Head exam: PRESENT: atraumatic, normocephalic Eye exam: PRESENT: PERRLA Ear exam: PRESENT: normal external ear exam. ABSENT: bleeding, drainage Mouth exam: PRESENT: moist Neck exam: PRESENT: full ROM. ABSENT: carotid bruit, JVD Respiratory exam: PRESENT: decreased breath sounds Cardiovascular exam: PRESENT: bradycardia, irregular rhythm, tachycardia Vascular exam: PRESENT: normal capillary refill GI/Abdominal exam: PRESENT: diminished bowel sounds Extremities exam: PRESENT: +1 edema Musculoskeletal exam: PRESENT: normal inspection Neurological exam: PRESENT: altered, CN II-XII grossly intact Tubes/Lines: PRESENT: Endotracheal Tube, Central Line, Arterial Catheter Laboratory/Radiographs Laboratory Results: 12/17/19 03:30 12/17/19 03:30 12/17/19 12/17/19 12/17/19 03:30 03:30 03:30 WBC 10.5 RBC 3.56 L Hgb 10.5 L Hct 31.5 L MCV 89 MCH 29.4 MCHC 33.2 RDW 18.0 H Plt Count 88 L Seg Neutrophils % Not Reportable Carbonic Acid 1.78 H HCO3/H2CO3 Ratio 16:1 ABG pH 7.31 L ABG pCO2 59.0 H ABG pO2 59.0 L ABG HCO3 29.0 H ABG O2 Saturation 87.6 L ABG Base Excess 1.7 FiO2 100% Sodium 146.8 H Potassium 3.8 Chloride 112 H Carbon Dioxide 35 H Anion Gap 0 L BUN 35 H Creatinine 0.56 Est GFR ( Amer) > 60 Glucose 140 H Calcium 8.1 L 11/21/19 11/26/19 11/26/19 14:00 11:48 11:48 Creatine Kinase 105 CK-MB (CK-2) 0.87 Troponin I < 0.012 NT-Pro-B Natriuret Pep 32 11/26/19 11/26/19 11/27/19 22:45 22:45 04:45 Creatine Kinase 60 46 CK-MB (CK-2) 0.41 Troponin I 0.018 NT-Pro-B Natriuret Pep 11/27/19 04:45 Creatine Kinase CK-MB (CK-2) 0.47 Troponin I < 0.012 NT-Pro-B Natriuret Pep Impressions: Chest/Abdomen CTA 11/21/19 16:08 IMPRESSION: 1. Patchy peripheral and perihilar ground-glass opacities in both lungs. These are commonly reported imaging features of COVID-19 pneumonia are present. Other processes such as influenza pneumonia and organizing pneumonia, as can be seen with drug toxicity and connective tissue disease, can cause a similar imaging pattern. PneTyp 2. Limited evaluation of the pulmonary arteries due to contrast bolus timing. No large central pulmonary embolus. Evaluation of the segmental and subsegmental pulmonary arteries is limited. Chest X-Ray 12/12/19 00:00 IMPRESSION: NO PNEUMOTHORAX FOLLOWING CENTRAL LINE PLACEMENT. OVERALL NO SIGNIFICANT INTERVAL CHANGE IN APPEARANCE OF THE CHEST. All labs, radiographs, diagnostic studies and EKGs were personally reviewed: Yes In addition, reports of radiographic and diagnostic studies were read: Yes Assessment and Plan - Diagnosis (1) Acute hypoxemic respiratory failure Is this a current diagnosis for this admission?: Yes Plan: All modes of ventilation to optimize patient's oxygenation has been exhausted. Despite high inspiratory pressures, high mean airway pressures, 100% FiO2, patient remains with an SPO2 of 68%. There is been no change for several hours and I am concerned that the patient is not receiving adequate oxygenation to her vital organs including her brain. I have spoken with the family to update them on several occasions and will plan to have a family meeting this evening. If in the event of a cardiac arrest due to refractory hypoxemia, chest compressions would be futile due to a lack of ability to oxygenate. (2) Asystole Is this a current diagnosis for this admission?: Yes Plan: Less frequent episodes of asystole/bradycardia today. Cordis in place if transvenous pacer needed. (3) Suspected COVID-19 virus infection Is this a current diagnosis for this admission?: Yes Plan: Patient with persistent respiratory failure in secondary to COVID-19 virus infection. Second repeat COVID test was sent out today. Plan Summary: ICU day: 21 Neuro: Patient remains responsive only to discomfort. He has required sedation to maintain synchrony with current ventilator settings. Patient also received paralytics to help facilitate oxygenation. Unfortunately, there is a very high risk of neurologic ischemia given her prolonged refractory hypoxemia. Pulmonary: Patient remains on pressure control ventilation with inspiratory pressure 30, inspiratory time: 2.6 seconds, PEEP 8, respiratory rate 15, FiO2 100%. We have had difficulty over the past several days weaning her FiO2 and inspiratory time due to hypoxemia. Her refractory hypoxemia has unfortunately gotten worse and her SPO2 has been 68% for several hours today. I have spoken with the family on multiple occasions to keep him updated of her situation. Her prognosis at this point is extremely poor and I would recommend comfort measures. Cardiovascular: Less frequent episodes of tachycardia/bradycardia today. Vascular pacing wires have been on standby and not placed due to their potential for causing further arrhythmias. Pacing mode available is set pacing only and does not sense. We will therefore only use intervascular pacing if patient has persistent asystole or complete heart block. Indwelling catheters: Cortis in the RIJ and TLC in SVC. No signs of bleeding or infection. Heme: H&H remains stable DVT prophylaxis: Continue current dose of Lovenox. Renal: Renal panel has been stable. Mildly elevated sodium level. BUN and creatinine are within normal limits. Gastrointestinal: Tube feeds restarted. No significant residuals. GI prophylaxis: Continue GI prophylaxis with Pepcid 20 mg p.o. every 12 hours. Current: Patient with a history of DM 2, on regular insulin sliding scale as well as Lantus. Tube feeds restarted. : Adams catheter in place. Purulent discharge from Adams catheter yesterday. Adams catheter was changed and imipenem/cilastatin was started. ID: WBC is stable at 10.5. No fever today. Antibiotics started as above for empiric treatment of UTI. Barriers to discharge from ICU: Severe refractory hypoxemia with frequent cardiac arrhythmias. Critical Time Critical Time (minutes): 75 Level of Care: ICU -: 1. The care of a critical patient is a dynamic process. This note is a off premise service representative synopsis but static in nature. The timeframe for treatments given in order is not necessarily the actual time these treatments may have been done. 2. This patient requires critical care secondary to ongoing requirements for therapy not offered or safe outside the critical care environment. Transfer to a lower level of care will result in altered life or limb morbidity and mortality. 3. Multidisciplinary rounds completed. 4. ABCDE bundle addressed.
[2019-12-17] MEDS ORDERED: ATROPINE SULFATE INJ 1 MG/10 ML DISP.SYRIN IV ONE ×2 (12:21→12:51)
[2019-12-17] MEDS ORDERED: NOREPINEPHRINE BITARTRATE INJ/PF 4 MG/4 ML SDV IV ONE (12:46)
[2019-12-17 16:01] VITALS: BP 135/22
[2019-12-17] MEDS ORDERED: DOPAMINE HCL/D5W 800 MG/250 ML RTU BAG IV ONE (16:19)
[2019-12-17] MEDS ORDERED: EPINEPHRINE INJ 1 MG/10 ML DISP.SYRIN ONE (16:19)
== END 2019-12-17 18:10 | DRG 870 ==
LOC: ER 13:57 → EH 17:47 → 5 20:06 → ICU 11-26 11:56
PROVIDERS: ADMIT Internal Medicine Critical Care Medicine; ATTEND Internal Medicine Critical Care Medicine
PROC: 5A1955Z Respiratory Ventilation, Greater than 96 Consecutive Hours (ICD-10-PCS; principal; 2019-11-26)
PROC: 0BH17EZ Insertion of Endotracheal Airway into Trachea, Via Natural or Artificial Opening (ICD-10-PCS; 2019-11-26)
PROC: 05H533Z Insertion of Infusion Device into Right Subclavian Vein, Percutaneous Approach (ICD-10-PCS; 2019-11-26)
PROC: 03HY32Z Insertion of Monitoring Device into Upper Artery, Percutaneous Approach (ICD-10-PCS; 2019-11-26)
PROC: 4A133B1 Monitoring of Arterial Pressure, Peripheral, Percutaneous Approach (ICD-10-PCS; 2019-11-26)
PROC: 4A133J1 Monitoring of Arterial Pulse, Peripheral, Percutaneous Approach (ICD-10-PCS; 2019-11-26)
PROC: 03HY32Z Insertion of Monitoring Device into Upper Artery, Percutaneous Approach (ICD-10-PCS; 2019-11-27)
PROC: 06HM33Z Insertion of Infusion Device into Right Femoral Vein, Percutaneous Approach (ICD-10-PCS; 2019-11-27)
PROC: 30233N1 Transfusion of Nonautologous Red Blood Cells into Peripheral Vein, Percutaneous Approach (ICD-10-PCS; 2019-12-07)
PROC: 05HM33Z Insertion of Infusion Device into Right Internal Jugular Vein, Percutaneous Approach (ICD-10-PCS; 2019-12-12)
PROC: 30233N1 Transfusion of Nonautologous Red Blood Cells into Peripheral Vein, Percutaneous Approach (ICD-10-PCS; 2019-12-13)
DX: A41.89 Other specified sepsis (principal); U07.1 COVID-19; J18.9 Pneumonia, unspecified organism; J96.01 Acute respiratory failure with hypoxia; R65.21 Severe sepsis with septic shock; T82.594A Other mechanical complication of infusion catheter, initial encounter; E87.2 Acidosis; T79.7XXA Traumatic subcutaneous emphysema, initial encounter; E87.0 Hyperosmolality and hypernatremia; J45.909 Unspecified asthma, uncomplicated; I10 Essential (primary) hypertension; E11.65 Type 2 diabetes mellitus with hyperglycemia; E78.5 Hyperlipidemia, unspecified; E66.01 Morbid (severe) obesity due to excess calories; I46.9 Cardiac arrest, cause unspecified; D64.9 Anemia, unspecified
CPT/HCPCS: 31500; 36415; 36430; 36556; 36600; 36620; 71045; 71275; 80048; 80053; 80202; 81001; 82150; 82533; 82550; 82553; 82728; 82803; 82962; 83520; 83605; 83615; 83690; 83735; 83880; 84100; 84145; 84478; 84484; 85025; 85379; 85610; 85730; 86140; 86850; 86900; 86901; 86920; 87040; 87045; 87070; 87077; 87150; 87186; 87205; 87324; 87449; 87486; 87581; 87633; 87635; 87798; 87804; 87880; 92950; 93005; 93010; 94002; 94003; 94640; 96360; 96372; 99285; 99291; 99292; J0171; J0360; J0456; J0461; J0692; J0696; J0743; J1170; J1265; J1650; J1720; J1815; J1940; J2020; J2060; J2250; J2270; J2704; J2997; J3010; J3105; J3370; J3480; J3490; J7030; J7040; J7050; J7060; J7120; J7620; P9016; P9041; P9047; S0119